=== PATIENT | male | born 1965 | race Caucasian/White ===

== ENCOUNTER 2020-05-07 20:37 | Inpatient (IN) | payer BC, OTHER ==
[2020-05-07] MEDS: NORMAL SALINE 1000 ML 1,000 ML IV PRN ×2 (20:45→22:00)
[2020-05-07] MEDS ORDERED: CALCIUM GLUCONATE 1000 MG/10 ML INJ IV ONE ×4 (20:56→22:00)
[2020-05-07] MEDS ORDERED: NALOXONE HCL INJ 2 MG/2 ML DISP.SYRIN ONE (20:56)
[2020-05-07] MEDS ORDERED: NALOXONE HCL INJ/PF 0.4 MG/1 ML SDV IV ONE (20:58)
[2020-05-07] MEDS ORDERED: LORAZEPAM INJ 2 MG/1 ML VIAL IV ONE (20:58)
[2020-05-07] MEDS ORDERED: ALBUTEROL SULFATE 0.083% NEB 2.5 MG/3 ML AMPUL NEB ONE ×3 (21:40→22:42)
[2020-05-07] MEDS ORDERED: CALCIUM CHLORIDE 10% PF/INJ 1000 MG/10 ML SDV IV ONE (21:40)
[2020-05-07] MEDS ORDERED: DEXTROSE 50%-WATER 25 GM/50 ML DISP.SYRIN IV ONE ×2 (21:42→22:45)
[2020-05-07] MEDS ORDERED: INSULIN REG, HUMAN 100 UNIT/ML 3 ML VIAL (PYX) IV ONE ×2 (21:42→22:42)
--- NOTE | 2020-05-07 21:45 | RADIOLOGY REPORT (SQ) ---
EXAM DESCRIPTION: CT HEAD WITHOUT IV CONTRAST COMPLETED DATE/TME: 05/07/2020 21:15 CLINICAL HISTORY: 54 years, Male, trauma sZ COMPARISON: None. TECHNIQUE: Axial images without IV contrast. Sagittal coronal reconstruction. Images stored on PACS. All CT scanners at this facility use dose modulation, iterative reconstruction, and/or weight based dosing when appropriate to reduce radiation dose to as low as reasonably achievable (ALARA). FINDINGS: Normal size ventricles. No evidence for cortical atrophy. Tiny cavum septa pellucida normal midline variant. Subtle small symmetrical low densities in the internal capsule bilaterally. No acute intra-axial or extra-axial abnormality. Paranasal sinuses, mastoid air cells and bony calvarium are unremarkable. IMPRESSION: 1. Nonspecific subtle low densities in the internal capsule bilaterally. 2. No acute findings. TECHNICAL DOCUMENTATION: Quality ID # 436: Final reports with documentation of one or more dose reduction techniques (e.g., Automated exposure control, adjustment of the mA and/or kV according to patient size, use of iterative reconstruction technique) copyright 2011 [employer]- All Rights Reserved
[2020-05-07] MEDS ORDERED: SODIUM BICARBONATE 8.4% INJ 50 MEQ/50 ML DISP.SYRIN ONE ×2 (21:46→22:47)
[2020-05-07 21:47] LABS: HEMATOCRIT 45.6 % (37.9-51.0); HEMOGLOBIN 14.6 g/dL (13.5-17.0); INTERNATIONAL RATION (INR) 0.95; MEAN CORPUSCULAR HGB CONC 32.1 g/dL (32.0-36.0); MEAN CORPUSCULAR VOLUME 94 fl (80-97); PROTHROMBIN TIME 12.9 SEC (11.4-15.4); RED BLOOD COUNT 4.87 10^6/uL (4.35-5.55); RED CELL DISTRIBUTION WIDTH 16.3 % (11.5-14.0); WHITE BLOOD COUNT 9.4 10^3/uL (4.0-10.5)
[2020-05-07 21:48] LABS: PARTIAL THROMBOPLASTIN TIME 31.5 SEC (23.5-35.8)
[2020-05-07 21:48] LABS: APPEARANCE,URINE SLIGHTLY-CLOUDY; BILIRUBIN,URINE NEGATIVE (NEGATIVE); COLOR,URINE YELLOW; GLUCOSE, URINE 50 mg/dL (NEGATIVE); KETONES,URINE NEGATIVE (NEGATIVE); PROTEIN,URINE 30 mg/dL (NEGATIVE); UROBILINOGEN,URINE NEGATIVE mg/dL (<2.0)
--- NOTE | 2020-05-07 21:48 | RADIOLOGY REPORT (SQ) ---
EXAM DESCRIPTION: CT CERVICAL SPINE WITHOUT IV CONTRAST COMPLETED DATE/TME: 05/07/2020 21:15 CLINICAL HISTORY: 54 years, Male, trauma sZ COMPARISON: None. TECHNIQUE: Axial images without IV contrast. Sagittal coronal reconstruction. Images stored on PACS. All CT scanners at this facility use dose modulation, iterative reconstruction, and/or weight based dosing when appropriate to reduce radiation dose to as low as reasonably achievable (ALARA). FINDINGS: No evidence for fracture dislocation. No suspicious prevertebral soft tissue swelling. Degenerative changes without significant central stenosis. Mild foraminal stenosis at C6 on the left. Anterior osteophytes. IMPRESSION: No acute findings in the cervical spine. TECHNICAL DOCUMENTATION: Quality ID # [id number]: Final reports with documentation of one or more dose reduction techniques (e.g., Automated exposure control, adjustment of the mA and/or kV according to patient size, use of iterative reconstruction technique) copyright 2010 [employer]- All Rights Reserved
--- NOTE | 2020-05-07 21:48 | RADIOLOGY REPORT (SQ) ---
EXAM DESCRIPTION: Site: CHEST SINGLE VIEW RP: XR CHEST 1 VIEW CLINICAL HISTORY: 54 years Male; unresponsive ; COMPARISON: None. FINDINGS: Lungs: Lungs are clear, with no focal infiltrate, pneumothorax, or pleural effusion. Mediastinum: Mediastinum is within normal limits for this positioning. Bones: Bony structures are unremarkable. IMPRESSION: 1. No acute pulmonary findings.
[2020-05-07] MEDS ORDERED: FENTANYL CITRATE INJ/PF 100 MCG/2 ML AMPUL ONE (21:52)
[2020-05-07 21:54] LABS: VENOUS BLOOD BASE EXCESS -10.4 mmol/L; VENOUS BLOOD HCO3 20.7 mmol/L (20-32)
[2020-05-07 21:58] LABS: VENOUS BLOOD PCO2 70.9 mmHg (35-63); VENOUS BLOOD PH 7.08 (7.30-7.42)
[2020-05-07 22:04] LABS: ABSOLUTE LYMPHOCYTES# (MANUAL) 0.2 10^3/uL (0.5-4.7); ABSOLUTE MONOCYTES # (MANUAL) 2.2 10^3/uL (0.1-1.4); BAND NEUTROPHILS % (MANUAL) 5 % (3-5); BASOPHILS % (MANUAL) 0 % (0-2); EOSINOPHILS % (MANUAL) 0 % (0-6); LYMPHOCYTES % (MANUAL) 2 % (13-45); MONOCYTES % (MANUAL) 23 % (3-13); SEGMENTED NEUTROPHILS % (MAN) 70 % (42-78); TOTAL CELLS COUNTED 100
[2020-05-07] MEDS ORDERED: MIDAZOLAM HCL 50 MG/100 ML RTUINJ IV PRN (22:05)
[2020-05-07 22:06] LABS: ANISOCYTOSIS SLIGHT; PLATELET CLUMPS PRESENT; PLATELET COMMENT ADEQUATE; TOXIC GRANULATION SLIGHT; TOXIC VACUOLATION PRESENT
[2020-05-07] MEDS ORDERED: FENTANYL CITRATE INJ/PF 100 MCG/2 ML AMPUL IV ONE (22:06)
[2020-05-07] MEDS ORDERED: VECURONIUM BROMIDE INJ 10 MG VIAL IV ONE (22:06)
[2020-05-07 22:07] LABS: PLATELET COUNT 184 10^3/uL (150-450)
[2020-05-07] MEDS ORDERED: MIDAZOLAM 2 MG/2 ML INJ IV ONE (22:07)
[2020-05-07] MEDS ORDERED: MAGNESIUM SULFATE/D5W 1 GM/100 ML RTUPB IV ONE (22:08)
[2020-05-07 22:11] LABS: URINE AMPHETAMINES SCREEN NEGATIVE; URINE BARBITURATES SCREEN NEGATIVE; URINE BENZODIAZEPINES SCREEN NEGATIVE; URINE COCAINE SCREEN NEGATIVE; URINE MARIJUANA (THC) SCREEN NEGATIVE; URINE METHADONE SCREEN NEGATIVE; URINE PHENCYCLIDINE SCREEN NEGATIVE
[2020-05-07 22:14] LABS: ALBUMIN 4.6 g/dL (3.5-5.0); ALKALINE PHOSPHATASE 136 U/L (38-126); ANION GAP 19 (5-19); BILIRUBIN,DIRECT 0.5 mg/dL (0.0-0.4); BILIRUBIN,TOTAL 0.8 mg/dL (0.2-1.3); BLOOD UREA NITROGEN 37 mg/dL (7-20); CALCIUM 7.8 mg/dL (8.4-10.2); CARBON DIOXIDE 16 mmol/L (22-30); CHLORIDE 94 mmol/L (98-107); GLUCOSE 194 mg/dL (75-110); PHOSPHORUS 11.9 mg/dL (2.5-4.5)
--- NOTE | 2020-05-07 22:21 | EKG REPORT ---
SEVERITY:- ABNORMAL ECG - SINUS RHYTHM FIRST DEGREE AV BLOCK RBBB AND LPFB PROBABLE INFERIOR INFARCT, AGE INDETERMINATE ? 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
--- NOTE | 2020-05-07 22:21 | EKG REPORT ---
SEVERITY:- ABNORMAL ECG - ATRIAL FIBRILLATION VENTRICULAR PREMATURE COMPLEX NONSPECIFIC INTRAVENTRICULAR CONDUCTION DELAY EXTENSIVE ANTERIOR INFARCT, POSSIBLY ACUTE : Confirmed by: Doreen Ward MD 07-May-2020 22:20:58
--- NOTE | 2020-05-07 22:23 | EKG REPORT ---
SEVERITY:- ABNORMAL ECG - SINUS RHYTHM NONSPECIFIC INTRAVENTRICULAR CONDUCTION DELAY ? BRUGADA SYNDROME : Confirmed by: Doreen Ward MD 07-May-2020 22:21:35
[2020-05-07 22:32] LABS: ASPARTATE AMINO TRANSFERASE 1461 U/L (17-59)
[2020-05-07 22:35] LABS: ACETAMINOPHEN < 10 ug/mL (10-30); ALCOHOL < 10 mg/dL (NONE DETECTED); SALICYLATE < 1.0 mg/dL (2.0-20.0)
[2020-05-07 22:36] LABS: POTASSIUM 9.4 mmol/L (3.6-5.0)
[2020-05-07] MEDS ORDERED: DEXTROSE 5%-WATER 1000 ML 1,000 ML with SODIUM BICARBONATE 100 MEQ IV PRN ×2 (22:38)
[2020-05-07] MEDS ORDERED: FUROSEMIDE INJ/PF 100 MG/10 ML SDV IV ONE (22:50)
[2020-05-07] MEDS ORDERED: RINGERS SOLUTION,LACTATED 1,000 ML IV PRN ×2 (22:50→23:20)
--- NOTE | 2020-05-07 22:50 | ER Document Report ---
ED General - General Chief Complaint: Unresponsive Stated Complaint: POSSIBLE OVERDOSE Notes: 54-year-old male history of hypertension, gout, chronic opioid use for ankle pain, heavy daily alcohol use presents with altered mental status x1 day. 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 Patient's says that she went back to check on him shortly before activating EMS and he was still sitting up but completely unresponsive to her, she says t hat his pupils were constricted, and she called EMS. EMS says that patient was obtunded, was given Narcan in the field which he initially seemed to have response to but then became obtunded again and had some seizure-like movements in route. Patient was ventilated with BVM but never had a loss of pulses. Was hyperglycemic in the field. Patient's denies patient having any recent illness, complaining of any chest pain, headache, neck pain, fever, diarrhea or vomiting, renal history (says that he has had multiple episodes of kidney stones in the past but no recent issues and no renal insufficiency history). Patient's said patient just refilled his hydrocodone and that when she looked at his pills they were 1 or 2 days fewer pills than she should have still had. Has had a history of overuse of prescribed opioids. History limited by patient's altered mental status. - Related Data Allergies/Adverse Reactions: No Known Allergies Allergy (Unverified 05/07/20 21:20) Past Medical History - Social History Smoking Status: Unknown if Ever Smoked Frequency of alcohol use: Heavy Drug Abuse: Prescription drugs Family History: Other - Unable Review of Systems - Review of Systems -: Yes ROS unobtainable due to patient's medical condition Physical Exam - Vital signs Vitals: Resp Pulse Ox 14 79 L 05/07/20 20:40 05/07/20 20:40 - Notes Notes: PHYSICAL EXAMINATION: GENERAL: Awake responsive obtunded middle-aged man HEAD: Atraumatic, normocephalic. EYES: Pupils equal round, constricted, sclera anicteric, conjunctiva are normal. ENT: nares patent, moist mucous membranes. NECK: Normal range of motion, supple without lymphadenopathy LUNGS: Breath sounds clear to auscultation bilaterally and equal. No wheezes rales or rhonchi. Protecting airway, normal respiratory excursion and rate, nor mal respiratory effort HEART: Regular rate and rhythm without murmurs ABDOMEN: Soft, nontender, no guarding, no masses, no CVAT EXTREMITIES: Normal range of motion, no pitting or edema. No cyanosis. NEUROLOGICAL: Obtunded, but easily rousable, moaning to pain SKIN: Warm, Dry, normal turgor, no rashes or lesions noted. Course - Re-evaluation Re-evalutation: 05/07/20 23:36 patient had rhythm change on monitor shortly after initial EKG was taken and second EKG was obtained which showed wide-complex concerning for possible hyperkalemia so calcium gluconate 3 g was given and EKG was repeated which showed narrowing of complex and concerning ST changes in V1 through V4 without any reciprocal abnormalities. I spoke to Dr. Ahn regarding this and he evaluated EKGs and we were in agreement that findings were more likely secondary to metabolic/electrolyte abnormalities and not primary cardiac ischemia. Dr. Ward called later after looking at EKGs also and thought that the third EKG possibly showed signs of Brugada, however given patient presentation and significant concerns for other metabolic factors affecting cardiac electrolyte channels agreed that these abnormalities should be corrected before patient needs to have evaluation by EP. I discussed Dr. Nuñez's concern for Brugada with Marissa Ly who will follow this up. Also informed Marissa Ly of patient's potassium of 9.4. Patient accepted to ICU. I have redosed calcium gluconate and patient is being prepared for transfer at this time. Unclear what the etiology is at this time, patient with prior history of kidney stones but no symptoms during the current presentation. Patient intubated without complication on first pass with confirmation by bilateral lung sounds, color change capnography, and patient had no significant desaturations during intubation. - Vital Signs Vital signs: Temp Pulse Resp BP Pulse Ox 101.7 F H 93 7 L 116/84 100 05/09/20 01:48 05/08/20 22:00 05/08/20 20:30 05/08/20 22:01 05/08/20 19:56 - Laboratory Results Result Diagrams: 05/08/20 04:00 05/08/20 22:49 Laboratory Results Interpreted: 05/07/20 05/07/20 05/07/20 20:41 20:42 20:42 RDW 16.3 H Lymphocytes % (Manual) 2 L Monocytes % (Manual) 23 H Abs Lymphs (Manual) 0.2 L Abs Monocytes (Manual) 2.2 H ABG pH ABG pO2 ABG HCO3 ABG Total CO2 ABG O2 Saturation VBG pH VBG pCO2 Sodium 129.2 L Potassium 9.4 H* Chloride 94 L Carbon Dioxide 16 L BUN 37 H Creatinine 4.03 H Est GFR ( Amer) 19 L Est GFR (MDRD) Non-Af 16 L Glucose 194 H POC Glucose 201 H Lactic Acid Calcium 7.8 L Phosphorus 11.9 H Magnesium 2.8 H Direct Bilirubin 0.5 H AST 1461 H ALT 209 H Alkaline Phosphatase 136 H Creatine Kinase 23966 H Urine Protein Urine Glucose (UA) Salicylates < 1.0 L Acetaminophen < 10 L 05/07/20 05/07/20 05/07/20 21:30 21:40 21:40 RDW Lymphocytes % (Manual) Monocytes % (Manual) Abs Lymphs (Manual) Abs Monocytes (Manual) ABG pH ABG pO2 ABG HCO3 ABG Total CO2 ABG O2 Saturation VBG pH 7.08 L* VBG pCO2 70.9 H* Sodium Potassium Chloride Carbon Dioxide BUN Creatinine Est GFR ( Amer) Est GFR (MDRD) Non-Af Glucose POC Glucose Lactic Acid 4.5 H Calcium Phosphorus Magnesium Direct Bilirubin AST ALT Alkaline Phosphatase Creatine Kinase Urine Protein 30 H Urine Glucose (UA) 50 H Salicylates Acetaminophen 05/07/20 23:03 RDW Lymphocytes % (Manual) Monocytes % (Manual) Abs Lymphs (Manual) Abs Monocytes (Manual) ABG pH 7.21 L ABG pO2 250.5 H ABG HCO3 16.2 L ABG Total CO2 17.5 L ABG O2 Saturation 99.4 H VBG pH VBG pCO2 Sodium Potassium Chloride Carbon Dioxide BUN Creatinine Est GFR ( Amer) Est GFR (MDRD) Non-Af Glucose POC Glucose Lactic Acid Calcium Phosphorus Magnesium Direct Bilirubin AST ALT Alkaline Phosphatase Creatine Kinase Urine Protein Urine Glucose (UA) Salicylates Acetaminophen Critical Laboratory Results Reviewed: Yes Attending or Supervising Physician who Reviewed Labs: KIRAN JAEGER - Radiology Results Critical Radiology Results Reviewed: No Critical Results - EKG Interpretation by Me Additional EKG results interpreted by me: 05/09/20 02:12 Initial EKG: Not crossed over to [employer], sinus versus junctional rhythm, no significant ST elevations or depressions, narrow complex, normal intervals Second EKG: Wide-complex rhythm, normal rate, fusion of QRSand T waves, prolonged QTC Third EKG: Complex narrowing, equivocal ST abnormalities in precordial leads possible Brugada, QTC 505 Procedures - Intubation Orotracheal Time of Intubation: 23:30 - 05/07/20 Airway evaluation: Normal anatomy Medications: Etomidate, Fentanyl, Vecuronium Intubation method: Orotracheal Blade type: Ana Blade size: 4 Equipment used: Glidescope ETT size: 8.0 ETT secured at: Lips ETT secured at (cm): 26 Breath Sounds after Intubation: Equal End tidal CO2 confirmed: Yes Ventilator settings: SIMV Post Intubation Xray: Yes Intubation Complications: No complications Critical Care Note - Critical Care Note Total time excluding time spent on procedures (mins): 75 - Spent time repeatedly reassessing and stabilizing critical patient with a severe hyperkalemia Discharge - Discharge Clinical Impression: Hyperkalemia Altered mental status Qualifiers: Altered mental status type: unspecified Qualified Code(s): R41.82 - Altered mental status, unspecified Condition: Critical Disposition: ADMITTED INPATIENT Admitting Provider: Vielka [facility] Admitted: ICU
--- NOTE | 2020-05-07 23:05 | RADIOLOGY REPORT (SQ) ---
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 Comparison: Chest radiograph performed 05/07/2020. Findings: The cardiomediastinal silhouette is enlarged. No pneumothorax is seen. There are bibasilar airspace opacities present. There is blunting of both costophrenic angles, suggestive of trace effusions. An endotracheal tube tip projects approximately 3.0 cm above the emma. The nasogastric tube traverses below the left hemidiaphragm. The side port projects at the stomach. The tip is not seen. Impression: There are bibasilar airspace opacities with trace effusions. These may reflect atelectasis or infection.
[2020-05-07 23:12] LABS: CREATINE KINASE 91787 U/L (55-170)
[2020-05-07] MEDS ORDERED: NORMAL SALINE 1000 ML 1,000 ML IV PRN (23:17)
[2020-05-07] MEDS ORDERED: IPRATROPIUM/ALBUTEROL 0.5-2.5 MG/3 ML AMPUL NEB PRN (23:20)
[2020-05-07] MEDS ORDERED: PROPOFOL 1,000 MG/100 ML INFUS..BTL IV PRN (23:20)
[2020-05-07] MEDS ORDERED: ACETAMINOPHEN 650 MG SUPP.RECT PR PRN (23:20)
[2020-05-07 23:25] LABS: ARTERIAL BLOOD FIO2 100%; ARTERIAL BLOOD H2CO3 1.24 mmol/L (1.05-1.35); ARTERIAL BLOOD HCO3 16.2 mmol/L (20-24); ARTERIAL BLOOD O2 SATURATION 99.4 % (94-98); ARTERIAL BLOOD PCO2 41.2 mmHg (35-45); ARTERIAL BLOOD PH 7.21 (7.35-7.45); ARTERIAL BLOOD PO2 250.5 mmHg (80-100); ARTERIAL BLOOD TOTAL CO2 17.5 mmol/L (23-27)
[2020-05-08 00:07] LABS: ARTERIAL BLOOD BASE EXCESS -12.3 mmol/L; ARTERIAL BLOOD H2CO3 1.48 mmol/L (1.05-1.35); ARTERIAL BLOOD HCO3 16.6 mmol/L (20-24); ARTERIAL BLOOD O2 SATURATION 98.7 % (94-98); ARTERIAL BLOOD PCO2 49.2 mmHg (35-45); ARTERIAL BLOOD PO2 169.3 mmHg (80-100); ARTERIAL BLOOD TOTAL CO2 18.1 mmol/L (23-27)
[2020-05-08 00:08] LABS: ARTERIAL BLOOD FIO2 100%; ARTERIAL BLOOD PH 7.15 (7.35-7.45)
[2020-05-08] MEDS ORDERED: SODIUM BICARBONATE 8.4% INJ 50 MEQ/50 ML DISP.SYRIN ONE ×3 (00:12→03:43)
[2020-05-08] MEDS ORDERED: SODIUM BICARBONATE 8.4% INJ 50 MEQ/50 ML DISP.SYRIN IV ONE ×5 (00:15→03:45)
[2020-05-08] MEDS ORDERED: LORAZEPAM INJ 2 MG/1 ML VIAL IV ONE ×2 (00:23→00:40)
[2020-05-08] MEDS: LORAZEPAM INJ 2 MG/1 ML VIAL IV ONE ×2 (00:23→06:00)
[2020-05-08] MEDS ORDERED: LORAZEPAM INJ 2 MG/1 ML VIAL ONE ×2 (00:23→00:38)
[2020-05-08] MEDS ORDERED: PROPOFOL 1,000 MG/100 ML INFUS..BTL IV ONE (00:49)
[2020-05-08] MEDS ORDERED: NORMAL SALINE 1000 ML 1,000 ML IV ONE ×2 (00:50→02:00)
[2020-05-08] MEDS: PROPOFOL 1,000 MG/100 ML INFUS..BTL IV PRN ×3 (00:55→22:00)
[2020-05-08] MEDS ORDERED: NOREPINEPHRINE BITARTRATE INJ/PF 4 MG/4 ML SDV IV ONE (01:13)
[2020-05-08] MEDS ORDERED: VECURONIUM BROMIDE INJ 10 MG VIAL IV ONE (01:24)
[2020-05-08] MEDS ORDERED: ETOMIDATE INJ/PF 20 MG/10 ML SDV IV ONE (01:24)
[2020-05-08] MEDS: DEXTROSE 5%-WATER 250 ML with NOREPINEPHRINE BITARTRATE 4 MG IV PRN ×6 (02:30→19:15)
[2020-05-08] MEDS ORDERED: CALCIUM CHLORIDE 10% PF/INJ 1000 MG/10 ML SDV IV ONE (03:00)
[2020-05-08] MEDS ORDERED: DEXTROSE 50%-WATER 25 GM/50 ML DISP.SYRIN IV ONE ×2 (03:00→03:13)
[2020-05-08] MEDS ORDERED: INSULIN REG, HUMAN 100 UNIT/ML 3 ML VIAL (PYX) SUBCUT ONE (03:00)
[2020-05-08] MEDS ORDERED: INSULIN REG, HUMAN 100 UNIT/ML 3 ML VIAL (PYX) ONE (03:11)
[2020-05-08] MEDS ORDERED: CALCIUM GLUCONATE 1000 MG/10 ML INJ IV ONE (03:14)
[2020-05-08 04:56] LABS: HEMOGLOBIN 13.8 g/dL (13.5-17.0); MEAN CORPUSCULAR HEMOGLOBIN 29.1 pg (27.0-33.4); MEAN CORPUSCULAR HGB CONC 31.4 g/dL (32.0-36.0); MEAN CORPUSCULAR VOLUME 93 fl (80-97); PLATELET COUNT 134 10^3/uL (150-450); RED BLOOD COUNT 4.75 10^6/uL (4.35-5.55); RED CELL DISTRIBUTION WIDTH 16.3 % (11.5-14.0); WHITE BLOOD COUNT 9.5 10^3/uL (4.0-10.5)
--- NOTE | 2020-05-08 05:17 | RADIOLOGY REPORT (SQ) ---
CHEST X-RAY 1 VIEW on 05/08/2020 at 1:33 AM CLINICAL INDICATION: Respiratory failure, intubated, line placement COMPARISON: 05/07/2020 FINDINGS: ET tube tip is in the mid thoracic trachea. NG tube extends below the diaphragm and below the level of this film. A few wires are noted projecting over the chest. New right IJ central venous catheter tip is in the right atrium. There is mild elevation of the right hemidiaphragm. There are continued bilateral lower lung opacities consistent with atelectasis and/or pneumonia. Heart is within normal limits for size. There is no pneumothorax. IMPRESSION: New right IJ catheter tip in the right atrium with no pneumothorax and otherwise no significant change.
[2020-05-08 05:19] LABS: ABSOLUTE LYMPHOCYTES# (MANUAL) 0.5 10^3/uL (0.5-4.7); ABSOLUTE MONOCYTES # (MANUAL) 0.6 10^3/uL (0.1-1.4); BAND NEUTROPHILS % (MANUAL) 9 % (3-5); BASOPHILS % (MANUAL) 0 % (0-2); EOSINOPHILS % (MANUAL) 0 % (0-6); LYMPHOCYTES % (MANUAL) 5 % (13-45); MONOCYTES % (MANUAL) 6 % (3-13); SEGMENTED NEUTROPHILS % (MAN) 80 % (42-78); TOTAL CELLS COUNTED 100
[2020-05-08 05:20] LABS: ALBUMIN 2.5 g/dL (3.5-5.0); ALKALINE PHOSPHATASE 97 U/L (38-126); AMYLASE 156 U/L (30-110); ANION GAP 16 (5-19); ANISOCYTOSIS 1+; BILIRUBIN,DIRECT 0.3 mg/dL (0.0-0.4); BILIRUBIN,TOTAL 0.7 mg/dL (0.2-1.3); BLOOD UREA NITROGEN 40 mg/dL (7-20); BURR CELLS SLIGHT; CALCIUM 7.2 mg/dL (8.4-10.2); CARBON DIOXIDE 16 mmol/L (22-30); CHLORIDE 103 mmol/L (98-107); CHOLESTEROL 81.39 mg/dL (0-200); GLUCOSE 250 mg/dL (75-110); OVALOCYTES SLIGHT; POIKILOCYTOSIS SLIGHT; POLYCHROMASIA SLIGHT; SCHISTOCYTES SLIGHT; TOTAL PROTEIN 4.9 g/dL (6.3-8.2); TOXIC GRANULATION SLIGHT; TRIGLYCERIDES 209 mg/dL (<150)
--- NOTE | 2020-05-08 05:20 | CRITICAL CARE ADMISSION REPORT ---
HPI Date:: 05/07/20 Time:: 23:00 Reason for ICU Reason:: Altered MS, Acute Resp. Failure, Opiod OD, Abnormal EKG ( wide complex ) Admission Date/Time & PCP: Admission Date/Time: 05/07/20 23:08 Primary Care Provider: ANTONIO MAJOR MD HPI: 54-year-old male history of hypertension, gout, chronic opioid use for ankle pain, heavy daily alcohol use presents with altered mental status x1 day. 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 Patient's says that she went back to check on him shortly before activating EMS and he was still sitting up but completely unresponsive to her, she says that his pupils were constricted, and she called EMS. EMS says that patient was obtunded, was given Narcan in the field which he initially seemed to have response to but then became obtunded again and had some seizure-like movements in route. Patient was ventilated with BVM but never had a loss of pulses. Was hyperglycemic in the field. Patient's denies patient having any recent illness, complaining of any chest pain, headache, neck pain, fever, diarrhea or vomiting, renal history (says that he has had multiple episodes of kidney stones in the past but no recent issues and no renal insufficiency history). Patient's said patient just refilled his hydrocodone and that when she looked at his pills they were 1 or 2 days fewer pills than she should have still had. Has had a history of overuse of prescribed opioids. History limited by patient's altered mental status. He received another dose of narcan which did not helped, he remains obtunded then required to be intubated to protect his airways. His EKG noted a widening rhtymn which dissipated after a dose of calcium IV, mostly @ V1 - V3. History obtained from:: - Diagnosis/Plan (1) Overdose Qualifiers: Encounter type: subsequent encounter Injury intent: accidental or unintentional Qualified Code(s): T50.901D - Poisoning by unspecified drugs, medicaments and biological substances, accidental (unintentional), subsequent encounter Is this a current diagnosis for this admission?: Yes Plan: Patient arrived altered mental state. Intubated for airway protection. ABG to correct and monitor acidosis. (2) Respiratory failure with hypoxia and hypercapnia Qualifiers: Chronicity: acute Qualified Code(s): J96.01 - Acute respiratory failure with hypoxia; J96.02 - Acute respiratory failure with hypercapnia Is this a current diagnosis for this admission?: Yes Plan: Intubated due to altered MS and obtunded. ABG - adjust MV settings (3) EtOH dependence Qualifiers: Substance use status: unspecified alcohol-induced disorder Qualified Code(s): F10.29 - Alcohol dependence with unspecified alcohol-induced disorder Is this a current diagnosis for this admission?: Yes Plan: Per he consumes 1/2 gallon of crown whiskey every other day. (4) EKG, abnormal Is this a current diagnosis for this admission?: Yes Plan: Abnormal EKG upon arrival in the ED with elevated ST @ V1- V3. Resolved after c a+ and Nahco3 IV given (5) Altered mental status Qualifiers: Altered mental status type: unspecified Qualified Code(s): R41.82 - Altered mental status, unspecified Is this a current diagnosis for this admission?: Yes Plan: Arrived in ED with AMS. Intubated. CT head negative (6) Hyperkalemia Is this a current diagnosis for this admission?: Yes Plan: Initial K+ 9.2; Calcium IV , Nahco3 IV given. Humulin R nad D50 given BMP every 4 hours. Monitor EKG for any abnormality (7) Rhabdomyolysis Qualifiers: Rhabdomyolysis type: traumatic Encounter type: initial encounter Qualified Code(s): T79.6XXA - Traumatic ischemia of muscle, initial encounter Is this a current diagnosis for this admission?: Yes Plan: IV fluid boluses Monitor BUN/Creatine Monitor CK level Past Medical History Cardiac Medical History: Reports: Hypertension Pulmonary Medical History: Reports: Chronic Obstructive Pulmonary Disease (COPD) EENT Medical History: Reports: None Neurological Medical History: Reports: None Renal/ Medical History: Reports: None GI Medical History: Reports: None Psychiatric Medical History: Reports: Alcohol Dependency, Depression Traumatic Medical History: Reports: None Hematology: Reports: None Infectious Medical History: Reports: None Past Surgical History Past Surgical History: Reports: Orthopedic Surgery Social/Family History - Social History Lives with: Family, Spouse/Significant other Smoking Status: Unknown if Ever Smoked Frequency of Alcohol Use: Heavy - per 1/2 gallon of crown whiskey every other day Hx Prescription Drug Abuse: Yes - Medication/Allergies Allergies/Adverse Reactions: No Known Allergies Allergy (Unverified 05/07/20 21:20) Review of Systems ROS unobtainable: Due to endotracheal tube Physical Exam Vital Signs: Temp Pulse Resp BP Pulse Ox 97.9 F 109 H 16 111/98 H 100 05/07/20 20:50 05/07/20 20:50 05/07/20 23:15 05/07/20 23:15 05/07/20 22:15 Intake & Output 05/06/20 05/07/20 05/08/20 06:59 06:59 06:59 Intake Total 1999 Balance 1999 Weight 121.3 kg Weight/Height Weight 121.3 kg Height 6 ft Head exam: PRESENT: atraumatic, normocephalic Eye exam: PRESENT: conjunctival injection, PERRLA Ear exam: PRESENT: normal external ear exam Mouth exam: PRESENT: laceration, neck supple, tongue midline Respiratory exam: PRESENT: clear to auscultation bernard, decreased breath sounds, rales Cardiovascular exam: PRESENT: RRR, +S1, +S2 Pulses: PRESENT: normal carotid pulses Vascular exam: PRESENT: normal capillary refill GI/Abdominal exam: PRESENT: hypoactive bowel sounds, soft Rectal exam: PRESENT: deferred Gentrourinary exam: PRESENT: indwelling catheter Extremities exam: PRESENT: pedal edema, +1 edema Laboratory/Radiographs Laboratory Results: 05/07/20 20:42 05/07/20 20:42 05/07/20 05/07/20 05/07/20 20:42 20:42 20:42 WBC 9.4 RBC 4.87 Hgb 14.6 Hct 45.6 MCV 94 MCH 30.0 MCHC 32.1 RDW 16.3 H Plt Count 184 Seg Neutrophils % Not Reportable Carbonic Acid HCO3/H2CO3 Ratio ABG pH ABG pCO2 ABG pO2 ABG HCO3 ABG O2 Saturation ABG Base Excess VBG pH VBG pCO2 VBG HCO3 VBG Base Excess FiO2 Sodium 129.2 L Potassium 9.4 H* Chloride 94 L Carbon Dioxide 16 L Anion Gap 19 BUN 37 H Creatinine 4.03 H Est GFR ( Amer) 19 L Glucose 194 H Lactic Acid Calcium 7.8 L Phosphorus 11.9 H Magnesium 2.8 H Total Bilirubin 0.8 AST 1461 H Alkaline Phosphatase 136 H Total Protein 8.0 Albumin 4.6 TSH 4.44 Urine Color Urine Appearance Urine pH Ur Specific [place] Urine Protein Urine Glucose (UA) Urine Ketones Urine Blood Urine RBC (Auto) 05/07/20 05/07/20 05/07/20 21:30 21:40 21:40 WBC RBC Hgb Hct MCV MCH MCHC RDW Plt Count Seg Neutrophils % Carbonic Acid HCO3/H2CO3 Ratio ABG pH ABG pCO2 ABG pO2 ABG HCO3 ABG O2 Saturation ABG Base Excess VBG pH 7.08 L* VBG pCO2 70.9 H* VBG HCO3 20.7 VBG Base Excess -10.4 FiO2 Sodium Potassium Chloride Carbon Dioxide Anion Gap BUN Creatinine Est GFR ( Amer) Glucose Lactic Acid 4.5 H Calcium Phosphorus Magnesium Total Bilirubin AST Alkaline Phosphatase Total Protein Albumin TSH Urine Color YELLOW Urine Appearance SLIGHTLY-CLOUDY Urine pH 5.0 Ur Specific [place] 1.020 Urine Protein 30 H Urine Glucose (UA) 50 H Urine Ketones NEGATIVE Urine Blood NEGATIVE Urine RBC (Auto) 4 05/07/20 23:03 WBC RBC Hgb Hct MCV MCH MCHC RDW Plt Count Seg Neutrophils % Carbonic Acid 1.24 HCO3/H2CO3 Ratio 13:1 ABG pH 7.21 L ABG pCO2 41.2 ABG pO2 250.5 H ABG HCO3 16.2 L ABG O2 Saturation 99.4 H ABG Base Excess -11.0 VBG pH VBG pCO2 VBG HCO3 VBG Base Excess FiO2 100% Sodium Potassium Chloride Carbon Dioxide Anion Gap BUN Creatinine Est GFR ( Amer) Glucose Lactic Acid Calcium Phosphorus Magnesium Total Bilirubin AST Alkaline Phosphatase Total Protein Albumin TSH Urine Color Urine Appearance Urine pH Ur Specific [place] Urine Protein Urine Glucose (UA) Urine Ketones Urine Blood Urine RBC (Auto) 05/07/20 05/07/20 20:42 20:42 Creatine Kinase 80332 H Troponin I < 0.012 Impressions: Cervical Spine CT 05/07/20 20:51 IMPRESSION: No acute findings in the cervical spine. TECHNICAL DOCUMENTATION: Quality ID # 436: Final reports with documentation of one or more dose reduction techniques (e.g., Automated exposure control, adjustment of the mA and/or kV according to patient size, use of iterative reconstruction technique) copyright 2011 [employer]- All Rights Reserved Head CT 12/14/20 20:51 IMPRESSION: 1. Nonspecific subtle low densities in the internal capsule bilaterally. 2. No acute findings. TECHNICAL DOCUMENTATION: Quality ID # 436: Final reports with documentation of one or more dose reduction techniques (e.g., Automated exposure control, adjustment of the mA and/or kV according to patient size, use of iterative reconstruction technique) copyright 2011 [employer]- All Rights Reserved All labs, radiographs, diagnostic studies and EKGs were personally reviewed: Yes In addition, reports of radiographic and diagnostic studies were read: Yes Critical Time Critical Time (minutes): 60 -: The care of a critically ill patient is dynamic. This note represents a static moment in the admission process. Orders and treatments may be given simultaneously and urgently, and time is not personal service representative of the treatment process. This patient requires Critical Care secondary to life threatening organ or limb dysfunction. Without Critical Care services, the patient is at risk for increased mortality and morbidity.
[2020-05-08 05:21] LABS: PLATELET COMMENT ADEQUATE
--- NOTE | 2020-05-08 05:23 | Operative Report ---
Bedside Procedure - History of Present Illness Indication for Procedure: frequent Blood draw, vasopressore and fluid res usciation Provider: CASS EATON - Central Line Right Internal jugular Time completed: 01:30 Consent obtained: Yes Central line pre-insertion: Sterile PPE donned, Chloraprep applied, Sterile drapes applied Central line size (Fr.): 7 Central line lumen type: Triple Anesthetic type: 1% Lidocaine mL's of anesthesia: 7 Ultrasound guided: Yes Line secured with sutures: Yes Central line post-insertion: Blood return from lumens, Biopatch applied, Sutured, Sterile dressing applied, Position confirmed w/ CXR Number of attempts: 1 Complications: No
[2020-05-08 05:31] LABS: NT PRO BNP 282 pg/mL (<125)
[2020-05-08 05:32] LABS: ARTERIAL BLOOD BASE EXCESS -14.9 mmol/L; ARTERIAL BLOOD H2CO3 1.04 mmol/L (1.05-1.35); ARTERIAL BLOOD HCO3 12.5 mmol/L (20-24); ARTERIAL BLOOD O2 SATURATION 96.2 % (94-98); ARTERIAL BLOOD PCO2 34.7 mmHg (35-45); ARTERIAL BLOOD PO2 102.2 mmHg (80-100); ARTERIAL BLOOD TOTAL CO2 13.6 mmol/L (23-27)
[2020-05-08 05:52] LABS: ARTERIAL BLOOD FIO2 60%; ARTERIAL BLOOD PH 7.18 (7.35-7.45)
[2020-05-08 06:14] LABS: DIRECT LDL < 30 mg/dL (<100); VLDL CHOLESTEROL 41.8 mg/dL (10-31)
[2020-05-08 06:15] LABS: POTASSIUM 6.4 mmol/L (3.6-5.0)
[2020-05-08 06:16] LABS: TROPONIN I < 0.012 ng/mL
[2020-05-08] MEDS: HEPARIN SOD (PORCINE) 5,000 UNIT/ML 1 ML VIAL SUBCUT SCH ×3 (06:21→21:29)
[2020-05-08 06:41] LABS: INTERNATIONAL RATION (INR) 1.05; PROTHROMBIN TIME 13.9 SEC (11.4-15.4)
[2020-05-08] MEDS: PANTOPRAZOLE SODIUM 40 MG VIAL IV SCH ×3 (06:45→21:29)
[2020-05-08] MEDS: DEXTROSE 5%-WATER 1000 ML 1,000 ML with SODIUM BICARBONATE 150 MEQ IV PRN ×6 (06:48→18:06)
[2020-05-08 06:52] LABS: ASPARTATE AMINO TRANSFERASE 2260 U/L (17-59)
[2020-05-08 07:19] LABS: ARTERIAL BLOOD BASE EXCESS -8.1 mmol/L; ARTERIAL BLOOD H2CO3 1.28 mmol/L (1.05-1.35); ARTERIAL BLOOD HCO3 18.6 mmol/L (20-24); ARTERIAL BLOOD O2 SATURATION 99.3 % (94-98); ARTERIAL BLOOD PCO2 42.5 mmHg (35-45); ARTERIAL BLOOD PH 7.26 (7.35-7.45); ARTERIAL BLOOD PO2 222.2 mmHg (80-100); ARTERIAL BLOOD TOTAL CO2 19.9 mmol/L (23-27)
[2020-05-08 07:21] LABS: ARTERIAL BLOOD FIO2 60%
[2020-05-08] MEDS: DOCUSATE SODIUM 100 MG CAPSULE PO SCH ×2 (09:22→17:31)
[2020-05-08] MEDS: RINGERS SOLUTION,LACTATED 1,000 ML IV PRN ×3 (12:30→20:19)
[2020-05-08 12:51] LABS: ANION GAP 9 (5-19); BLOOD UREA NITROGEN 47 mg/dL (7-20); CARBON DIOXIDE 24 mmol/L (22-30); CHLORIDE 96 mmol/L (98-107); GLUCOSE 265 mg/dL (75-110)
[2020-05-08 13:04] LABS: TROPONIN I < 0.012 ng/mL
[2020-05-08 13:05] LABS: CALCIUM 6.3 mg/dL (8.4-10.2); POTASSIUM 6.1 mmol/L (3.6-5.0)
[2020-05-08] MEDS ORDERED: CALCIUM GLUC IN NACL, ISO-OSM 1 GM/50 ML RTUPB IV ONE (13:30)
--- NOTE | 2020-05-08 14:19 | EKG REPORT ---
SEVERITY:- BORDERLINE ECG - SINUS TACHYCARDIA PROBABLE LEFT ATRIAL ABNORMALITY : Confirmed by: Doreen Ward MD 08-May-2020 14:18:04
--- NOTE | 2020-05-08 14:19 | EKG REPORT ---
SEVERITY:- BORDERLINE ECG - SINUS RHYTHM BORDERLINE R WAVE PROGRESSION, ANTERIOR LEADS : Confirmed by: Doreen Ward MD 08-May-2020 14:18:00
[2020-05-08 15:41] LABS: AMORPHOUS SEDIMENT,URINE TRACE /HPF; APPEARANCE,URINE CLOUDY; BILIRUBIN,URINE NEGATIVE (NEGATIVE); COLOR,URINE AMBER; GLUCOSE, URINE 50 mg/dL (NEGATIVE); KETONES,URINE NEGATIVE (NEGATIVE); PROTEIN,URINE 100 mg/dL (NEGATIVE); URINE SPECIFIC GRAVITY 1.026; UROBILINOGEN,URINE NEGATIVE mg/dL (<2.0)
--- NOTE | 2020-05-08 16:11 | RADIOLOGY REPORT (SQ) ---
EXAM DESCRIPTION: ARTERIAL LOWER EXTREM BILAT IMAGES COMPLETED DATE/TIME: 05/08/2020 4:02 pm REASON FOR STUDY: limb ischemia COMPARISON: None. TECHNIQUE: Dynamic and static page scale and color images acquired of the lower extremity arteries. Additional selected spectral images recorded. LIMITATIONS: None. FINDINGS: RIGHT LEG: INFLOW ARTERIES: Not imaged. FEMORAL ARTERIES:Multiphasic waveforms. Normal, no velocity elevation to suggest focal stenosis. Norm al color Doppler evaluation. No aneurysm. POPLITEAL ARTERY:Multiphasic waveforms. Normal, no velocity elevation to suggest focal stenosis. Norm al color Doppler evaluation. No aneurysm. PATENT TIBIOPERONEAL TRUNK AND 3 VESSEL RUNOFF: Two-vessel runoff. Peroneal artery not visualized. OTHER: No other significant finding. LEFT LEG: INFLOW ARTERIES: Not imaged. FEMORAL ARTERIES:Multiphasic waveforms. Normal, no velocity elevation to suggest focal stenosis. Norm al color Doppler evaluation. No aneurysm. POPLITEAL ARTERY:Multiphasic waveforms. Normal, no velocity elevation to suggest focal stenosis. Norm al color Doppler evaluation. No aneurysm. PATENT TIBIOPERONEAL TRUNK AND 3 VESSEL RUNOFF: Two-vessel runoff. Peroneal artery not visualized. OTHER: No other significant finding. IMPRESSION: Bilateral small vessel disease. No significant stenosis above the knee. TECHNICAL DOCUMENTATION: JOB ID: [id number] 2010 [employer]- All Rights Reserved Reading location - IP/workstation name: [email or web address]
[2020-05-08 18:49] LABS: ANION GAP 12 (5-19); BLOOD UREA NITROGEN 49 mg/dL (7-20); CARBON DIOXIDE 23 mmol/L (22-30); CHLORIDE 93 mmol/L (98-107); GLUCOSE 268 mg/dL (75-110)
[2020-05-08 19:00] LABS: POTASSIUM 6.1 mmol/L (3.6-5.0)
[2020-05-08] MEDS ORDERED: VANCOMYCIN HCL 0 MG in DEXTROSE 5%-WATER 250 ML IV NR (19:00)
[2020-05-08 19:08] LABS: ARTERIAL BLOOD BASE EXCESS 0.7 mmol/L; ARTERIAL BLOOD H2CO3 1.36 mmol/L (1.05-1.35); ARTERIAL BLOOD HCO3 26.2 mmol/L (20-24); ARTERIAL BLOOD O2 SATURATION 75.2 % (94-98); ARTERIAL BLOOD PCO2 45.1 mmHg (35-45); ARTERIAL BLOOD PH 7.38 (7.35-7.45); ARTERIAL BLOOD TOTAL CO2 27.6 mmol/L (23-27)
[2020-05-08 19:09] LABS: ARTERIAL BLOOD FIO2 60%
[2020-05-08] MEDS ORDERED: FUROSEMIDE INJ/PF 40 MG/4 ML SDV IV ONE (19:15)
[2020-05-08] MEDS: ALBUTEROL SULFATE 0.083% NEB 2.5 MG/3 ML AMPUL NEB SCH (19:56)
[2020-05-08] MEDS ORDERED: GLUCAGON,HUMAN RECOMB 1 MG INJ IM PRN (20:15)
[2020-05-08] MEDS ORDERED: DEXTROSE 50%-WATER 25 GM/50 ML DISP.SYRIN IV PRN ×2 (20:15)
[2020-05-08] MEDS ORDERED: DEXTROSE 40% GEL 15 GM TUBE PO PRN ×2 (20:15)
[2020-05-08] MEDS: PIPERACILLIN SODIUM/TAZOBACTAM 2.25 GM in NORMAL SALINE 50 ML IV SCH (21:25)
[2020-05-08] MEDS: NORMAL SALINE 100 ML with INSULIN REGULAR, HUMAN 100 UNIT IV PRN ×2 (21:47)
[2020-05-08] MEDS: VANCOMYCIN HCL 750 MG in DEXTROSE 5%-WATER 250 ML IV SCH (22:04)
[2020-05-08 23:23] LABS: ANION GAP 5 (5-19); BLOOD UREA NITROGEN 52 mg/dL (7-20); CARBON DIOXIDE 29 mmol/L (22-30); CHLORIDE 91 mmol/L (98-107); GLUCOSE 271 mg/dL (75-110); POTASSIUM 5.9 mmol/L (3.6-5.0)
[2020-05-09 00:19] LABS: ARTERIAL BLOOD BASE EXCESS -1.1 mmol/L; ARTERIAL BLOOD FIO2 60%; ARTERIAL BLOOD H2CO3 1.11 mmol/L (1.05-1.35); ARTERIAL BLOOD O2 SATURATION 99.1 % (94-98); ARTERIAL BLOOD PCO2 36.9 mmHg (35-45); ARTERIAL BLOOD PH 7.41 (7.35-7.45); ARTERIAL BLOOD PO2 163.2 mmHg (80-100); ARTERIAL BLOOD TOTAL CO2 24.2 mmol/L (23-27)
[2020-05-09] MEDS: NORMAL SALINE 1000 ML 1,000 ML IV PRN ×11 (00:20→22:03)
[2020-05-09] MEDS: DEXTROSE 5%-WATER 1000 ML 1,000 ML with SODIUM BICARBONATE 150 MEQ IV PRN ×4 (02:18→19:30)
[2020-05-09] MEDS: DEXTROSE 5%-WATER 250 ML with NOREPINEPHRINE BITARTRATE 4 MG IV PRN ×4 (02:26→12:41)
[2020-05-09] MEDS: PIPERACILLIN SODIUM/TAZOBACTAM 2.25 GM in NORMAL SALINE 50 ML IV SCH ×4 (02:28→20:43)
[2020-05-09] MEDS: ALBUTEROL SULFATE 0.083% NEB 2.5 MG/3 ML AMPUL NEB SCH ×4 (02:34→20:15)
[2020-05-09 04:12] LABS: ABSOLUTE LYMPHOCYTES (AUTO) 0.5 10^3/uL (0.5-4.7); ABSOLUTE MONOCYTES (AUTO) 0.7 10^3/uL (0.1-1.4); BASOPHILS % (AUTO) 0.1 % (0-2); HEMATOCRIT 40.8 % (37.9-51.0); HEMOGLOBIN 13.3 g/dL (13.5-17.0); LYMPHOCYTES % (AUTO) 5.3 % (13-45); MEAN CORPUSCULAR HEMOGLOBIN 29.3 pg (27.0-33.4); MEAN CORPUSCULAR HGB CONC 32.6 g/dL (32.0-36.0); MEAN CORPUSCULAR VOLUME 90 fl (80-97); MONOCYTES % (AUTO) 6.4 % (3-13); PLATELET COUNT 125 10^3/uL (150-450); RED BLOOD COUNT 4.53 10^6/uL (4.35-5.55); RED CELL DISTRIBUTION WIDTH 16.4 % (11.5-14.0); SEGMENTED NEUTROPHILS % (AUTO) 88.2 % (42-78); TOTAL CELLS COUNTED % (AUTO) 100 %; WHITE BLOOD COUNT 10.3 10^3/uL (4.0-10.5)
[2020-05-09 04:19] LABS: ALBUMIN 1.9 g/dL (3.5-5.0); ALKALINE PHOSPHATASE 97 U/L (38-126); ANION GAP 9 (5-19); BILIRUBIN,DIRECT 0.2 mg/dL (0.0-0.4); BILIRUBIN,TOTAL 0.5 mg/dL (0.2-1.3); BLOOD UREA NITROGEN 54 mg/dL (7-20); CARBON DIOXIDE 27 mmol/L (22-30); CHLORIDE 91 mmol/L (98-107); GLUCOSE 201 mg/dL (75-110); POTASSIUM 5.4 mmol/L (3.6-5.0); TOTAL PROTEIN 3.9 g/dL (6.3-8.2)
[2020-05-09 05:24] LABS: ARTERIAL BLOOD BASE EXCESS 0.3 mmol/L; ARTERIAL BLOOD FIO2 50%; ARTERIAL BLOOD H2CO3 1.21 mmol/L (1.05-1.35); ARTERIAL BLOOD HCO3 24.9 mmol/L (20-24); ARTERIAL BLOOD O2 SATURATION 95.8 % (94-98); ARTERIAL BLOOD PCO2 40.3 mmHg (35-45); ARTERIAL BLOOD PH 7.41 (7.35-7.45); ARTERIAL BLOOD PO2 79.3 mmHg (80-100); ARTERIAL BLOOD TOTAL CO2 26.2 mmol/L (23-27)
[2020-05-09] MEDS: CALCIUM GLUC IN NACL, ISO-OSM 1 GM/50 ML RTUPB IV SCH ×4 (05:36→15:34)
[2020-05-09 05:51] LABS: ASPARTATE AMINO TRANSFERASE 1877 U/L (17-59)
[2020-05-09 05:52] LABS: CALCIUM 5.9 mg/dL (8.4-10.2)
[2020-05-09] MEDS: HEPARIN SOD (PORCINE) 5,000 UNIT/ML 1 ML VIAL SUBCUT SCH ×3 (05:57→22:16)
[2020-05-09] MEDS: PROPOFOL 1,000 MG/100 ML INFUS..BTL IV PRN ×2 (06:01→19:43)
[2020-05-09 06:17] LABS: CREATINE KINASE 128134 U/L (55-170)
--- NOTE | 2020-05-09 08:31 | RADIOLOGY REPORT (SQ) ---
EXAM DESCRIPTION: CHEST SINGLE VIEW IMAGES COMPLETED DATE/TIME: 05/09/2020 6:14 am REASON FOR STUDY: Respiratory Failure COMPARISON: None. EXAM PARAMETERS: NUMBER OF VIEWS: One view. TECHNIQUE: An AP view of the chest was obtained. RADIATION DOSE: NA LIMITATIONS: None. FINDINGS: LUNGS AND PLEURA: Bilateral basilar pleural and parenchymal opacities that are associated with blunting of the costophrenic sulci. There is no pneumothorax. MEDIASTINUM AND HILAR STRUCTURES: No mediastinal or hilar contour abnormality. HEART AND VASCULAR STRUCTURES: The cardiac silhouette is within normal limits given the low inspirato ry lung volumes. BONES: No acute findings. HARDWARE: The tip of the endotracheal tube projects 3.9 cm above the emma. The tip of the right IJ central venous catheter projects at the level of the cavoatrial junction. The tip of the enteric tu be projects past the gastroesophageal junction and outside the field of view of the radiograph. OTHER: No other finding. IMPRESSION: 1. Tubes and lines as above. 2. Bilateral basilar pleural and parenchymal opacities that could represent a combination of pleural fluid and atelectasis. Clinical correlation to exclude a superimposed pneumonia is recommended. TECHNICAL DOCUMENTATION: JOB ID: [id number] 2010 [employer]- All Rights Reserved Reading location - IP/workstation name: [email or web address]
--- NOTE | 2020-05-09 08:45 | PDOC CRITICAL CARE PROG REPORT ---
General Date:: 05/08/20 ICU Day:: 2 Ventilator Day:: 2 Hospital Day:: 2 Resuscitation Status: Full Code Events in the past 12 to 24 Hours:: This 54-year-old male presented to [facility] emergency department via EMS on 05/07/2020 with altered mental status. Basically, the patient has an unknown. Of unresponsiveness, as he was initially believed to be sleeping but raised concern to his when he was found to still be in the same position over 12 hours later. The reports that the his pupils were constricted at the time she called EMS. EMS arrived and found the patient to be obtunded. Narcan was given in the field. Although he was assessed to have a favorable response to Narcan initially, he subsequently demonstrated seizure- like movements on route. He was provided bag mask ventilatory support. No loss of pulse or pressure. However, in the emergency department he again demonstrated obtunded/altered mental status. He was given another dose of Narcan, which was not convincingly helpful. He was intubated in the emergency department. He was started on norepinephrine infusion for blood pressure support. Initial laboratory evaluation was compatible with acute kidney injury and rhabdomyolysis with CK total peaking at 152,203. He also had a severe metabolic acidosis with an elevated anion gap. Lactate level was elevated. Urine drug screen was positive for opiates. Alcohol level was undetectable ( reports he admits to consistent alcohol consumption for analgesic effect, although she believes his last drink was almost 7 days ago). 05/08: Remains intubated. On Levophed. Review of systems relevant to events:: Neurologic: Altered mental status Respiratory: Endotracheally intubated Musculoskeletal: Rhabdomyolysis Neuropsychiatric: Possible drug overdose Reason for ICU Addmission:: Altered MS, Acute Resp. Failure, Opiod OD, Abnormal EKG ( wide complex ) - Medications: Medications reviewed and adjusted accordingly: Yes Vasopressors:: Norepinephrine Physical Exam Vital Signs: Temp Pulse Resp BP Pulse Ox 101.1 F H 104 H 20 108/75 96 05/09/20 05:21 05/09/20 02:35 05/09/20 02:35 05/09/20 06:02 05/09/20 04:05 Intake & Output 05/08/20 05/09/20 05/10/20 06:59 06:59 06:59 Intake Total 9722 6958 Output Total 345 180 Balance 1737 6778 Weight 118.2 kg 123.2 kg Weight/Height Weight 123.2 kg Height 1.83 m General appearance: PRESENT: no acute distress, well-developed, well-nourished Head exam: PRESENT: atraumatic, normocephalic Neck exam: ABSENT: carotid bruit, JVD, lymphadenopathy, thyromegaly Respiratory exam: PRESENT: clear to auscultation bernard. ABSENT: rales, rhonchi, wheezes Cardiovascular exam: PRESENT: RRR. ABSENT: diastolic murmur, rubs, systolic murmur Pulses: PRESENT: normal dorsalis pedis pul GI/Abdominal exam: PRESENT: normal bowel sounds, soft. ABSENT: distended, guarding, mass, organolmegaly, rebound, tenderness Gentrourinary exam: PRESENT: indwelling catheter Extremities exam: PRESENT: full ROM. ABSENT: calf tenderness, clubbing, pedal edema Neurological exam: PRESENT: altered. ABSENT: reflexes normal, CN II-XII grossly intact Psychiatric exam: ABSENT: agitated, anxious Skin exam: PRESENT: dry, intact, warm. ABSENT: cyanosis, rash Tubes/Lines: PRESENT: Endotracheal Tube, Central Line, Other - orogastric Laboratory/Radiographs Laboratory Results: Impressions: Cervical Spine CT 05/07/20 20:51 IMPRESSION: No acute findings in the cervical spine. TECHNICAL DOCUMENTATION: Quality ID # 436: Final reports with documentation of one or more dose reduction techniques (e.g., Automated exposure control, adjustment of the mA and/or kV according to patient size, use of iterative reconstruction technique) copyright 2010 [employer]- All Rights Reserved Head CT 05/07/20 20:51 IMPRESSION: 1. Nonspecific subtle low densities in the internal capsule bilaterally. 2. No acute findings. TECHNICAL DOCUMENTATION: Quality ID # 436: Final reports with documentation of one or more dose reduction techniques (e.g., Automated exposure control, adjustment of the mA and/or kV according to patient size, use of iterative reconstruction technique) copyright 2010 [employer]- All Rights Reserved Lower Extremity Ultrasound 05/08/20 00:00 IMPRESSION: Bilateral small vessel disease. No significant stenosis above the knee. All labs, radiographs, diagnostic studies and EKGs were personally reviewed: Yes In addition, reports of radiographic and diagnostic studies were read: Yes Assessment and Plan - Diagnosis (1) Rhabdomyolysis Qualifiers: Rhabdomyolysis type: traumatic Encounter type: subsequent encounter Qualified Code(s): T79.6XXD - Traumatic ischemia of muscle, subsequent encounter Is this a current diagnosis for this admission?: Yes Plan: * Aggressive IV fluid hydration. * Bicarbonate infusion. (2) Acute kidney injury Is this a current diagnosis for this admission?: Yes Plan: * Oliguric. Appears to be becoming anuric. * Continue IV fluids. Continue bicarbonate infusion. * Will likely need nephrology consult. (3) Hyperkalemia Is this a current diagnosis for this admission?: Yes Plan: * Calcium gluconate. * In light of hyperglycemia, will start insulin infusion. This should also help management of hyperkalemia. * Albuterol scheduled while intubated. (4) Altered mental status Qualifiers: Altered mental status type: unspecified Qualified Code(s): R41.82 - Altered mental status, unspecified Is this a current diagnosis for this admission?: Yes Plan: * Endotracheally intubated for airway protection. * Awaiting clearance of opiates. * Avoid unnecessary sedative/hypnotic medications. * In light of recent seizure activity, may be postictal. (5) Overdose Qualifiers: Encounter type: subsequent encounter Injury intent: accidental or unintentional Qualified Code(s): T50.901D - Poisoning by unspecified drugs, medicaments and biological substances, accidental (unintentional), subsequent encounter Is this a current diagnosis for this admission?: Yes (6) Lactic acidosis Is this a current diagnosis for this admission?: Yes (7) Hyperglycemia Is this a current diagnosis for this admission?: Yes Plan: * Insulin infusion. * Accu-Cheks every 1 hour. Critical Time Critical Time (minutes): 45 Level of Care: ICU -: 1. The care of a critical patient is a dynamic process. This note is a major account representative synopsis but static in nature. The timeframe for treatments given in order is not necessarily the actual time these treatments may have been done. 2. This patient requires critical care secondary to ongoing requirements for therapy not offered or safe outside the critical care environment. Transfer to a lower level of care will result in altered life or limb morbidity and mortality. 3. Multidisciplinary rounds completed. 4. ABCDE bundle addressed.
[2020-05-09] MEDS: PANTOPRAZOLE SODIUM 40 MG VIAL IV SCH ×2 (09:32→22:16)
[2020-05-09] MEDS: DOCUSATE SODIUM 100 MG CAPSULE PO SCH (09:32)
--- NOTE | 2020-05-09 10:45 | EKG REPORT ---
SEVERITY:- ABNORMAL ECG - SINUS TACHYCARDIA MULTIPLE ATRIAL PREMATURE COMPLEXES : Confirmed by: Doreen Ward MD 09-May-2020 10:44:15
[2020-05-09 11:58] LABS: ANION GAP 6 (5-19); BLOOD UREA NITROGEN 54 mg/dL (7-20); CARBON DIOXIDE 26 mmol/L (22-30); CHLORIDE 95 mmol/L (98-107); GLUCOSE 119 mg/dL (75-110); POTASSIUM 5.1 mmol/L (3.6-5.0)
[2020-05-09 12:07] LABS: CALCIUM 5.8 mg/dL (8.4-10.2)
[2020-05-09] MEDS: NORMAL SALINE 100 ML with INSULIN REGULAR, HUMAN 100 UNIT IV PRN ×2 (13:33)
[2020-05-09] MEDS: MAGNESIUM SULFATE/D5W 1 GM/100 ML RTUPB IV SCH ×3 (15:02→16:41)
[2020-05-09] MEDS: DOCUSATE SODIUM 100 MG/10 ML UDC PO SCH (17:36)
--- NOTE | 2020-05-09 17:46 | PDOC CRITICAL CARE PROG REPORT ---
General Date:: 05/09/20 ICU Day:: 3 Ventilator Day:: 3 Hospital Day:: 3 Resuscitation Status: Full Code Events in the past 12 to 24 Hours:: This 54-year-old male presented to [facility] emergency department via EMS on 05/07/2020 with altered mental status. Basically, the patient has an unknown. Of unresponsiveness, as he was initially believed to be sleeping but raised concern to his when he was found to still be in the same position over 12 hours later. The reports that the his pupils were constricted at the time she called EMS. EMS arrived and found the patient to be obtunded. Narcan was given in the field. Although he was assessed to have a favorable response to Narcan initially, he subsequently demonstrated seizure- like movements on route. He was provided bag mask ventilatory support. No loss of pulse or pressure. However, in the emergency department he again d emonstrated obtunded/altered mental status. He was given another dose of Narcan, which was not convincingly helpful. He was intubated in the emergency department. He was started on norepinephrine infusion for blood pressure support. Initial laboratory evaluation was compatible with acute kidney injury and rhabdomyolysis with CK total peaking at 152,203. He also had a severe metabolic acidosis with an elevated anion gap. Lactate level was elevated. Urine drug screen was positive for opiates. Alcohol level was undetectable ( reports he admits to consistent alcohol consumption for analgesic effect, although she believes his last drink was almost 7 days ago). 05/08: Remains intubated. On Levophed. 05/09: Remains intubated. ABG this a.m.: 7.41/40/79. Still on Levophed, decreasing. CK total peaked at 152,203, now 128,134. Albumin 1.9. Anuric. Creatinine 4.7. K5.4. Lactate 3.3. Review of systems relevant to events:: Neurologic: Altered mental status Respiratory: Endotracheally intubated Musculoskeletal: Rhabdomyolysis Neuropsychiatric: Possible drug overdose Reason for ICU Addmission:: Altered MS, Acute Resp. Failure, Opiod OD, Abnormal EKG ( wide complex ) - Medications: Medications reviewed and adjusted accordingly: Yes Vasopressors:: Norepinephrine Physical Exam Vital Signs: Temp Pulse Resp BP Pulse Ox 101.1 F H 107 H 20 110/75 98 05/09/20 05:21 05/09/20 08:37 05/09/20 08:37 05/09/20 08:02 05/09/20 08:37 Intake & Output 05/08/20 05/09/20 05/10/20 06:59 06:59 06:59 Intake Total 2082 6958 1011 Output Total 345 180 20 Balance 1737 6778 991 Weight 118.2 kg 123.2 kg Weight/Height Weight 123.2 kg Height 1.83 m General appearance: PRESENT: no acute distress, well-developed, well-nourished Head exam: PRESENT: atraumatic, normocephalic Eye exam: PRESENT: conjunctiva pink, EOMI, PERRLA. ABSENT: scleral icterus Mouth exam: PRESENT: moist, tongue midline Neck exam: ABSENT: carotid bruit, JVD, lymphadenopathy, thyromegaly Respiratory exam: PRESENT: clear to auscultation bernard, symmetrical. ABSENT: rales, rhonchi, wheezes Cardiovascular exam: PRESENT: RRR. ABSENT: diastolic murmur, rubs, systolic murmur Pulses: PRESENT: normal radial pulses, normal dorsalis pedis pul. ABSENT: +1 pedal pulses bilateral GI/Abdominal exam: PRESENT: normal bowel sounds, soft. ABSENT: distended, guarding, mass, organolmegaly, rebound, tenderness Gentrourinary exam: PRESENT: indwelling catheter Extremities exam: PRESENT: full ROM. ABSENT: calf tenderness, clubbing, pedal edema Musculoskeletal exam: PRESENT: normal inspection. ABSENT: deformity Neurological exam: PRESENT: altered, CN II-XII grossly intact. ABSENT: reflexes normal Psychiatric exam: ABSENT: agitated, anxious Skin exam: PRESENT: skin tears - Left posterior knee, other - Scattered ulcerative lesions (excoriations?) On both feet Tubes/Lines: PRESENT: Endotracheal Tube, Central Line Laboratory/Radiographs Laboratory Results: 05/09/20 03:38 05/09/20 03:38 05/08/20 05/08/20 05/08/20 12:15 12:15 15:00 WBC RBC Hgb Hct MCV MCH MCHC RDW Plt Count Seg Neutrophils % Carbonic Acid HCO3/H2CO3 Ratio ABG pH ABG pCO2 ABG pO2 ABG HCO3 ABG O2 Saturation ABG Base Excess FiO2 Sodium 129.4 L Potassium 6.1 H* Chloride 96 L Carbon Dioxide 24 Anion Gap 9 BUN 47 H Creatinine 3.97 H Est GFR ( Amer) 19 L Glucose 265 H Lactic Acid 3.2 H Calcium 6.3 L* Ionized Calcium Charles Magnesium Total Bilirubin AST Alkaline Phosphatase Ammonia Total Protein Albumin Urine Color EFRAIN Urine Appearance CLOUDY Urine pH 5.0 Ur Specific [place] 1.026 Urine Protein 100 H Urine Glucose (UA) 50 H Urine Ketones NEGATIVE Urine Blood LARGE H Urine RBC (Auto) 17 05/08/20 05/08/20 05/08/20 18:00 18:30 22:49 WBC RBC Hgb Hct MCV MCH MCHC RDW Plt Count Seg Neutrophils % Carbonic Acid 1.36 H HCO3/H2CO3 Ratio 19:1 ABG pH 7.38 ABG pCO2 45.1 H ABG pO2 41.0 L ABG HCO3 26.2 H ABG O2 Saturation 75.2 L ABG Base Excess 0.7 FiO2 60% Sodium 128.3 L 124.9 L Potassium 6.1 H* 5.9 H Chloride 93 L 91 L Carbon Dioxide 23 29 Anion Gap 12 5 BUN 49 H 52 H Creatinine 4.37 H 4.48 H Est GFR ( Amer) 17 L 17 L Glucose 268 H 271 H Lactic Acid Calcium 6.0 L* 6.0 L* Ionized Calcium Charles Magnesium Total Bilirubin AST Alkaline Phosphatase Ammonia Total Protein Albumin Urine Color Urine Appearance Urine pH Ur Specific [place] Urine Protein Urine Glucose (UA) Urine Ketones Urine Blood Urine RBC (Auto) 05/08/20 05/09/20 05/09/20 22:49 03:38 03:38 WBC RBC Hgb Hct MCV MCH MCHC RDW Plt Count Seg Neutrophils % Carbonic Acid 1.11 HCO3/H2CO3 Ratio 20:1 ABG pH 7.41 ABG pCO2 36.9 ABG pO2 163.2 H ABG HCO3 23.0 ABG O2 Saturation 99.1 H ABG Base Excess -1.1 FiO2 60% Sodium 127.1 L Potassium 5.4 H Chloride 91 L Carbon Dioxide 27 Anion Gap 9 BUN 54 H Creatinine 4.70 H Est GFR ( Amer) 16 L Glucose 201 H Lactic Acid Calcium 5.9 L* Ionized Calcium Charles 0.84 L Magnesium 1.8 Total Bilirubin 0.5 AST 1877 H Alkaline Phosphatase 97 Ammonia Total Protein 3.9 L Albumin 1.9 L Urine Color Urine Appearance Urine pH Ur Specific [place] Urine Protein Urine Glucose (UA) Urine Ketones Urine Blood Urine RBC (Auto) 05/09/20 05/09/20 05/09/20 03:38 03:38 03:38 WBC 10.3 RBC 4.53 Hgb 13.3 L Hct 40.8 MCV 90 MCH 29.3 MCHC 32.6 RDW 16.4 H Plt Count 125 L Seg Neutrophils % 88.2 H Carbonic Acid HCO3/H2CO3 Ratio ABG pH ABG pCO2 ABG pO2 ABG HCO3 ABG O2 Saturation ABG Base Excess FiO2 Sodium Potassium Chloride Carbon Dioxide Anion Gap BUN Creatinine Est GFR ( Amer) Glucose Lactic Acid 3.3 H Calcium Ionized Calcium Charles Magnesium Total Bilirubin AST Alkaline Phosphatase Ammonia < 8.7 L Total Protein Albumin Urine Color Urine Appearance Urine pH Ur Specific [place] Urine Protein Urine Glucose (UA) Urine Ketones Urine Blood Urine RBC (Auto) 05/09/20 04:26 WBC RBC Hgb Hct MCV MCH MCHC RDW Plt Count Seg Neutrophils % Carbonic Acid 1.21 HCO3/H2CO3 Ratio 20:1 ABG pH 7.41 ABG pCO2 40.3 ABG pO2 79.3 L ABG HCO3 24.9 H ABG O2 Saturation 95.8 ABG Base Excess 0.3 FiO2 50% Sodium Potassium Chloride Carbon Dioxide Anion Gap BUN Creatinine Est GFR ( Amer) Glucose Lactic Acid Calcium Ionized Calcium Charles Magnesium Total Bilirubin AST Alkaline Phosphatase Ammonia Total Protein Albumin Urine Color Urine Appearance Urine pH Ur Specific [place] Urine Protein Urine Glucose (UA) Urine Ketones Urine Blood Urine RBC (Auto) 05/07/20 22:21 Blood Blood Culture (PCR) - Final Staphylococcus Species 05/07/20 05/07/20 05/08/20 20:42 20:42 04:20 Creatine Kinase 34423 H CK-MB (CK-2) 367.00 H Troponin I < 0.012 < 0.012 NT-Pro-B Natriuret Pep 282 H 05/08/20 05/08/20 05/09/20 04:20 12:15 03:38 Creatine Kinase 037114 H 836696 H CK-MB (CK-2) 323.00 H Troponin I < 0.012 NT-Pro-B Natriuret Pep Impressions: Cervical Spine CT 05/07/20 20:51 IMPRESSION: No acute findings in the cervical spine. TECHNICAL DOCUMENTATION: Quality ID # 436: Final reports with documentation of one or more dose reduction techniques (e.g., Automated exposure control, adjustment of the mA and/or kV according to patient size, use of iterative reconstruction technique) copyright 2010 [employer]- All Rights Reserved Head CT 05/07/20 20:51 IMPRESSION: 1. Nonspecific subtle low densities in the internal capsule bilaterally. 2. No acute findings. TECHNICAL DOCUMENTATION: Quality ID # 436: Final reports with documentation of one or more dose reduction techniques (e.g., Automated exposure control, adjustment of the mA and/or kV according to patient size, use of iterative reconstruction technique) copyright 2010 [employer]- All Rights Reserved Lower Extremity Ultrasound 05/08/20 00:00 IMPRESSION: Bilateral small vessel disease. No significant stenosis above the knee. Chest X-Ray 05/09/20 04:00 IMPRESSION: 1. Tubes and lines as above. 2. Bilateral basilar pleural and parenchymal opacities that could represent a combination of pleural fluid and atelectasis. Clinical correlation to exclude a superimposed pneumonia is recommended. All labs, radiographs, diagnostic studies and EKGs were personally reviewed: Yes In addition, reports of radiographic and diagnostic studies were read: Yes Assessment and Plan - Diagnosis (1) Rhabdomyolysis Qualifiers: Rhabdomyolysis type: traumatic Encounter type: subsequent encounter Qualified Code(s): T79.6XXD - Traumatic ischemia of muscle, subsequent encounter Is this a current diagnosis for this admission?: Yes Plan: * Aggressive IV fluid hydration: Normal saline 1 L/h. * Bicarbonate infusion. (2) Acute kidney injury Is this a current diagnosis for this admission?: Yes Plan: * Monitor urine output. * Continue IV fluids. Continue bicarbonate infusion. * Nephrology consult. (3) Hyperkalemia Is this a current diagnosis for this admission?: Yes Plan: * Calcium gluconate. * In light of hyperglycemia, will start insulin infusion. This should also help management of hyperkalemia. * Continue bicarbonate infusion. * Albuterol scheduled while intubated. (4) Altered mental status Qualifiers: Altered mental status type: unspecified Qualified Code(s): R41.82 - Altered mental status, unspecified Is this a current diagnosis for this admission?: Yes (5) Overdose Qualifiers: Encounter type: subsequent encounter Injury intent: accidental or unintentional Qualified Code(s): T50.901D - Poisoning by unspecified drugs, medicaments and biological substances, accidental (unintentional), subsequent encounter Is this a current diagnosis for this admission?: Yes (6) Lactic acidosis Is this a current diagnosis for this admission?: Yes (7) Hyperglycemia Is this a current diagnosis for this admission?: Yes Plan: * Insulin infusion. * Accu-Cheks every 1 hour. Critical Time Critical Time (minutes): 60 Level of Care: ICU -: 1. The care of a critical patient is a dynamic process. This note is a registration representative synopsis but static in nature. The timeframe for treatments given in order is not necessarily the actual time these treatments may have been done. 2. This patient requires critical care secondary to ongoing requirements for therapy not offered or safe outside the critical care environment. Transfer to a lower level of care will result in altered life or limb morbidity and mortality. 3. Multidisciplinary rounds completed. 4. ABCDE bundle addressed.
[2020-05-09 18:06] LABS: ANION GAP 9 (5-19); BLOOD UREA NITROGEN 52 mg/dL (7-20); CARBON DIOXIDE 22 mmol/L (22-30); CHLORIDE 98 mmol/L (98-107); GLUCOSE 111 mg/dL (75-110); POTASSIUM 5.2 mmol/L (3.6-5.0)
[2020-05-09] MEDS: ALBUMIN HUMAN 12.5 GM/50 ML RTUINJ IV SCH (18:15)
[2020-05-09 18:27] LABS: CALCIUM 5.8 mg/dL (8.4-10.2)
--- NOTE | 2020-05-09 18:57 | RADIOLOGY REPORT (SQ) ---
EXAM DESCRIPTION: U/S RETROPERITON (RENAL/AORTA) IMAGES COMPLETED DATE/TIME: 05/09/2020 5:49 pm REASON FOR STUDY: GRETCHEN COMPARISON: None. TECHNIQUE: Dynamic and static grayscale images acquired of the kidneys and bladder and recorded on P ACS. Additional selected color Doppler and spectral images recorded. LIMITATIONS: None. FINDINGS: RIGHT KIDNEY: 12 cm it has cyst. No hydronephrosis. Possible 1.5 cm nonobstructiv e calculus. LEFT KIDNEY: 12 cm is No solid or suspicious masses. No hydronephrosis. No calcifications. BLADDER: No masses. OTHER: No other significant finding. IMPRESSION: Chronic medical renal disease without hydronephrosis. Possible nonobstructive calculus right kidney. TECHNICAL DOCUMENTATION: JOB ID: [id number] 2010 [employer]- All Rights Reserved Reading location - IP/workstation name: [email or web address]
[2020-05-09] MEDS ORDERED: FUROSEMIDE INJ/PF 40 MG/4 ML SDV IV ONE (19:15)
[2020-05-09 21:05] LABS: ALBUMIN 1.5 g/dL (3.5-5.0); ALKALINE PHOSPHATASE 76 U/L (38-126); ANION GAP 7 (5-19); BILIRUBIN,DIRECT 0.2 mg/dL (0.0-0.4); BILIRUBIN,TOTAL 0.5 mg/dL (0.2-1.3); BLOOD UREA NITROGEN 55 mg/dL (7-20); CARBON DIOXIDE 23 mmol/L (22-30); CHLORIDE 97 mmol/L (98-107); GLUCOSE 167 mg/dL (75-110); POTASSIUM 5.4 mmol/L (3.6-5.0); TOTAL PROTEIN 3.1 g/dL (6.3-8.2)
[2020-05-09 21:31] LABS: ASPARTATE AMINO TRANSFERASE 1649 U/L (17-59); CALCIUM 5.8 mg/dL (8.4-10.2)
[2020-05-09] MEDS: DEXTROSE 5%-NORMAL SALINE 1,000 ML IV PRN (22:03)
[2020-05-09] MEDS: VANCOMYCIN HCL 750 MG in DEXTROSE 5%-WATER 250 ML IV SCH (22:15)
[2020-05-10] MEDS: PROPOFOL 1,000 MG/100 ML INFUS..BTL IV PRN ×4 (01:41→21:00)
[2020-05-10] MEDS: ALBUMIN HUMAN 12.5 GM/50 ML RTUINJ IV SCH ×3 (01:41→18:40)
[2020-05-10] MEDS: ALBUTEROL SULFATE 0.083% NEB 2.5 MG/3 ML AMPUL NEB SCH ×4 (02:00→20:45)
[2020-05-10 05:05] LABS: HEMATOCRIT 27.9 % (37.9-51.0); MEAN CORPUSCULAR HEMOGLOBIN 29.4 pg (27.0-33.4); MEAN CORPUSCULAR HGB CONC 32.8 g/dL (32.0-36.0); MEAN CORPUSCULAR VOLUME 90 fl (80-97); RED BLOOD COUNT 3.12 10^6/uL (4.35-5.55); RED CELL DISTRIBUTION WIDTH 16.1 % (11.5-14.0); WHITE BLOOD COUNT 9.1 10^3/uL (4.0-10.5)
[2020-05-10 05:16] LABS: ALBUMIN 1.5 g/dL (3.5-5.0); ALKALINE PHOSPHATASE 80 U/L (38-126); ANION GAP 8 (5-19); BILIRUBIN,DIRECT 0.2 mg/dL (0.0-0.4); BILIRUBIN,TOTAL 0.5 mg/dL (0.2-1.3); BLOOD UREA NITROGEN 57 mg/dL (7-20); CARBON DIOXIDE 22 mmol/L (22-30); CHLORIDE 98 mmol/L (98-107); GLUCOSE 158 mg/dL (75-110); PHOSPHORUS 6.4 mg/dL (2.5-4.5); POTASSIUM 4.8 mmol/L (3.6-5.0); TOTAL PROTEIN 3.2 g/dL (6.3-8.2)
[2020-05-10 05:25] LABS: ASPARTATE AMINO TRANSFERASE 1438 U/L (17-59)
[2020-05-10 05:33] LABS: CALCIUM 5.7 mg/dL (8.4-10.2)
[2020-05-10] MEDS: PIPERACILLIN SODIUM/TAZOBACTAM 2.25 GM in NORMAL SALINE 50 ML IV SCH ×3 (05:34→22:55)
[2020-05-10] MEDS: DEXTROSE 5%-NORMAL SALINE 1,000 ML IV PRN ×2 (05:36→17:21)
[2020-05-10] MEDS: HEPARIN SOD (PORCINE) 5,000 UNIT/ML 1 ML VIAL SUBCUT SCH ×3 (05:36→22:54)
[2020-05-10] MEDS: NORMAL SALINE 1000 ML 1,000 ML IV PRN ×2 (05:37→18:41)
[2020-05-10 05:43] LABS: CREATINE KINASE 76434 U/L (55-170)
[2020-05-10 05:49] LABS: HEMOGLOBIN 9.2 g/dL (13.5-17.0)
[2020-05-10 05:50] LABS: PLATELET COUNT 91 10^3/uL (150-450)
[2020-05-10 05:52] LABS: ABSOLUTE LYMPHOCYTES# (MANUAL) 0.2 10^3/uL (0.5-4.7); ABSOLUTE MONOCYTES # (MANUAL) 0.9 10^3/uL (0.1-1.4); BASOPHILS % (MANUAL) 0 % (0-2); EOSINOPHILS % (MANUAL) 0 % (0-6); LYMPHOCYTES % (MANUAL) 2 % (13-45); MONOCYTES % (MANUAL) 10 % (3-13); SEGMENTED NEUTROPHILS % (MAN) 88 % (42-78); TOTAL CELLS COUNTED 100
[2020-05-10 05:57] LABS: ANISOCYTOSIS 1+; BURR CELLS 1+; PLATELET COMMENT DECREASED
--- NOTE | 2020-05-10 09:31 | RADIOLOGY REPORT (SQ) ---
EXAM DESCRIPTION: CHEST SINGLE VIEW IMAGES COMPLETED DATE/TIME: 05/10/2020 6:28 am REASON FOR STUDY: Respiratory Failure COMPARISON: Previous day NUMBER OF VIEWS: One view. TECHNIQUE: Single frontal radiographic image of the chest acquired. LIMITATIONS: None. FINDINGS: LUNGS AND PLEURA: Increasing bilateral airspace opacities. Stable small pleural effusions . No pneumothorax. MEDIASTINUM AND HEART: Stable heart size and mediastinal structures. SUPPORT DEVICES: Appropriate location without change. BONY STRUCTURES: No acute findings. HARDWARE: None. OTHER: No other significant finding. IMPRESSION: Rehydration versus progressing edema or sepsis. No pneumothorax. Reading location - IP/workstation name: [email or web address]
[2020-05-10] MEDS: DOCUSATE SODIUM 100 MG/10 ML UDC PO SCH ×2 (10:54→18:53)
[2020-05-10] MEDS: PANTOPRAZOLE SODIUM 40 MG VIAL IV SCH ×2 (10:54→22:54)
[2020-05-10] MEDS ORDERED: FUROSEMIDE INJ/PF 100 MG/10 ML SDV IV ONE (11:34)
--- NOTE | 2020-05-10 12:53 | PDOC CONSULTATION ---
Consultation Consult Date: 05/09/20 Provider Consulted: Rad VILLASENOR Consult reason:: GRETCHEN History of Present Illness Admission Date/PCP: 05/07/20 23:08 ANTONIO MAJOR MD History of Present Illness: JOSELITO WEINER JR is a 54 year old male is being seen in the ICU. He is currently intubated and sedated and unable to contribute. His is by the bedside who was able to contribute. Chart review was done and discussions were done with chainstitch elastic attacher and nurse as well. This patient has got a background history of hypertension and gout and apparently also an alcoholic who drinks close to a gallon of hard liquor on a daily basis was found unresponsive by the bedside by his . He was apparently in a squatting position by the bedside and it had been at least 12 hours and more before the had seen him last. She then called 911 who found him to be in respiratory failure and hypotensive. Patient was given Narcan which did not make much of a difference. On transfer to the ER he was found to be in respiratory failure and hypotensive. He was intubated and started on pressors and and admitted to the ICU. Further lab evaluations revealed that he was in GRETCHEN with CK that peaked around 150,000. Other relevant labs showed he had metabolic acidosis, high lactic acid, severe potassium of around 9 with a high phosphorus and low calcium, abnormal LFT and urine drug screen positive for opiates. Alcohol level however was undetectable. Patient has been begun on IV fluid resuscitation along with bicarb replacements but unfortunately his renal numbers are getting worse and his urine output is dropping. Past Medical History Cardiac Medical History: Reports: Hypertension-primary Pulmonary Medical History: Reports: Chronic Obstructive Pulmonary Disease (COPD) EENT Medical History: Reports: None Neurological Medical History: Reports: None Complications of Diabetes: Reports: None Renal/ Medical History: Reports: None GI Medical History: Reports: None Psychiatric Medical History: Reports: Alcohol Dependency, Depression Traumatic Medical History: Reports: None Infectious Medical History: Reports: None Past Surgical History Past Surgical History: Reports: Orthopedic Surgery Social History Lives with: Family, Spouse/Significant other Smoking Status: Unknown if Ever Smoked Frequency of Alcohol Use: Heavy - per 1/2 gallon of crown whiskey every other day Hx Prescription Drug Abuse: Yes - Advance Directive Resuscitation Status: Full Code Family History Parental Family History Reviewed: No - As per there is no history of CKD Children Family History Reviewed: No Sibling(s) Family History Reviewed.: No Medication/Allergy Home Medications: Allopurinol [Zyloprim 300 mg Tablet] 300 mg PO DAILY 05/08/20 Amlodipine Besylate [Norvasc 5 mg Tablet] 5 mg PO DAILY 05/08/20 Colchicine [Colcrys 0.6 mg Tablet] 0.6 mg PO BID 05/08/20 Diclofenac Sodium 100 gm TP QIDP PRN 05/08/20 Gabapentin [Neurontin 300 mg Capsule] 300 mg PO Q8 05/08/20 Hydrocodone/Acetaminophen [Mcgrath 5-325 mg Tablet] 1 tab PO TIDP PRN 05/08/20 Losartan Potassium 100 mg PO DAILY 05/08/20 Mirtazapine [Remeron] 15 mg PO QHS 05/08/20 Potassium Citrate [Potassium Citrate ER] 10 meq PO DAILY 05/08/20 Tizanidine HCl [Zanaflex] 4 mg PO Q8HP PRN 05/08/20 Venlafaxine HCl [Effexor Xr] 150 mg PO Q12 05/08/20 Allergies/Adverse Reactions: No Known Allergies Allergy (Unverified 05/07/20 21:20) Review of Systems ROS unobtainable: Due to mental status Physical Exam Vital Signs: Temp Pulse Resp BP Pulse Ox 101.1 F H 105 H 16 128/65 H 98 05/09/20 10:00 05/09/20 14:25 05/09/20 16:32 05/09/20 16:32 05/09/20 16:32 Intake & Output 05/08/20 05/09/20 05/10/20 06:59 06:59 06:59 Intake Total 2082 7008 8004 Output Total 345 180 65 Balance 1732 8567 6037 Weight 118.2 kg 123.2 kg 123.2 kg General appearance: PRESENT: disheveled Exam: Intubated and sedated. Eye exam: PRESENT: EOMI, PERRLA - Pupils are constricted bilaterally. ABSENT: periorbital swelling Ear exam: PRESENT: normal external ear exam Neck exam: ABSENT: lymphadenopathy, meningismus, tenderness, thyromegaly, tracheal deviation Respiratory exam: PRESENT: decreased breath sounds. ABSENT: crackles Cardiovascular exam: PRESENT: +S1, +S2 GI/Abdominal exam: PRESENT: normal bowel sounds, soft. ABSENT: organomegaly, tenderness Extremities exam: PRESENT: +1 edema Neurological exam: PRESENT: altered Skin exam: ABSENT: cyanosis, erythema, mottled, rash Results Laboratory Results: 05/09/20 03:38 05/09/20 11:25 05/08/20 05/08/20 05/08/20 18:00 18:30 22:49 WBC RBC Hgb Hct MCV MCH MCHC RDW Plt Count Seg Neutrophils % Carbonic Acid 1.36 H HCO3/H2CO3 Ratio 19:1 ABG pH 7.38 ABG pCO2 45.1 H ABG pO2 41.0 L ABG HCO3 26.2 H ABG O2 Saturation 75.2 L ABG Base Excess 0.7 FiO2 60% Sodium 128.3 L 124.9 L Potassium 6.1 H* 5.9 H Chloride 93 L 91 L Carbon Dioxide 23 29 Anion Gap 12 5 BUN 49 H 52 H Creatinine 4.37 H 4.48 H Est GFR ( Amer) 17 L 17 L Glucose 268 H 271 H Lactic Acid Calcium 6.0 L* 6.0 L* Ionized Calcium Charles Magnesium Total Bilirubin AST Alkaline Phosphatase Ammonia Total Protein Albumin 05/08/20 05/09/20 05/09/20 22:49 03:38 03:38 WBC RBC Hgb Hct MCV MCH MCHC RDW Plt Count Seg Neutrophils % Carbonic Acid 1.11 HCO3/H2CO3 Ratio 20:1 ABG pH 7.41 ABG pCO2 36.9 ABG pO2 163.2 H ABG HCO3 23.0 ABG O2 Saturation 99.1 H ABG Base Excess -1.1 FiO2 60% Sodium 127.1 L Potassium 5.4 H Chloride 91 L Carbon Dioxide 27 Anion Gap 9 BUN 54 H Creatinine 4.70 H Est GFR ( Amer) 16 L Glucose 201 H Lactic Acid Calcium 5.9 L* Ionized Calcium Charles 0.84 L Magnesium 1.8 Total Bilirubin 0.5 AST 1877 H Alkaline Phosphatase 97 Ammonia Total Protein 3.9 L Albumin 1.9 L 05/09/20 05/09/20 05/09/20 03:38 03:38 03:38 WBC 10.3 RBC 4.53 Hgb 13.3 L Hct 40.8 MCV 90 MCH 29.3 MCHC 32.6 RDW 16.4 H Plt Count 125 L Seg Neutrophils % 88.2 H Carbonic Acid HCO3/H2CO3 Ratio ABG pH ABG pCO2 ABG pO2 ABG HCO3 ABG O2 Saturation ABG Base Excess FiO2 Sodium Potassium Chloride Carbon Dioxide Anion Gap BUN Creatinine Est GFR ( Amer) Glucose Lactic Acid 3.3 H Calcium Ionized Calcium Charles Magnesium Total Bilirubin AST Alkaline Phosphatase Ammonia < 8.7 L Total Protein Albumin 05/09/20 05/09/20 05/09/20 04:26 11:25 11:25 WBC RBC Hgb Hct MCV MCH MCHC RDW Plt Count Seg Neutrophils % Carbonic Acid 1.21 HCO3/H2CO3 Ratio 20:1 ABG pH 7.41 ABG pCO2 40.3 ABG pO2 79.3 L ABG HCO3 24.9 H ABG O2 Saturation 95.8 ABG Base Excess 0.3 FiO2 50% Sodium 127.3 L Potassium 5.1 H Chloride 95 L Carbon Dioxide 26 Anion Gap 6 BUN 54 H Creatinine 4.75 H Est GFR ( Amer) 16 L Glucose 119 H Lactic Acid Calcium 5.8 L* Ionized Calcium Charles 0.83 L Magnesium 1.6 Total Bilirubin AST Alkaline Phosphatase Ammonia Total Protein Albumin 05/07/20 22:21 Blood Blood Culture (PCR) - Final Staphylococcus Species 05/07/20 05/07/20 05/08/20 20:42 20:42 04:20 Creatine Kinase 74607 H CK-MB (CK-2) 367.00 H Troponin I < 0.012 < 0.012 NT-Pro-B Natriuret Pep 282 H 05/08/20 05/08/20 05/09/20 04:20 12:15 03:38 Creatine Kinase 822437 H 921997 H CK-MB (CK-2) 323.00 H Troponin I < 0.012 NT-Pro-B Natriuret Pep Impressions: Cervical Spine CT 05/07/20 20:51 IMPRESSION: No acute findings in the cervical spine. TECHNICAL DOCUMENTATION: Quality ID # 436: Final reports with documentation of one or more dose reduction techniques (e.g., Automated exposure control, adjustment of the mA and/or kV according to patient size, use of iterative reconstruction technique) copyright 2011 [employer]- All Rights Reserved Head CT 05/07/20 20:51 IMPRESSION: 1. Nonspecific subtle low densities in the internal capsule bilaterally. 2. No acute findings. TECHNICAL DOCUMENTATION: Quality ID # 436: Final reports with documentation of one or more dose reduction techniques (e.g., Automated exposure control, adjustment of the mA and/or kV according to patient size, use of iterative reconstruction technique) copyright 2011 [employer]- All Rights Reserved Lower Extremity Ultrasound 05/08/20 00:00 IMPRESSION: Bilateral small vessel disease. No significant stenosis above the knee. Chest X-Ray 05/09/20 04:00 IMPRESSION: 1. Tubes and lines as above. 2. Bilateral basilar pleural and parenchymal opacities that could represent a combination of pleural fluid and atelectasis. Clinical correlation to exclude a superimposed pneumonia is recommended. Assessment & Plan - Diagnosis (1) Acute kidney injury Is this a current diagnosis for this admission?: Yes Plan: Oliguric. GRETCHEN suspect secondary to acute severe rhabdomyolysis. Renal ultrasound negative for obstruction. Continue IV fluids and start diuretics. See the response and if none he eventually will need to be started on dialysis. Please dose medications to a GFR of less than 20 cc/min. Adjustments done with his to PIP -tazo dosing. Discussed with Alining Inspector. (2) Altered mental status Qualifiers: Altered mental status type: unspecified Qualified Code(s): R41.82 - Altered mental status, unspecified Is this a current diagnosis for this admission?: Yes Plan: Secondary to likely opiate overdosing. Management as per chainstitch elastic attacher. (3) EtOH dependence Qualifiers: Substance use status: unspecified alcohol-induced disorder Qualified Code(s): F10.29 - Alcohol dependence with unspecified alcohol-induced disorder Is this a current diagnosis for this admission?: Yes Plan: However his alcohol levels were undetectable. Monitor for withdrawal. (4) Hyperkalemia Is this a current diagnosis for this admission?: Yes Plan: Initially potassium was 9 in the face of GRETCHEN and acute rhabdo. Currently is now 6 with conservative measures. Monitor. (5) Lactic acidosis Is this a current diagnosis for this admission?: Yes Plan: Possibly multifactorial. Monitor for possible infection and sepsis. (6) Overdose Qualifiers: Encounter type: subsequent encounter Injury intent: accidental or unintentional Qualified Code(s): T50.901D - Poisoning by unspecified drugs, medicaments and biological substances, accidental (unintentional), subsequent encounter Is this a current diagnosis for this admission?: Yes (7) Respiratory failure with hypoxia and hypercapnia Qualifiers: Chronicity: acute Qualified Code(s): J96.01 - Acute respiratory failure wit h hypoxia; J96.02 - Acute respiratory failure with hypercapnia Is this a current diagnosis for this admission?: Yes Plan: Currently intubated and sedated. Management by chainstitch elastic attacher. (8) Rhabdomyolysis Qualifiers: Rhabdomyolysis type: traumatic Encounter type: subsequent encounter Qualified Code(s): T79.6XXD - Traumatic ischemia of muscle, subsequent encounter Is this a current diagnosis for this admission?: Yes Plan: Severe rhabdo. Would recommend some IV calcium even though does need to be careful and judiciously given given his high phosphorus. Monitor for signs of tetany. - Time Critical Time spent with patient: Greater than 35 minutes Medications reviewed and adjusted accordingly: Yes
[2020-05-10] MEDS: NORMAL SALINE 250 ML with FUROSEMIDE 250 MG IV PRN ×2 (13:36)
[2020-05-10 13:57] LABS: ANION GAP 9 (5-19); BLOOD UREA NITROGEN 60 mg/dL (7-20); CARBON DIOXIDE 23 mmol/L (22-30); CHLORIDE 97 mmol/L (98-107); GLUCOSE 143 mg/dL (75-110)
[2020-05-10 14:11] LABS: CALCIUM 5.8 mg/dL (8.4-10.2)
[2020-05-10] MEDS: CALCIUM GLUC IN NACL, ISO-OSM 1 GM/50 ML RTUPB IV SCH ×2 (16:53→18:41)
--- NOTE | 2020-05-10 17:31 | PDOC PROGRESS REPORT ---
Subjective Date:: 05/10/20 Reason For Visit: Patient seen today. Remains intubated and sedated on pressors. He has had 13 L infused overnight and has only made about 125 cc in the last 24 hours. Renal numbers are progressively getting worse. So far he has gained about 20 kg in weight since admission. Case was discussed with nurse as well as with blender operator. Physical Exam Vital Signs: Temp Pulse Resp BP Pulse Ox 96.8 F L 97 20 118/56 L 98 05/10/20 10:00 05/10/20 14:33 05/10/20 14:33 05/10/20 14:19 05/10/20 16:12 Intake & Output 05/09/20 05/10/20 05/11/20 06:59 06:59 06:59 Intake Total 7258 46684 1839 Output Total 180 135 25 Balance 7078 73184 1814 Weight 123.2 kg 141.3 kg General appearance: PRESENT: disheveled Exam: Remains intubated and sedated. Respiratory exam: PRESENT: clear to auscultation bernard, decreased breath sounds. ABSENT: crackles Cardiovascular exam: PRESENT: +S1, +S2 GI/Abdominal exam: PRESENT: normal bowel sounds, soft. ABSENT: organomegaly, tenderness Extremities exam: PRESENT: +1 edema Neurological exam: PRESENT: altered Skin exam: ABSENT: cyanosis, erythema, mottled, rash Results Laboratory Results: 05/10/20 04:28 05/10/20 12:28 05/09/20 05/09/20 05/10/20 17:30 20:40 04:28 WBC 9.1 RBC 3.12 L Hgb 9.2 L D Hct 27.9 L MCV 90 MCH 29.4 MCHC 32.8 RDW 16.1 H Plt Count 91 L Seg Neutrophils % Not Reportable Sodium 129.3 L 126.7 L Potassium 5.2 H 5.4 H Chloride 98 97 L Carbon Dioxide 22 23 Anion Gap 9 7 BUN 52 H 55 H Creatinine 4.78 H 4.82 H Est GFR ( Amer) 15 L 15 L Glucose 111 H 167 H Calcium 5.8 L* 5.8 L* Phosphorus Magnesium Total Bilirubin 0.5 AST 1649 H Alkaline Phosphatase 76 Total Protein 3.1 L Albumin 1.5 L 12/17/20 12/17/20 12/17/20 04:28 12:28 12:28 WBC RBC Hgb Hct MCV MCH MCHC RDW Plt Count Seg Neutrophils % Sodium 127.7 L 128.5 L Potassium 4.8 5.0 Chloride 98 97 L Carbon Dioxide 22 23 Anion Gap 8 9 BUN 57 H 60 H Creatinine 5.56 H 5.23 H Est GFR ( Amer) 13 L 14 L Glucose 158 H 143 H Calcium 5.7 L* 5.8 L* Phosphorus 6.4 H Magnesium 1.8 Total Bilirubin 0.5 AST 1438 H Alkaline Phosphatase 80 Total Protein 3.2 L Albumin 1.5 L 1.5 L 05/07/20 22:21 Blood Blood Culture (PCR) - Final Staphylococcus Species 05/07/20 22:21 Blood Blood Culture - Final Staphylococcus Warneri 05/08/20 15:00 Cam Catheter Urine Culture - Final Enterococcus Faecalis(Group D) 05/07/20 05/07/20 05/08/20 20:42 20:42 04:20 Creatine Kinase 50991 H CK-MB (CK-2) 367.00 H Troponin I < 0.012 < 0.012 NT-Pro-B Natriuret Pep 282 H 05/08/20 05/08/20 05/09/20 04:20 12:15 03:38 Creatine Kinase 701527 H 666839 H CK-MB (CK-2) 323.00 H Troponin I < 0.012 NT-Pro-B Natriuret Pep 05/10/20 04:28 Creatine Kinase 65515 H CK-MB (CK-2) Troponin I NT-Pro-B Natriuret Pep Impressions: Cervical Spine CT 05/07/20 20:51 IMPRESSION: No acute findings in the cervical spine. TECHNICAL DOCUMENTATION: Quality ID # 436: Final reports with documentation of one or more dose reduction techniques (e.g., Automated exposure control, adjustment of the mA and/or kV according to patient size, use of iterative reconstruction technique) copyright 2010 [employer]- All Rights Reserved Head CT 05/07/20 20:51 IMPRESSION: 1. Nonspecific subtle low densities in the internal capsule bilaterally. 2. No acute findings. TECHNICAL DOCUMENTATION: Quality ID # 436: Final reports with documentation of one or more dose reduction techniques (e.g., Automated exposure control, adjustment of the mA and/or kV according to patient size, use of iterative reconstruction technique) copyright 2010 [employer]- All Rights Reserved Lower Extremity Ultrasound 05/08/20 00:00 IMPRESSION: Bilateral small vessel disease. No significant stenosis above the knee. Renal Ultrasound 05/09/20 00:00 IMPRESSION: Chronic medical renal disease without hydronephrosis. Possible nonobstructive calculus right kidney. Chest X-Ray 05/10/20 04:00 IMPRESSION: Rehydration versus progressing edema or sepsis. No pneumothorax. Assessment & Plan - Diagnosis (1) Acute kidney injury Is this a current diagnosis for this admission?: Yes Plan: Oliguric. GRETCHEN suspect secondary to acute severe rhabdomyolysis. Renal ultrasound negative for obstruction. Very give him a bolus of Lasix and start him on an infusion at 10 brice milligrams per hour. If he does not show any substantial response to this will need to initiate hemodialysis in the morning through a femoral catheter. Discussed with blender operator. Please dose medications to a GFR of less than 20 cc/min. (2) Altered mental status Qualifiers: Altered mental status type: unspecified Qualified Code(s): R41.82 - Altered mental status, unspecified Is this a current diagnosis for this admission?: Yes Plan: Secondary to likely opiate overdosing. Management as per blender operator. (3) EtOH dependence Qualifiers: Substance use status: unspecified alcohol-induced disorder Qualified Code(s): F10.29 - Alcohol dependence with unspecified alcohol-induced disorder Is this a current diagnosis for this admission?: Yes Plan: However his alcohol levels were undetectable. Monitor for withdrawal. (4) Hyperkalemia Is this a current diagnosis for this admission?: Yes Plan: Initially potassium was 9 in the face of GRETCHEN and acute rhabdo. Currently is now 5 with conservative measures. Monitor. (5) Lactic acidosis Is this a current diagnosis for this admission?: Yes Plan: Possibly multifactorial. Monitor for possible infection and sepsis. (6) Overdose Qualifiers: Encounter type: subsequent encounter Injury intent: accidental or unintentional Qualified Code(s): T50.901D - Poisoning by unspecified drugs, medicaments and biological substances, accidental (unintentional), subsequent encounter Is this a current diagnosis for this admission?: Yes Plan: From opiates. Management as per hospitalist. (7) Respiratory failure with hypoxia and hypercapnia Qualifiers: Chronicity: acute Qualified Code(s): J96.01 - Acute respiratory failure with hypoxia; J96.02 - Acute respiratory failure with hypercapnia Is this a current diagnosis for this admission?: Yes Plan: Currently intubated and sedated. Management by blender operator. (8) Rhabdomyolysis Qualifiers: Rhabdomyolysis type: traumatic Encounter type: subsequent encounter Qualified Code(s): T79.6XXD - Traumatic ischemia of muscle, subsequent encounter Is this a current diagnosis for this admission?: Yes Plan: Severe rhabdo. Would recommend some IV calcium even though does need to be careful and judiciously given given his high phosphorus. Monitor for signs of tetany.
[2020-05-10] MEDS: DEXTROSE 5%-WATER 1000 ML 1,000 ML with SODIUM BICARBONATE 150 MEQ IV PRN ×2 (19:00)
--- NOTE | 2020-05-10 19:31 | PDOC CRITICAL CARE PROG REPORT ---
General Date:: 05/10/20 ICU Day:: 4 Ventilator Day:: 4 Hospital Day:: 4 Resuscitation Status: Full Code Events in the past 12 to 24 Hours:: This 54-year-old male presented to [facility] emergency department via EMS on 05/07/2020 with altered mental status. Basically, the patient has an unknown. Of unresponsiveness, as he was initially believed to be sleeping but raised concern to his when he was found to still be in the same position over 12 hours later. The reports that the his pupils were constricted at the time she called EMS. EMS arrived and found the patient to be obtunded. Narcan was given in the field. Although he was assessed to have a favorable response to Narcan initially, he subsequently demonstrated seizure- like movements on route. He was provided bag mask ventilatory support. No loss of pulse or pressure. However, in the emergency department he again d emonstrated obtunded/altered mental status. He was given another dose of Narcan, which was not convincingly helpful. He was intubated in the emergency department. He was started on norepinephrine infusion for blood pressure support. Initial laboratory evaluation was compatible with acute kidney injury and rhabdomyolysis with CK total peaking at 152,203. He also had a severe metabolic acidosis with an elevated anion gap. Lactate level was elevated. Urine drug screen was positive for opiates. Alcohol level was undetectable ( reports he admits to consistent alcohol consumption for analgesic effect, although she believes his last drink was almost 7 days ago). 05/08: Remains intubated. On Levophed. 05/09: Remains intubated. ABG this a.m.: 7.41/40/79. Still on Levophed, decreasing. CK total peaked at 152,203, now 128,134. Albumin 1.9. Anuric. Creatinine 4.7. K5.4. Lactate 3.3. 05/10: Remains intubated. On propofol for sedation. Normal saline at 1 L/h all day yesterday. Still anuric. Discussed with Dr. Brown this morning. Attempting to stimulate diuresis with Lasix 100 mg IV push followed by infusion at 10 mg/h. CK total 76,434. Potassium 5.0. Creatinine 5.23. Calcium 5.8. Albumin 1.5. Chest x-ray demonstrates a widened mediastinum, more prominent tod ay than on previous. Patient's is at the bedside and reports that this has previously been identified, reported to her, and "thoroughly worked up for a possible aneurysmal thing". She states that the entire diagnostic evaluation was unrevealing. Review of systems relevant to events:: Neurologic: Altered mental status Respiratory: Endotracheally intubated Musculoskeletal: Rhabdomyolysis Neuropsychiatric: Possible drug overdose Reason for ICU Addmission:: Altered MS, Acute Resp. Failure, Opiod OD, Abnormal EKG ( wide complex ) - Medications: Medications reviewed and adjusted accordingly: Yes Vasopressors:: Norepinephrine Physical Exam Vital Signs: Temp Pulse Resp BP Pulse Ox 96.8 F L 97 20 118/56 L 100 05/10/20 10:00 05/10/20 14:33 05/10/20 14:33 05/10/20 14:19 05/10/20 14:19 Intake & Output 05/09/20 05/10/20 05/11/20 06:59 06:59 06:59 Intake Total 7258 93026 689 Output Total 180 135 25 Balance 7078 56053 664 Weight 123.2 kg 141.3 kg Weight/Height Weight 141.3 kg Height 1.83 m General appearance: PRESENT: no acute distress, well-developed, well-nourished Head exam: PRESENT: atraumatic, normocephalic Eye exam: PRESENT: conjunctiva pink, EOMI, PERRLA. ABSENT: scleral icterus Mouth exam: PRESENT: moist, tongue midline Neck exam: ABSENT: carotid bruit, JVD, lymphadenopathy, thyromegaly Respiratory exam: PRESENT: clear to auscultation bernard. ABSENT: rales, rhonchi, wheezes Cardiovascular exam: PRESENT: RRR. ABSENT: diastolic murmur, rubs, systolic murmur Pulses: PRESENT: normal dorsalis pedis pul GI/Abdominal exam: PRESENT: normal bowel sounds, soft. ABSENT: distended, guarding, mass, organolmegaly, rebound, tenderness Gentrourinary exam: PRESENT: indwelling catheter Extremities exam: PRESENT: full ROM, pedal edema, +2 edema. ABSENT: calf tenderness, clubbing Musculoskeletal exam: PRESENT: normal inspection. ABSENT: deformity Neurological exam: PRESENT: altered Psychiatric exam: ABSENT: agitated, anxious Skin exam: PRESENT: dry, intact, warm. ABSENT: cyanosis, rash Tubes/Lines: PRESENT: Endotracheal Tube, Central Line, Other - Orogastric Laboratory/Radiographs Laboratory Results: 05/10/20 04:28 05/10/20 12:28 05/09/20 05/09/20 05/10/20 17:30 20:40 04:28 WBC 9.1 RBC 3.12 L Hgb 9.2 L D Hct 27.9 L MCV 90 MCH 29.4 MCHC 32.8 RDW 16.1 H Plt Count 91 L Seg Neutrophils % Not Reportable Sodium 129.3 L 126.7 L Potassium 5.2 H 5.4 H Chloride 98 97 L Carbon Dioxide 22 23 Anion Gap 9 7 BUN 52 H 55 H Creatinine 4.78 H 4.82 H Est GFR ( Amer) 15 L 15 L Glucose 111 H 167 H Calcium 5.8 L* 5.8 L* Phosphorus Magnesium Total Bilirubin 0.5 AST 1649 H Alkaline Phosphatase 76 Total Protein 3.1 L Albumin 1.5 L 05/10/20 05/10/20 04:28 12:28 WBC RBC Hgb Hct MCV MCH MCHC RDW Plt Count Seg Neutrophils % Sodium 127.7 L 128.5 L Potassium 4.8 5.0 Chloride 98 97 L Carbon Dioxide 22 23 Anion Gap 8 9 BUN 57 H 60 H Creatinine 5.56 H 5.23 H Est GFR ( Amer) 13 L 14 L Glucose 158 H 143 H Calcium 5.7 L* 5.8 L* Phosphorus 6.4 H Magnesium 1.8 Total Bilirubin 0.5 AST 1438 H Alkaline Phosphatase 80 Total Protein 3.2 L Albumin 1.5 L 05/07/20 22:21 Blood Blood Culture (PCR) - Final Staphylococcus Species 05/07/20 22:21 Blood Blood Culture - Final Staphylococcus Warneri 05/08/20 15:00 Cam Catheter Urine Culture - Final Enterococcus Faecalis(Group D) 05/07/20 05/07/20 05/08/20 20:42 20:42 04:20 Creatine Kinase 80249 H CK-MB (CK-2) 367.00 H Troponin I < 0.012 < 0.012 NT-Pro-B Natriuret Pep 282 H 05/08/20 05/08/20 05/09/20 04:20 12:15 03:38 Creatine Kinase 562212 H 878244 H CK-MB (CK-2) 323.00 H Troponin I < 0.012 NT-Pro-B Natriuret Pep 05/10/20 04:28 Creatine Kinase 84324 H CK-MB (CK-2) Troponin I NT-Pro-B Natriuret Pep Impressions: Cervical Spine CT 05/07/20 20:51 IMPRESSION: No acute findings in the cervical spine. TECHNICAL DOCUMENTATION: Quality ID # 436: Final reports with documentation of one or more dose reduction techniques (e.g., Automated exposure control, adjustment of the mA and/or kV according to patient size, use of iterative reconstruction technique) copyright 2010 [employer]- All Rights Reserved Head CT 05/07/20 20:51 IMPRESSION: 1. Nonspecific subtle low densities in the internal capsule bilaterally. 2. No acute findings. TECHNICAL DOCUMENTATION: Quality ID # 436: Final reports with documentation of one or more dose reduction techniques (e.g., Automated exposure control, adjustment of the mA and/or kV according to patient size, use of iterative reconstruction technique) copyright 2010 [employer]- All Rights Reserved Lower Extremity Ultrasound 05/08/20 00:00 IMPRESSION: Bilateral small vessel disease. No significant stenosis above the knee. Renal Ultrasound 05/09/20 00:00 IMPRESSION: Chronic medical renal disease without hydronephrosis. Possible nonobstructive calculus right kidney. Chest X-Ray 05/10/20 04:00 IMPRESSION: Rehydration versus progressing edema or sepsis. No pneumothorax. All labs, radiographs, diagnostic studies and EKGs were personally reviewed: Yes In addition, reports of radiographic and diagnostic studies were read: Yes Assessment and Plan - Diagnosis (1) Rhabdomyolysis Qualifiers: Rhabdomyolysis type: traumatic Encounter type: subsequent encounter Qualified Code(s): T79.6XXD - Traumatic ischemia of muscle, subsequent encounter Is this a current diagnosis for this admission?: Yes Plan: * Monitor urine output on furosemide infusion. * May need hemodialysis tomorrow. (2) Acute kidney injury Is this a current diagnosis for this admission?: Yes Plan: * Monitor urine output. * Continue IV fluids. Continue bicarbonate infusion. * If the patient fails to demonstrate diuretic response on furosemide infusion, will anticipate hemodialysis tomorrow. (3) Hypocalcemia Is this a current diagnosis for this admission?: Yes Plan: * Calcium gluconate supplementation. (4) Hyperkalemia Is this a current diagnosis for this admission?: Yes (5) Altered mental status Qualifiers: Altered mental status type: unspecified Qualified Code(s): R41.82 - Altered mental status, unspecified Is this a current diagnosis for this admission?: Yes (6) Overdose Qualifiers: Encounter type: subsequent encounter Injury intent: accidental or unintentional Qualified Code(s): T50.901D - Poisoning by unspecified drugs, medicaments and biological substances, accidental (unintentional), subsequent encounter Is this a current diagnosis for this admission?: Yes (7) Lactic acidosis Is this a current diagnosis for this admission?: Yes (8) Hyperglycemia Is this a current diagnosis for this admission?: Yes Plan: * Insulin infusion. * Accu-Cheks every 1 hour. (9) Endotracheally intubated Is this a current diagnosis for this admission?: Yes Plan: * For airway protection related to suspected drug overdose and possible postictal state. (10) Hypoalbuminemia Is this a current diagnosis for this admission?: Yes Critical Time Critical Time (minutes): 60 Level of Care: ICU -: 1. The care of a critical patient is a dynamic process. This note is a independent sales representative synopsis but static in nature. The timeframe for treatments given in order is not necessarily the actual time these treatments may have been done. 2. This patient requires critical care secondary to ongoing requirements for therapy not offered or safe outside the critical care environment. Transfer to a lower level of care will result in altered life or limb morbidity and mortality. 3. Multidisciplinary rounds completed. 4. ABCDE bundle addressed.
[2020-05-10 19:34] LABS: INTERNATIONAL RATION (INR) 1.12; PROTHROMBIN TIME 14.6 SEC (11.4-15.4)
[2020-05-10 19:35] LABS: FIBRINOGEN 480 mg/dL (209-497); PARTIAL THROMBOPLASTIN TIME 38.4 SEC (23.5-35.8)
[2020-05-10 19:46] LABS: ALBUMIN 1.7 g/dL (3.5-5.0); ALKALINE PHOSPHATASE 87 U/L (38-126); ANION GAP 8 (5-19); BILIRUBIN,DIRECT 0.3 mg/dL (0.0-0.4); BILIRUBIN,TOTAL 0.7 mg/dL (0.2-1.3); BLOOD UREA NITROGEN 62 mg/dL (7-20); CARBON DIOXIDE 23 mmol/L (22-30); CHLORIDE 96 mmol/L (98-107); GLUCOSE 105 mg/dL (75-110); POTASSIUM 5.4 mmol/L (3.6-5.0); TOTAL PROTEIN 3.5 g/dL (6.3-8.2)
[2020-05-10 19:53] LABS: ASPARTATE AMINO TRANSFERASE 1445 U/L (17-59)
[2020-05-10 19:55] LABS: D-DIMER 13.39 ug/mL (0.00-0.50)
--- NOTE | 2020-05-10 20:56 | Operative Report ---
Bedside Procedure - History of Present Illness History of Present Illness: Procedure: Hemodialysis triAlysis catheter placement Indication: Dialysis Procedure barn operator: PRISCILA Schroeder Attending physician: Dr. Toney Consent: [Consent was obtained from patient's prior to the procedure. Indications, risks, and benefits were explained and all questions were addressed.] Procedure summary: The [facility] central line insertion practice form was completed by RN. A timeout was performed. My hands were washed immediately prior to the procedure. I wore surgical cap, mask with protective eyewear, full gown and sterile gloves throughout the procedure. The patient was placed in Trendelenburg position. Left chest region was prepped using chlorhexidine scrub and draped in sterile fashion using a full drape. Sterile probe cover was placed on ultrasound probe. The medial and lateral heads of the sternocleidomastoid muscle were identified as was the carotid pulse. The internal jugular vein was identified using ultrasound. Anesthesia was achieved over the vein using 4 cc of 1% lidocaine. Using real-time out of plane guidance, the introducer needle was inserted into the internal jugular vein under direct ultrasound visualization. Venous blood was withdrawn. The syringe was removed and a guidewire was advanced into the introducer needle. The guidewire was visualized in the internal jugular vein by ultrasound. A small incision was made at the skin surface with a scalpel and the introducer needle was exchanged for a dilator over the guidewire. After appropriate dilation was obtained, the dilator was exchanged over a wire for a 7 Macedonian, 20 cm central venous catheter. The wire was removed and the catheter was sutured in place at 15 cm. A IO patch was placed and a sterile Sorbaview shield was placed over the catheter at the insertion site. The patient tolerated the procedure well without any hemodynamic compromise. At time of procedure completion, all ports aspirated and flushed properly. Postprocedure x-ray shows central line in proper place. Estimated blood loss is approximately 10 cc. Indication for Procedure: Hemodialysis Date: 05/10/20 Provider: ASHELY GALO - Central Line Left Internal jugular Time completed: 20:40 Consent obtained: Yes Central line pre-insertion: Sterile PPE donned, Chloraprep applied, Sterile drapes applied Central line lumen type: Triple Anesthetic type: 1% Lidocaine mL's of anesthesia: 4 Ultrasound guided: Yes CM at insertion site: 20 Line secured with sutures: Yes Central line post-insertion: Blood return from lumens, Biopatch applied, Sutured, Sterile dressing applied, Position confirmed w/ CXR Number of attempts: 1 Complications: No
--- NOTE | 2020-05-10 21:26 | EKG REPORT ---
SEVERITY:- ABNORMAL ECG - SINUS TACHYCARDIA SUPRAVENTRICULAR BIGEMINY BORDERLINE T ABNORMALITIES, INFERIOR LEADS : Confirmed by: Doreen Ward MD 10-May-2020 21:25:53
--- NOTE | 2020-05-10 21:49 | RADIOLOGY REPORT (SQ) ---
EXAM DESCRIPTION: XR CHEST 1 VIEW 9:00 PM COMPLETED DATE/TME: 05/10/2020 21:14 CLINICAL HISTORY: 54 years, Male, Central Line Placement COMPARISON: Film today at 6:00 AM. TECHNIQUE: Semiupright portable chest x-ray FINDINGS: Unchanged mild cardiomegaly stone enlargement. Bilateral pleural effusions and lower lobe[are minimally increased since earlier today could represent CHF. Enteric tube in the abdomen. Endotracheal tube above the emma. Previously visualized right central line with the tip in the right atrium. New left internal jugular dialysis catheter with the tip in the proximal superior vena cava. No pneumothorax. IMPRESSION: 1. Cardiomegaly effusions and infiltrates suspicious for CHF. Question minimally increased Cannot exclude inflammatory process. 2. New dialysis catheter in good position.
[2020-05-10 22:04] LABS: ANION GAP 5 (5-19); BLOOD UREA NITROGEN 62 mg/dL (7-20); CARBON DIOXIDE 25 mmol/L (22-30); CHLORIDE 97 mmol/L (98-107); GLUCOSE 108 mg/dL (75-110); POTASSIUM 5.3 mmol/L (3.6-5.0)
[2020-05-10 22:09] LABS: VANCOMYCIN,TROUGH 9.2 ug/mL (5.0-20.0)
[2020-05-10] MEDS ORDERED: TUBERCULIN,PURIF.PROT.DERIV. 5 TU/0.1 ML TEST 1 ML VIAL ID ONE (22:44)
[2020-05-10] MEDS ORDERED: EPOETIN ALFA-EPBX 20,000 UNIT in SYRINGE, DISPOSABLE, 1 EACH IV PRN (22:44)
[2020-05-10] MEDS: NORMAL SALINE 100 ML with INSULIN REGULAR, HUMAN 100 UNIT IV PRN ×2 (22:50)
[2020-05-10] MEDS: VANCOMYCIN HCL 750 MG in DEXTROSE 5%-WATER 250 ML IV SCH (23:05)
[2020-05-11] MEDS: ALBUMIN HUMAN 12.5 GM/50 ML RTUINJ IV SCH ×4 (01:40→20:40)
[2020-05-11] MEDS: ALBUTEROL SULFATE 0.083% NEB 2.5 MG/3 ML AMPUL NEB SCH ×4 (02:07→20:46)
[2020-05-11] MEDS: PROPOFOL 1,000 MG/100 ML INFUS..BTL IV PRN ×3 (03:05→14:00)
[2020-05-11 04:56] LABS: ANION GAP 8 (5-19); BLOOD UREA NITROGEN 64 mg/dL (7-20); CARBON DIOXIDE 24 mmol/L (22-30); CHLORIDE 97 mmol/L (98-107); GLUCOSE 104 mg/dL (75-110); POTASSIUM 5.4 mmol/L (3.6-5.0); TRIGLYCERIDES 82 mg/dL (<150)
[2020-05-11] MEDS ORDERED: HEPARIN SOD (PORCINE) 1,000 UNIT/ML 10 ML VIAL IV PRN (05:00)
[2020-05-11 05:07] LABS: CALCIUM 5.9 mg/dL (8.4-10.2)
[2020-05-11 05:08] LABS: MEAN CORPUSCULAR HEMOGLOBIN 29.6 pg (27.0-33.4); MEAN CORPUSCULAR HGB CONC 33.3 g/dL (32.0-36.0); MEAN CORPUSCULAR VOLUME 89 fl (80-97); WHITE BLOOD COUNT 8.7 10^3/uL (4.0-10.5)
[2020-05-11 05:29] LABS: ABSOLUTE LYMPHOCYTES# (MANUAL) 0.5 10^3/uL (0.5-4.7); ABSOLUTE MONOCYTES # (MANUAL) 0.3 10^3/uL (0.1-1.4); BAND NEUTROPHILS % (MANUAL) 1 % (3-5); BASOPHILS % (MANUAL) 0 % (0-2); EOSINOPHILS % (MANUAL) 0 % (0-6); LYMPHOCYTES % (MANUAL) 6 % (13-45); MONOCYTES % (MANUAL) 3 % (3-13); SEGMENTED NEUTROPHILS % (MAN) 90 % (42-78); TOTAL CELLS COUNTED 100
[2020-05-11 05:31] LABS: TOXIC GRANULATION SLIGHT
[2020-05-11 05:32] LABS: ANISOCYTOSIS 1+; BURR CELLS 1+; OVALOCYTES SLIGHT; PLATELET COMMENT DECREASED; POIKILOCYTOSIS SLIGHT; SCHISTOCYTES SLIGHT
[2020-05-11 05:33] LABS: PLATELET COUNT 62 10^3/uL (150-450)
[2020-05-11] MEDS: HEPARIN SOD (PORCINE) 5,000 UNIT/ML 1 ML VIAL SUBCUT SCH ×3 (06:07→22:16)
[2020-05-11] MEDS: PIPERACILLIN SODIUM/TAZOBACTAM 2.25 GM in NORMAL SALINE 50 ML IV SCH ×3 (06:07→22:16)
[2020-05-11] MEDS: PANTOPRAZOLE SODIUM 40 MG VIAL IV SCH ×2 (09:33→22:16)
[2020-05-11] MEDS: DOCUSATE SODIUM 100 MG/10 ML UDC PO SCH ×2 (09:33→19:13)
[2020-05-11] MEDS ORDERED: TUBERCULIN,PURIF.PROT.DERIV. 5 TU/0.1 ML TEST 1 ML VIAL ID ONE (10:00)
--- NOTE | 2020-05-11 10:50 | PDOC PROGRESS REPORT ---
Subjective Date:: 05/11/20 Reason For Visit: Patient seen in the ICU today on dialysis. I had to start him on renal repl acements given his anuric status and rising renal numbers along with potassium. Patient has unfortunately had a very poor response to high doses/infusion of Lasix. He remains intubated and sedated. Labs and medications were reviewed. Dialysis orders were reviewed with the treating dialysis nurse. Note dropping hemoglobin along with platelet count. Physical Exam Vital Signs: Temp Pulse Resp BP Pulse Ox 99.0 F 91 20 113/57 L 100 05/11/20 09:57 05/11/20 08:00 05/11/20 08:00 05/11/20 08:00 05/11/20 08:00 Intake & Output 05/10/20 05/11/20 05/12/20 06:59 06:59 06:59 Intake Total 44329 4024 1300 Output Total 135 85 0 Balance 22261 3939 1300 Weight 141.3 kg 145.9 kg General appearance: PRESENT: no acute distress Exam: Patient remains intubated and sedated. Respiratory exam: PRESENT: clear to auscultation bernard, crackles. ABSENT: decreased breath sounds Cardiovascular exam: PRESENT: +S1, +S2 GI/Abdominal exam: PRESENT: normal bowel sounds, soft. ABSENT: organomegaly, tenderness Extremities exam: PRESENT: +2 edema Neurological exam: PRESENT: altered Skin exam: ABSENT: erythema, mottled, petechiae Results Laboratory Results: 05/11/20 04:05 05/11/20 04:05 05/10/20 05/10/20 05/10/20 12:28 12:28 19:07 WBC RBC Hgb Hct MCV MCH MCHC RDW Plt Count Seg Neutrophils % Sodium 128.5 L 126.8 L Potassium 5.0 5.4 H Chloride 97 L 96 L Carbon Dioxide 23 23 Anion Gap 9 8 BUN 60 H 62 H Creatinine 5.23 H 5.51 H Est GFR ( Amer) 14 L 13 L Glucose 143 H 105 Calcium 5.8 L* 6.0 L* Total Bilirubin 0.7 AST 1445 H Alkaline Phosphatase 87 Total Protein 3.5 L Albumin 1.5 L 1.7 L Triglycerides 05/10/20 05/11/20 05/11/20 21:25 04:05 04:05 WBC 8.7 RBC 2.70 L Hgb 8.0 L Hct 24.0 L MCV 89 MCH 29.6 MCHC 33.3 RDW 17.0 H Plt Count 62 L Seg Neutrophils % Not Reportable Sodium 127.0 L 129.1 L Potassium 5.3 H 5.4 H Chloride 97 L 97 L Carbon Dioxide 25 24 Anion Gap 5 8 BUN 62 H 64 H Creatinine 5.68 H 5.82 H Est GFR ( Amer) 13 L 12 L Glucose 108 104 Calcium 6.0 L* 5.9 L* Total Bilirubin AST Alkaline Phosphatase Total Protein Albumin Triglycerides 82 05/07/20 22:21 Blood Blood Culture (PCR) - Final Staphylococcus Species 05/07/20 22:21 Blood Blood Culture - Final Staphylococcus Warneri 05/08/20 15:00 Cam Catheter Urine Culture - Final Enterococcus Faecalis(Group D) 05/07/20 05/07/20 05/08/20 20:42 20:42 04:20 Creatine Kinase 14042 H CK-MB (CK-2) 367.00 H Troponin I < 0.012 < 0.012 NT-Pro-B Natriuret Pep 282 H 05/08/20 05/08/20 05/09/20 04:20 12:15 03:38 Creatine Kinase 961634 H 634726 H CK-MB (CK-2) 323.00 H Troponin I < 0.012 NT-Pro-B Natriuret Pep 05/10/20 04:28 Creatine Kinase 53917 H CK-MB (CK-2) Troponin I NT-Pro-B Natriuret Pep Impressions: Cervical Spine CT 05/07/20 20:51 IMPRESSION: No acute findings in the cervical spine. TECHNICAL DOCUMENTATION: Quality ID # 436: Final reports with documentation of one or more dose reduction techniques (e.g., Automated exposure control, adjustment of the mA and/or kV according to patient size, use of iterative reconstruction technique) copyright 2010 [employer]- All Rights Reserved Head CT 05/07/20 20:51 IMPRESSION: 1. Nonspecific subtle low densities in the internal capsule bilaterally. 2. No acute findings. TECHNICAL DOCUMENTATION: Quality ID # 436: Final reports with documentation of one or more dose reduction techniques (e.g., Automated exposure control, adjustment of the mA and/or kV according to patient size, use of iterative reconstruction technique) copyright 2010 [employer]- All Rights Reserved Lower Extremity Ultrasound 05/08/20 00:00 IMPRESSION: Bilateral small vessel disease. No significant stenosis above the knee. Renal Ultrasound 05/09/20 00:00 IMPRESSION: Chronic medical renal disease without hydronephrosis. Possible nonobstructive calculus right kidney. Chest X-Ray 05/10/20 04:00 IMPRESSION: Rehydration versus progressing edema or sepsis. No pneumothorax. Assessment & Plan - Diagnosis (1) Acute kidney injury Is this a current diagnosis for this admission?: Yes Plan: Patient has become anuric in the setting of GRETCHEN secondary to severe rhabdomyolysis. Patient is obviously fluid overloaded as well along with abnormal electrolytes. Therefore initiated on renal replacements which he is undergoing and being supervised. Has had a temporary dialysis catheter placed in the groin last night which is being used for access. Plan to remove approximately 5-6 L of fluid as tolerated. Vital signs/hemodynamically stable. Dialysis orders were reviewed and discussed with the treating dialysis nurse. Further discussions were done with float remover as well. (2) Altered mental status Qualifiers: Altered mental status type: unspecified Qualified Code(s): R41.82 - Altered mental status, unspecified Is this a current diagnosis for this admission?: Yes Plan: Secondary to likely opiate overdosing. Management as per float remover. (3) EtOH dependence Qualifiers: Substance use status: unspecified alcohol-induced disorder Qualified Code(s): F10.29 - Alcohol dependence with unspecified alcohol-induced disorder Is this a current diagnosis for this admission?: Yes Plan: However his alcohol levels were undetectable. Monitor for withdrawal.Abnormal LFTs. Would recommend imaging study to delineate other potential problems. Hepatitis serology pending at the moment. (4) Hyperkalemia Is this a current diagnosis for this admission?: Yes Plan: Should respond to hemodialysis. Monitor. (5) Lactic acidosis Is this a current diagnosis for this admission?: Yes Plan: Possibly multifactorial. Monitor for possible infection and sepsis.Patient growing staph warneri in the blood sensitive to vancomycin and Enterococcus faecalis in the urine which is obviously also sensitive to vancomycin. However concerning is his dropping platelets and hemoglobin even though white count seems to be stable. Work-up for DIC potential TTS. (6) Respiratory failure with hypoxia and hypercapnia Qualifiers: Chronicity: acute Qualified Code(s): J96.01 - Acute respiratory failure with hypoxia; J96.02 - Acute respiratory failure with hypercapnia Is this a current diagnosis for this admission?: Yes Plan: Currently intubated and sedated. Management by float remover. (7) Rhabdomyolysis Qualifiers: Rhabdomyolysis type: traumatic Encounter type: subsequent encounter Qualified Code(s): T79.6XXD - Traumatic ischemia of muscle, subsequent encounter Is this a current diagnosis for this admission?: Yes Plan: Severe rhabdo. Would recommend some IV calcium even though does need to be careful and judiciously given given his high phosphorus. Monitor for signs of tetany. (8) Thrombocytopenia Plan: Differential diagnosis includes DIC/TTS/proton pump inhibitor induced thrombocytopenia. Even though his white count is remaining within normal limits patient still has got a left shift and lymphocytopenia indicating most likely of progressive sepsis. Would recommend working him up for DIC and sending serology for ADAMTS 13. Would also recommend stopping the PPI and conversion a PPI to intravenous H2 blockers. (9) Abnormal LFTs Plan: ? Alcohol induced. Other differentials to be considered includes DIC/drug-in duced. Monitor carefully. Would recommend imaging studies to rule out other potential issues.
[2020-05-11] MEDS: NORMAL SALINE 250 ML with FUROSEMIDE 250 MG IV PRN ×2 (15:33)
[2020-05-11 15:49] LABS: HEMATOCRIT 24.7 % (37.9-51.0); HEMOGLOBIN 8.3 g/dL (13.5-17.0); MEAN CORPUSCULAR HEMOGLOBIN 29.8 pg (27.0-33.4); MEAN CORPUSCULAR HGB CONC 33.6 g/dL (32.0-36.0); MEAN CORPUSCULAR VOLUME 89 fl (80-97); RED BLOOD COUNT 2.78 10^6/uL (4.35-5.55); RED CELL DISTRIBUTION WIDTH 16.5 % (11.5-14.0); WHITE BLOOD COUNT 8.1 10^3/uL (4.0-10.5)
[2020-05-11 16:11] LABS: ANION GAP 8 (5-19); BLOOD UREA NITROGEN 51 mg/dL (7-20); CARBON DIOXIDE 26 mmol/L (22-30); CHLORIDE 96 mmol/L (98-107); GLUCOSE 103 mg/dL (75-110); POTASSIUM 4.9 mmol/L (3.6-5.0)
[2020-05-11 16:18] LABS: CALCIUM 6.6 mg/dL (8.4-10.2)
[2020-05-11 16:22] LABS: PLATELET COUNT 60 10^3/uL (150-450)
[2020-05-11] MEDS ORDERED: DEXMEDETOMIDINE IN 0.9 % NACL 400 MCG/100 ML RTUPB IV ONE (16:27)
[2020-05-11] MEDS: DEXMEDETOMIDINE IN NS 400 MCG/100 ML RTUPB IV PRN (16:30)
--- NOTE | 2020-05-11 18:13 | PDOC CRITICAL CARE PROG REPORT ---
General Date:: 05/11/20 ICU Day:: 5 Ventilator Day:: 5 Hospital Day:: 5 Resuscitation Status: Full Code Events in the past 12 to 24 Hours:: This 54-year-old male presented to [facility] emergency department via EMS on 05/07/2020 with altered mental status. Basically, the patient has an unknown. Of unresponsiveness, as he was initially believed to be sleeping but raised concern to his when he was found to still be in the same position over 12 hours later. The reports that the his pupils were constricted at the time she called EMS. EMS arrived and found the patient to be obtunded. Narcan was given in the field. Although he was assessed to have a favorable response to Narcan initially, he subsequently demonstrated seizure- like movements on route. He was provided bag mask ventilatory support. No loss of pulse or pressure. However, in the emergency department he again d emonstrated obtunded/altered mental status. He was given another dose of Narcan, which was not convincingly helpful. He was intubated in the emergency department. He was started on norepinephrine infusion for blood pressure support. Initial laboratory evaluation was compatible with acute kidney injury and rhabdomyolysis with CK total peaking at 152,203. He also had a severe metabolic acidosis with an elevated anion gap. Lactate level was elevated. Urine drug screen was positive for opiates. Alcohol level was undetectable ( reports he admits to consistent alcohol consumption for analgesic effect, although she believes his last drink was almost 7 days ago). 05/08: Remains intubated. On Levophed. 05/09: Remains intubated. ABG this a.m.: 7.41/40/79. Still on Levophed, decreasing. CK total peaked at 152,203, now 128,134. Albumin 1.9. Anuric. Creatinine 4.7. K5.4. Lactate 3.3. 05/10: Remains intubated. On propofol for sedation. Normal saline at 1 L/h all day yesterday. Still anuric. Discussed with Dr. Brown this morning. Attempting to stimulate diuresis with Lasix 100 mg IV push followed by infusion at 10 mg/h. CK total 76,434. Potassium 5.0. Creatinine 5.23. Calcium 5.8. Albumin 1.5. Chest x-ray demonstrates a widened mediastinum, more prominent tod ay than on previous. Patient's is at the bedside and reports that this has previously been identified, reported to her, and "thoroughly worked up for a possible aneurysmal thing". She states that the entire diagnostic evaluation was unrevealing. 05/11: Remains intubated. On propofol for sedation. Got hemodialysis today. - 5 L. Still an uric despite furosemide infusion. Case discussed with Dr. Brown this morning. Platelets 62 this morning. Off insulin infusion. Off D5. Potassium 5.4 this morning. Review of systems relevant to events:: Neurologic: Altered mental status Respiratory: Endotracheally intubated Musculoskeletal: Rhabdomyolysis Neuropsychiatric: Possible drug overdose Reason for ICU Addmission:: Altered MS, Acute Resp. Failure, Opiod OD, Abnormal EKG ( wide complex ) - Medications: Medications reviewed and adjusted accordingly: Yes Vasopressors:: Norepinephrine Sedation:: Propofol Physical Exam Vital Signs: Temp Pulse Resp BP Pulse Ox 97.7 F 92 20 131/66 H 99 05/11/20 12:00 05/11/20 14:00 05/11/20 17:35 05/11/20 17:35 05/11/20 17:35 Intake & Output 05/10/20 05/11/20 05/12/20 06:59 06:59 06:59 Intake Total 06473 4024 2861 Output Total 489 83 3331 Balance 27477 3939 -3404 Weight 141.3 kg 145.9 kg Weight/Height Weight 145.9 kg Height 1.83 m General appearance: PRESENT: no acute distress, well-developed, well-nourished Head exam: PRESENT: atraumatic, normocephalic Eye exam: PRESENT: conjunctiva pink, EOMI, PERRLA. ABSENT: scleral icterus Mouth exam: PRESENT: moist, tongue midline Neck exam: ABSENT: carotid bruit, JVD, lymphadenopathy, thyromegaly Respiratory exam: PRESENT: clear to auscultation bernard. ABSENT: rales, rhonchi, wheezes Cardiovascular exam: PRESENT: RRR. ABSENT: diastolic murmur, rubs, systolic murmur GI/Abdominal exam: PRESENT: normal bowel sounds, soft. ABSENT: distended, guarding, mass, organolmegaly, rebound, tenderness Gentrourinary exam: PRESENT: indwelling catheter Extremities exam: PRESENT: full ROM, pedal edema. ABSENT: calf tenderness, clubbing Musculoskeletal exam: PRESENT: normal inspection. ABSENT: deformity Neurological exam: PRESENT: altered Psychiatric exam: ABSENT: agitated, anxious Skin exam: PRESENT: dry, intact, warm. ABSENT: cyanosis, rash Tubes/Lines: PRESENT: Endotracheal Tube, Central Line, Dialysis catheter Laboratory/Radiographs Laboratory Results: 05/11/20 15:06 05/11/20 15:06 05/10/20 05/10/20 05/11/20 19:07 21:25 04:05 WBC 8.7 RBC 2.70 L Hgb 8.0 L Hct 24.0 L MCV 89 MCH 29.6 MCHC 33.3 RDW 17.0 H Plt Count 62 L Seg Neutrophils % Not Reportable Sodium 126.8 L 127.0 L Potassium 5.4 H 5.3 H Chloride 96 L 97 L Carbon Dioxide 23 25 Anion Gap 8 5 BUN 62 H 62 H Creatinine 5.51 H 5.68 H Est GFR ( Amer) 13 L 13 L Glucose 105 108 Calcium 6.0 L* 6.0 L* Ionized Calcium Charles Total Bilirubin 0.7 AST 1445 H Alkaline Phosphatase 87 Total Protein 3.5 L Albumin 1.7 L Triglycerides 05/11/20 05/11/20 05/11/20 04:05 15:06 15:06 WBC 8.1 RBC 2.78 L Hgb 8.3 L Hct 24.7 L MCV 89 MCH 29.8 MCHC 33.6 RDW 16.5 H Plt Count 60 L Seg Neutrophils % Sodium 129.1 L 130.1 L Potassium 5.4 H 4.9 Chloride 97 L 96 L Carbon Dioxide 24 26 Anion Gap 8 8 BUN 64 H 51 H Creatinine 5.82 H 4.81 H Est GFR ( Amer) 12 L 15 L Glucose 104 103 Calcium 5.9 L* 6.6 L* Ionized Calcium Charles Total Bilirubin AST Alkaline Phosphatase Total Protein Albumin Triglycerides 82 05/11/20 16:51 WBC RBC Hgb Hct MCV MCH MCHC RDW Plt Count Seg Neutrophils % Sodium Potassium Chloride Carbon Dioxide Anion Gap BUN Creatinine Est GFR ( Amer) Glucose Calcium Ionized Calcium Charles 0.91 L Total Bilirubin AST Alkaline Phosphatase Total Protein Albumin Triglycerides 05/07/20 05/07/20 05/08/20 20:42 20:42 04:20 Creatine Kinase 68926 H CK-MB (CK-2) 367.00 H Troponin I < 0.012 < 0.012 NT-Pro-B Natriuret Pep 282 H 05/08/20 05/08/20 05/09/20 04:20 12:15 03:38 Creatine Kinase 500866 H 071149 H CK-MB (CK-2) 323.00 H Troponin I < 0.012 NT-Pro-B Natriuret Pep 05/10/20 04:28 Creatine Kinase 16206 H CK-MB (CK-2) Troponin I NT-Pro-B Natriuret Pep Impressions: Cervical Spine CT 05/07/20 20:51 IMPRESSION: No acute findings in the cervical spine. TECHNICAL DOCUMENTATION: Quality ID # 436: Final reports with documentation of one or more dose reduction techniques (e.g., Automated exposure control, adjustment of the mA and/or kV according to patient size, use of iterative reconstruction technique) copyright 2010 [employer]- All Rights Reserved Head CT 05/07/20 20:51 IMPRESSION: 1. Nonspecific subtle low densities in the internal capsule bilaterally. 2. No acute findings. TECHNICAL DOCUMENTATION: Quality ID # 436: Final reports with documentation of one or more dose reduction techniques (e.g., Automated exposure control, adjustment of the mA and/or kV according to patient size, use of iterative reconstruction technique) copyright 2010 [employer]- All Rights Reserved Lower Extremity Ultrasound 05/08/20 00:00 IMPRESSION: Bilateral small vessel disease. No significant stenosis above the knee. Renal Ultrasound 05/09/20 00:00 IMPRESSION: Chronic medical renal disease without hydronephrosis. Possible nonobstructive calculus right kidney. Chest X-Ray 05/10/20 04:00 IMPRESSION: Rehydration versus progressing edema or sepsis. No pneumothorax. All labs, radiographs, diagnostic studies and EKGs were personally reviewed: Yes In addition, reports of radiographic and diagnostic studies were read: Yes Assessment and Plan - Diagnosis (1) Endotracheally intubated Is this a current diagnosis for this admission?: Yes Plan: * For airway protection related to suspected drug overdose and possible postictal state. * Wean to extubate. (2) Rhabdomyolysis Qualifiers: Rhabdomyolysis type: traumatic Encounter type: subsequent encounter Qualified Code(s): T79.6XXD - Traumatic ischemia of muscle, subsequent encounter Is this a current diagnosis for this admission?: Yes Plan: * Monitor urine output on furosemide infusion. * Nephrology help appreciated. * Repeat CK total in a.m. (3) Thrombocytopenia Is this a current diagnosis for this admission?: Yes Plan: * Check haptoglobin. * Check LDH. * Repeat DIC panel. (4) Enterococcus UTI Is this a current diagnosis for this admission?: Yes (5) Acute kidney injury Is this a current diagnosis for this admission?: Yes Plan: * Monitor urine output. * Continue IV fluids. Continue bicarbonate infusion. * Hemodialysis per nephrology. (6) Hypocalcemia Is this a current diagnosis for this admission?: Yes Plan: * Check ionized calcium. * Calcium gluconate supplementation as needed. (7) Hyperkalemia Is this a current diagnosis for this admission?: Yes (8) Altered mental status Qualifiers: Altered mental status type: unspecified Qualified Code(s): R41.82 - Altered mental status, unspecified Is this a current diagnosis for this admission?: Yes Plan: * Endotracheally intubated for airway protection. * Awaiting clearance of opiates. * Wean propofol as tolerated. * At this point, it is unclear whether patient had recent seizure activity or was having alcohol withdrawal tremors. We will start Precedex, in hopes of discontinuing propofol. (9) Overdose Qualifiers: Encounter type: subsequent encounter Injury intent: accidental or unintentional Qualified Code(s): T50.901D - Poisoning by unspecified drugs, medicaments and biological substances, accidental (unintentional), subsequent encounter Is this a current diagnosis for this admission?: Yes (10) Lactic acidosis Is this a current diagnosis for this admission?: Yes (11) Hyperglycemia Is this a current diagnosis for this admission?: Yes (12) Hypoalbuminemia Is this a current diagnosis for this admission?: Yes Critical Time Critical Time (minutes): 60 Level of Care: ICU -: 1. The care of a critical patient is a dynamic process. This note is a dental detail representative synopsis but static in nature. The timeframe for treatments given in order is not necessarily the actual time these treatments may have been done. 2. This patient requires critical care secondary to ongoing requirements for therapy not offered or safe outside the critical care environment. Transfer to a lower level of care will result in altered life or limb morbidity and mortality. 3. Multidisciplinary rounds completed. 4. ABCDE bundle addressed.
[2020-05-11 18:17] LABS: HEMATOCRIT 23.6 % (37.9-51.0); MEAN CORPUSCULAR HEMOGLOBIN 29.8 pg (27.0-33.4); MEAN CORPUSCULAR HGB CONC 33.4 g/dL (32.0-36.0); MEAN CORPUSCULAR VOLUME 89 fl (80-97); RED BLOOD COUNT 2.66 10^6/uL (4.35-5.55); RED CELL DISTRIBUTION WIDTH 16.7 % (11.5-14.0)
[2020-05-11 18:34] LABS: INTERNATIONAL RATION (INR) 1.01; PROTHROMBIN TIME 13.5 SEC (11.4-15.4)
[2020-05-11 18:35] LABS: FIBRINOGEN 601 mg/dL (209-497)
[2020-05-11 18:37] LABS: ALBUMIN 1.7 g/dL (3.5-5.0); ALKALINE PHOSPHATASE 108 U/L (38-126); ANION GAP 8 (5-19); BILIRUBIN,DIRECT 0.4 mg/dL (0.0-0.4); BILIRUBIN,TOTAL 0.7 mg/dL (0.2-1.3); BLOOD UREA NITROGEN 54 mg/dL (7-20); CARBON DIOXIDE 26 mmol/L (22-30); CHLORIDE 96 mmol/L (98-107); GLUCOSE 97 mg/dL (75-110); TOTAL PROTEIN 3.5 g/dL (6.3-8.2)
[2020-05-11 18:38] LABS: HEMOGLOBIN 7.9 g/dL (13.5-17.0); PLATELET COUNT 58 10^3/uL (150-450)
[2020-05-11 19:11] LABS: ASPARTATE AMINO TRANSFERASE 1346 U/L (17-59)
[2020-05-11 19:13] LABS: CALCIUM 6.5 mg/dL (8.4-10.2)
[2020-05-11 19:24] LABS: CREATINE KINASE 43765 U/L (55-170)
[2020-05-11] MEDS: DEXTROSE 5%-WATER 1000 ML 1,000 ML with SODIUM BICARBONATE 150 MEQ IV PRN ×2 (20:07)
[2020-05-11 20:13] LABS: D-DIMER > 20.00 ug/mL (0.00-0.50)
[2020-05-11] MEDS: VANCOMYCIN HCL 750 MG in DEXTROSE 5%-WATER 250 ML IV SCH (21:08)
[2020-05-11] MEDS ORDERED: ALBUMIN HUMAN 12.5 GM/50 ML RTUINJ IV ONE (21:25)
[2020-05-12 00:20] LABS: ANION GAP 6 (5-19); BLOOD UREA NITROGEN 55 mg/dL (7-20); CARBON DIOXIDE 28 mmol/L (22-30); CHLORIDE 95 mmol/L (98-107); GLUCOSE 103 mg/dL (75-110)
[2020-05-12 00:27] LABS: CALCIUM 6.6 mg/dL (8.4-10.2)
[2020-05-12] MEDS: PROPOFOL 1,000 MG/100 ML INFUS..BTL IV PRN ×3 (01:34→12:21)
[2020-05-12] MEDS: ALBUTEROL SULFATE 0.083% NEB 2.5 MG/3 ML AMPUL NEB SCH ×4 (02:48→21:07)
[2020-05-12 04:44] LABS: HEMATOCRIT 21.6 % (37.9-51.0); MEAN CORPUSCULAR HEMOGLOBIN 29.2 pg (27.0-33.4); MEAN CORPUSCULAR VOLUME 89 fl (80-97); RED BLOOD COUNT 2.44 10^6/uL (4.35-5.55); RED CELL DISTRIBUTION WIDTH 16.5 % (11.5-14.0); WHITE BLOOD COUNT 6.2 10^3/uL (4.0-10.5)
[2020-05-12 04:58] LABS: HEMOGLOBIN 7.1 g/dL (13.5-17.0)
[2020-05-12 04:59] LABS: PLATELET COUNT 49 10^3/uL (150-450)
[2020-05-12 05:00] LABS: ANION GAP 8 (5-19); BLOOD UREA NITROGEN 57 mg/dL (7-20); CARBON DIOXIDE 28 mmol/L (22-30); CHLORIDE 95 mmol/L (98-107); GLUCOSE 100 mg/dL (75-110); POTASSIUM 4.6 mmol/L (3.6-5.0)
[2020-05-12 05:13] LABS: CALCIUM 6.7 mg/dL (8.4-10.2)
[2020-05-12] MEDS: HEPARIN SOD (PORCINE) 5,000 UNIT/ML 1 ML VIAL SUBCUT SCH ×2 (05:43→14:10)
[2020-05-12] MEDS: PIPERACILLIN SODIUM/TAZOBACTAM 2.25 GM in NORMAL SALINE 50 ML IV SCH ×3 (05:43→21:40)
[2020-05-12 07:38] LABS: HEPATITS B SURFACE ANTIGEN Negative (Negative)
[2020-05-12] MEDS: DOCUSATE SODIUM 100 MG/10 ML UDC PO SCH ×2 (09:45→17:04)
[2020-05-12] MEDS: PANTOPRAZOLE SODIUM 40 MG VIAL IV SCH (09:51)
[2020-05-12 11:48] LABS: ANION GAP 8 (5-19); BLOOD UREA NITROGEN 60 mg/dL (7-20); CARBON DIOXIDE 28 mmol/L (22-30); CHLORIDE 94 mmol/L (98-107); GLUCOSE 89 mg/dL (75-110); POTASSIUM 4.5 mmol/L (3.6-5.0)
[2020-05-12 12:02] LABS: CALCIUM 6.6 mg/dL (8.4-10.2)
[2020-05-12] MEDS: DEXMEDETOMIDINE IN NS 400 MCG/100 ML RTUPB IV PRN ×3 (12:22→23:44)
[2020-05-12] MEDS: NORMAL SALINE 1000 ML 1,000 ML IV PRN ×2 (13:29→21:00)
--- NOTE | 2020-05-12 16:03 | PDOC CRITICAL CARE PROG REPORT ---
General Date:: 05/12/20 ICU Day:: 6 Ventilator Day:: 6 Hospital Day:: 6 Resuscitation Status: Full Code Events in the past 12 to 24 Hours:: This 54-year-old male presented to [facility] emergency department via EMS on 05/07/2020 with altered mental status. Basically, the patient has an unknown. Of unresponsiveness, as he was initially believed to be sleeping but raised concern to his when he was found to still be in the same position over 12 hours later. The reports that the his pupils were constricted at the time she called EMS. EMS arrived and found the patient to be obtunded. Narcan was given in the field. Although he was assessed to have a favorable response to Narcan initially, he subsequently demonstrated seizure- like movements on route. He was provided bag mask ventilatory support. No loss of pulse or pressure. However, in the emergency department he again d emonstrated obtunded/altered mental status. He was given another dose of Narcan, which was not convincingly helpful. He was intubated in the emergency department. He was started on norepinephrine infusion for blood pressure support. Initial laboratory evaluation was compatible with acute kidney injury and rhabdomyolysis with CK total peaking at 152,203. He also had a severe metabolic acidosis with an elevated anion gap. Lactate level was elevated. Urine drug screen was positive for opiates. Alcohol level was undetectable ( reports he admits to consistent alcohol consumption for analgesic effect, although she believes his last drink was almost 7 days ago). 05/08: Remains intubated. On Levophed. 05/09: Remains intubated. ABG this a.m.: 7.41/40/79. Still on Levophed, decreasing. CK total peaked at 152,203, now 128,134. Albumin 1.9. Anuric. Creatinine 4.7. K5.4. Lactate 3.3. 05/10: Remains intubated. On propofol for sedation. Normal saline at 1 L/h all day yesterday. Still anuric. Discussed with Dr. Brown this morning. Attempting to stimulate diuresis with Lasix 100 mg IV push followed by infusion at 10 mg/h. CK total 76,434. Potassium 5.0. Creatinine 5.23. Calcium 5.8. Albumin 1.5. Chest x-ray demonstrates a widened mediastinum, more prominent tod ay than on previous. Patient's is at the bedside and reports that this has previously been identified, reported to her, and "thoroughly worked up for a possible aneurysmal thing". She states that the entire diagnostic evaluation was unrevealing. 05/11: Remains intubated. On propofol for sedation. Got hemodialysis today. - 5 L. Still an uric despite furosemide infusion. Case discussed with Dr. Brown this morning. Platelets 62 this morning. Off insulin infusion. Off D5. Potassium 5.4 this morning. 05/12: Remains intubated. On propofol/Precedex for sedation. CK total 43,765. Had transient hypotension yesterday. No significant improvement after albumin infusion. However, nicker reports that the patient had dramatic improvement after a large BM. Afebrile. WBC 6.2. Platelets 49. Cam isolated Enterococcus. On Zosyn/vancomycin. Review of systems relevant to events:: Neurologic: Altered mental status Respiratory: Endotracheally intubated Musculoskeletal: Rhabdomyolysis Neuropsychiatric: Possible drug overdose Reason for ICU Addmission:: Altered MS, Acute Resp. Failure, Opiod OD, Abnormal EKG ( wide complex ) - Medications: Medications reviewed and adjusted accordingly: Yes Vasopressors:: Norepinephrine Sedation:: Propofol Physical Exam Vital Signs: Temp Pulse Resp BP Pulse Ox 98.6 F 94 21 H 124/73 95 05/11/20 22:00 05/12/20 08:26 05/12/20 08:26 05/12/20 05:50 05/12/20 08:26 Intake & Output 05/11/20 05/12/20 05/13/20 06:59 06:59 06:59 Intake Total 4024 4756 Output Total 85 6310 Balance 3939 -1554 Weight 145.9 kg 141.1 kg Weight/Height Weight 141.1 kg Height 1.83 m Laboratory/Radiographs Laboratory Results: 05/12/20 04:20 05/12/20 04:20 05/11/20 05/11/20 05/11/20 15:06 15:06 16:51 WBC 8.1 RBC 2.78 L Hgb 8.3 L Hct 24.7 L MCV 89 MCH 29.8 MCHC 33.6 RDW 16.5 H Plt Count 60 L Sodium 130.1 L Potassium 4.9 Chloride 96 L Carbon Dioxide 26 Anion Gap 8 BUN 51 H Creatinine 4.81 H Est GFR ( Amer) 15 L Glucose 103 Calcium 6.6 L* Ionized Calcium Charles 0.91 L Total Bilirubin AST Alkaline Phosphatase Total Protein Albumin 05/11/20 05/11/20 05/11/20 17:58 17:58 23:40 WBC 7.0 RBC 2.66 L Hgb 7.9 L Hct 23.6 L MCV 89 MCH 29.8 MCHC 33.4 RDW 16.7 H Plt Count 58 L Sodium 130.4 L 129.1 L Potassium 5.0 5.0 Chloride 96 L 95 L Carbon Dioxide 26 28 Anion Gap 8 6 BUN 54 H 55 H Creatinine 4.88 H 4.96 H Est GFR ( Amer) 15 L 15 L Glucose 97 103 Calcium 6.5 L* 6.6 L* Ionized Calcium Charles Total Bilirubin 0.7 AST 1346 H Alkaline Phosphatase 108 Total Protein 3.5 L Albumin 1.7 L 05/12/20 05/12/20 04:20 04:20 WBC 6.2 RBC 2.44 L Hgb 7.1 L Hct 21.6 L MCV 89 MCH 29.2 MCHC 33.0 RDW 16.5 H Plt Count 49 L Sodium 130.8 L Potassium 4.6 Chloride 95 L Carbon Dioxide 28 Anion Gap 8 BUN 57 H Creatinine 5.44 H Est GFR ( Amer) 13 L Glucose 100 Calcium 6.7 L* Ionized Calcium Charles Total Bilirubin AST Alkaline Phosphatase Total Protein Albumin 05/07/20 05/07/20 05/08/20 20:42 20:42 04:20 Creatine Kinase 92339 H CK-MB (CK-2) 367.00 H Troponin I < 0.012 < 0.012 NT-Pro-B Natriuret Pep 282 H 05/08/20 05/08/20 05/09/20 04:20 12:15 03:38 Creatine Kinase 828615 H 326400 H CK-MB (CK-2) 323.00 H Troponin I < 0.012 NT-Pro-B Natriuret Pep 05/10/20 05/11/20 04:28 17:58 Creatine Kinase 62183 H 16945 H CK-MB (CK-2) Troponin I NT-Pro-B Natriuret Pep Impressions: Cervical Spine CT 05/07/20 20:51 IMPRESSION: No acute findings in the cervical spine. TECHNICAL DOCUMENTATION: Quality ID # 436: Final reports with documentation of one or more dose reduction techniques (e.g., Automated exposure control, adjustment of the mA and/or kV according to patient size, use of iterative reconstruction technique) copyright 2010 [employer]- All Rights Reserved Head CT 05/07/20 20:51 IMPRESSION: 1. Nonspecific subtle low densities in the internal capsule bilaterally. 2. No acute findings. TECHNICAL DOCUMENTATION: Quality ID # 436: Final reports with documentation of one or more dose reduction techniques (e.g., Automated exposure control, adjustment of the mA and/or kV according to patient size, use of iterative reconstruction technique) copyright 2010 [employer]- All Rights Reserved Lower Extremity Ultrasound 05/08/20 00:00 IMPRESSION: Bilateral small vessel disease. No significant stenosis above the knee. Renal Ultrasound 05/09/20 00:00 IMPRESSION: Chronic medical renal disease without hydronephrosis. Possible nonobstructive calculus right kidney. Chest X-Ray 05/10/20 04:00 IMPRESSION: Rehydration versus progressing edema or sepsis. No pneumothorax. Assessment and Plan - Diagnosis (1) Pneumonia due to COVID-19 virus Is this a current diagnosis for this admission?: Yes Plan: * Start Decadron 6 mg IV q 12 hr. * Start remdesivir. (2) Endotracheally intubated Is this a current diagnosis for this admission?: Yes Plan: * For airway protection related to suspected drug overdose and possible postictal state. * Wean to extubate. (3) Rhabdomyolysis Qualifiers: Rhabdomyolysis type: traumatic Encounter type: subsequent encounter Qualified Code(s): T79.6XXD - Traumatic ischemia of muscle, subsequent encounter Is this a current diagnosis for this admission?: Yes Plan: * Monitor urine output on furosemide infusion. * Nephrology help appreciated. * Repeat CK total in a.m. (4) Thrombocytopenia Is this a current diagnosis for this admission?: Yes Plan: * Stop heparin. The patient is continued get heparin for DVT prophylaxis. * Check heparin-induced platelet antibodies 24 hours after last heparin exposure. (5) Enterococcus UTI Is this a current diagnosis for this admission?: Yes (6) Acute kidney injury Is this a current diagnosis for this admission?: Yes Plan: * Monitor urine output. * Nephrology recommendations appreciated: Will continue IV fluids. Stop bicarbonate infusion. * Hemodialysis per nephrology. (7) Hypocalcemia Is this a current diagnosis for this admission?: Yes (8) Hyperkalemia Is this a current diagnosis for this admission?: Yes (9) Altered mental status Qualifiers: Altered mental status type: unspecified Qualified Code(s): R41.82 - Altered mental status, unspecified Is this a current diagnosis for this admission?: Yes (10) Overdose Qualifiers: Encounter type: subsequent encounter Injury intent: accidental or unintentional Qualified Code(s): T50.901D - Poisoning by unspecified drugs, medicaments and biological substances, accidental (unintentional), subsequent encounter Is this a current diagnosis for this admission?: Yes (11) Lactic acidosis Is this a current diagnosis for this admission?: Yes (12) Hyperglycemia Is this a current diagnosis for this admission?: Yes (13) Hypoalbuminemia Is this a current diagnosis for this admission?: Yes Critical Time Critical Time (minutes): 60 Level of Care: ICU -: 1. The care of a critical patient is a dynamic process. This note is a product sales representative synopsis but static in nature. The timeframe for treatments given in order is not necessarily the actual time these treatments may have been done. 2. This patient requires critical care secondary to ongoing requirements for therapy not offered or safe outside the critical care environment. Transfer to a lower level of care will result in altered life or limb morbidity and mortality. 3. Multidisciplinary rounds completed. 4. ABCDE bundle addressed.
[2020-05-12 16:07] LABS: HEPATITIS B CORE AB TOT Negative (Negative)
[2020-05-12] MEDS: DEXAMETHASONE SOD PHOS INJ 10 MG/1 ML VIAL IV SCH ×2 (16:08→21:40)
[2020-05-12] MEDS ORDERED: REMDESIVIR 200 MG in NORMAL SALINE 250 ML IV ONE (16:30)
[2020-05-12 18:05] LABS: ANION GAP 8 (5-19); BLOOD UREA NITROGEN 61 mg/dL (7-20); CARBON DIOXIDE 27 mmol/L (22-30); CHLORIDE 95 mmol/L (98-107); GLUCOSE 97 mg/dL (75-110); POTASSIUM 4.9 mmol/L (3.6-5.0)
[2020-05-12] MEDS ORDERED: ZINC SULFATE 220 MG CAPSULE NG ONE (18:45)
[2020-05-12 18:51] LABS: C-REACTIVE PROTEIN 377.5 mg/L (<10.0); CREATINE KINASE 27357 U/L (55-170)
[2020-05-12 18:52] LABS: CALCIUM 6.6 mg/dL (8.4-10.2)
[2020-05-12] MEDS: NORMAL SALINE 250 ML with FUROSEMIDE 250 MG IV PRN ×2 (19:30)
[2020-05-12] MEDS: VANCOMYCIN HCL 750 MG in DEXTROSE 5%-WATER 250 ML IV SCH (23:15)
[2020-05-12 23:37] LABS: HEMATOCRIT 22.7 % (37.9-51.0); MEAN CORPUSCULAR HEMOGLOBIN 29.5 pg (27.0-33.4); MEAN CORPUSCULAR HGB CONC 33.3 g/dL (32.0-36.0); MEAN CORPUSCULAR VOLUME 89 fl (80-97); RED BLOOD COUNT 2.57 10^6/uL (4.35-5.55); RED CELL DISTRIBUTION WIDTH 16.7 % (11.5-14.0)
[2020-05-12 23:56] LABS: ANION GAP 7 (5-19); BLOOD UREA NITROGEN 67 mg/dL (7-20); CARBON DIOXIDE 26 mmol/L (22-30); CHLORIDE 95 mmol/L (98-107); GLUCOSE 144 mg/dL (75-110); POTASSIUM 5.7 mmol/L (3.6-5.0)
[2020-05-13 00:11] LABS: CALCIUM 6.8 mg/dL (8.4-10.2)
[2020-05-13 00:28] LABS: ABSOLUTE LYMPHOCYTES# (MANUAL) 0.1 10^3/uL (0.5-4.7); ABSOLUTE MONOCYTES # (MANUAL) 0.4 10^3/uL (0.1-1.4); BASOPHILS % (MANUAL) 0 % (0-2); EOSINOPHILS % (MANUAL) 0 % (0-6); LYMPHOCYTES % (MANUAL) 2 % (13-45); MONOCYTES % (MANUAL) 7 % (3-13); SEGMENTED NEUTROPHILS % (MAN) 91 % (42-78); TOTAL CELLS COUNTED 100
[2020-05-13 00:29] LABS: ANISOCYTOSIS 1+; BURR CELLS SLIGHT; PLATELET COMMENT DECREASED; SCHISTOCYTES SLIGHT
[2020-05-13 00:35] LABS: HEMOGLOBIN 7.6 g/dL (13.5-17.0)
[2020-05-13 00:38] LABS: PLATELET COUNT 47 10^3/uL (150-450)
[2020-05-13] MEDS: ALBUTEROL SULFATE 0.083% NEB 2.5 MG/3 ML AMPUL NEB SCH ×4 (03:05→22:02)
[2020-05-13] MEDS: PIPERACILLIN SODIUM/TAZOBACTAM 2.25 GM in NORMAL SALINE 50 ML IV SCH ×3 (05:09→23:02)
[2020-05-13] MEDS: NORMAL SALINE 1000 ML 1,000 ML IV PRN ×3 (05:09→21:25)
[2020-05-13] MEDS ORDERED: POTASSI CL 20 MEQ/50 ML RIDER 20 MEQ/50 ML RTUPB IV SCH (05:30)
[2020-05-13 05:51] LABS: MEAN CORPUSCULAR HGB CONC 32.8 g/dL (32.0-36.0); MEAN CORPUSCULAR VOLUME 88 fl (80-97); RED CELL DISTRIBUTION WIDTH 16.7 % (11.5-14.0); WHITE BLOOD COUNT 5.3 10^3/uL (4.0-10.5)
[2020-05-13 06:10] LABS: ANION GAP 7 (5-19); BLOOD UREA NITROGEN 71 mg/dL (7-20); CARBON DIOXIDE 27 mmol/L (22-30); CHLORIDE 95 mmol/L (98-107); GLUCOSE 152 mg/dL (75-110); POTASSIUM 5.5 mmol/L (3.6-5.0)
[2020-05-13 06:25] LABS: CALCIUM 6.8 mg/dL (8.4-10.2)
[2020-05-13 06:32] LABS: PLATELET COUNT 57 10^3/uL (150-450)
[2020-05-13 06:33] LABS: HEMOGLOBIN 7.5 g/dL (13.5-17.0)
[2020-05-13] MEDS: DEXMEDETOMIDINE IN NS 400 MCG/100 ML RTUPB IV PRN ×2 (06:36→13:04)
[2020-05-13] MEDS ORDERED: NORMAL SALINE 250 ML with ARGATROBAN 250 MG IV PRN ×2 (10:41)
[2020-05-13] MEDS: DEXAMETHASONE SOD PHOS INJ 10 MG/1 ML VIAL IV SCH ×2 (11:27→23:03)
[2020-05-13] MEDS: ASCORBIC ACID 500 MG TABLET NG SCH ×2 (11:27→19:18)
[2020-05-13] MEDS: REMDESIVIR 100 MG in NORMAL SALINE 250 ML IV SCH (11:27)
[2020-05-13] MEDS: ZINC SULFATE 220 MG CAPSULE NG SCH (11:27)
[2020-05-13] MEDS: DOCUSATE SODIUM 100 MG/10 ML UDC PO SCH ×2 (11:28→19:18)
[2020-05-13] MEDS: PANTOPRAZOLE SODIUM 40 MG VIAL IV SCH (11:28)
[2020-05-13 12:08] LABS: ARTERIAL BLOOD BASE EXCESS -2.6 mmol/L; ARTERIAL BLOOD FIO2 40%; ARTERIAL BLOOD H2CO3 0.99 mmol/L (1.05-1.35); ARTERIAL BLOOD HCO3 21.2 mmol/L (20-24); ARTERIAL BLOOD O2 SATURATION 96.9 % (94-98); ARTERIAL BLOOD PCO2 32.9 mmHg (35-45); ARTERIAL BLOOD PH 7.43 (7.35-7.45); ARTERIAL BLOOD PO2 86.3 mmHg (80-100); ARTERIAL BLOOD TOTAL CO2 22.3 mmol/L (23-27)
[2020-05-13 13:02] LABS: ANION GAP 9 (5-19); BLOOD UREA NITROGEN 78 mg/dL (7-20); CARBON DIOXIDE 24 mmol/L (22-30); CHLORIDE 96 mmol/L (98-107); GLUCOSE 141 mg/dL (75-110); POTASSIUM 5.5 mmol/L (3.6-5.0)
[2020-05-13 13:10] LABS: CALCIUM 6.8 mg/dL (8.4-10.2)
--- NOTE | 2020-05-13 14:19 | RADIOLOGY REPORT (SQ) ---
EXAM DESCRIPTION: KUB/ABDOMEN (SINGLE VIEW) IMAGES COMPLETED DATE/TIME: 05/13/2020 9:47 am REASON FOR STUDY: OG tube insertion COMPARISON: None. NUMBER OF VIEWS: One view. TECHNIQUE: Supine view of the left upper abdomen was obtained to assess OG tube placement. The late ral right abdomen and lower abdomen/pelvis are not fully included. LIMITATIONS: As above. FINDINGS: Esophagogastric tube tip and side port projects over the stomach. There are some partiall y visualized mildly dilated gas-filled small bowel loops. IMPRESSION: Esophagogastric tube tip and side port projects over the stomach. TECHNICAL DOCUMENTATION: JOB ID: [id number] 2010 [employer]- All Rights Reserved Reading location - IP/workstation name: [email or web address]
[2020-05-13 14:36] LABS: HEPATITIS C QUANTITATION HCV Not Detected IU/mL (.)
[2020-05-13 19:16] LABS: ARTERIAL BLOOD BASE EXCESS -3.5 mmol/L; ARTERIAL BLOOD H2CO3 1.05 mmol/L (1.05-1.35); ARTERIAL BLOOD HCO3 20.9 mmol/L (20-24); ARTERIAL BLOOD PCO2 34.8 mmHg (35-45); ARTERIAL BLOOD PO2 65.2 mmHg (80-100)
[2020-05-13 19:18] LABS: ARTERIAL BLOOD FIO2 40%
[2020-05-13 19:31] LABS: ANION GAP 12 (5-19); BLOOD UREA NITROGEN 83 mg/dL (7-20); CARBON DIOXIDE 23 mmol/L (22-30); CHLORIDE 95 mmol/L (98-107); GLUCOSE 122 mg/dL (75-110); POTASSIUM 5.3 mmol/L (3.6-5.0)
[2020-05-13 20:16] LABS: CREATINE KINASE 15274 U/L (55-170)
[2020-05-13 20:24] LABS: CALCIUM 6.8 mg/dL (8.4-10.2)
[2020-05-13] MEDS: NORMAL SALINE 250 ML with FUROSEMIDE 250 MG IV PRN ×2 (22:51)
[2020-05-13 23:49] LABS: VANCOMYCIN,TROUGH 16.8 ug/mL (5.0-20.0)
[2020-05-14] MEDS: VANCOMYCIN HCL 750 MG in DEXTROSE 5%-WATER 250 ML IV SCH (00:11)
[2020-05-14] MEDS: DEXMEDETOMIDINE IN NS 400 MCG/100 ML RTUPB IV PRN ×2 (00:15→15:57)
[2020-05-14] MEDS: ALBUTEROL SULFATE 0.083% NEB 2.5 MG/3 ML AMPUL NEB SCH ×4 (02:17→20:37)
[2020-05-14 05:23] LABS: HEMATOCRIT 22.9 % (37.9-51.0); MEAN CORPUSCULAR HEMOGLOBIN 29.5 pg (27.0-33.4); MEAN CORPUSCULAR HGB CONC 33.3 g/dL (32.0-36.0); MEAN CORPUSCULAR VOLUME 89 fl (80-97); RED BLOOD COUNT 2.58 10^6/uL (4.35-5.55); RED CELL DISTRIBUTION WIDTH 16.4 % (11.5-14.0); WHITE BLOOD COUNT 9.1 10^3/uL (4.0-10.5)
[2020-05-14 05:47] LABS: ANION GAP 11 (5-19); BLOOD UREA NITROGEN 95 mg/dL (7-20); CARBON DIOXIDE 22 mmol/L (22-30); CHLORIDE 97 mmol/L (98-107); GLUCOSE 153 mg/dL (75-110); PHOSPHORUS 9.3 mg/dL (2.5-4.5); POTASSIUM 5.2 mmol/L (3.6-5.0); TRIGLYCERIDES 194 mg/dL (<150)
[2020-05-14 06:10] LABS: CALCIUM 6.6 mg/dL (8.4-10.2)
[2020-05-14 06:24] LABS: PLATELET COUNT 92 10^3/uL (150-450)
[2020-05-14 06:27] LABS: ABSOLUTE LYMPHOCYTES# (MANUAL) 0.3 10^3/uL (0.5-4.7); ABSOLUTE MONOCYTES # (MANUAL) 0.9 10^3/uL (0.1-1.4); ANISOCYTOSIS 1+; BASOPHILS % (MANUAL) 0 % (0-2); EOSINOPHILS % (MANUAL) 0 % (0-6); HYPERSEGMENTED NEUTROPHILS PRESENT; LYMPHOCYTES % (MANUAL) 3 % (13-45); MONOCYTES % (MANUAL) 10 % (3-13); PLATELET COMMENT DECREASED; SEGMENTED NEUTROPHILS % (MAN) 87 % (42-78); TOTAL CELLS COUNTED 100
[2020-05-14 06:32] LABS: POLYCHROMASIA SLIGHT
[2020-05-14 06:33] LABS: BURR CELLS SLIGHT
[2020-05-14 06:34] LABS: POIKILOCYTOSIS SLIGHT; SCHISTOCYTES SLIGHT
[2020-05-14 06:36] LABS: HEMOGLOBIN 7.6 g/dL (13.5-17.0)
[2020-05-14 06:41] LABS: ARTERIAL BLOOD BASE EXCESS -4.4 mmol/L; ARTERIAL BLOOD H2CO3 1.04 mmol/L (1.05-1.35); ARTERIAL BLOOD HCO3 20.2 mmol/L (20-24); ARTERIAL BLOOD O2 SATURATION 96.7 % (94-98); ARTERIAL BLOOD PCO2 34.5 mmHg (35-45); ARTERIAL BLOOD PH 7.39 (7.35-7.45); ARTERIAL BLOOD PO2 88.5 mmHg (80-100); ARTERIAL BLOOD TOTAL CO2 21.2 mmol/L (23-27)
[2020-05-14 06:44] LABS: ARTERIAL BLOOD FIO2 40%
[2020-05-14] MEDS: DOCUSATE SODIUM 100 MG/10 ML UDC PO SCH ×2 (09:25→18:16)
[2020-05-14] MEDS: ZINC SULFATE 220 MG CAPSULE NG SCH (09:26)
[2020-05-14] MEDS: ASCORBIC ACID 500 MG TABLET NG SCH ×2 (09:27→18:16)
[2020-05-14] MEDS ORDERED: NORMAL SALINE 1000 ML 1,000 ML IV PRN (10:02)
[2020-05-14] MEDS ORDERED: HEPARIN SOD (PORCINE) 1,000 UNIT/ML 10 ML VIAL IV PRN ×2 (10:02→18:00)
[2020-05-14] MEDS: PANTOPRAZOLE SODIUM 40 MG VIAL IV SCH (10:57)
[2020-05-14] MEDS: DEXAMETHASONE SOD PHOS INJ 10 MG/1 ML VIAL IV SCH ×2 (10:57→21:40)
[2020-05-14] MEDS: PIPERACILLIN SODIUM/TAZOBACTAM 2.25 GM in NORMAL SALINE 50 ML IV SCH ×3 (10:58→21:40)
[2020-05-14] MEDS: REMDESIVIR 100 MG in NORMAL SALINE 250 ML IV SCH (10:59)
--- NOTE | 2020-05-14 11:26 | PDOC PROGRESS REPORT ---
Subjective Date:: 05/14/20 Subjective:: Chart reviewed. Patient has acute respiratory failure and currently intubated, has GRETCHEN with rhabdomyolysis, multiple electrolyte abnormalities, lactic acidosis with UTI and staph bacteremia, and most recently tested positive for Covid 19 on 05/12/2020. I am seeing the patient during dialysis this morning. He remains to be intubated and is currently unresponsive even without sedation. He continues to be anuric with urine output only between 55-90 for the last few days. He is a still clinically fluid overloaded. He is currently tolerating dialysis. We are trying to get this much ultrafiltration as he can tolerate. Reason For Visit: HYPERKALEMIA ALTERED MENTAL STATUS Physical Exam Vital Signs: Temp Pulse Resp BP Pulse Ox 99.0 F 61 21 H 159/85 H 95 05/13/20 22:00 05/14/20 09:20 05/14/20 09:20 05/14/20 08:15 05/14/20 09:20 Intake & Output 05/13/20 05/14/20 05/15/20 06:59 06:59 06:59 Intake Total 3604 3020 Output Total 1155 90 50 Balance 2449 2930 -50 Weight 145.7 kg 151.6 kg Vitals during dialysis: Blood pressure 176/91, heart rate of 63, respiration of 23, oxygen saturation 95% with FiO2 of 40% on mechanical ventilation, blood flow rate of 300 mL/min and dialysate flow rate of 600 mL/min. Exam: General appearance: PRESENT: Intubated and unresponsive, occasional eye opening noted Head exam: PRESENT: atraumatic, normocephalic; positive facial edema Eye exam: PRESENT: Eyes closed Neck exam: ABSENT: JVD Respiratory exam: PRESENT: Coarse and diminished breath sounds. ABSENT: crackles, rales, rhonchi, unlabored, wheezes Cardiovascular exam: PRESENT: Regular rate rhythm -+S1, +S2. ABSENT: diastolic murmur, systolic murmur GI/Abdominal exam: PRESENT: normal bowel sounds, soft. ABSENT: guarding, mass, tenderness Extremities exam: Positive anasarca both upper and lower extremity significant grade 2 edema Neurological exam: PRESENT: Unresponsive, off sedation. Skin exam: PRESENT: dry, warm, slight pallor Cardiovascular exam: PRESENT: +S1, +S2 GI/Abdominal exam: PRESENT: normal bowel sounds, soft. ABSENT: organomegaly, tenderness Results Laboratory Results: 05/14/20 04:50 05/14/20 04:50 05/13/20 05/13/20 05/13/20 11:45 11:45 18:53 WBC RBC Hgb Hct MCV MCH MCHC RDW Plt Count Seg Neutrophils % Carbonic Acid 0.99 L HCO3/H2CO3 Ratio 21:1 ABG pH 7.43 ABG pCO2 32.9 L ABG pO2 86.3 ABG HCO3 21.2 ABG O2 Saturation 96.9 ABG Base Excess -2.6 FiO2 40% Sodium 129.3 L Potassium 5.5 H Chloride 96 L Carbon Dioxide 24 Anion Gap 9 BUN 78 H Creatinine 6.44 H Est GFR ( Amer) 11 L Glucose 141 H Calcium 6.8 L* Ionized Calcium Charles Phosphorus Magnesium Ammonia < 8.7 L Triglycerides 05/13/20 05/13/20 05/14/20 18:53 18:53 04:50 WBC RBC Hgb Hct MCV MCH MCHC RDW Plt Count Seg Neutrophils % Carbonic Acid 1.05 HCO3/H2CO3 Ratio 19:1 ABG pH 7.40 ABG pCO2 34.8 L ABG pO2 65.2 L ABG HCO3 20.9 ABG O2 Saturation 93.0 L ABG Base Excess -3.5 FiO2 40% Sodium 129.8 L 130.3 L Potassium 5.3 H 5.2 H Chloride 95 L 97 L Carbon Dioxide 23 22 Anion Gap 12 11 BUN 83 H 95 H Creatinine 6.44 H 6.91 H Est GFR ( Amer) 11 L 10 L Glucose 122 H 153 H Calcium 6.8 L* 6.6 L* Ionized Calcium Charles Phosphorus 9.3 H Magnesium 2.2 Ammonia Triglycerides 194 H 05/14/20 05/14/20 05/14/20 04:50 04:50 05:45 WBC 9.1 RBC 2.58 L Hgb 7.6 L Hct 22.9 L MCV 89 MCH 29.5 MCHC 33.3 RDW 16.4 H Plt Count 92 L Seg Neutrophils % Not Reportable Carbonic Acid 1.04 L HCO3/H2CO3 Ratio 19:1 ABG pH 7.39 ABG pCO2 34.5 L ABG pO2 88.5 ABG HCO3 20.2 ABG O2 Saturation 96.7 ABG Base Excess -4.4 FiO2 40% Sodium Potassium Chloride Carbon Dioxide Anion Gap BUN Creatinine Est GFR ( Amer) Glucose Calcium Ionized Calcium Charles 0.93 L Phosphorus Magnesium Ammonia Triglycerides 05/12/20 11:09 Tracheal Aspirate Gram Stain - Final 05/12/20 11:09 Tracheal Aspirate Sputum Culture - Final Enterobacter Cloacae Stenotrophomonas Maltophilia Normal Cierra Absent 05/07/20 05/07/20 05/08/20 20:42 20:42 04:20 Creatine Kinase 66096 H CK-MB (CK-2) 367.00 H Troponin I < 0.012 < 0.012 NT-Pro-B Natriuret Pep 282 H 05/08/20 05/08/20 05/09/20 04:20 12:15 03:38 Creatine Kinase 013140 H 937650 H CK-MB (CK-2) 323.00 H Troponin I < 0.012 NT-Pro-B Natriuret Pep 05/10/20 05/11/20 05/12/20 04:28 17:58 17:10 Creatine Kinase 03162 H 56754 H 31251 H CK-MB (CK-2) Troponin I NT-Pro-B Natriuret Pep 05/13/20 18:53 Creatine Kinase 31102 H CK-MB (CK-2) Troponin I NT-Pro-B Natriuret Pep Impressions: Cervical Spine CT 05/07/20 20:51 IMPRESSION: No acute findings in the cervical spine. TECHNICAL DOCUMENTATION: Quality ID # 436: Final reports with documentation of one or more dose reduction techniques (e.g., Automated exposure control, adjustment of the mA and/or kV according to patient size, use of iterative reconstruction technique) copyright 2010 [employer]- All Rights Reserved Head CT 05/07/20 20:51 IMPRESSION: 1. Nonspecific subtle low densities in the internal capsule bilaterally. 2. No acute findings. TECHNICAL DOCUMENTATION: Quality ID # 436: Final reports with documentation of one or more dose reduction techniques (e.g., Automated exposure control, adjustment of the mA and/or kV according to patient size, use of iterative reconstruction technique) copyright 2011 [employer]- All Rights Reserved Lower Extremity Ultrasound 05/08/20 00:00 IMPRESSION: Bilateral small vessel disease. No significant stenosis above the knee. Renal Ultrasound 05/09/20 00:00 IMPRESSION: Chronic medical renal disease without hydronephrosis. Possible nonobstructive calculus right kidney. Chest X-Ray 05/10/20 04:00 IMPRESSION: Rehydration versus progressing edema or sepsis. No pneumothorax. KUB X-Ray 05/13/20 00:00 IMPRESSION: Esophagogastric tube tip and side port projects over the stomach. Assessment & Plan - Diagnosis (1) Acute kidney injury Is this a current diagnosis for this admission?: Yes Plan: Secondary to initial severe rhabdomyolysis but could also be multifactorial another the patient is found to be Covid positive. Continues to be anuric and fluid overloaded. Now requiring renal replacement therapy. We will do dialysis today for 3 hours, using the patient's dialysis catheter, with 3 calcium with 2 potassium bath, blood flow rate of 300 mL per minute, dialysate flow rate of 600 mL per minute, ultrafiltration 4-5 L as tolerated, no heparin and no Retacrit during dialysis. Patient is being monitored throughout dialysis treatment very cautiously with adjustments to be done as necessary. About 20 minutes before her treatment gets completed, her system clotted, about 4.1 on liters ultrafiltration was already obtained so we stopped the treatment at that point. We will continue to reevaluate and support with renal replacement therapy as necessary. (2) Pneumonia due to COVID-19 virus Is this a current diagnosis for this admission?: Yes Plan: Patient currently being treated with IV remdesivir, IV Decadron, vitamin C, and zinc. Management per railroad passenger agent. (3) Respiratory failure with hypoxia and hypercapnia Qualifiers: Chronicity: acute Qualified Code(s): J96.01 - Acute respiratory failure with hypoxia; J96.02 - Acute respiratory failure with hypercapnia Is this a current diagnosis for this admission?: Yes Plan: On mechanical ventilation. Per railroad passenger agent. (4) Rhabdomyolysis Qualifiers: Rhabdomyolysis type: traumatic Encounter type: subsequent encounter Qualified Code(s): T79.6XXD - Traumatic ischemia of muscle, subsequent encounter Is this a current diagnosis for this admission?: Yes Plan: His current CK was 15,274 which is improving. Patient is currently fluid overloaded after IV fluid hydration with concomitant anuria with GRETCHEN. (5) Hyperkalemia Is this a current diagnosis for this admission?: Yes Plan: On dialysis. (6) Altered mental status Qualifiers: Altered mental status type: unspecified Qualified Code(s): R41.82 - Altered mental status, unspecified Is this a current diagnosis for this admission?: Yes Plan: Off sedation but still not much response. (7) Hypoalbuminemia Is this a current diagnosis for this admission?: Yes Plan: Consider albumin infusion to mobilize fluids. (8) Hypocalcemia Is this a current diagnosis for this admission?: Yes Plan: Corrected calcium is actually 8.4 with hypoalbuminemia. Currently being dialyzed with high calcium bath but needs to continue to monitor and adjust accordingly. (9) Lactic acidosis Is this a current diagnosis for this admission?: Yes Plan: Patient has had UTI secondary to Enterococcus faecalis on 05/08 and on 1213 she has positive blood culture with Staphylococcus Warnei. On 1218 sputum culture was positive for Enterobacter cloacae and Stenotrophomonas maltophilia. Still consider sepsis with multiple comorbidities. On IV Zosyn and vancomycin. (10) Thrombocytopenia Is this a current diagnosis for this admission?: Yes Plan: Consider multifactorial causes including possibility of DIC with questionable sepsis, medication induced, and Covid infection. Platelets currently improving. (11) Hyponatremia Is this a current diagnosis for this admission?: Yes Plan: Most likely secondary to hypervolemic state. (12) Anemia Is this a current diagnosis for this admission?: Yes Plan: Could be partly due to hemodilution due to hypervolemia. Other considerations include DIC and anemia due to current acute illness. (13) Abnormal LFTs Is this a current diagnosis for this admission?: Yes Plan: Could be secondary to history of alcohol dependence and underlying liver disease with other differentials including DIC. Needs to be reevaluated. (14) Enterococcus UTI Is this a current diagnosis for this admission?: Yes Plan: On vancomycin. (15) EtOH dependence Qualifiers: Substance use status: unspecified alcohol-induced disorder Qualified Code(s): F10.29 - Alcohol dependence with unspecified alcohol-induced disorder Is this a current diagnosis for this admission?: Yes - Time Time with patient: 15-25 minutes
[2020-05-14 11:55] LABS: INTERNATIONAL RATION (INR) 0.94; PROTHROMBIN TIME 12.8 SEC (11.4-15.4)
[2020-05-14 11:56] LABS: FIBRINOGEN 617 mg/dL (209-497); PARTIAL THROMBOPLASTIN TIME 29.7 SEC (23.5-35.8)
[2020-05-14 12:56] LABS: D-DIMER > 20.00 ug/mL (0.00-0.50)
--- NOTE | 2020-05-14 13:24 | PDOC CRITICAL CARE PROG REPORT ---
General Date:: 05/14/20 ICU Day:: 7 Ventilator Day:: 7 Hospital Day:: 7 Resuscitation Status: Full Code Events in the past 12 to 24 Hours:: This 54-year-old male presented to [facility] emergency department via EMS on 05/07/2020 with altered mental status. Basically, the patient has an unknown. Of unresponsiveness, as he was initially believed to be sleeping but raised concern to his when he was found to still be in the same position over 12 hours later. The reports that the his pupils were constricted at the time she called EMS. EMS arrived and found the patient to be obtunded. Narcan was given in the field. Although he was assessed to have a favorable response to Narcan initially, he subsequently demonstrated seizure- like movements on route. He was provided bag mask ventilatory support. No loss of pulse or pressure. However, in the emergency department he again d emonstrated obtunded/altered mental status. He was given another dose of Narcan, which was not convincingly helpful. He was intubated in the emergency department. He was started on norepinephrine infusion for blood pressure support. Initial laboratory evaluation was compatible with acute kidney injury and rhabdomyolysis with CK total peaking at 152,203. He also had a severe metabolic acidosis with an elevated anion gap. Lactate level was elevated. Urine drug screen was positive for opiates. Alcohol level was undetectable ( reports he admits to consistent alcohol consumption for analgesic effect, although she believes his last drink was almost 7 days ago). 05/08: Remains intubated. On Levophed. 05/09: Remains intubated. ABG this a.m.: 7.41/40/79. Still on Levophed, decreasing. CK total peaked at 152,203, now 128,134. Albumin 1.9. Anuric. Creatinine 4.7. K5.4. Lactate 3.3. 05/10: Remains intubated. On propofol for sedation. Normal saline at 1 L/h all day yesterday. Still anuric. Discussed with Dr. Brown this morning. Attempting to stimulate diuresis with Lasix 100 mg IV push followed by infusion at 10 mg/h. CK total 76,434. Potassium 5.0. Creatinine 5.23. Calcium 5.8. Albumin 1.5. Chest x-ray demonstrates a widened mediastinum, more prominent tod ay than on previous. Patient's is at the bedside and reports that this has previously been identified, reported to her, and "thoroughly worked up for a possible aneurysmal thing". She states that the entire diagnostic evaluation was unrevealing. 05/11: Remains intubated. On propofol for sedation. Got hemodialysis today. - 5 L. Still an uric despite furosemide infusion. Case discussed with Dr. Brown this morning. Platelets 62 this morning. Off insulin infusion. Off D5. Potassium 5.4 this morning. 05/12: Remains intubated. On propofol/Precedex for sedation. CK total 43,765. Had transient hypotension yesterday. No significant improvement after albumin infusion. However, slot shift supervisor reports that the patient had dramatic improvement after a large BM. Afebrile. WBC 6.2. Platelets 49. Cam isolated Enterococcus. On Zosyn/vancomycin. 05/13: Remains intubated. Off propofol. On Precedex for sedation. Respiratory viral panel revealed the patient is positive for COVID-19. Added on Decadron and remdesivir yesterday. On zinc. CK total 27,357. Afebrile. Hemoglobin 7.5. WBC 5.3. Platelets 57, slightly increased after discontinuing heparin. Heparin induced platelet antibody pending. D-dimer > 20. CRP 378. 05/14: Seen on dialysis. Stable but not responding. Lasix drip stopped-anuric. Review of systems relevant to events:: Renal, neurological, pulmonary. Reason for ICU Addmission:: Altered MS, Acute Resp. Failure, Opiod OD, Abnormal EKG ( wide complex ), intubated. - Medications: Medications reviewed and adjusted accordingly: Yes Vasopressors:: None Sedation:: Precedex Physical Exam Vital Signs: Temp Pulse Resp BP Pulse Ox 99.0 F 61 15 163/89 H 96 05/13/20 22:00 05/14/20 09:20 05/14/20 12:00 05/14/20 11:34 05/14/20 12:57 Intake & Output 05/13/20 05/14/20 05/15/20 06:59 06:59 06:59 Intake Total 3604 3320 2160 Output Total 1155 90 5175 Balance 2449 3230 -3015 Weight 145.7 kg 151.6 kg Weight/Height Weight 151.6 kg Height 6 ft 6 in General appearance: PRESENT: no acute distress, obese Head exam: PRESENT: atraumatic, normocephalic Eye exam: PRESENT: conjunctiva pink, EOMI, PERRLA. ABSENT: scleral icterus Ear exam: PRESENT: normal external ear exam Mouth exam: PRESENT: moist, tongue midline Respiratory exam: PRESENT: clear to auscultation bernard, rhonchi - Mild. ABSENT: rales, wheezes Cardiovascular exam: PRESENT: RRR. ABSENT: diastolic murmur, rubs, systolic murmur GI/Abdominal exam: PRESENT: normal bowel sounds, soft. ABSENT: distended, guarding, mass, organolmegaly, rebound, tenderness Rectal exam: PRESENT: deferred Gentrourinary exam: PRESENT: indwelling catheter Extremities exam: PRESENT: full ROM, +1 edema. ABSENT: calf tenderness, clubbing, pedal edema Musculoskeletal exam: PRESENT: normal inspection Neurological exam: PRESENT: altered, other - Does not respond Skin exam: PRESENT: dry, intact, warm. ABSENT: cyanosis, rash Tubes/Lines: PRESENT: Endotracheal Tube, Nasogastic Tube Laboratory/Radiographs Laboratory Results: 05/14/20 04:50 05/14/20 04:50 05/13/20 05/13/20 05/13/20 11:45 18:53 18:53 WBC RBC Hgb Hct MCV MCH MCHC RDW Plt Count Seg Neutrophils % Carbonic Acid HCO3/H2CO3 Ratio ABG pH ABG pCO2 ABG pO2 ABG HCO3 ABG O2 Saturation ABG Base Excess FiO2 Sodium 129.3 L 129.8 L Potassium 5.5 H 5.3 H Chloride 96 L 95 L Carbon Dioxide 24 23 Anion Gap 9 12 BUN 78 H 83 H Creatinine 6.44 H 6.44 H Est GFR ( Amer) 11 L 11 L Glucose 141 H 122 H Calcium 6.8 L* 6.8 L* Ionized Calcium Charles Phosphorus Magnesium Ammonia < 8.7 L Triglycerides 05/13/20 05/14/20 05/14/20 18:53 04:50 04:50 WBC 9.1 RBC 2.58 L Hgb 7.6 L Hct 22.9 L MCV 89 MCH 29.5 MCHC 33.3 RDW 16.4 H Plt Count 92 L Seg Neutrophils % Not Reportable Carbonic Acid 1.05 HCO3/H2CO3 Ratio 19:1 ABG pH 7.40 ABG pCO2 34.8 L ABG pO2 65.2 L ABG HCO3 20.9 ABG O2 Saturation 93.0 L ABG Base Excess -3.5 FiO2 40% Sodium 130.3 L Potassium 5.2 H Chloride 97 L Carbon Dioxide 22 Anion Gap 11 BUN 95 H Creatinine 6.91 H Est GFR ( Amer) 10 L Glucose 153 H Calcium 6.6 L* Ionized Calcium Charles Phosphorus 9.3 H Magnesium 2.2 Ammonia Triglycerides 194 H 05/14/20 05/14/20 04:50 05:45 WBC RBC Hgb Hct MCV MCH MCHC RDW Plt Count Seg Neutrophils % Carbonic Acid 1.04 L HCO3/H2CO3 Ratio 19:1 ABG pH 7.39 ABG pCO2 34.5 L ABG pO2 88.5 ABG HCO3 20.2 ABG O2 Saturation 96.7 ABG Base Excess -4.4 FiO2 40% Sodium Potassium Chloride Carbon Dioxide Anion Gap BUN Creatinine Est GFR ( Amer) Glucose Calcium Ionized Calcium Charles 0.93 L Phosphorus Magnesium Ammonia Triglycerides 05/12/20 11:09 Tracheal Aspirate Gram Stain - Final 05/12/20 11:09 Tracheal Aspirate Sputum Culture - Final Enterobacter Cloacae Stenotrophomonas Maltophilia Normal Cierra Absent 05/07/20 05/07/20 05/08/20 20:42 20:42 04:20 Creatine Kinase 44828 H CK-MB (CK-2) 367.00 H Troponin I < 0.012 < 0.012 NT-Pro-B Natriuret Pep 282 H 05/08/20 05/08/20 05/09/20 04:20 12:15 03:38 Creatine Kinase 385885 H 378352 H CK-MB (CK-2) 323.00 H Troponin I < 0.012 NT-Pro-B Natriuret Pep 05/10/20 05/11/20 05/12/20 04:28 17:58 17:10 Creatine Kinase 21969 H 76535 H 37889 H CK-MB (CK-2) Troponin I NT-Pro-B Natriuret Pep 05/13/20 18:53 Creatine Kinase 78641 H CK-MB (CK-2) Troponin I NT-Pro-B Natriuret Pep Impressions: Cervical Spine CT 05/07/20 20:51 IMPRESSION: No acute findings in the cervical spine. TECHNICAL DOCUMENTATION: Quality ID # 436: Final reports with documentation of one or more dose reduction techniques (e.g., Automated exposure control, adjustment of the mA and/or kV according to patient size, use of iterative reconstruction technique) copyright 2010 [employer]- All Rights Reserved Head CT 05/07/20 20:51 IMPRESSION: 1. Nonspecific subtle low densities in the internal capsule bilaterally. 2. No acute findings. TECHNICAL DOCUMENTATION: Quality ID # 436: Final reports with documentation of one or more dose reduction techniques (e.g., Automated exposure control, adjustment of the mA and/or kV according to patient size, use of iterative reconstruction technique) copyright 2010 [employer]- All Rights Reserved Lower Extremity Ultrasound 05/08/20 00:00 IMPRESSION: Bilateral small vessel disease. No significant stenosis above the knee. Renal Ultrasound 05/09/20 00:00 IMPRESSION: Chronic medical renal disease without hydronephrosis. Possible nonobstructive calculus right kidney. Chest X-Ray 05/10/20 04:00 IMPRESSION: Rehydration versus progressing edema or sepsis. No pneumothorax. KUB X-Ray 05/13/20 00:00 IMPRESSION: Esophagogastric tube tip and side port projects over the stomach. All labs, radiographs, diagnostic studies and EKGs were personally reviewed: Yes In addition, reports of radiographic and diagnostic studies were read: Yes Assessment and Plan - Diagnosis (1) Rhabdomyolysis Qualifiers: Rhabdomyolysis type: traumatic Encounter type: subsequent encounter Qualified Code(s): T79.6XXD - Traumatic ischemia of muscle, subsequent encounter Is this a current diagnosis for this admission?: Yes Plan: Presumably from lying in one place for a period of time. Peak level 152,000 certainly explains his need for dialysis. (2) Acute kidney failure Qualifiers: Acute renal failure type: with acute tubular necrosis Qualified Code(s): N17.0 - Acute kidney failure with tubular necrosis Is this a current diagnosis for this admission?: Yes Plan: Whether his kidneys will rebound is not known at this time. Anuric. Lasix dripped stopped (3) Pneumonia due to COVID-19 virus Is this a current diagnosis for this admission?: Yes Plan: This is likely exacerbating his issues and may be the reason for his obtundation at home. Possibly not an opiate OD. Plan Summary: If he does not respond with a lower BUN/Cr he may need a second head CT. MRI not possible on vent. Critical Time Critical Time (minutes): 35 Level of Care: ICU Anticipated discharge: Other Anticipated DC Timeframe: Other -: 1. The care of a critical patient is a dynamic process. This note is a union contract representative synopsis but static in nature. The timeframe for treatments given in order is not necessarily the actual time these treatments may have been done. 2. This patient requires critical care secondary to ongoing requirements for therapy not offered or safe outside the critical care environment. Transfer to a lower level of care will result in altered life or limb morbidity and mortality. 3. Multidisciplinary rounds completed. 4. ABCDE bundle addressed.
[2020-05-14] MEDS ORDERED: CALCIUM GLUCONATE 1000 MG/10 ML INJ IV ONE (13:25)
[2020-05-14] MEDS: CALCIUM GLUCONATE 1 GM/NS 50 ML RTU IV SCH ×2 (14:14→15:57)
[2020-05-14] MEDS: HEPARIN SODIUM,PORCINE/D5W 25,000 UNIT/250 ML RTUINJ IV PRN (18:22)
[2020-05-14] MEDS: HEPARIN SOD (PORCINE) 1,000 UNIT/ML 10 ML VIAL IV PRN (18:24)
[2020-05-14 19:11] LABS: APPEARANCE,URINE SLIGHTLY-CLOUDY; BILIRUBIN,URINE NEGATIVE (NEGATIVE); COLOR,URINE YELLOW; GLUCOSE, URINE 50 mg/dL (NEGATIVE); KETONES,URINE NEGATIVE (NEGATIVE); LEUKOCYTE ESTERASE,URINE TRACE (NEGATIVE); NITRITE,URINE NEGATIVE (NEGATIVE); PROTEIN,URINE 100 mg/dL (NEGATIVE); URINE SPECIFIC GRAVITY 1.012; UROBILINOGEN,URINE NEGATIVE mg/dL (<2.0)
[2020-05-14 19:26] LABS: ANION GAP 10 (5-19); BLOOD UREA NITROGEN 91 mg/dL (7-20); CARBON DIOXIDE 24 mmol/L (22-30); CHLORIDE 97 mmol/L (98-107); POTASSIUM 5.1 mmol/L (3.6-5.0)
[2020-05-14 19:49] LABS: CALCIUM 6.9 mg/dL (8.4-10.2)
[2020-05-14 19:51] LABS: GLUCOSE 121 mg/dL (75-110)
[2020-05-14 21:15] LABS: HEMATOCRIT 23.5 % (37.9-51.0); MEAN CORPUSCULAR HEMOGLOBIN 28.6 pg (27.0-33.4); MEAN CORPUSCULAR HGB CONC 32.7 g/dL (32.0-36.0); MEAN CORPUSCULAR VOLUME 88 fl (80-97); PLATELET COUNT 120 10^3/uL (150-450); RED BLOOD COUNT 2.68 10^6/uL (4.35-5.55); RED CELL DISTRIBUTION WIDTH 16.6 % (11.5-14.0); WHITE BLOOD COUNT 12.1 10^3/uL (4.0-10.5)
[2020-05-14 21:21] LABS: HEMOGLOBIN 7.7 g/dL (13.5-17.0)
[2020-05-14 21:24] LABS: INTERNATIONAL RATION (INR) 1.01; PROTHROMBIN TIME 13.5 SEC (11.4-15.4)
[2020-05-14 21:25] LABS: PARTIAL THROMBOPLASTIN TIME 41.5 SEC (23.5-35.8)
[2020-05-14 21:48] LABS: ABSOLUTE LYMPHOCYTES# (MANUAL) 0.5 10^3/uL (0.5-4.7); ABSOLUTE MONOCYTES # (MANUAL) 0.4 10^3/uL (0.1-1.4); BASOPHILS % (MANUAL) 0 % (0-2); EOSINOPHILS % (MANUAL) 0 % (0-6); LYMPHOCYTES % (MANUAL) 3 % (13-45); MONOCYTES % (MANUAL) 3 % (3-13); SEGMENTED NEUTROPHILS % (MAN) 93 % (42-78); TOTAL CELLS COUNTED 100
[2020-05-14 21:49] LABS: ANISOCYTOSIS 1+; PLATELET COMMENT ADEQUATE; PLATELET LARGE PRESENT
[2020-05-15] MEDS: ALBUTEROL SULFATE 0.083% NEB 2.5 MG/3 ML AMPUL NEB SCH ×4 (02:13→19:37)
[2020-05-15] MEDS: HEPARIN SOD (PORCINE) 1,000 UNIT/ML 10 ML VIAL IV PRN (02:33)
[2020-05-15] MEDS: PIPERACILLIN SODIUM/TAZOBACTAM 2.25 GM in NORMAL SALINE 50 ML IV SCH ×3 (06:01→21:54)
[2020-05-15 07:20] LABS: ANION GAP 14 (5-19); BLOOD UREA NITROGEN 104 mg/dL (7-20); CARBON DIOXIDE 21 mmol/L (22-30); CHLORIDE 98 mmol/L (98-107); GLUCOSE 112 mg/dL (75-110)
--- NOTE | 2020-05-15 07:40 | Progress Note ---
Provider Note Provider Note: [facility] ID Telephone Advice Consultation Zeinab reviewed, patient not seen. Patient is a 54-year-old man with alcohol abuse, hypertension, gout, chronic opioid use, nephrolithiasis who was admitted on 05/07 due to altered mental status and unresponsiveness. Per notes, patient starting acting different before admission and same day he was found obtunded, he also had seizure-like movements. EMS took him to the ED. He was intubated for airway protection. Patient was found with acute renal failure and rhabdomyolysis with potassium of 9, creatinine 4, ALT 1,461 and CK 152,203. He was started on IVF. He spiked a fever next day and was found COVID positive.Head CT was negative for acute process. C spine CT negative for fracture as well. CXR findings suggestive of CHF. Renal US consistent with medical renal disease, no hydronephrosis. Patient was started on a lasix drip. Nephrology was consulted and as patient continued anuric, he was started on HD on 05/11. A tracheal aspirate on 05/12 was positive for Enterobacter cloacae and Stenotrophomonas. He was started on vancomycin and zosyn, currently zosyn alone. Patient's oxygen requirements have been slowly decreasing. He has been on Remdesivir and Decadron for COVID pneumonia. He has been afebrile since 05/10 and he is not on pressors. ID consulted for recommendation. Allergies: No Known Allergies Allergy (Unverified 05/07/20 21:20) Medications: Allopurinol [Zyloprim 300 mg Tablet] 300 mg PO DAILY 05/08/20 Amlodipine Besylate [Norvasc 5 mg Tablet] 5 mg PO DAILY 05/08/20 Colchicine [Colcrys 0.6 mg Tablet] 0.6 mg PO BID 05/08/20 Diclofenac Sodium 100 gm TP QIDP PRN 05/08/20 Gabapentin [Neurontin 300 mg Capsule] 300 mg PO Q8 05/08/20 Hydrocodone/Acetaminophen [[place] 5-325 mg Tablet] 1 tab PO TIDP PRN 05/08/20 Losartan Potassium 100 mg PO DAILY 05/08/20 Mirtazapine [Remeron] 15 mg PO QHS 05/08/20 Potassium Citrate [Potassium Citrate ER] 10 meq PO DAILY 05/08/20 Tizanidine HCl [Zanaflex] 4 mg PO Q8HP PRN 05/08/20 Venlafaxine HCl [Effexor Xr] 150 mg PO Q12 05/08/20 Vital Signs: Temp Pulse Resp BP Pulse Ox 99.5 F 80 20 175/88 H 98 05/14/20 23:26 05/15/20 02:13 05/15/20 06:08 05/15/20 06:13 05/15/20 06:13 Intake & Output 05/14/20 05/15/20 05/16/20 06:59 06:59 06:59 Intake Total 3320 3286 Output Total 90 7343 Balance 3230 -1428 Weight 151.6 kg 146.8 kg Weight/Height Weight 146.8 kg Height 6 ft 6 in Laboratories: 05/14/20 20:52 MCV 88 fl (80-97) 05/14/20 20:52 MCH 28.6 pg (27.0-33.4) 05/14/20 20:52 MCHC 32.7 g/dL (32.0-36.0) 05/14/20 20:52 RDW 16.6 % (11.5-14.0) H 05/14/20 20:52 Seg Neutrophils % Not Reportable 05/14/20 20:52 Carbonic Acid 1.04 mmol/L (1.05-1.35) L 05/14/20 05:45 HCO3/H2CO3 Ratio 19:1 05/14/20 05:45 ABG pH 7.39 (7.35-7.45) 05/14/20 05:45 ABG pCO2 34.5 mmHg (35-45) L 05/14/20 05:45 ABG pO2 88.5 mmHg (80-100) 05/14/20 05:45 ABG HCO3 20.2 mmol/L (20-24) 05/14/20 05:45 ABG O2 Saturation 96.7 % (94-98) 05/14/20 05:45 ABG Base Excess -4.4 mmol/L 05/14/20 05:45 VBG pH 7.08 (7.30-7.42) L* 05/07/20 21:40 VBG pCO2 70.9 mmHg (35-63) H* 05/07/20 21:40 VBG HCO3 20.7 mmol/L (20-32) 05/07/20 21:40 VBG Base Excess -10.4 mmol/L 05/07/20 21:40 FiO2 40% 05/14/20 05:45 Chloride 97 mmol/L (98-107) L 05/14/20 18:30 Carbon Dioxide 24 mmol/L (22-30) 05/14/20 18:30 Anion Gap 10 (5-19) 05/14/20 18:30 Est GFR ( Amer) 12 (>60) L 05/14/20 18:30 Est GFR (Non-Af Amer) Cancelled 05/08/20 01:55 Glucose 121 mg/dL (75-110) H 05/14/20 18:30 Lactic Acid 3.3 mmol/L (0.7-2.1) H 05/09/20 03:38 Calcium 6.9 mg/dL (8.4-10.2) L* 05/14/20 18:30 Ionized Calcium Charles 0.96 mmol/L (1.14-1.30) L 05/14/20 18:30 Phosphorus 9.3 mg/dL (2.5-4.5) H 05/14/20 04:50 Magnesium 2.2 mg/dL (1.6-2.3) 05/14/20 04:50 Ferritin 115.00 ng/mL (17.9-464.0) 05/12/20 17:10 Total Bilirubin 0.7 mg/dL (0.2-1.3) 05/11/20 17:58 AST 1346 U/L (17-59) H 05/11/20 17:58 Alkaline Phosphatase 108 U/L (38-126) 05/11/20 17:58 Ammonia < 8.7 umol/L (9-33) L 05/13/20 18:53 C-Reactive Protein 151.1 mg/L (<10.0) H 05/14/20 18:30 Total Protein 3.5 g/dL (6.3-8.2) L 05/11/20 17:58 Albumin 1.7 g/dL (3.5-5.0) L 05/11/20 17:58 Triglycerides 194 mg/dL (<150) H 05/14/20 04:50 Cholesterol 81.39 mg/dL (0-200) 05/08/20 04:00 LDL Cholesterol Direct < 30 mg/dL (<100) 05/08/20 04:00 VLDL Cholesterol 41.8 mg/dL (10-31) H 05/08/20 04:00 HDL Cholesterol 35 mg/dL (>40) L 05/08/20 04:00 Amylase 156 U/L (30-110) H 05/08/20 04:00 Lipase 140.9 U/L (23-300) 05/08/20 04:00 TSH 4.44 uIU/mL (0.47-4.68) 05/07/20 20:42 Urine Color YELLOW 05/14/20 18:30 Urine Appearance SLIGHTLY-CLOUDY 05/14/20 18:30 Urine pH 6.0 (5.0-9.0) 05/14/20 18:30 Ur Specific [place] 1.012 05/14/20 18:30 Urine Protein 100 mg/dL (NEGATIVE) H 05/14/20 18:30 Urine Glucose (UA) 50 mg/dL (NEGATIVE) H 05/14/20 18:30 Urine Ketones NEGATIVE mg/dL (NEGATIVE) 05/14/20 18:30 Urine Blood LARGE (NEGATIVE) H 05/14/20 18:30 Urine Nitrite NEGATIVE (NEGATIVE) 05/14/20 18:30 Ur Leukocyte Esterase TRACE (NEGATIVE) H 05/14/20 18:30 Urine WBC (Auto) 13 /HPF 05/14/20 18:30 Urine RBC (Auto) 40 /HPF 05/14/20 18:30 Stool for White Cells NO WBCs SEEN 05/14/20 18:30 05/12/20 11:09 Tracheal Aspirate Gram Stain - Final 05/12/20 11:09 Tracheal Aspirate Sputum Culture - Final Enterobacter Cloacae Stenotrophomonas Maltophilia Normal [place] Absent 05/07/20 05/07/20 05/08/20 20:42 20:42 04:20 Creatine Kinase 89204 H CK-MB (CK-2) 367.00 H Troponin I < 0.012 < 0.012 NT-Pro-B Natriuret Pep 282 H 05/08/20 05/08/20 05/09/20 04:20 12:15 03:38 Creatine Kinase 223775 H 856218 H CK-MB (CK-2) 323.00 H Troponin I < 0.012 NT-Pro-B Natriuret Pep 12/17/20 12/18/20 12/19/20 04:28 17:58 17:10 Creatine Kinase 12736 H 93399 H 86719 H CK-MB (CK-2) Troponin I NT-Pro-B Natriuret Pep 05/13/20 18:53 Creatine Kinase 48439 H CK-MB (CK-2) Troponin I NT-Pro-B Natriuret Pep Radiology: Cervical Spine CT 05/07/20 20:51 IMPRESSION: No acute findings in the cervical spine. Head CT 05/07/20 20:51 IMPRESSION: 1. Nonspecific subtle low densities in the internal capsule bilaterally. 2. No acute findings. Lower Extremity Ultrasound 05/08/20 00:00 IMPRESSION: Bilateral small vessel disease. No significant stenosis above the knee. Renal Ultrasound 05/09/20 00:00 IMPRESSION: Chronic medical renal disease without hydronephrosis. Possible nonobstructive calculus right kidney. Chest X-Ray 05/10/20 04:00 IMPRESSION: Rehydration versus progressing edema or sepsis. No pneumothorax. KUB X-Ray 05/13/20 00:00 IMPRESSION: Esophagogastric tube tip and side port projects over the stomach. Assessment and Recommendations: Patient evaluated for possible superimposed bacterial pneumonia/VAP in the setting of COVID pneumonia. Patient with rhabdomyolysis, acute renal and liver injury currently on HD due to anuria. He was diagnosed with COVID, now requiring mechanical ventilation. Tracheal aspirate cultures positive for Enterobacter and Stenotrophomonas. These organisms are nosocomial and often considered colonizers. It is not clear which role are they playing here. If there were worsening respiratory secretions, worsening radiographic findings and oxygen requirement, then treatment with levofloxacin is warranted. Can give 750 x 1 then 500 every 48 hr. A total of 5 days recommended with EOT 05/19/20 (he would require only 3 doses). Can discontinue other antibiotics. Please call back if questions. Gissell Parra MD U ID [phone]
[2020-05-15 07:41] LABS: CALCIUM 6.4 mg/dL (8.4-10.2)
[2020-05-15] MEDS: REMDESIVIR 100 MG in NORMAL SALINE 250 ML IV SCH (10:44)
[2020-05-15] MEDS: DOCUSATE SODIUM 100 MG/10 ML UDC PO SCH ×2 (10:44→17:56)
[2020-05-15] MEDS: ASCORBIC ACID 500 MG TABLET NG SCH ×2 (10:45→17:56)
[2020-05-15] MEDS: DEXAMETHASONE SOD PHOS INJ 10 MG/1 ML VIAL IV SCH ×2 (10:45→21:50)
[2020-05-15] MEDS: ZINC SULFATE 220 MG CAPSULE NG SCH (10:45)
[2020-05-15] MEDS: HEPARIN SODIUM,PORCINE/D5W 25,000 UNIT/250 ML RTUINJ IV PRN ×2 (11:02→21:55)
--- NOTE | 2020-05-15 14:13 | RADIOLOGY REPORT (SQ) ---
EXAM DESCRIPTION: CT HEAD WITHOUT IMAGES COMPLETED DATE/TIME: 05/15/2020 2:00 pm REASON FOR STUDY: Unresponsive, ? hypoxic damage. COVID + COMPARISON: 05/07/2020. TECHNIQUE: Axial images acquired through the brain without intravenous contrast. Images reviewed wi th bone, brain and subdural windows. Additional sagittal and coronal reconstructions were generated. Images stored on PACS. All CT scanners at this facility use dose modulation, iterative reconstruction, and/or weight based d osing when appropriate to reduce radiation dose to as low as reasonably achievable (ALARA). [facility]: Dose Right [facility]: CareDose [facility]: Dose Right [facility]: Teradose 4D [facility]: [employer] RADIATION DOSE: CT Rad equipment meets quality standard of care and radiation dose reduction techniq ues were employed. CTDIvol: 49.0 mGy. DLP: 985 mGy-cm. mGy. LIMITATIONS: None. FINDINGS: VENTRICLES: Normal size and contour. CEREBRUM: No masses. No hemorrhage. No midline shift. No evidence for acute infarction. Normal gra y/white matter differentiation. Again seen is faint decreased attenuation in the right and left inte rnal capsule. Otherwise no areas of low density in the white matter. CEREBELLUM: No masses. No hemorrhage. No alteration of density. No evidence for acute infarction. EXTRAAXIAL SPACES: No fluid collections. No masses. ORBITS AND GLOBE: No intra- or extraconal masses. Normal contour of globe without masses. CALVARIUM: No fracture. PARANASAL SINUSES: No fluid or mucosal thickening. SOFT TISSUES: No mass or hematoma. OTHER: No other significant finding. IMPRESSION: STABLE MILD CHRONIC CHANGES. NO ACUTE FINDINGS. EVIDENCE OF ACUTE STROKE: NO. COMMENT: Quality ID # 436: Final reports with documentation of one or more dose reduction techniques (e.g., Automated exposure control, adjustment of the mA and/or kV according to patient size, use of iterative reconstruction technique) TECHNICAL DOCUMENTATION: JOB ID: [id number] 2010 [employer]- All Rights Reserved Reading location - IP/workstation name: [email or web address]
--- NOTE | 2020-05-15 15:57 | PDOC CRITICAL CARE PROG REPORT ---
General Date:: 05/15/20 ICU Day:: 8 Ventilator Day:: 8 Hospital Day:: 8 Resuscitation Status: Full Code Events in the past 12 to 24 Hours:: This 54-year-old male presented to [facility] emergency department via EMS on 05/07/2020 with altered mental status. Basically, the patient has an unknown. Of unresponsiveness, as he was initially believed to be sleeping but raised concern to his when he was found to still be in the same position over 12 hours later. The reports that the his pupils were constricted at the time she called EMS. EMS arrived and found the patient to be obtunded. Narcan was given in the field. Although he was assessed to have a favorable response to Narcan initially, he subsequently demonstrated seizure- like movements on route. He was provided bag mask ventilatory support. No loss of pulse or pressure. However, in the emergency department he again d emonstrated obtunded/altered mental status. He was given another dose of Narcan, which was not convincingly helpful. He was intubated in the emergency department. He was started on norepinephrine infusion for blood pressure support. Initial laboratory evaluation was compatible with acute kidney injury and rhabdomyolysis with CK total peaking at 152,203. He also had a severe metabolic acidosis with an elevated anion gap. Lactate level was elevated. Urine drug screen was positive for opiates. Alcohol level was undetectable ( reports he admits to consistent alcohol consumption for analgesic effect, although she believes his last drink was almost 7 days ago). 05/08: Remains intubated. On Levophed. 05/09: Remains intubated. ABG this a.m.: 7.41/40/79. Still on Levophed, decreasing. CK total peaked at 152,203, now 128,134. Albumin 1.9. Anuric. Creatinine 4.7. K5.4. Lactate 3.3. 05/10: Remains intubated. On propofol for sedation. Normal saline at 1 L/h all day yesterday. Still anuric. Discussed with Dr. Brown this morning. Attempting to stimulate diuresis with Lasix 100 mg IV push followed by infusion at 10 mg/h. CK total 76,434. Potassium 5.0. Creatinine 5.23. Calcium 5.8. Albumin 1.5. Chest x-ray demonstrates a widened mediastinum, more prominent tod ay than on previous. Patient's is at the bedside and reports that this has previously been identified, reported to her, and "thoroughly worked up for a possible aneurysmal thing". She states that the entire diagnostic evaluation was unrevealing. 05/11: Remains intubated. On propofol for sedation. Got hemodialysis today. - 5 L. Still an uric despite furosemide infusion. Case discussed with Dr. Brown this morning. Platelets 62 this morning. Off insulin infusion. Off D5. Potassium 5.4 this morning. 05/12: Remains intubated. On propofol/Precedex for sedation. CK total 43,765. Had transient hypotension yesterday. No significant improvement after albumin infusion. However, temporary administrative assistant reports that the patient had dramatic improvement after a large BM. Afebrile. WBC 6.2. Platelets 49. Cam isolated Enterococcus. On Zosyn/vancomycin. 05/13: Remains intubated. Off propofol. On Precedex for sedation. Respiratory viral panel revealed the patient is positive for COVID-19. Added on Decadron and remdesivir yesterday. On zinc. CK total 27,357. Afebrile. Hemoglobin 7.5. WBC 5.3. Platelets 57, slightly increased after discontinuing heparin. Heparin induced platelet antibody pending. D-dimer > 20. CRP 378. 05/14: Seen on dialysis. Stable but not responding. Lasix drip stopped-anuric. 05/15: Patient had essentially unremarkable CT of head. Review of systems relevant to events:: Renal, CV, neurological. Reason for ICU Addmission:: Altered MS, Acute Resp. Failure, Opiod OD, Abnormal EKG ( wide complex ), intubated. - Medications: Medications reviewed and adjusted accordingly: Yes Vasopressors:: None Sedation:: None Physical Exam Vital Signs: Temp Pulse Resp BP Pulse Ox 99.3 F 83 23 H 169/88 H 96 05/15/20 12:00 05/15/20 14:15 05/15/20 14:42 05/15/20 14:42 05/15/20 14:15 Intake & Output 05/14/20 05/15/20 05/16/20 06:59 06:59 06:59 Intake Total 7919 0539 0796 Output Total 90 4077 65 Balance 6650 -9181 1993 Weight 151.6 kg 146.8 kg Weight/Height Weight 146.8 kg Height 6 ft 6 in General appearance: PRESENT: no acute distress Head exam: PRESENT: other - Small bruise on back of head area Eye exam: PRESENT: conjunctiva pink, PERRLA Ear exam: PRESENT: normal external ear exam Mouth exam: PRESENT: moist, tongue midline Respiratory exam: PRESENT: clear to auscultation bernard. ABSENT: rales, rhonchi, wheezes Cardiovascular exam: PRESENT: RRR. ABSENT: diastolic murmur, rubs, systolic murmur GI/Abdominal exam: PRESENT: normal bowel sounds, soft. ABSENT: distended, guarding, mass, organolmegaly, rebound, tenderness Rectal exam: PRESENT: deferred Gentrourinary exam: PRESENT: indwelling catheter Extremities exam: PRESENT: full ROM, +2 edema. ABSENT: calf tenderness, clubbi ng, pedal edema Musculoskeletal exam: PRESENT: normal inspection Neurological exam: PRESENT: other - Still minimally responsive. Skin exam: PRESENT: dry, intact, warm. ABSENT: cyanosis, rash Tubes/Lines: PRESENT: Endotracheal Tube, Central Line, Dialysis catheter, Nasogastic Tube Laboratory/Radiographs Laboratory Results: 05/14/20 20:52 05/15/20 06:37 05/14/20 05/14/20 05/14/20 18:30 18:30 18:30 WBC RBC Hgb Hct MCV MCH MCHC RDW Plt Count Seg Neutrophils % Sodium 131.0 L Potassium 5.1 H Chloride 97 L Carbon Dioxide 24 Anion Gap 10 BUN 91 H Creatinine 6.11 H Est GFR ( Amer) 12 L Glucose 121 H Calcium 6.9 L* Ionized Calcium Charles 0.96 L C-Reactive Protein Urine Color YELLOW Urine Appearance SLIGHTLY-CLOUDY Urine pH 6.0 Ur Specific [place] 1.012 Urine Protein 100 H Urine Glucose (UA) 50 H Urine Ketones NEGATIVE Urine Blood LARGE H Urine Nitrite NEGATIVE Ur Leukocyte Esterase TRACE H Urine WBC (Auto) 13 Urine RBC (Auto) 40 Stool for White Cells 05/14/20 05/14/20 05/14/20 18:30 18:30 20:52 WBC 12.1 H RBC 2.68 L Hgb 7.7 L Hct 23.5 L MCV 88 MCH 28.6 MCHC 32.7 RDW 16.6 H Plt Count 120 L Seg Neutrophils % Not Reportable Sodium Potassium Chloride Carbon Dioxide Anion Gap BUN Creatinine Est GFR ( Amer) Glucose Calcium Ionized Calcium Charles C-Reactive Protein 151.1 H Urine Color Urine Appearance Urine pH Ur Specific [place] Urine Protein Urine Glucose (UA) Urine Ketones Urine Blood Urine Nitrite Ur Leukocyte Esterase Urine WBC (Auto) Urine RBC (Auto) Stool for White Cells NO WBCs SEEN 05/15/20 06:37 WBC RBC Hgb Hct MCV MCH MCHC RDW Plt Count Seg Neutrophils % Sodium 132.7 L Potassium 5.0 Chloride 98 Carbon Dioxide 21 L Anion Gap 14 BUN 104 H Creatinine 6.54 H Est GFR ( Amer) 11 L Glucose 112 H Calcium 6.4 L* Ionized Calcium Charles C-Reactive Protein Urine Color Urine Appearance Urine pH Ur Specific [place] Urine Protein Urine Glucose (UA) Urine Ketones Urine Blood Urine Nitrite Ur Leukocyte Esterase Urine WBC (Auto) Urine RBC (Auto) Stool for White Cells 05/07/20 05/07/20 05/08/20 20:42 20:42 04:20 Creatine Kinase 21585 H CK-MB (CK-2) 367.00 H Troponin I < 0.012 < 0.012 NT-Pro-B Natriuret Pep 282 H 05/08/20 05/08/20 05/09/20 04:20 12:15 03:38 Creatine Kinase 060024 H 539164 H CK-MB (CK-2) 323.00 H Troponin I < 0.012 NT-Pro-B Natriuret Pep 05/10/20 05/11/20 05/12/20 04:28 17:58 17:10 Creatine Kinase 05515 H 60336 H 89812 H CK-MB (CK-2) Troponin I NT-Pro-B Natriuret Pep 05/13/20 18:53 Creatine Kinase 35168 H CK-MB (CK-2) Troponin I NT-Pro-B Natriuret Pep Impressions: Cervical Spine CT 05/07/20 20:51 IMPRESSION: No acute findings in the cervical spine. TECHNICAL DOCUMENTATION: Quality ID # 436: Final reports with documentation of one or more dose reduction techniques (e.g., Automated exposure control, adjustment of the mA and/or kV according to patient size, use of iterative reconstruction technique) copyright 2011 [employer]- All Rights Reserved Lower Extremity Ultrasound 05/08/20 00:00 IMPRESSION: Bilateral small vessel disease. No significant stenosis above the knee. Renal Ultrasound 05/09/20 00:00 IMPRESSION: Chronic medical renal disease without hydronephrosis. Possible nonobstructive calculus right kidney. Chest X-Ray 05/10/20 04:00 IMPRESSION: Rehydration versus progressing edema or sepsis. No pneumothorax. KUB X-Ray 05/13/20 00:00 IMPRESSION: Esophagogastric tube tip and side port projects over the stomach. Head CT 05/15/20 00:00 IMPRESSION: STABLE MILD CHRONIC CHANGES. NO ACUTE FINDINGS. EVIDENCE OF ACUTE STROKE: NO. All labs, radiographs, diagnostic studies and EKGs were personally reviewed: Yes In addition, reports of radiographic and diagnostic studies were read: Yes Assessment and Plan - Diagnosis (1) Rhabdomyolysis Qualifiers: Rhabdomyolysis type: traumatic Encounter type: subsequent encounter Qualified Code(s): T79.6XXD - Traumatic ischemia of muscle, subsequent encounter Is this a current diagnosis for this admission?: Yes Plan: Very high CK level causing ARF. Being dialysed out. (2) Acute kidney failure Qualifiers: Acute renal failure type: with acute tubular necrosis Qualified Code(s): N17.0 - Acute kidney failure with tubular necrosis Is this a current diagnosis for this admission?: Yes Plan: Continue HD. GFR 9 and Cr still 6.5. BUN 104. (3) Pneumonia due to COVID-19 virus Is this a current diagnosis for this admission?: Yes Plan: This may be the inciting event in addition to opiate abuse but tox screen negative indicating some time elapsed. Plan Summary: CT of head unremarkable. Uremia with a BUN of 104 is perhaps the neurological culprit. Will not make any other prognostications until this is down. Critical Time Critical Time (minutes): 35 Level of Care: ICU Anticipated discharge: SNF Anticipated DC Timeframe: Other -: 1. The care of a critical patient is a dynamic process. This note is a sales utility representative synopsis but static in nature. The timeframe for treatments given in order is not necessarily the actual time these treatments may have been done. 2. This patient requires critical care secondary to ongoing requirements for therapy not offered or safe outside the critical care environment. Transfer to a lower level of care will result in altered life or limb morbidity and mortality. 3. Multidisciplinary rounds completed. 4. ABCDE bundle addressed.
[2020-05-15 18:54] LABS: ANION GAP 11 (5-19); BLOOD UREA NITROGEN 117 mg/dL (7-20); CARBON DIOXIDE 21 mmol/L (22-30); CHLORIDE 97 mmol/L (98-107); GLUCOSE 113 mg/dL (75-110); POTASSIUM 4.7 mmol/L (3.6-5.0)
[2020-05-15] MEDS ORDERED: CALCIUM GLUC IN NACL, ISO-OSM 1 GM/50 ML RTUPB IV ONE (19:27)
--- NOTE | 2020-05-15 22:39 | PDOC PROGRESS REPORT ---
Subjective Date:: 05/15/20 Subjective:: Patient remains to be intubated and unresponsive off sedation. He had a ultrafi ltration of 4.1 L through dialysis yesterday. His urine output was only 202 mL for the past 24 hours. There is no significant changes in patient's clinical condition. Reason For Visit: HYPERKALEMIA ALTERED MENTAL STATUS Physical Exam Vital Signs: Temp Pulse Resp BP Pulse Ox 99.1 F 77 24 H 160/85 H 93 05/15/20 08:00 05/15/20 08:00 05/15/20 08:00 05/15/20 08:00 05/15/20 08:00 Intake & Output 05/14/20 05/15/20 05/16/20 06:59 06:59 06:59 Intake Total 3320 3288 Output Total 90 7477 0 Balance 3230 -4189 0 Weight 151.6 kg 146.8 kg Exam: General appearance: PRESENT: Intubated and unresponsive Head exam: PRESENT: atraumatic, normocephalic Eye exam: PRESENT: Eyes closed Neck exam: ABSENT: JVD Respiratory exam: PRESENT: Coarse breath sounds. ABSENT: crackles, rales, rhonchi, unlabored, wheezes Cardiovascular exam: PRESENT: Regular rate rhythm -+S1, +S2. ABSENT: diastolic murmur, systolic murmur GI/Abdominal exam: PRESENT: normal bowel sounds, soft. ABSENT: guarding, mass, tenderness Extremities exam: Positive significant upper extremity and grade 2 bilateral lower extremity pitting edema Neurological exam: PRESENT: Unresponsive. Skin exam: PRESENT: dry, warm, Cardiovascular exam: PRESENT: +S1, +S2 GI/Abdominal exam: PRESENT: normal bowel sounds, soft. ABSENT: organomegaly, tenderness Results Laboratory Results: 05/14/20 20:52 05/15/20 06:37 05/14/20 05/14/20 05/14/20 18:30 18:30 18:30 WBC RBC Hgb Hct MCV MCH MCHC RDW Plt Count Seg Neutrophils % Sodium 131.0 L Potassium 5.1 H Chloride 97 L Carbon Dioxide 24 Anion Gap 10 BUN 91 H Creatinine 6.11 H Est GFR ( Amer) 12 L Glucose 121 H Calcium 6.9 L* Ionized Calcium Charles 0.96 L C-Reactive Protein Urine Color YELLOW Urine Appearance SLIGHTLY-CLOUDY Urine pH 6.0 Ur Specific Odd 1.012 Urine Protein 100 H Urine Glucose (UA) 50 H Urine Ketones NEGATIVE Urine Blood LARGE H Urine Nitrite NEGATIVE Ur Leukocyte Esterase TRACE H Urine WBC (Auto) 13 Urine RBC (Auto) 40 Stool for White Cells 05/14/20 05/14/20 05/14/20 18:30 18:30 20:52 WBC 12.1 H RBC 2.68 L Hgb 7.7 L Hct 23.5 L MCV 88 MCH 28.6 MCHC 32.7 RDW 16.6 H Plt Count 120 L Seg Neutrophils % Not Reportable Sodium Potassium Chloride Carbon Dioxide Anion Gap BUN Creatinine Est GFR ( Amer) Glucose Calcium Ionized Calcium Charles C-Reactive Protein 151.1 H Urine Color Urine Appearance Urine pH Ur Specific Odd Urine Protein Urine Glucose (UA) Urine Ketones Urine Blood Urine Nitrite Ur Leukocyte Esterase Urine WBC (Auto) Urine RBC (Auto) Stool for White Cells NO WBCs SEEN 05/15/20 06:37 WBC RBC Hgb Hct MCV MCH MCHC RDW Plt Count Seg Neutrophils % Sodium 132.7 L Potassium 5.0 Chloride 98 Carbon Dioxide 21 L Anion Gap 14 BUN 104 H Creatinine 6.54 H Est GFR ( Amer) 11 L Glucose 112 H Calcium 6.4 L* Ionized Calcium Charles C-Reactive Protein Urine Color Urine Appearance Urine pH Ur Specific Odd Urine Protein Urine Glucose (UA) Urine Ketones Urine Blood Urine Nitrite Ur Leukocyte Esterase Urine WBC (Auto) Urine RBC (Auto) Stool for White Cells 05/12/20 11:09 Tracheal Aspirate Gram Stain - Final 05/12/20 11:09 Tracheal Aspirate Sputum Culture - Final Enterobacter Cloacae Stenotrophomonas Maltophilia Normal Cierra Absent 05/07/20 05/07/20 05/08/20 20:42 20:42 04:20 Creatine Kinase 21591 H CK-MB (CK-2) 367.00 H Troponin I < 0.012 < 0.012 NT-Pro-B Natriuret Pep 282 H 05/08/20 05/08/20 05/09/20 04:20 12:15 03:38 Creatine Kinase 380577 H 044453 H CK-MB (CK-2) 323.00 H Troponin I < 0.012 NT-Pro-B Natriuret Pep 05/10/20 05/11/20 05/12/20 04:28 17:58 17:10 Creatine Kinase 68463 H 45965 H 22035 H CK-MB (CK-2) Troponin I NT-Pro-B Natriuret Pep 05/13/20 18:53 Creatine Kinase 31431 H CK-MB (CK-2) Troponin I NT-Pro-B Natriuret Pep Impressions: Cervical Spine CT 05/07/20 20:51 IMPRESSION: No acute findings in the cervical spine. TECHNICAL DOCUMENTATION: Quality ID # 436: Final reports with documentation of one or more dose reduction techniques (e.g., Automated exposure control, adjustment of the mA and/or kV according to patient size, use of iterative reconstruction technique) copyright 2010 [employer]- All Rights Reserved Head CT 05/07/20 20:51 IMPRESSION: 1. Nonspecific subtle low densities in the internal capsule bilaterally. 2. No acute findings. TECHNICAL DOCUMENTATION: Quality ID # 436: Final reports with documentation of one or more dose reduction techniques (e.g., Automated exposure control, adjustment of the mA and/or kV according to patient size, use of iterative reconstruction technique) copyright 2010 [employer]- All Rights Reserved Lower Extremity Ultrasound 05/08/20 00:00 IMPRESSION: Bilateral small vessel disease. No significant stenosis above the knee. Renal Ultrasound 05/09/20 00:00 IMPRESSION: Chronic medical renal disease without hydronephrosis. Possible nonobstructive calculus right kidney. Chest X-Ray 05/10/20 04:00 IMPRESSION: Rehydration versus progressing edema or sepsis. No pneumothorax. KUB X-Ray 05/13/20 00:00 IMPRESSION: Esophagogastric tube tip and side port projects over the stomach. Assessment & Plan - Diagnosis (1) Acute kidney injury Is this a current diagnosis for this admission?: Yes Plan: Secondary to initial severe rhabdomyolysis but could also be multifactorial. Patient is found to be Covid positive on 05/12/2020. Continues to be a oligo- anuric and fluid overloaded. Now requiring renal replacement therapy. BUN and creatinine continues to be elevated despite dialysis yesterday. We will plan for another dialysis treatment with ultrafiltration tomorrow. (2) Pneumonia due to COVID-19 virus Is this a current diagnosis for this admission?: Yes Plan: Patient currently being treated with IV remdesivir, IV Decadron, vitamin C, and zinc. Management per retoucher photoeng[employer]ving. (3) Respiratory failure with hypoxia and hypercapnia Qualifiers: Chronicity: acute Qualified Code(s): J96.01 - Acute respiratory failure with hypoxia; J96.02 - Acute respiratory failure with hypercapnia Is this a current diagnosis for this admission?: Yes Plan: On mechanical ventilation. Per retoucher [employer]eng[employer]ving. (4) Rhabdomyolysis Qualifiers: Rhabdomyolysis type: traumatic Encounter type: subsequent encounter Qualified Code(s): T79.6XXD - Traumatic ischemia of muscle, subsequent encounter Is this a current diagnosis for this admission?: Yes Plan: Patient is currently fluid overloaded after IV fluid hydration with concomitant anuria with GRETCHEN. (5) Hyperkalemia Is this a current diagnosis for this admission?: Yes Plan: On dialysis. (6) Altered mental status Qualifiers: Altered mental status type: unspecified Qualified Code(s): R41.82 - Altered mental status, unspecified Is this a current diagnosis for this admission?: Yes Plan: Off sedation but still not much response. (7) Hypoalbuminemia Is this a current diagnosis for this admission?: Yes Plan: Consider albumin infusion to mobilize fluids. (8) Hypocalcemia Is this a current diagnosis for this admission?: Yes Plan: Ionized calcium is low at 0.96. (9) Lactic acidosis Is this a current diagnosis for this admission?: Yes Plan: Patient has had UTI secondary to Enterococcus faecalis on 05/08 and on 05/07 she has positive blood culture with Staphylococcus Warnei. On 05/12 sputum culture was positive for Enterobacter cloacae and Stenotrophomonas maltophilia. Infectious disease consulted. On IV Zosyn. (10) Thrombocytopenia Is this a current diagnosis for this admission?: Yes Plan: Platelets currently improving. Possibly drug-induced. (11) Hyponatremia Is this a current diagnosis for this admission?: Yes Plan: Most likely secondary to hypervolemic state. (12) Anemia Is this a current diagnosis for this admission?: Yes Plan: Could be partly due to hemodilution due to hypervolemia. (13) Abnormal LFTs Is this a current diagnosis for this admission?: Yes Plan: Could be secondary to history of alcohol dependence and underlying liver disease with other differentials including DIC. Needs to be reevaluated. (14) Enterococcus UTI Is this a current diagnosis for this admission?: Yes Plan: Treated with vancomycin. (15) EtOH dependence Qualifiers: Substance use status: unspecified alcohol-induced disorder Qualified Code(s): F10.29 - Alcohol dependence with unspecified alcohol-induced disorder Is this a current diagnosis for this admission?: Yes - Time Time with patient: 15-25 minutes
[2020-05-16] MEDS: ALBUTEROL SULFATE 0.083% NEB 2.5 MG/3 ML AMPUL NEB SCH ×4 (02:45→20:28)
[2020-05-16] MEDS ORDERED: NORMAL SALINE 1000 ML 1,000 ML IV PRN (05:00)
[2020-05-16] MEDS ORDERED: ALBUMIN HUMAN 12.5 GM/50 ML RTUINJ IV SCH (05:00)
[2020-05-16] MEDS ORDERED: HEPARIN SOD (PORCINE) 1,000 UNIT/ML 10 ML VIAL IV PRN (05:00)
[2020-05-16] MEDS: PIPERACILLIN SODIUM/TAZOBACTAM 2.25 GM in NORMAL SALINE 50 ML IV SCH ×3 (05:43→21:16)
[2020-05-16 06:48] LABS: APPEARANCE,URINE SLIGHTLY-CLOUDY; BILIRUBIN,URINE NEGATIVE (NEGATIVE); COLOR,URINE YELLOW; GLUCOSE, URINE 50 mg/dL (NEGATIVE); KETONES,URINE NEGATIVE (NEGATIVE); LEUKOCYTE ESTERASE,URINE NEGATIVE (NEGATIVE); NITRITE,URINE NEGATIVE (NEGATIVE); PROTEIN,URINE 100 mg/dL (NEGATIVE); URINE SPECIFIC GRAVITY 1.013; UROBILINOGEN,URINE NEGATIVE mg/dL (<2.0)
[2020-05-16 06:54] LABS: HEMATOCRIT 22.3 % (37.9-51.0); MEAN CORPUSCULAR HEMOGLOBIN 28.4 pg (27.0-33.4); MEAN CORPUSCULAR HGB CONC 32.6 g/dL (32.0-36.0); MEAN CORPUSCULAR VOLUME 87 fl (80-97); PLATELET COUNT 172 10^3/uL (150-450); RED BLOOD COUNT 2.56 10^6/uL (4.35-5.55); RED CELL DISTRIBUTION WIDTH 16.7 % (11.5-14.0); WHITE BLOOD COUNT 18.6 10^3/uL (4.0-10.5)
[2020-05-16 07:03] LABS: ALBUMIN 2.3 g/dL (3.5-5.0); ANION GAP 13 (5-19); CARBON DIOXIDE 21 mmol/L (22-30); CHLORIDE 96 mmol/L (98-107); GLUCOSE 114 mg/dL (75-110); PHOSPHORUS 9.1 mg/dL (2.5-4.5); POTASSIUM 4.9 mmol/L (3.6-5.0)
[2020-05-16 07:13] LABS: BLOOD UREA NITROGEN 127 mg/dL (7-20)
[2020-05-16 07:15] LABS: CALCIUM 6.3 mg/dL (8.4-10.2)
[2020-05-16 08:06] LABS: HEMOGLOBIN 7.3 g/dL (13.5-17.0)
[2020-05-16 08:09] LABS: ABSOLUTE LYMPHOCYTES# (MANUAL) 0.2 10^3/uL (0.5-4.7); ABSOLUTE MONOCYTES # (MANUAL) 0.4 10^3/uL (0.1-1.4); BASOPHILS % (MANUAL) 0 % (0-2); EOSINOPHILS % (MANUAL) 0 % (0-6); LYMPHOCYTES % (MANUAL) 0 % (13-45); MONOCYTES % (MANUAL) 2 % (3-13); SEGMENTED NEUTROPHILS % (MAN) 97 % (42-78); TOTAL CELLS COUNTED 100
[2020-05-16 08:18] LABS: ANISOCYTOSIS 1+; OVALOCYTES SLIGHT; PLATELET COMMENT ADEQUATE; POLYCHROMASIA SLIGHT; TOXIC GRANULATION SLIGHT
[2020-05-16] MEDS ORDERED: ALBUMIN HUMAN 25 GM/100 ML RTUINJ IV PRN (08:59)
[2020-05-16] MEDS: HEPARIN SODIUM,PORCINE/D5W 25,000 UNIT/250 ML RTUINJ IV PRN ×2 (09:05→20:25)
[2020-05-16] MEDS: DOCUSATE SODIUM 100 MG/10 ML UDC PO SCH ×2 (09:14→17:21)
[2020-05-16] MEDS: ZINC SULFATE 220 MG CAPSULE NG SCH (09:14)
[2020-05-16] MEDS: DEXAMETHASONE SOD PHOS INJ 10 MG/1 ML VIAL IV SCH ×2 (09:15→21:16)
[2020-05-16] MEDS: ASCORBIC ACID 500 MG TABLET NG SCH ×2 (09:15→17:21)
[2020-05-16] MEDS: REMDESIVIR 100 MG in NORMAL SALINE 250 ML IV SCH (11:23)
[2020-05-16] MEDS: PANTOPRAZOLE SODIUM 40 MG VIAL IV SCH (14:26)
[2020-05-16 18:04] LABS: ANION GAP 11 (5-19); CARBON DIOXIDE 24 mmol/L (22-30); CHLORIDE 98 mmol/L (98-107); GLUCOSE 121 mg/dL (75-110); POTASSIUM 4.2 mmol/L (3.6-5.0)
[2020-05-16 18:48] LABS: C-REACTIVE PROTEIN 158.4 mg/L (<10.0); CALCIUM 6.9 mg/dL (8.4-10.2)
[2020-05-16 18:49] LABS: BLOOD UREA NITROGEN 90 mg/dL (7-20)
--- NOTE | 2020-05-16 20:44 | PDOC CRITICAL CARE PROG REPORT ---
General Date:: 05/16/20 ICU Day:: 9 Ventilator Day:: 9 Hospital Day:: 9 Resuscitation Status: Full Code Events in the past 12 to 24 Hours:: This 54-year-old male presented to [facility] emergency department via EMS on 05/07/2020 with altered mental status. Basically, the patient has an unknown. Of unresponsiveness, as he was initially believed to be sleeping but raised concern to his when he was found to still be in the same position over 12 hours later. The reports that the his pupils were constricted at the time she called EMS. EMS arrived and found the patient to be obtunded. Narcan was given in the field. Although he was assessed to have a favorable response to Narcan initially, he subsequently demonstrated seizure- like movements on route. He was provided bag mask ventilatory support. No loss of pulse or pressure. However, in the emergency department he again d emonstrated obtunded/altered mental status. He was given another dose of Narcan, which was not convincingly helpful. He was intubated in the emergency department. He was started on norepinephrine infusion for blood pressure support. Initial laboratory evaluation was compatible with acute kidney injury and rhabdomyolysis with CK total peaking at 152,203. He also had a severe metabolic acidosis with an elevated anion gap. Lactate level was elevated. Urine drug screen was positive for opiates. Alcohol level was undetectable ( reports he admits to consistent alcohol consumption for analgesic effect, although she believes his last drink was almost 7 days ago). 05/08: Remains intubated. On Levophed. 05/09: Remains intubated. ABG this a.m.: 7.41/40/79. Still on Levophed, decreasing. CK total peaked at 152,203, now 128,134. Albumin 1.9. Anuric. Creatinine 4.7. K5.4. Lactate 3.3. 05/10: Remains intubated. On propofol for sedation. Normal saline at 1 L/h all day yesterday. Still anuric. Discussed with Dr. Brown this morning. Attempting to stimulate diuresis with Lasix 100 mg IV push followed by infusion at 10 mg/h. CK total 76,434. Potassium 5.0. Creatinine 5.23. Calcium 5.8. Albumin 1.5. Chest x-ray demonstrates a widened mediastinum, more prominent tod ay than on previous. Patient's is at the bedside and reports that this has previously been identified, reported to her, and "thoroughly worked up for a possible aneurysmal thing". She states that the entire diagnostic evaluation was unrevealing. 05/11: Remains intubated. On propofol for sedation. Got hemodialysis today. - 5 L. Still an uric despite furosemide infusion. Case discussed with Dr. Brown this morning. Platelets 62 this morning. Off insulin infusion. Off D5. Potassium 5.4 this morning. 05/12: Remains intubated. On propofol/Precedex for sedation. CK total 43,765. Had transient hypotension yesterday. No significant improvement after albumin infusion. However, night shift manager reports that the patient had dramatic improvement after a large BM. Afebrile. WBC 6.2. Platelets 49. Cam isolated Enterococcus. On Zosyn/vancomycin. 05/13: Remains intubated. Off propofol. On Precedex for sedation. Respiratory viral panel revealed the patient is positive for COVID-19. Added on Decadron and remdesivir yesterday. On zinc. CK total 27,357. Afebrile. Hemoglobin 7.5. WBC 5.3. Platelets 57, slightly increased after discontinuing heparin. Heparin induced platelet antibody pending. D-dimer > 20. CRP 378. 05/14: Seen on dialysis. Stable but not responding. Lasix drip stopped-anuric. 05/15: Patient had essentially unremarkable CT of head. 05/16/2020: No significant changes in the past 24 hours. Sedation has been weaned off. Review of systems relevant to events:: Neuro: She has been on no sedation over the past 24 to 48 hours. He remains unresponsive. Plan: Continue off of sedation. Given his renal insufficiency he may require several days without any sedative medications. Pulmonary: Patient with multiple reasons for respiratory failure including COVID-19 infection, renal failure. Plan: Continue current vent settings. Wean FiO2 to maintain SPO2 of 88 to 95%. Continue dexamethasone. Heme: H/H 7.3/22.3. We will consider transfusion if hemoglobin drops below 7. Renal: Continue hemodialysis Thursday. ID: COVID-19 positive on 05/12/2020. Continue to follow CRP and D-dimers. Continue remdesivir. Continue dexamethasone. Zosyn and vancomycin have been started for positive blood culture and sputum culture as well as positive urine culture. Now on day 7 of antibiotics. Will consider discontinuing if afebrile tomorrow. Barriers to discharge from ICU: Patient still with multiple system organ failure including acute renal failure and respiratory failure. At this point, his neurologic status precludes him from being safely extubated. Reason for ICU Addmission:: Altered MS, Acute Resp. Failure, Opiod OD, Abnormal EKG ( wide complex ), intubated. - Medications: Medications reviewed and adjusted accordingly: Yes Physical Exam Vital Signs: Temp Pulse Resp BP Pulse Ox 99.7 F 88 21 H 155/79 H 99 05/15/20 20:00 05/16/20 19:43 05/16/20 19:00 05/16/20 18:53 05/16/20 19:00 Intake & Output 05/15/20 05/16/20 05/17/20 06:59 06:59 06:59 Intake Total 3288 2390 1506 Output Total 7429 500 7026 Balance -4189 1890 -5520 Weight 146.8 kg 145 kg 145 kg Weight/Height Weight 145 kg Height 6 ft General appearance: PRESENT: no acute distress, morbidly obese Head exam: PRESENT: atraumatic, normocephalic Eye exam: PRESENT: EOMI, PERRLA Ear exam: PRESENT: normal external ear exam Mouth exam: PRESENT: neck supple Neck exam: PRESENT: full ROM. ABSENT: lymphadenopathy, tracheal deviation Respiratory exam: PRESENT: decreased breath sounds, unlabored. ABSENT: accessory muscle use, wheezes Cardiovascular exam: PRESENT: RRR, +S1, +S2 Pulses: PRESENT: normal carotid pulses, normal radial pulses Vascular exam: PRESENT: normal capillary refill GI/Abdominal exam: PRESENT: diminished bowel sounds, soft Extremities exam: PRESENT: pedal edema, +2 edema Musculoskeletal exam: PRESENT: full ROM, normal inspection Neurological exam: PRESENT: altered Skin exam: PRESENT: pallor Tubes/Lines: PRESENT: Endotracheal Tube, Central Line Laboratory/Radiographs Laboratory Results: 05/16/20 06:16 05/16/20 17:17 05/16/20 05/16/20 05/16/20 06:16 06:16 06:16 WBC 18.6 H RBC 2.56 L Hgb 7.3 L Hct 22.3 L MCV 87 MCH 28.4 MCHC 32.6 RDW 16.7 H Plt Count 172 Seg Neutrophils % Not Reportable Sodium 129.9 L Potassium 4.9 Chloride 96 L Carbon Dioxide 21 L Anion Gap 13 BUN 127 H Creatinine 7.17 H Est GFR ( Amer) 10 L Est GFR (Non-Af Amer) Glucose 114 H Calcium 6.3 L* Phosphorus 9.1 H Magnesium 2.5 H Ferritin C-Reactive Protein Albumin 2.3 L Urine Color YELLOW Urine Appearance SLIGHTLY-CLOUDY Urine pH 6.0 Ur Specific [place] 1.013 Urine Protein 100 H Urine Glucose (UA) 50 H Urine Ketones NEGATIVE Urine Blood LARGE H Urine Nitrite NEGATIVE Ur Leukocyte Esterase NEGATIVE Urine WBC (Auto) 11 Urine RBC (Auto) >182 05/16/20 05/16/20 06:16 17:17 WBC RBC Hgb Hct MCV MCH MCHC RDW Plt Count Seg Neutrophils % Sodium Cancelled 132.6 L Potassium Cancelled 4.2 Chloride Cancelled 98 Carbon Dioxide Cancelled 24 Anion Gap Cancelled 11 BUN Cancelled 90 H D Creatinine Cancelled 5.49 H Est GFR ( Amer) Cancelled 13 L Est GFR (Non-Af Amer) Cancelled Glucose Cancelled 121 H Calcium Cancelled 6.9 L* Phosphorus Magnesium Ferritin 106.00 C-Reactive Protein 158.4 H Albumin Cancelled Urine Color Urine Appearance Urine pH Ur Specific [place] Urine Protein Urine Glucose (UA) Urine Ketones Urine Blood Urine Nitrite Ur Leukocyte Esterase Urine WBC (Auto) Urine RBC (Auto) 05/07/20 05/07/20 05/08/20 20:42 20:42 04:20 Creatine Kinase 86994 H CK-MB (CK-2) 367.00 H Troponin I < 0.012 < 0.012 NT-Pro-B Natriuret Pep 282 H 05/08/20 05/08/20 05/09/20 04:20 12:15 03:38 Creatine Kinase 580592 H 089390 H CK-MB (CK-2) 323.00 H Troponin I < 0.012 NT-Pro-B Natriuret Pep 05/10/20 05/11/20 05/12/20 04:28 17:58 17:10 Creatine Kinase 03452 H 35582 H 65736 H CK-MB (CK-2) Troponin I NT-Pro-B Natriuret Pep 05/13/20 18:53 Creatine Kinase 52997 H CK-MB (CK-2) Troponin I NT-Pro-B Natriuret Pep Impressions: Cervical Spine CT 05/07/20 20:51 IMPRESSION: No acute findings in the cervical spine. TECHNICAL DOCUMENTATION: Quality ID # 436: Final reports with documentation of one or more dose reduction techniques (e.g., Automated exposure control, adjustment of the mA and/or kV according to patient size, use of iterative reconstruction technique) copyright 2011 [employer]- All Rights Reserved Lower Extremity Ultrasound 05/08/20 00:00 IMPRESSION: Bilateral small vessel disease. No significant stenosis above the knee. Renal Ultrasound 05/09/20 00:00 IMPRESSION: Chronic medical renal disease without hydronephrosis. Possible nonobstructive calculus right kidney. Chest X-Ray 05/10/20 04:00 IMPRESSION: Rehydration versus progressing edema or sepsis. No pneumothorax. KUB X-Ray 05/13/20 00:00 IMPRESSION: Esophagogastric tube tip and side port projects over the stomach. Head CT 05/15/20 00:00 IMPRESSION: STABLE MILD CHRONIC CHANGES. NO ACUTE FINDINGS. EVIDENCE OF ACUTE STROKE: NO. All labs, radiographs, diagnostic studies and EKGs were personally reviewed: Yes In addition, reports of radiographic and diagnostic studies were read: Yes Assessment and Plan - Diagnosis (1) Acute kidney failure Qualifiers: Acute renal failure type: with acute tubular necrosis Qualified Code(s): N17.0 - Acute kidney failure with tubular necrosis Is this a current diagnosis for this admission?: Yes Plan: Continue hemodialysis Thursday. (2) Pneumonia due to COVID-19 virus Is this a current diagnosis for this admission?: Yes Plan: Continue remdesivir, dexamethasone, zinc and vitamin C. Follow-up chest x-ray in a.m. (3) Respiratory failure with hypoxia and hypercapnia Qualifiers: Chronicity: acute Qualified Code(s): J96.01 - Acute respiratory failure with hypoxia; J96.02 - Acute respiratory failure with hypercapnia Is this a current diagnosis for this admission?: Yes Plan: Continue current vent settings. Wean FiO2 as tolerated. Consult surgery for possible tracheostomy placement. Critical Time Critical Time (minutes): 65 Level of Care: ICU Anticipated discharge: Acute Rehab Anticipated DC Timeframe: within 72 hours -: 1. The care of a critical patient is a dynamic process. This note is a repre sentative synopsis but static in nature. The timeframe for treatments given in order is not necessarily the actual time these treatments may have been done. 2. This patient requires critical care secondary to ongoing requirements for therapy not offered or safe outside the critical care environment. Transfer to a lower level of care will result in altered life or limb morbidity and mortality. 3. Multidisciplinary rounds completed. 4. ABCDE bundle addressed.
--- NOTE | 2020-05-17 01:25 | PDOC PROGRESS REPORT ---
Subjective Date:: 05/16/20 Subjective:: I am seeing the patient during dialysis this morning. He remains to be intubate d unresponsive without any sedation. His blood pressure is somewhat elevated. He only produced about 180 mL of urine output for the past 24 hours. He still has clinical fluid overload. Reason For Visit: HYPERKALEMIA ALTERED MENTAL STATUS Physical Exam Vital Signs: Temp Pulse Resp BP Pulse Ox 99.7 F 92 23 H 172/82 H 99 05/15/20 20:00 05/16/20 08:45 05/16/20 08:45 05/16/20 06:08 05/16/20 08:45 Intake & Output 05/15/20 05/16/20 05/17/20 06:59 06:59 06:59 Intake Total 3288 2390 50 Output Total 7477 500 29 Balance -4189 1890 21 Weight 146.8 kg 145 kg Vitals during dialysis: Blood pressure 182/95, heart rate of 91, oxygen saturation 98% with FiO2 of 40%, blood flow rate of 300 mL/min and dialysate flow rate of 600 mL/min. Exam: General appearance: PRESENT: Intubated and unresponsive Head exam: PRESENT: atraumatic, normocephalic Eye exam: PRESENT: Eyes closed Neck exam: ABSENT: JVD Respiratory exam: PRESENT: Diminished breath sounds. ABSENT: crackles, rales, rhonchi, unlabored, wheezes Cardiovascular exam: PRESENT: Regular rate rhythm -+S1, +S2. ABSENT: diastolic murmur, systolic murmur GI/Abdominal exam: PRESENT: normal bowel sounds, soft. ABSENT: guarding, mass, tenderness Extremities exam: Bilateral upper extremity edema and grade 2 bilateral lower extremity pitting edema Neurological exam: PRESENT: Unresponsive. Skin exam: PRESENT: dry, warm, Cardiovascular exam: PRESENT: +S1, +S2 GI/Abdominal exam: PRESENT: normal bowel sounds, soft. ABSENT: organomegaly, tenderness Results Laboratory Results: 05/16/20 06:16 05/16/20 06:16 05/15/20 05/16/20 05/16/20 18:09 06:16 06:16 WBC RBC Hgb Hct MCV MCH MCHC RDW Plt Count Seg Neutrophils % Sodium 129.3 L 129.9 L Potassium 4.7 4.9 Chloride 97 L 96 L Carbon Dioxide 21 L 21 L Anion Gap 11 13 BUN 117 H 127 H Creatinine 6.69 H 7.17 H Est GFR ( Amer) 10 L 10 L Est GFR (Non-Af Amer) Glucose 113 H 114 H Calcium 6.0 L* 6.3 L* Phosphorus 9.1 H Magnesium 2.5 H Albumin 2.3 L Urine Color YELLOW Urine Appearance SLIGHTLY-CLOUDY Urine pH 6.0 Ur Specific [place] 1.013 Urine Protein 100 H Urine Glucose (UA) 50 H Urine Ketones NEGATIVE Urine Blood LARGE H Urine Nitrite NEGATIVE Ur Leukocyte Esterase NEGATIVE Urine WBC (Auto) 11 Urine RBC (Auto) >182 05/16/20 05/16/20 06:16 06:16 WBC 18.6 H RBC 2.56 L Hgb 7.3 L Hct 22.3 L MCV 87 MCH 28.4 MCHC 32.6 RDW 16.7 H Plt Count 172 Seg Neutrophils % Not Reportable Sodium Cancelled Potassium Cancelled Chloride Cancelled Carbon Dioxide Cancelled Anion Gap Cancelled BUN Cancelled Creatinine Cancelled Est GFR ( Amer) Cancelled Est GFR (Non-Af Amer) Cancelled Glucose Cancelled Calcium Cancelled Phosphorus Magnesium Albumin Cancelled Urine Color Urine Appearance Urine pH Ur Specific [place] Urine Protein Urine Glucose (UA) Urine Ketones Urine Blood Urine Nitrite Ur Leukocyte Esterase Urine WBC (Auto) Urine RBC (Auto) 05/07/20 05/07/20 05/08/20 20:42 20:42 04:20 Creatine Kinase 11639 H CK-MB (CK-2) 367.00 H Troponin I < 0.012 < 0.012 NT-Pro-B Natriuret Pep 282 H 05/08/20 05/08/20 05/09/20 04:20 12:15 03:38 Creatine Kinase 860165 H 515824 H CK-MB (CK-2) 323.00 H Troponin I < 0.012 NT-Pro-B Natriuret Pep 05/10/20 05/11/20 05/12/20 04:28 17:58 17:10 Creatine Kinase 31873 H 04149 H 14124 H CK-MB (CK-2) Troponin I NT-Pro-B Natriuret Pep 05/13/20 18:53 Creatine Kinase 02681 H CK-MB (CK-2) Troponin I NT-Pro-B Natriuret Pep Impressions: Cervical Spine CT 05/07/20 20:51 IMPRESSION: No acute findings in the cervical spine. TECHNICAL DOCUMENTATION: Quality ID # 436: Final reports with documentation of one or more dose reduction techniques (e.g., Automated exposure control, adjustment of the mA and/or kV according to patient size, use of iterative reconstruction technique) copyright 2011 [employer]- All Rights Reserved Lower Extremity Ultrasound 05/08/20 00:00 IMPRESSION: Bilateral small vessel disease. No significant stenosis above the knee. Renal Ultrasound 05/09/20 00:00 IMPRESSION: Chronic medical renal disease without hydronephrosis. Possible nonobstructive calculus right kidney. Chest X-Ray 05/10/20 04:00 IMPRESSION: Rehydration versus progressing edema or sepsis. No pneumothorax. KUB X-Ray 05/13/20 00:00 IMPRESSION: Esophagogastric tube tip and side port projects over the stomach. Head CT 05/15/20 00:00 IMPRESSION: STABLE MILD CHRONIC CHANGES. NO ACUTE FINDINGS. EVIDENCE OF ACUTE STROKE: NO. Assessment & Plan - Diagnosis (1) Acute kidney injury Is this a current diagnosis for this admission?: Yes Plan: Secondary to initial severe rhabdomyolysis but could also be multifactorial. Patient is found to be Covid positive on 05/12/2020. Continues to be a oligo- anuric and fluid overloaded. Now requiring renal replacement therapy. We will do dialysis today for 4 hours, using the patient's dialysis catheter, with 3 calcium/2 potassium bath, blood flow rate of 300 mL per minute, dialysate flow rate of 600 mL per minute, ultrafiltration 5 to 6 L as tolerated, no heparin and no Procrit. Patient is currently being monitored with ultrafiltration to be adjusted depending on patient's hemodynamic response. I am also giving the patient 25 g of IV albumin during dialysis. (2) Pneumonia due to COVID-19 virus Is this a current diagnosis for this admission?: Yes Plan: Patient currently being treated with IV Decadron, vitamin C, and zinc. Completed IV remdesivir. Management per composition molder. (3) Respiratory failure with hypoxia and hypercapnia Qualifiers: Chronicity: acute Qualified Code(s): J96.01 - Acute respiratory failure with hypoxia; J96.02 - Acute respiratory failure with hypercapnia Is this a current diagnosis for this admission?: Yes Plan: On mechanical ventilation. Per composition molder. (4) Rhabdomyolysis Qualifiers: Rhabdomyolysis type: traumatic Encounter type: subsequent encounter Qualified Code(s): T79.6XXD - Traumatic ischemia of muscle, subsequent encounter Is this a current diagnosis for this admission?: Yes Plan: Patient is currently fluid overloaded after IV fluid hydration with concomitant anuria with GRETCHEN. (5) Hyperkalemia Is this a current diagnosis for this admission?: Yes Plan: Improved on dialysis. (6) Altered mental status Qualifiers: Altered mental status type: unspecified Qualified Code(s): R41.82 - Altered mental status, unspecified Is this a current diagnosis for this admission?: Yes Plan: Off sedation but still not much response. (7) Hypoalbuminemia Is this a current diagnosis for this admission?: Yes Plan: Albumin given today during dialysis. (8) Hypocalcemia Is this a current diagnosis for this admission?: Yes Plan: Ionized calcium is low at 0.96. (9) Lactic acidosis Is this a current diagnosis for this admission?: Yes Plan: Patient has had UTI secondary to Enterococcus faecalis on 05/08 and on 05/07 she has positive blood culture with Staphylococcus Warnei. On 05/12 sputum culture was positive for Enterobacter cloacae and Stenotrophomonas maltophilia. Infectious disease consulted. On IV Zosyn. (10) Thrombocytopenia Is this a current diagnosis for this admission?: Yes Plan: Platelets currently improving. Possibly drug-induced. (11) Hyponatremia Is this a current diagnosis for this admission?: Yes Plan: Most likely secondary to hypervolemic state. (12) Anemia Is this a current diagnosis for this admission?: Yes Plan: Could be partly due to hemodilution due to hypervolemia. (13) Abnormal LFTs Is this a current diagnosis for this admission?: Yes Plan: Could be secondary to history of alcohol dependence and underlying liver disease . (14) Enterococcus UTI Is this a current diagnosis for this admission?: Yes Plan: Treated with vancomycin. (15) EtOH dependence Qualifiers: Substance use status: unspecified alcohol-induced disorder Qualified Code(s): F10.29 - Alcohol dependence with unspecified alcohol-induced disorder Is this a current diagnosis for this admission?: Yes - Time Time with patient: 15-25 minutes
[2020-05-17] MEDS: ALBUTEROL SULFATE 0.083% NEB 2.5 MG/3 ML AMPUL NEB SCH ×4 (02:50→21:56)
[2020-05-17 06:53] LABS: HEMATOCRIT 19.9 % (37.9-51.0); MEAN CORPUSCULAR HEMOGLOBIN 28.3 pg (27.0-33.4); MEAN CORPUSCULAR HGB CONC 33.2 g/dL (32.0-36.0); MEAN CORPUSCULAR VOLUME 85 fl (80-97); RED BLOOD COUNT 2.34 10^6/uL (4.35-5.55); RED CELL DISTRIBUTION WIDTH 16.4 % (11.5-14.0); WHITE BLOOD COUNT 19.9 10^3/uL (4.0-10.5)
[2020-05-17 07:10] LABS: ANION GAP 14 (5-19); BLOOD UREA NITROGEN 106 mg/dL (7-20); CARBON DIOXIDE 22 mmol/L (22-30); CHLORIDE 98 mmol/L (98-107); GLUCOSE 135 mg/dL (75-110); POTASSIUM 4.4 mmol/L (3.6-5.0); TRIGLYCERIDES 105 mg/dL (<150)
[2020-05-17 07:27] LABS: CALCIUM 6.9 mg/dL (8.4-10.2)
[2020-05-17] MEDS: HEPARIN SODIUM,PORCINE/D5W 25,000 UNIT/250 ML RTUINJ IV PRN ×2 (08:21→19:09)
[2020-05-17 08:27] LABS: ABSOLUTE LYMPHOCYTES# (MANUAL) 0.8 10^3/uL (0.5-4.7); ABSOLUTE MONOCYTES # (MANUAL) 0.6 10^3/uL (0.1-1.4); BASOPHILS % (MANUAL) 0 % (0-2); EOSINOPHILS % (MANUAL) 0 % (0-6); LYMPHOCYTES % (MANUAL) 4 % (13-45); MONOCYTES % (MANUAL) 3 % (3-13); SEGMENTED NEUTROPHILS % (MAN) 93 % (42-78); TOTAL CELLS COUNTED 100
[2020-05-17 08:28] LABS: ANISOCYTOSIS 1+; OVALOCYTES 1+; PLATELET CLUMPS PRESENT; PLATELET COMMENT ADEQUATE; POIKILOCYTOSIS 1+; POLYCHROMASIA 1+
[2020-05-17 08:30] LABS: PLATELET COUNT 211 10^3/uL (150-450)
[2020-05-17 08:31] LABS: HEMOGLOBIN 6.6 g/dL (13.5-17.0)
[2020-05-17] MEDS ORDERED: NORMAL SALINE 250 ML IV PRN ×2 (08:34)
[2020-05-17] MEDS: ASCORBIC ACID 500 MG TABLET NG SCH ×2 (09:03→17:29)
[2020-05-17] MEDS: DEXAMETHASONE SOD PHOS INJ 10 MG/1 ML VIAL IV SCH ×2 (09:03→21:00)
[2020-05-17] MEDS: PANTOPRAZOLE SODIUM 40 MG VIAL IV SCH (09:03)
[2020-05-17] MEDS: DOCUSATE SODIUM 100 MG/10 ML UDC PO SCH ×2 (09:03→17:29)
[2020-05-17] MEDS: ZINC SULFATE 220 MG CAPSULE NG SCH (09:03)
--- NOTE | 2020-05-17 15:45 | PDOC CRITICAL CARE PROG REPORT ---
General Date:: 05/17/20 ICU Day:: 10 Ventilator Day:: 10 Hospital Day:: 10 Resuscitation Status: Full Code Events in the past 12 to 24 Hours:: This 54-year-old male presented to [facility] emergency department via EMS on 05/07/2020 with altered mental status. Basically, the patient has an unknown. Of unresponsiveness, as he was initially believed to be sleeping but raised concern to his when he was found to still be in the same position over 12 hours later. The reports that the his pupils were constricted at the time she called EMS. EMS arrived and found the patient to be obtunded. Narcan was given in the field. Although he was assessed to have a favorable response to Narcan initially, he subsequently demonstrated seizure- like movements on route. He was provided bag mask ventilatory support. No loss of pulse or pressure. However, in the emergency department he again demonstrated obtunded/altered mental status. He was given another dose of Narcan, which was not convincingly helpful. He was intubated in the emergency department. He was started on norepinephrine infusion for blood pressure support. Initial laboratory evaluation was compatible with acute kidney injury and rhabdomyolysis with CK total peaking at 152,203. He also had a severe metabolic acidosis with an elevated anion gap. Lactate level was elevated. Urine drug screen was positive for opiates. Alcohol level was undetectable ( reports he admits to consistent alcohol consumption for analgesic effect, although she believes his last drink was almost 7 days ago). 05/08: Remains intubated. On Levophed. 05/09: Remains intubated. ABG this a.m.: 7.41/40/79. Still on Levophed, decre asing. CK total peaked at 152,203, now 128,134. Albumin 1.9. Anuric. Creatinine 4.7. K5.4. Lactate 3.3. 05/10: Remains intubated. On propofol for sedation. Normal saline at 1 L/h all day yesterday. Still anuric. Discussed with Dr. Brown this morning. Attempting to stimulate diuresis with Lasix 100 mg IV push followed by infusion at 10 mg/h. CK total 76,434. Potassium 5.0. Creatinine 5.23. Calcium 5.8. Albumin 1.5. Chest x-ray demonstrates a widened mediastinum, more prominent today than on previous. Patient's is at the bedside and reports that this has previously been identified, reported to her, and "thoroughly worked up for a possible aneurysmal thing". She states that the entire diagnostic evaluation was unrevealing. 05/11: Remains intubated. On propofol for sedation. Got hemodialysis today. - 5 L. Still an uric despite furosemide infusion. Case discussed with Dr. Brown this morning. Platelets 62 this morning. Off insulin infusion. Off D5. Potassium 5.4 this morning. 05/12: Remains intubated. On propofol/Precedex for sedation. CK total 43,765. Had transient hypotension yesterday. No significant improvement after albumin infusion. However, retail shift leader reports that the patient had dramatic improvement after a large BM. Afebrile. WBC 6.2. Platelets 49. Cam isolated Enterococcus. On Zosyn/vancomycin. 05/13: Remains intubated. Off propofol. On Precedex for sedation. Respiratory viral panel revealed the patient is positive for COVID-19. Added on Decadron and remdesivir yesterday. On zinc. CK total 27,357. Afebrile. Hemoglobin 7.5. WBC 5.3. Platelets 57, slightly increased after discontinuing heparin. Heparin induced platelet antibody pending. D-dimer > 20. CRP 378. 05/14: Seen on dialysis. Stable but not responding. Lasix drip stopped-anuric. 05/15: Patient had essentially unremarkable CT of head. 05/16/2020: No significant changes in the past 24 hours. Sedation has been weaned off. 05/17/2020: No significant changes over the past 24 hours. IV fluids have been discontinued. Patient remains only minimally responsive. Review of systems relevant to events:: Neuro: He has been on no sedation over the past 48 hours. He remains unresponsive. Plan: Continue off of sedation. Given his renal insufficiency he may require several days without any sedative medications. Pulmonary: Patient with multiple reasons for respiratory failure including COVID-19 infection, renal failure. Plan: Continue current vent settings. Wean FiO2 to maintain SPO2 of 88 to 95%. Continue dexamethasone. Heme: H/H decreased further today. 2 units PRBC ordered. We will follow his CBC post transfusion. If no significant improvement or if H/H decreases in the next 24 hours, we will discontinue his heparin. Renal: Continue hemodialysis Thursday. ID: COVID-19 positive on 05/12/2020. Continue to follow CRP and D-dimers. Patient completed his course of remdesivir. Continue dexamethasone. Zosyn and vancomycin have been started for positive blood culture and sputum culture as well as positive urine culture. Now on day 8 of antibiotics. Will consider discontinuing if afebrile tomorrow. Barriers to discharge from ICU: Patient still with multiple system organ failure including acute renal failure and respiratory failure. At this point, his ne urologic status precludes him from being safely extubated. Reason for ICU Addmission:: Altered MS, Acute Resp. Failure, Opiod OD, Abnormal EKG ( wide complex ), intubated. - Medications: Medications reviewed and adjusted accordingly: Yes Physical Exam Vital Signs: Temp Pulse Resp BP Pulse Ox 99.5 F 83 18 162/81 H 100 05/17/20 15:08 05/17/20 15:08 05/17/20 15:08 05/17/20 15:08 05/17/20 15:08 Intake & Output 05/16/20 05/17/20 05/18/20 06:59 06:59 06:59 Intake Total 2390 1806 550 Output Total 500 7571 775 Balance 6360 -5765 -225 Weight 145 kg 141.4 kg Weight/Height Weight 141.4 kg Height 6 ft General appearance: PRESENT: no acute distress, morbidly obese Head exam: PRESENT: atraumatic, normocephalic Eye exam: PRESENT: EOMI, PERRLA Ear exam: PRESENT: normal external ear exam. ABSENT: bleeding, drainage Mouth exam: PRESENT: dry mucosa, neck supple Neck exam: PRESENT: full ROM. ABSENT: carotid bruit, JVD, lymphadenopathy Respiratory exam: PRESENT: clear to auscultation bernard Cardiovascular exam: PRESENT: RRR Pulses: PRESENT: normal radial pulses Vascular exam: PRESENT: normal capillary refill GI/Abdominal exam: PRESENT: diminished bowel sounds, soft Rectal exam: PRESENT: black stool Extremities exam: PRESENT: pedal edema, +2 edema Musculoskeletal exam: PRESENT: normal inspection Neurological exam: PRESENT: altered, CN II-XII grossly intact Tubes/Lines: PRESENT: Endotracheal Tube, Central Line, Dialysis catheter Laboratory/Radiographs Laboratory Results: 05/17/20 06:40 05/17/20 06:40 05/16/20 05/17/20 05/17/20 17:17 06:40 06:40 WBC 19.9 H RBC 2.34 L Hgb 6.6 L Hct 19.9 L MCV 85 MCH 28.3 MCHC 33.2 RDW 16.4 H Plt Count 211 Seg Neutrophils % Not Reportable Sodium 132.6 L 134.2 L Potassium 4.2 4.4 Chloride 98 98 Carbon Dioxide 24 22 Anion Gap 11 14 BUN 90 H D 106 H Creatinine 5.49 H 5.81 H Est GFR ( Amer) 13 L 12 L Glucose 121 H 135 H Calcium 6.9 L* 6.9 L* Ferritin 106.00 C-Reactive Protein 158.4 H Triglycerides 105 Blood Type Antibody Screen 05/17/20 08:56 WBC RBC Hgb Hct MCV MCH MCHC RDW Plt Count Seg Neutrophils % Sodium Potassium Chloride Carbon Dioxide Anion Gap BUN Creatinine Est GFR ( Amer) Glucose Calcium Ferritin C-Reactive Protein Triglycerides Blood Type A NEGATIVE Antibody Screen NEGATIVE 05/07/20 05/07/20 05/08/20 20:42 20:42 04:20 Creatine Kinase 98894 H CK-MB (CK-2) 367.00 H Troponin I < 0.012 < 0.012 NT-Pro-B Natriuret Pep 282 H 05/08/20 05/08/20 05/09/20 04:20 12:15 03:38 Creatine Kinase 776604 H 636029 H CK-MB (CK-2) 323.00 H Troponin I < 0.012 NT-Pro-B Natriuret Pep 05/10/20 05/11/20 05/12/20 04:28 17:58 17:10 Creatine Kinase 34174 H 66501 H 55831 H CK-MB (CK-2) Troponin I NT-Pro-B Natriuret Pep 05/13/20 18:53 Creatine Kinase 79899 H CK-MB (CK-2) Troponin I NT-Pro-B Natriuret Pep Impressions: Cervical Spine CT 05/07/20 20:51 IMPRESSION: No acute findings in the cervical spine. TECHNICAL DOCUMENTATION: Quality ID # 436: Final reports with documentation of one or more dose reduction techniques (e.g., Automated exposure control, adjustment of the mA and/or kV according to patient size, use of iterative reconstruction technique) copyright 2011 [employer]- All Rights Reserved Lower Extremity Ultrasound 05/08/20 00:00 IMPRESSION: Bilateral small vessel disease. No significant stenosis above the knee. Renal Ultrasound 05/09/20 00:00 IMPRESSION: Chronic medical renal disease without hydronephrosis. Possible nonobstructive calculus right kidney. Chest X-Ray 05/10/20 04:00 IMPRESSION: Rehydration versus progressing edema or sepsis. No pneumothorax. KUB X-Ray 05/13/20 00:00 IMPRESSION: Esophagogastric tube tip and side port projects over the stomach. Head CT 05/15/20 00:00 IMPRESSION: STABLE MILD CHRONIC CHANGES. NO ACUTE FINDINGS. EVIDENCE OF ACUTE STROKE: NO. All labs, radiographs, diagnostic studies and EKGs were personally reviewed: Yes In addition, reports of radiographic and diagnostic studies were read: Yes Assessment and Plan - Diagnosis (1) Acute kidney failure Qualifiers: Acute renal failure type: with acute tubular necrosis Qualified Code(s): N1 7.0 - Acute kidney failure with tubular necrosis Is this a current diagnosis for this admission?: Yes Plan: Continue hemodialysis Thursday. Patient has had multiple sessions of large volume fluid removal. (2) Pneumonia due to COVID-19 virus Is this a current diagnosis for this admission?: Yes Plan: Continue remdesivir, dexamethasone, zinc and vitamin C. Follow-up chest x-ray in a.m. No significant changes at this time. Continue to wean vent as tolerated. (3) Respiratory failure with hypoxia and hypercapnia Qualifiers: Chronicity: acute Qualified Code(s): J96.01 - Acute respiratory failure with hypoxia; J96.02 - Acute respiratory failure with hypercapnia Is this a current diagnosis for this admission?: Yes Plan: Continue current vent settings. Wean FiO2 as tolerated. Consult surgery for possible tracheostomy placement. Critical Time Critical Time (minutes): 65 Level of Care: ICU Anticipated discharge: Acute Rehab Anticipated DC Timeframe: within 72 hours -: 1. The care of a critical patient is a dynamic process. This note is a residential sales representative synopsis but static in nature. The timeframe for treatments given in order is not necessarily the actual time these treatments may have been done. 2. This patient requires critical care secondary to ongoing requirements for therapy not offered or safe outside the critical care environment. Transfer to a lower level of care will result in altered life or limb morbidity and mortality. 3. Multidisciplinary rounds completed. 4. ABCDE bundle addressed.
[2020-05-17 19:51] LABS: HEMATOCRIT 23.8 % (37.9-51.0); MEAN CORPUSCULAR HGB CONC 33.5 g/dL (32.0-36.0); MEAN CORPUSCULAR VOLUME 87 fl (80-97); PLATELET COUNT 226 10^3/uL (150-450); RED BLOOD COUNT 2.76 10^6/uL (4.35-5.55); RED CELL DISTRIBUTION WIDTH 15.8 % (11.5-14.0); WHITE BLOOD COUNT 20.2 10^3/uL (4.0-10.5)
[2020-05-18] MEDS: ALBUTEROL SULFATE 0.083% NEB 2.5 MG/3 ML AMPUL NEB SCH ×4 (02:33→20:59)
[2020-05-18] MEDS ORDERED: HEPARIN SODIUM,PORCINE/D5W 25,000 UNIT/250 ML RTUINJ IV ONE (03:00)
[2020-05-18] MEDS: HEPARIN SODIUM,PORCINE/D5W 25,000 UNIT/250 ML RTUINJ IV PRN ×3 (03:11→23:25)
[2020-05-18 04:30] LABS: HEMATOCRIT 24.5 % (37.9-51.0); HEMOGLOBIN 8.2 g/dL (13.5-17.0); MEAN CORPUSCULAR HEMOGLOBIN 29.3 pg (27.0-33.4); MEAN CORPUSCULAR HGB CONC 33.4 g/dL (32.0-36.0); MEAN CORPUSCULAR VOLUME 88 fl (80-97); PLATELET COUNT 281 10^3/uL (150-450); RED BLOOD COUNT 2.79 10^6/uL (4.35-5.55); RED CELL DISTRIBUTION WIDTH 16.2 % (11.5-14.0); WHITE BLOOD COUNT 23.3 10^3/uL (4.0-10.5)
[2020-05-18 04:38] LABS: APPEARANCE,URINE SLIGHTLY-CLOUDY; BILIRUBIN,URINE NEGATIVE (NEGATIVE); COLOR,URINE YELLOW; GLUCOSE, URINE 50 mg/dL (NEGATIVE); KETONES,URINE NEGATIVE (NEGATIVE); LEUKOCYTE ESTERASE,URINE TRACE (NEGATIVE); NITRITE,URINE NEGATIVE (NEGATIVE); PROTEIN,URINE 100 mg/dL (NEGATIVE); URINE SPECIFIC GRAVITY 1.012; UROBILINOGEN,URINE NEGATIVE mg/dL (<2.0)
[2020-05-18] MEDS: HEPARIN SOD (PORCINE) 1,000 UNIT/ML 10 ML VIAL IV PRN (04:53)
[2020-05-18 04:55] LABS: ALBUMIN 2.1 g/dL (3.5-5.0); ANION GAP 16 (5-19); CARBON DIOXIDE 20 mmol/L (22-30); CHLORIDE 97 mmol/L (98-107); GLUCOSE 140 mg/dL (75-110); POTASSIUM 4.5 mmol/L (3.6-5.0)
[2020-05-18] MEDS ORDERED: NORMAL SALINE 1000 ML 1,000 ML IV PRN (05:00)
[2020-05-18] MEDS ORDERED: EPOETIN ALFA-EPBX 2,000 UNIT, EPOETIN ALFA-EPBX 3,000 UNIT, EPOETIN ALFA-EPBX 20,000 UN... IV PRN ×4 (05:00)
[2020-05-18] MEDS ORDERED: ALBUMIN HUMAN 25 GM/100 ML RTUINJ IV PRN (05:00)
[2020-05-18] MEDS ORDERED: HEPARIN SOD (PORCINE) 1,000 UNIT/ML 10 ML VIAL IV PRN (05:00)
[2020-05-18 05:09] LABS: BLOOD UREA NITROGEN 125 mg/dL (7-20)
[2020-05-18 05:27] LABS: ABSOLUTE LYMPHOCYTES# (MANUAL) 0.2 10^3/uL (0.5-4.7); ABSOLUTE MONOCYTES # (MANUAL) 0.9 10^3/uL (0.1-1.4); BASOPHILS % (MANUAL) 0 % (0-2); EOSINOPHILS % (MANUAL) 0 % (0-6); LYMPHOCYTES % (MANUAL) 1 % (13-45); MONOCYTES % (MANUAL) 4 % (3-13); SEGMENTED NEUTROPHILS % (MAN) 95 % (42-78); TOTAL CELLS COUNTED 100
[2020-05-18 05:28] LABS: ANISOCYTOSIS 1+; PLATELET COMMENT ADEQUATE
[2020-05-18 05:30] LABS: OVALOCYTES SLIGHT; POLYCHROMASIA SLIGHT
[2020-05-18 05:31] LABS: SCHISTOCYTES SLIGHT
[2020-05-18] MEDS: DOCUSATE SODIUM 100 MG/10 ML UDC PO SCH ×2 (10:28→17:40)
[2020-05-18] MEDS: ZINC SULFATE 220 MG CAPSULE NG SCH (10:28)
[2020-05-18] MEDS: DEXAMETHASONE SOD PHOS INJ 10 MG/1 ML VIAL IV SCH ×2 (10:28→22:55)
[2020-05-18] MEDS: PANTOPRAZOLE SODIUM 40 MG VIAL IV SCH (10:28)
[2020-05-18] MEDS: ASCORBIC ACID 500 MG TABLET NG SCH ×2 (10:28→17:40)
--- NOTE | 2020-05-18 10:50 | PDOC PROGRESS REPORT ---
Subjective Date:: 05/18/20 Subjective:: I am seeing the patient during dialysis this morning. He remains to be intubated. He grimaces with suctioning or cleaning his mouth but he has no purposeful movements or no other responses. He is tolerating dialysis currently without any problems or issues. He is hemodynamically stable. Urine output for the past 24 hours was only 350 mL. Reason For Visit: HYPERKALEMIA ALTERED MENTAL STATUS Physical Exam Vital Signs: Temp Pulse Resp BP Pulse Ox 99.5 F 83 25 H 183/91 H 100 05/17/20 15:08 05/18/20 08:31 05/18/20 08:31 05/18/20 06:29 05/18/20 08:31 Intake & Output 05/17/20 05/18/20 05/19/20 06:59 06:59 06:59 Intake Total 1806 1325 Output Total 7571 950 Balance -5765 375 Weight 141.4 kg 142.8 kg Vitals during dialysis: Blood pressure 157/87, heart rate of 104, respiration of 19% oxygen saturation 98% with FiO2 of 40% on mechanical ventilation, blood flow rate 350 mL/min and dialysate flow rate of 600 mL/min. Exam: General appearance: PRESENT: Intubated, grimaces Head exam: PRESENT: atraumatic, normocephalic Eye exam: PRESENT: conjunctiva pale, PERRLA. ABSENT: scleral icterus Neck exam: ABSENT: JVD Respiratory exam: PRESENT: Diminished breath sounds. ABSENT: crackles, rales, rhonchi, unlabored, wheezes Cardiovascular exam: PRESENT: Regular rate rhythm -+S1, +S2. ABSENT: diastolic murmur, systolic murmur GI/Abdominal exam: PRESENT: normal bowel sounds, soft. ABSENT: guarding, mass, tenderness Extremities exam: Unchanged bilateral upper extremity and rate to bilateral lower extremity pitting edema Neurological exam: PRESENT: Wakes up and grimaces but does not follow commands and no purposeful movements. Skin exam: PRESENT: dry, warm, Cardiovascular exam: PRESENT: +S1, +S2 GI/Abdominal exam: PRESENT: normal bowel sounds, soft. ABSENT: organomegaly, tenderness Results Laboratory Results: 05/18/20 04:17 05/18/20 04:17 05/17/20 05/17/20 05/18/20 08:56 19:31 04:17 WBC 20.2 H RBC 2.76 L Hgb 8.0 L Hct 23.8 L MCV 87 MCH 29.0 MCHC 33.5 RDW 15.8 H Plt Count 226 Seg Neutrophils % Sodium 133.0 L Potassium 4.5 Chloride 97 L Carbon Dioxide 20 L Anion Gap 16 BUN 125 H Creatinine 6.45 H Est GFR ( Amer) 11 L Glucose 140 H Calcium 7.0 L* Phosphorus 9.0 H Magnesium 2.4 H Albumin 2.1 L Urine Color Urine Appearance Urine pH Ur Specific [place] Urine Protein Urine Glucose (UA) Urine Ketones Urine Blood Urine Nitrite Ur Leukocyte Esterase Urine WBC (Auto) Urine RBC (Auto) Blood Type A NEGATIVE Antibody Screen NEGATIVE 05/18/20 05/18/20 04:17 04:17 WBC 23.3 H RBC 2.79 L Hgb 8.2 L Hct 24.5 L MCV 88 MCH 29.3 MCHC 33.4 RDW 16.2 H Plt Count 281 Seg Neutrophils % Not Reportable Sodium Potassium Chloride Carbon Dioxide Anion Gap BUN Creatinine Est GFR ( Amer) Glucose Calcium Phosphorus Magnesium Albumin Urine Color YELLOW Urine Appearance SLIGHTLY-CLOUDY Urine pH 6.0 Ur Specific [place] 1.012 Urine Protein 100 H Urine Glucose (UA) 50 H Urine Ketones NEGATIVE Urine Blood LARGE H Urine Nitrite NEGATIVE Ur Leukocyte Esterase TRACE H Urine WBC (Auto) 7 Urine RBC (Auto) 13 Blood Type Antibody Screen 05/07/20 05/07/20 05/08/20 20:42 20:42 04:20 Creatine Kinase 11272 H CK-MB (CK-2) 367.00 H Troponin I < 0.012 < 0.012 NT-Pro-B Natriuret Pep 282 H 05/08/20 05/08/20 05/09/20 04:20 12:15 03:38 Creatine Kinase 030204 H 271879 H CK-MB (CK-2) 323.00 H Troponin I < 0.012 NT-Pro-B Natriuret Pep 05/10/20 05/11/20 05/12/20 04:28 17:58 17:10 Creatine Kinase 46686 H 84271 H 17379 H CK-MB (CK-2) Troponin I NT-Pro-B Natriuret Pep 05/13/20 18:53 Creatine Kinase 45047 H CK-MB (CK-2) Troponin I NT-Pro-B Natriuret Pep Impressions: Cervical Spine CT 05/07/20 20:51 IMPRESSION: No acute findings in the cervical spine. TECHNICAL DOCUMENTATION: Quality ID # 436: Final reports with documentation of one or more dose reduction techniques (e.g., Automated exposure control, adjustment of the mA and/or kV according to patient size, use of iterative reconstruction technique) copyright 2010 [employer]- All Rights Reserved Lower Extremity Ultrasound 05/08/20 00:00 IMPRESSION: Bilateral small vessel disease. No significant stenosis above the knee. Renal Ultrasound 05/09/20 00:00 IMPRESSION: Chronic medical renal disease without hydronephrosis. Possible nonobstructive calculus right kidney. Chest X-Ray 05/10/20 04:00 IMPRESSION: Rehydration versus progressing edema or sepsis. No pneumothorax. KUB X-Ray 05/13/20 00:00 IMPRESSION: Esophagogastric tube tip and side port projects over the stomach. Head CT 05/15/20 00:00 IMPRESSION: STABLE MILD CHRONIC CHANGES. NO ACUTE FINDINGS. EVIDENCE OF ACUTE STROKE: NO. Assessment & Plan - Diagnosis (1) Acute kidney injury Is this a current diagnosis for this admission?: Yes Plan: Secondary to initial severe rhabdomyolysis but could also be multifactorial. Patient is found to be Covid positive on 05/12/2020. Continues to be a oligo- anuric and fluid overloaded. Now requiring renal replacement therapy. We will do dialysis today for 4 hours, using the patient's dialysis catheter, with 3 calcium/2 potassium bath, blood flow rate of 350 mL per minute, dialysate flow rate of 600 mL per minute, ultrafiltration 5 to 6 L as tolerated, no heparin and Retacrit of 25,000 intravenously during dialysis. Patient is currently being monitored with ultrafiltration to be adjusted depending on patient's hemodynamic response. I am also giving the patient 25 g of IV albumin during dialysis. I will try to start him on intermittent IV Lasix and see if we can improve his urine output. (2) Pneumonia due to COVID-19 virus Is this a current diagnosis for this admission?: Yes Plan: Patient currently being treated with IV Decadron, vitamin C, and zinc. Completed IV remdesivir. Management per rn behavioral health. (3) Respiratory failure with hypoxia and hypercapnia Qualifiers: Chronicity: acute Qualified Code(s): J96.01 - Acute respiratory failure with hypoxia; J96.02 - Acute respiratory failure with hypercapnia Is this a current diagnosis for this admission?: Yes Plan: On mechanical ventilation. Per rn behavioral health. (4) Rhabdomyolysis Qualifiers: Rhabdomyolysis type: traumatic Encounter type: subsequent encounter Qualified Code(s): T79.6XXD - Traumatic ischemia of muscle, subsequent encounter Is this a current diagnosis for this admission?: Yes Plan: Patient is currently fluid overloaded after IV fluid hydration with concomitant oligo-anuria with GRETCHEN. (5) Hyperkalemia Is this a current diagnosis for this admission?: Yes Plan: Resolved with dialysis. (6) Altered mental status Qualifiers: Altered mental status type: unspecified Qualified Code(s): R41.82 - Altered mental status, unspecified Is this a current diagnosis for this admission?: Yes Plan: Patient is waking up but no response nor purposeful movements. (7) Hypoalbuminemia Is this a current diagnosis for this admission?: Yes Plan: Albumin given today during dialysis. (8) Hypocalcemia Is this a current diagnosis for this admission?: Yes Plan: Ionized calcium is low at 0.96 on 05/14, corrected calcium currently is around 8.56.. (9) Lactic acidosis Is this a current diagnosis for this admission?: Yes Plan: Patient has had UTI secondary to Enterococcus faecalis on 05/08 and on 05/07 she has positive blood culture with Staphylococcus Warnei. On 05/12 sputum culture was positive for Enterobacter cloacae and Stenotrophomonas maltophilia. Infectious disease consulted. Completed IV Zosyn. Currently no antibiotics. (10) Thrombocytopenia Is this a current diagnosis for this admission?: Yes Plan: Resolved. (11) Hyponatremia Is this a current diagnosis for this admission?: Yes Plan: Most likely secondary to hypervolemic state. Improving. (12) Anemia Is this a current diagnosis for this admission?: Yes Plan: Could be partly due to hemodilution due to hypervolemia. Status post blood transfusion. Will give Retacrit on dialysis. (13) Abnormal LFTs Is this a current diagnosis for this admission?: Yes Plan: Could be secondary to history of alcohol dependence and underlying liver disease . (14) Enterococcus UTI Is this a current diagnosis for this admission?: Yes Plan: Treated with vancomycin. (15) EtOH dependence Qualifiers: Substance use status: unspecified alcohol-induced disorder Qualified Code(s): F10.29 - Alcohol dependence with unspecified alcohol-induced disorder Is this a current diagnosis for this admission?: Yes - Time Time with patient: 15-25 minutes
--- NOTE | 2020-05-18 13:46 | PDOC CRITICAL CARE PROG REPORT ---
General Date:: 05/18/20 ICU Day:: 11 Ventilator Day:: 11 Hospital Day:: 11 Resuscitation Status: Full Code Events in the past 12 to 24 Hours:: This 54-year-old male presented to [facility] emergency department via EMS on 05/07/2020 with altered mental status. Basically, the patient has an unknown. Of unresponsiveness, as he was initially believed to be sleeping but raised concern to his when he was found to still be in the same position over 12 hours later. The reports that the his pupils were constricted at the time she called EMS. EMS arrived and found the patient to be obtunded. Narcan was given in the field. Although he was assessed to have a favorable response to Narcan initially, he subsequently demonstrated seizure- like movements on route. He was provided bag mask ventilatory support. No loss of pulse or pressure. However, in the emergency department he again demonstrated obtunded/altered mental status. He was given another dose of Narcan, which was not convincingly helpful. He was intubated in the emergency department. He was started on norepinephrine infusion for blood pressure support. Initial laboratory evaluation was compatible with acute kidney injury and rhabdomyolysis with CK total peaking at 152,203. He also had a severe metabolic acidosis with an elevated anion gap. Lactate level was elevated. Urine drug screen was positive for opiates. Alcohol level was undetectable ( reports he admits to consistent alcohol consumption for analgesic effect, although she believes his last drink was almost 7 days ago). 05/08: Remains intubated. On Levophed. 05/09: Remains intubated. ABG this a.m.: 7.41/40/79. Still on Levophed, decre asing. CK total peaked at 152,203, now 128,134. Albumin 1.9. Anuric. Creatinine 4.7. K5.4. Lactate 3.3. 05/10: Remains intubated. On propofol for sedation. Normal saline at 1 L/h all day yesterday. Still anuric. Discussed with Dr. Brown this morning. Attempting to stimulate diuresis with Lasix 100 mg IV push followed by infusion at 10 mg/h. CK total 76,434. Potassium 5.0. Creatinine 5.23. Calcium 5.8. Albumin 1.5. Chest x-ray demonstrates a widened mediastinum, more prominent today than on previous. Patient's is at the bedside and reports that this has previously been identified, reported to her, and "thoroughly worked up for a possible aneurysmal thing". She states that the entire diagnostic evaluation was unrevealing. 05/11: Remains intubated. On propofol for sedation. Got hemodialysis today. - 5 L. Still an uric despite furosemide infusion. Case discussed with Dr. Brown this morning. Platelets 62 this morning. Off insulin infusion. Off D5. Potassium 5.4 this morning. 05/12: Remains intubated. On propofol/Precedex for sedation. CK total 43,765. Had transient hypotension yesterday. No significant improvement after albumin infusion. 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 Afebrile. WBC 6.2. Platelets 49. Cam isolated Enterococcus. On Zosyn/vancomycin. 05/13: Remains intubated. Off propofol. On Precedex for sedation. Respiratory viral panel revealed the patient is positive for COVID-19. Added on Decadron and remdesivir yesterday. On zinc. CK total 27,357. Afebrile. Hemoglobin 7.5. WBC 5.3. Platelets 57, slightly increased after discontinuing heparin. Heparin induced platelet antibody pending. D-dimer > 20. CRP 378. 05/14: Seen on dialysis. Stable but not responding. Lasix drip stopped-anuric. 05/15: Patient had essentially unremarkable CT of head. 05/16/2020: No significant changes in the past 24 hours. Sedation has been weaned off. 05/17/2020: No significant changes over the past 24 hours. IV fluids have been discontinued. Patient remains only minimally responsive. 05/18/2020: HD yesterday. Patient continues to have spontaneous eye opening but remains unresponsive. Review of systems relevant to events:: Neuro: Day 3 off sedation. He remains unresponsive. Plan: Continue off of sedation. Given his renal insufficiency he may require several days without any sedative medications. Pulmonary: Patient with multiple reasons for respiratory failure including COVID-19 infection, renal failure. Plan: Continue current vent settings. Wean FiO2 to maintain SPO2 of 88 to 95%. Continue dexamethasone. Heme: Patient responded well to blood transfusion yesterday. H/H stable overnight. We will continue heparin drip. Renal: Continue hemodialysis Thursday. ID: COVID-19 positive on 05/12/2020. Continue to follow CRP and D-dimers. Patient completed his course of remdesivir. Continue dexamethasone. Zosyn and vancomycin have been started for positive blood culture and sputum culture as well as positive urine culture. Now on day 8 of antibiotics. Will consider discontinuing if afebrile tomorrow. Barriers to discharge from ICU: Patient still with multiple system organ failure including acute renal failure and respiratory failure. At this point, his neurologic status precludes him from being safely extubated. Reason for ICU Addmission:: Altered MS, Acute Resp. Failure, Opiod OD, Abnormal EKG ( wide complex ), intubated. - Medications: Medications reviewed and adjusted accordingly: Yes Physical Exam Vital Signs: Temp Pulse Resp BP Pulse Ox 99.5 F 103 H 20 165/93 H 98 05/18/20 12:00 05/18/20 12:00 05/18/20 12:00 05/18/20 12:00 05/18/20 12:00 Intake & Output 05/17/20 05/18/20 05/19/20 06:59 06:59 06:59 Intake Total 1806 1325 100 Output Total 7571 950 6000 Balance -5765 375 -5900 Weight 141.4 kg 142.8 kg Weight/Height Weight 142.8 kg Height 6 ft General appearance: PRESENT: no acute distress, morbidly obese Head exam: PRESENT: atraumatic, normocephalic Eye exam: PRESENT: EOMI, PERRLA Ear exam: PRESENT: normal external ear exam Mouth exam: PRESENT: moist, neck supple Neck exam: ABSENT: JVD, lymphadenopathy Respiratory exam: PRESENT: clear to auscultation bernard, decreased breath sounds. ABSENT: wheezes Cardiovascular exam: PRESENT: RRR, +S1, +S2 Pulses: PRESENT: normal carotid pulses, normal radial pulses Vascular exam: PRESENT: normal capillary refill GI/Abdominal exam: PRESENT: normal bowel sounds, soft Musculoskeletal exam: PRESENT: full ROM, normal inspection Neurological exam: PRESENT: altered, CN II-XII grossly intact Skin exam: PRESENT: abrasion Tubes/Lines: PRESENT: Endotracheal Tube, Central Line Laboratory/Radiographs Laboratory Results: 05/18/20 04:17 05/18/20 04:17 05/17/20 05/17/20 05/18/20 08:56 19:31 04:17 WBC 20.2 H RBC 2.76 L Hgb 8.0 L Hct 23.8 L MCV 87 MCH 29.0 MCHC 33.5 RDW 15.8 H Plt Count 226 Seg Neutrophils % Sodium 133.0 L Potassium 4.5 Chloride 97 L Carbon Dioxide 20 L Anion Gap 16 BUN 125 H Creatinine 6.45 H Est GFR ( Amer) 11 L Glucose 140 H Calcium 7.0 L* Phosphorus 9.0 H Magnesium 2.4 H Albumin 2.1 L Urine Color Urine Appearance Urine pH Ur Specific [place] Urine Protein Urine Glucose (UA) Urine Ketones Urine Blood Urine Nitrite Ur Leukocyte Esterase Urine WBC (Auto) Urine RBC (Auto) Blood Type A NEGATIVE Antibody Screen NEGATIVE 05/18/20 05/18/20 04:17 04:17 WBC 23.3 H RBC 2.79 L Hgb 8.2 L Hct 24.5 L MCV 88 MCH 29.3 MCHC 33.4 RDW 16.2 H Plt Count 281 Seg Neutrophils % Not Reportable Sodium Potassium Chloride Carbon Dioxide Anion Gap BUN Creatinine Est GFR ( Amer) Glucose Calcium Phosphorus Magnesium Albumin Urine Color YELLOW Urine Appearance SLIGHTLY-CLOUDY Urine pH 6.0 Ur Specific [place] 1.012 Urine Protein 100 H Urine Glucose (UA) 50 H Urine Ketones NEGATIVE Urine Blood LARGE H Urine Nitrite NEGATIVE Ur Leukocyte Esterase TRACE H Urine WBC (Auto) 7 Urine RBC (Auto) 13 Blood Type Antibody Screen 05/07/20 05/07/20 05/08/20 20:42 20:42 04:20 Creatine Kinase 72832 H CK-MB (CK-2) 367.00 H Troponin I < 0.012 < 0.012 NT-Pro-B Natriuret Pep 282 H 05/08/20 05/08/20 05/09/20 04:20 12:15 03:38 Creatine Kinase 427861 H 929489 H CK-MB (CK-2) 323.00 H Troponin I < 0.012 NT-Pro-B Natriuret Pep 05/10/20 05/11/20 05/12/20 04:28 17:58 17:10 Creatine Kinase 59508 H 98819 H 90998 H CK-MB (CK-2) Troponin I NT-Pro-B Natriuret Pep 05/13/20 18:53 Creatine Kinase 99928 H CK-MB (CK-2) Troponin I NT-Pro-B Natriuret Pep Impressions: Cervical Spine CT 05/07/20 20:51 IMPRESSION: No acute findings in the cervical spine. TECHNICAL DOCUMENTATION: Quality ID # 436: Final reports with documentation of one or more dose reduction techniques (e.g., Automated exposure control, adjustment of the mA and/or kV according to patient size, use of iterative reconstruction technique) copyright 2011 [employer]- All Rights Reserved Lower Extremity Ultrasound 05/08/20 00:00 IMPRESSION: Bilateral small vessel disease. No significant stenosis above the knee. Renal Ultrasound 05/09/20 00:00 IMPRESSION: Chronic medical renal disease without hydronephrosis. Possible nonobstructive calculus right kidney. Chest X-Ray 05/10/20 04:00 IMPRESSION: Rehydration versus progressing edema or sepsis. No pneumothorax. KUB X-Ray 05/13/20 00:00 IMPRESSION: Esophagogastric tube tip and side port projects over the stomach. Head CT 05/15/20 00:00 IMPRESSION: STABLE MILD CHRONIC CHANGES. NO ACUTE FINDINGS. EVIDENCE OF ACUTE STROKE: NO. All labs, radiographs, diagnostic studies and EKGs were personally reviewed: Yes In addition, reports of radiographic and diagnostic studies were read: Yes Assessment and Plan - Diagnosis (1) Acute kidney failure Qualifiers: Acute renal failure type: with acute tubular necrosis Qualified Code(s): N17.0 - Acute kidney failure with tubular necrosis Is this a current diagnosis for this admission?: Yes Plan: Continue hemodialysis Thursday. Patient has had multiple sessions of large volume fluid removal. Continue Lasix. (2) Pneumonia due to COVID-19 virus Is this a current diagnosis for this admission?: Yes Plan: Continue dexamethasone, zinc and vitamin C. Patient has completed his course of remdesivir Follow-up chest x-ray in a.m. No significant changes at this time. Continue to wean vent as tolerated. (3) Respiratory failure with hypoxia and hypercapnia Qualifiers: Chronicity: acute Qualified Code(s): J96.01 - Acute respiratory failure with hypoxia; J96.02 - Acute respiratory failure with hypercapnia Is this a current diagnosis for this admission?: Yes Critical Time Critical Time (minutes): 45 Level of Care: ICU Anticipated discharge: Acute Rehab Anticipated DC Timeframe: within 72 hours -: 1. The care of a critical patient is a dynamic process. This note is a bottling equipment sales representative synopsis but static in nature. The timeframe for treatments given in order is not necessarily the actual time these treatments may have been done. 2. This patient requires critical care secondary to ongoing requirements for therapy not offered or safe outside the critical care environment. Transfer to a lower level of care will result in altered life or limb morbidity and mortality. 3. Multidisciplinary rounds completed. 4. ABCDE bundle addressed.
[2020-05-18] MEDS ORDERED: MEROPENEM 1 GM in NORMAL SALINE 50 ML IV SCH (14:00)
[2020-05-18 15:46] LABS: ANION GAP 10 (5-19); CALCIUM 7.5 mg/dL (8.4-10.2); CARBON DIOXIDE 29 mmol/L (22-30); CHLORIDE 97 mmol/L (98-107); GLUCOSE 118 mg/dL (75-110); POTASSIUM 3.7 mmol/L (3.6-5.0)
[2020-05-18 15:47] LABS: BLOOD UREA NITROGEN 77 mg/dL (7-20)
[2020-05-18 15:54] LABS: HEMATOCRIT 25.2 % (37.9-51.0); HEMOGLOBIN 8.5 g/dL (13.5-17.0); MEAN CORPUSCULAR HEMOGLOBIN 29.3 pg (27.0-33.4); MEAN CORPUSCULAR HGB CONC 33.8 g/dL (32.0-36.0); MEAN CORPUSCULAR VOLUME 87 fl (80-97); PLATELET COUNT 376 10^3/uL (150-450); RED CELL DISTRIBUTION WIDTH 16.2 % (11.5-14.0); WHITE BLOOD COUNT 20.3 10^3/uL (4.0-10.5)
[2020-05-18] MEDS: MEROPENEM 500 MG in NORMAL SALINE 50 ML IV SCH (17:39)
[2020-05-18] MEDS ORDERED: FUROSEMIDE INJ/PF 40 MG/4 ML SDV IV SCH (22:00)
[2020-05-18] MEDS: FUROSEMIDE INJ/PF 100 MG/10 ML SDV IV SCH (22:55)
[2020-05-19] MEDS: ALBUTEROL SULFATE 0.083% NEB 2.5 MG/3 ML AMPUL NEB SCH ×4 (02:20→20:05)
[2020-05-19 06:19] LABS: HEMATOCRIT 22.5 % (37.9-51.0); MEAN CORPUSCULAR HEMOGLOBIN 29.2 pg (27.0-33.4); MEAN CORPUSCULAR HGB CONC 33.3 g/dL (32.0-36.0); MEAN CORPUSCULAR VOLUME 88 fl (80-97); PLATELET COUNT 395 10^3/uL (150-450); RED BLOOD COUNT 2.56 10^6/uL (4.35-5.55); RED CELL DISTRIBUTION WIDTH 16.4 % (11.5-14.0); WHITE BLOOD COUNT 21.5 10^3/uL (4.0-10.5)
[2020-05-19 06:26] LABS: PARTIAL THROMBOPLASTIN TIME 125.3 SEC (23.5-35.8)
[2020-05-19 06:41] LABS: D-DIMER 11.15 ug/mL (0.00-0.50)
[2020-05-19 06:42] LABS: ANION GAP 12 (5-19); BLOOD UREA NITROGEN 93 mg/dL (7-20); CALCIUM 7.4 mg/dL (8.4-10.2); CARBON DIOXIDE 25 mmol/L (22-30); CHLORIDE 97 mmol/L (98-107); CREATINE KINASE 1260 U/L (55-170); GLUCOSE 143 mg/dL (75-110)
[2020-05-19 06:43] LABS: ABSOLUTE LYMPHOCYTES# (MANUAL) 0.6 10^3/uL (0.5-4.7); ABSOLUTE MONOCYTES # (MANUAL) 0.9 10^3/uL (0.1-1.4); ANISOCYTOSIS 1+; BAND NEUTROPHILS % (MANUAL) 6 % (3-5); BASOPHILS % (MANUAL) 0 % (0-2); EOSINOPHILS % (MANUAL) 0 % (0-6); LYMPHOCYTES % (MANUAL) 3 % (13-45); MONOCYTES % (MANUAL) 4 % (3-13); PLATELET COMMENT ADEQUATE; POLYCHROMASIA 1+; SEGMENTED NEUTROPHILS % (MAN) 87 % (42-78); TOTAL CELLS COUNTED 100
[2020-05-19 06:44] LABS: HEMOGLOBIN 7.5 g/dL (13.5-17.0)
[2020-05-19] MEDS: DOCUSATE SODIUM 100 MG/10 ML UDC PO SCH ×2 (09:52→19:05)
[2020-05-19] MEDS: ASCORBIC ACID 500 MG TABLET NG SCH ×2 (09:52→19:05)
[2020-05-19] MEDS: DEXAMETHASONE SOD PHOS INJ 10 MG/1 ML VIAL IV SCH ×2 (09:53→21:42)
[2020-05-19] MEDS: ZINC SULFATE 220 MG CAPSULE NG SCH (09:53)
[2020-05-19] MEDS: PANTOPRAZOLE SODIUM 40 MG VIAL IV SCH (09:53)
[2020-05-19] MEDS: FUROSEMIDE INJ/PF 100 MG/10 ML SDV IV SCH ×2 (09:53→21:42)
[2020-05-19] MEDS: MEROPENEM 500 MG in NORMAL SALINE 50 ML IV SCH (19:05)
--- NOTE | 2020-05-19 19:58 | PDOC CRITICAL CARE PROG REPORT ---
General Date:: 05/19/20 ICU Day:: 12 Ventilator Day:: 12 Hospital Day:: 12 Resuscitation Status: Full Code Events in the past 12 to 24 Hours:: This 54-year-old male presented to [facility] emergency department via EMS on 05/07/2020 with altered mental status. Basically, the patient has an unknown. Of unresponsiveness, as he was initially believed to be sleeping but raised concern to his when he was found to still be in the same position over 12 hours later. The reports that the his pupils were constricted at the time she called EMS. EMS arrived and found the patient to be obtunded. Narcan was given in the field. Although he was assessed to have a favorable response to Narcan initially, he subsequently demonstrated seizure- like movements on route. He was provided bag mask ventilatory support. No loss of pulse or pressure. However, in the emergency department he again demonstrated obtunded/altered mental status. He was given another dose of Narcan, which was not convincingly helpful. He was intubated in the emergency department. He was started on norepinephrine infusion for blood pressure support. Initial laboratory evaluation was compatible with acute kidney injury and rhabdomyolysis with CK total peaking at 152,203. He also had a severe metabolic acidosis with an elevated anion gap. Lactate level was elevated. Urine drug screen was positive for opiates. Alcohol level was undetectable ( reports he admits to consistent alcohol consumption for analgesic effect, although she believes his last drink was almost 7 days ago). 05/08: Remains intubated. On Levophed. 05/09: Remains intubated. ABG this a.m.: 7.41/40/79. Still on Levophed, decre asing. CK total peaked at 152,203, now 128,134. Albumin 1.9. Anuric. Creatinine 4.7. K5.4. Lactate 3.3. 05/10: Remains intubated. On propofol for sedation. Normal saline at 1 L/h all day yesterday. Still anuric. Discussed with Dr. Brown this morning. Attempting to stimulate diuresis with Lasix 100 mg IV push followed by infusion at 10 mg/h. CK total 76,434. Potassium 5.0. Creatinine 5.23. Calcium 5.8. Albumin 1.5. Chest x-ray demonstrates a widened mediastinum, more prominent today than on previous. Patient's is at the bedside and reports that this has previously been identified, reported to her, and "thoroughly worked up for a possible aneurysmal thing". She states that the entire diagnostic evaluation was unrevealing. 05/11: Remains intubated. On propofol for sedation. Got hemodialysis today. - 5 L. Still an uric despite furosemide infusion. Case discussed with Dr. Brown this morning. Platelets 62 this morning. Off insulin infusion. Off D5. Potassium 5.4 this morning. 05/12: Remains intubated. On propofol/Precedex for sedation. CK total 43,765. Had transient hypotension yesterday. No significant improvement after albumin infusion. However, retail shift leader reports that the patient had dramatic improvement after a large BM. Afebrile. WBC 6.2. Platelets 49. Cam isolated Enterococcus. On Zosyn/vancomycin. 05/13: Remains intubated. Off propofol. On Precedex for sedation. Respiratory viral panel revealed the patient is positive for COVID-19. Added on Decadron and remdesivir yesterday. On zinc. CK total 27,357. Afebrile. Hemoglobin 7.5. WBC 5.3. Platelets 57, slightly increased after discontinuing heparin. Heparin induced platelet antibody pending. D-dimer > 20. CRP 378. 05/14: Seen on dialysis. Stable but not responding. Lasix drip stopped-anuric. 05/15: Patient had essentially unremarkable CT of head. 05/16/2020: No significant changes in the past 24 hours. Sedation has been weaned off. 05/17/2020: No significant changes over the past 24 hours. IV fluids have been discontinued. Patient remains only minimally responsive. 05/18/2020: HD yesterday. Patient continues to have spontaneous eye opening but remains unresponsive. 05/19/2020: Patient was more responsive today and was following commands. Review of systems relevant to events:: Neuro: Day 4 off sedation. He was much more responsive today.. Plan: Continue off of sedation. Given his renal insufficiency he may require several days without any sedative medications. Pulmonary: Patient with multiple reasons for respiratory failure including COVID-19 infection, renal failure. Plan: Continue current vent settings. Wean FiO2 to maintain SPO2 of 88 to 95%. Continue dexamethasone. Heme: Hemoglobin level decreased again today. We will repeat his CBC this evening and we may need to discontinue his heparin drip. Renal: Continue hemodialysis Thursday. ID: COVID-19 positive on 05/12/2020. Continue to follow CRP and D-dimers. Patient completed his course of remdesivir. Continue dexamethasone. Zosyn and vancomycin have been started for positive blood culture and sputum culture as well as positive urine culture. Now on day 9 of antibiotics. Will consider discontinuing if afebrile tomorrow. Barriers to discharge from ICU: Patient still with multiple system organ failure including acute renal failure and respiratory failure. At this point, his neurologic status precludes him from being safely extubated. Reason for ICU Addmission:: Altered MS, Acute Resp. Failure, Opiod OD, Abnormal EKG ( wide complex ), intubated. - Medications: Medications reviewed and adjusted accordingly: Yes Physical Exam Vital Signs: Temp Pulse Resp BP Pulse Ox 99.1 F 96 17 149/84 H 96 05/19/20 16:00 05/19/20 18:00 05/19/20 19:25 05/19/20 19:25 05/19/20 19:25 Intake & Output 05/18/20 05/19/20 05/20/20 06:59 06:59 06:59 Intake Total 1325 762 Output Total 1150 7243 280 Balance 175 -6487 -280 Weight 142.8 kg 138.9 kg 138.9 kg Weight/Height Weight 138.9 kg Height 6 ft General appearance: PRESENT: no acute distress, morbidly obese Head exam: PRESENT: atraumatic, normocephalic Eye exam: PRESENT: EOMI, PERRLA Ear exam: PRESENT: normal external ear exam Mouth exam: PRESENT: neck supple Neck exam: PRESENT: full ROM. ABSENT: JVD Respiratory exam: PRESENT: decreased breath sounds, symmetrical. ABSENT: wheezes Cardiovascular exam: PRESENT: RRR Pulses: PRESENT: normal carotid pulses, normal radial pulses Vascular exam: PRESENT: normal capillary refill Extremities exam: PRESENT: full ROM, +2 edema Musculoskeletal exam: PRESENT: full ROM, normal inspection Neurological exam: PRESENT: altered, awake, CN II-XII grossly intact Skin exam: PRESENT: normal color, warm Tubes/Lines: PRESENT: Endotracheal Tube, Central Line Laboratory/Radiographs Laboratory Results: 05/19/20 04:40 05/19/20 04:40 05/19/20 05/19/20 04:40 04:40 WBC 21.5 H RBC 2.56 L Hgb 7.5 L Hct 22.5 L MCV 88 MCH 29.2 MCHC 33.3 RDW 16.4 H Plt Count 395 Seg Neutrophils % Not Reportable Sodium 134.1 L Potassium 4.0 Chloride 97 L Carbon Dioxide 25 Anion Gap 12 BUN 93 H Creatinine 5.28 H Est GFR ( Amer) 14 L Glucose 143 H Calcium 7.4 L Ferritin 111.00 05/07/20 05/07/20 05/08/20 20:42 20:42 04:20 Creatine Kinase 72897 H CK-MB (CK-2) 367.00 H Troponin I < 0.012 < 0.012 NT-Pro-B Natriuret Pep 282 H 05/08/20 05/08/20 05/09/20 04:20 12:15 03:38 Creatine Kinase 398692 H 798051 H CK-MB (CK-2) 323.00 H Troponin I < 0.012 NT-Pro-B Natriuret Pep 05/10/20 05/11/20 05/12/20 04:28 17:58 17:10 Creatine Kinase 72426 H 02417 H 73161 H CK-MB (CK-2) Troponin I NT-Pro-B Natriuret Pep 05/13/20 05/19/20 18:53 04:40 Creatine Kinase 87674 H 1260 H CK-MB (CK-2) Troponin I NT-Pro-B Natriuret Pep Impressions: Cervical Spine CT 05/07/20 20:51 IMPRESSION: No acute findings in the cervical spine. TECHNICAL DOCUMENTATION: Quality ID # 436: Final reports with documentation of one or more dose reduction techniques (e.g., Automated exposure control, adjustment of the mA and/or kV according to patient size, use of iterative reconstruction technique) copyright 2011 [employer]- All Rights Reserved Lower Extremity Ultrasound 05/08/20 00:00 IMPRESSION: Bilateral small vessel disease. No significant stenosis above the knee. Renal Ultrasound 05/09/20 00:00 IMPRESSION: Chronic medical renal disease without hydronephrosis. Possible nonobstructive calculus right kidney. Chest X-Ray 05/10/20 04:00 IMPRESSION: Rehydration versus progressing edema or sepsis. No pneumothorax. KUB X-Ray 05/13/20 00:00 IMPRESSION: Esophagogastric tube tip and side port projects over the stomach. Head CT 05/15/20 00:00 IMPRESSION: STABLE MILD CHRONIC CHANGES. NO ACUTE FINDINGS. EVIDENCE OF ACUTE STROKE: NO. All labs, radiographs, diagnostic studies and EKGs were personally reviewed: Yes In addition, reports of radiographic and diagnostic studies were read: Yes Assessment and Plan - Diagnosis (1) Acute kidney failure Qualifiers: Acute renal failure type: with acute tubular necrosis Qualified Code(s): N17.0 - Acute kidney failure with tubular necrosis Is this a current diagnosis for this admission?: Yes Plan: Continue hemodialysis Thursday. Patient has had multiple sessions of large volume fluid removal. Continue Lasix. (2) Pneumonia due to COVID-19 virus Is this a current diagnosis for this admission?: Yes Plan: Continue dexamethasone, zinc and vitamin C. Patient has completed his course of remdesivir Follow-up chest x-ray in a.m. No significant changes at this time. Continue to wean vent as tolerated. (3) Respiratory failure with hypoxia and hypercapnia Qualifiers: Chronicity: acute Qualified Code(s): J96.01 - Acute respiratory failure with hypoxia; J96.02 - Acute respiratory failure with hypercapnia Is this a current diagnosis for this admission?: Yes Plan: Continue current vent settings. Wean FiO2 as tolerated. Patient may be able to wean more actively as he becomes more neurologically intact. Critical Time Critical Time (minutes): 50 Level of Care: ICU Anticipated discharge: Acute Rehab Anticipated DC Timeframe: within 72 hours -: 1. The care of a critical patient is a dynamic process. This note is a airline security representative synopsis but static in nature. The timeframe for treatments given in order is not necessarily the actual time these treatments may have been done. 2. This patient requires critical care secondary to ongoing requirements for therapy not offered or safe outside the critical care environment. Transfer to a lower level of care will result in altered life or limb morbidity and mortality. 3. Multidisciplinary rounds completed. 4. ABCDE bundle addressed.
[2020-05-19 20:32] LABS: HEMATOCRIT 21.8 % (37.9-51.0); MEAN CORPUSCULAR HEMOGLOBIN 29.1 pg (27.0-33.4); MEAN CORPUSCULAR HGB CONC 33.3 g/dL (32.0-36.0); MEAN CORPUSCULAR VOLUME 87 fl (80-97); PLATELET COUNT 484 10^3/uL (150-450); RED CELL DISTRIBUTION WIDTH 16.9 % (11.5-14.0); WHITE BLOOD COUNT 22.8 10^3/uL (4.0-10.5)
[2020-05-19 20:56] LABS: HEMOGLOBIN 7.3 g/dL (13.5-17.0)
[2020-05-20] MEDS: ALBUTEROL SULFATE 0.083% NEB 2.5 MG/3 ML AMPUL NEB SCH ×4 (02:04→20:31)
[2020-05-20 04:18] LABS: HEMATOCRIT 22.3 % (37.9-51.0); MEAN CORPUSCULAR HEMOGLOBIN 28.7 pg (27.0-33.4); MEAN CORPUSCULAR HGB CONC 32.7 g/dL (32.0-36.0); MEAN CORPUSCULAR VOLUME 88 fl (80-97); PLATELET COUNT 545 10^3/uL (150-450); RED BLOOD COUNT 2.54 10^6/uL (4.35-5.55); RED CELL DISTRIBUTION WIDTH 17.1 % (11.5-14.0); WHITE BLOOD COUNT 23.5 10^3/uL (4.0-10.5)
[2020-05-20 04:27] LABS: CALCIUM 7.6 mg/dL (8.4-10.2); CARBON DIOXIDE 25 mmol/L (22-30); CHLORIDE 98 mmol/L (98-107); GLUCOSE 156 mg/dL (75-110); POTASSIUM 4.5 mmol/L (3.6-5.0); TRIGLYCERIDES 137 mg/dL (<150)
[2020-05-20 04:35] LABS: ANION GAP 11 (5-19)
[2020-05-20 04:42] LABS: BLOOD UREA NITROGEN 116 mg/dL (7-20)
[2020-05-20 05:02] LABS: HEMOGLOBIN 7.3 g/dL (13.5-17.0)
[2020-05-20] MEDS: INSULIN REG, HUMAN 100 UNIT/ML 3 ML VIAL (PYX) SUBCUT SCH ×3 (06:15→18:51)
[2020-05-20] MEDS: DEXAMETHASONE SOD PHOS INJ 10 MG/1 ML VIAL IV SCH ×2 (09:37→21:50)
[2020-05-20] MEDS: FUROSEMIDE INJ/PF 100 MG/10 ML SDV IV SCH ×2 (09:37→21:49)
[2020-05-20] MEDS: DOCUSATE SODIUM 100 MG/10 ML UDC PO SCH ×2 (09:38→17:40)
[2020-05-20] MEDS: ASCORBIC ACID 500 MG TABLET NG SCH ×2 (09:38→17:40)
[2020-05-20] MEDS: ZINC SULFATE 220 MG CAPSULE NG SCH (09:38)
[2020-05-20] MEDS: PANTOPRAZOLE SODIUM 40 MG VIAL IV SCH (09:38)
--- NOTE | 2020-05-20 09:51 | RADIOLOGY REPORT (SQ) ---
EXAM DESCRIPTION: CHEST SINGLE VIEW IMAGES COMPLETED DATE/TIME: 05/20/2020 6:41 am REASON FOR STUDY: continuation of care COMPARISON: 05/10/2020 EXAM PARAMETERS: NUMBER OF VIEWS: One view. TECHNIQUE: Single frontal radiographic view of the chest acquired. RADIATION DOSE: NA LIMITATIONS: None. FINDINGS: LUNGS AND PLEURA: Increasing multifocal airspace opacities, worse on the left. Likely sma ll bilateral pleural effusions. No pneumothorax. MEDIASTINUM AND HILAR STRUCTURES: No masses. Contour normal. HEART AND VASCULAR STRUCTURES: Cardiomegaly without central vascular congestion. BONES: No acute findings. HARDWARE: Endotracheal tube, dual-lumen catheter, and right IJ appear stable in position. Interval r etraction of the endotracheal tube which terminates just distal to the gastroesophageal junction. OTHER: No other significant finding. IMPRESSION: 1. Increasing multifocal airspace opacities. 2. Interval retraction of the enteric tube. Recommend advancing 10 cm. Otherwise stable lines and tubes. TECHNICAL DOCUMENTATION: JOB ID: [id number] 2010 [employer]- All Rights Reserved Reading location - IP/workstation name: [email or web address]
--- NOTE | 2020-05-20 14:40 | PDOC CRITICAL CARE PROG REPORT ---
General Date:: 05/20/20 ICU Day:: 13 Ventilator Day:: 13 Hospital Day:: 13 Resuscitation Status: Full Code Events in the past 12 to 24 Hours:: This 54-year-old male presented to [facility] emergency department via EMS on 05/07/2020 with altered mental status. Basically, the patient has an unknown. Of unresponsiveness, as he was initially believed to be sleeping but raised concern to his when he was found to still be in the same position over 12 hours later. The reports that the his pupils were constricted at the time she called EMS. EMS arrived and found the patient to be obtunded. Narcan was given in the field. Although he was assessed to have a favorable response to Narcan initially, he subsequently demonstrated seizure- like movements on route. He was provided bag mask ventilatory support. No loss of pulse or pressure. However, in the emergency department he again demonstrated obtunded/altered mental status. He was given another dose of Narcan, which was not convincingly helpful. He was intubated in the emergency department. He was started on norepinephrine infusion for blood pressure support. Initial laboratory evaluation was compatible with acute kidney injury and rhabdomyolysis with CK total peaking at 152,203. He also had a severe metabolic acidosis with an elevated anion gap. Lactate level was elevated. Urine drug screen was positive for opiates. Alcohol level was undetectable ( reports he admits to consistent alcohol consumption for analgesic effect, although she believes his last drink was almost 7 days ago). 05/08: Remains intubated. On Levophed. 05/09: Remains intubated. ABG this a.m.: 7.41/40/79. Still on Levophed, decre asing. CK total peaked at 152,203, now 128,134. Albumin 1.9. Anuric. Creatinine 4.7. K5.4. Lactate 3.3. 05/10: Remains intubated. On propofol for sedation. Normal saline at 1 L/h all day yesterday. Still anuric. Discussed with Dr. Brown this morning. Attempting to stimulate diuresis with Lasix 100 mg IV push followed by infusion at 10 mg/h. CK total 76,434. Potassium 5.0. Creatinine 5.23. Calcium 5.8. Albumin 1.5. Chest x-ray demonstrates a widened mediastinum, more prominent today than on previous. Patient's is at the bedside and reports that this has previously been identified, reported to her, and "thoroughly worked up for a possible aneurysmal thing". She states that the entire diagnostic evaluation was unrevealing. 05/11: Remains intubated. On propofol for sedation. Got hemodialysis today. - 5 L. Still an uric despite furosemide infusion. Case discussed with Dr. Brown this morning. Platelets 62 this morning. Off insulin infusion. Off D5. Potassium 5.4 this morning. 05/12: Remains intubated. On propofol/Precedex for sedation. CK total 43,765. Had transient hypotension yesterday. No significant improvement after albumin infusion. However, maintenance mechanic 2nd shift reports that the patient had dramatic improvement after a large BM. Afebrile. WBC 6.2. Platelets 49. Cam isolated Enterococcus. On Zosyn/vancomycin. 05/13: Remains intubated. Off propofol. On Precedex for sedation. Respiratory viral panel revealed the patient is positive for COVID-19. Added on Decadron and remdesivir yesterday. On zinc. CK total 27,357. Afebrile. Hemoglobin 7.5. WBC 5.3. Platelets 57, slightly increased after discontinuing heparin. Heparin induced platelet antibody pending. D-dimer > 20. CRP 378. 05/14: Seen on dialysis. Stable but not responding. Lasix drip stopped-anuric. 05/15: Patient had essentially unremarkable CT of head. 05/16/2020: No significant changes in the past 24 hours. Sedation has been weaned off. 05/17/2020: No significant changes over the past 24 hours. IV fluids have been discontinued. Patient remains only minimally responsive. 05/18/2020: HD yesterday. Patient continues to have spontaneous eye opening but remains unresponsive. 05/19/2020: Patient was more responsive today and was following commands. 05/20: Less responsive today. BUN is higher. Review of systems relevant to events:: Neurological. Renal. Reason for ICU Addmission:: Altered MS, Acute Resp. Failure, Opiod OD, Abnormal EKG ( wide complex ), intubated. - Medications: Medications reviewed and adjusted accordingly: Yes Vasopressors:: None Sedation:: None Physical Exam Vital Signs: Temp Pulse Resp BP Pulse Ox 99.0 F 84 13 155/85 H 98 05/20/20 08:00 05/20/20 10:00 05/20/20 12:26 05/20/20 12:26 05/20/20 12:26 Intake & Output 05/19/20 05/20/20 05/21/20 06:59 06:59 06:59 Intake Total 762 500 Output Total 7243 1570 220 Balance -6481 -1070 -220 Weight 138.9 kg 141.3 kg Weight/Height Weight 141.3 kg Height 6 ft General appearance: PRESENT: no acute distress, obese Head exam: PRESENT: atraumatic, normocephalic Eye exam: PRESENT: conjunctiva pink, EOMI, PERRLA. ABSENT: scleral icterus Ear exam: PRESENT: normal external ear exam Mouth exam: PRESENT: moist, tongue midline Respiratory exam: PRESENT: clear to auscultation bernard. ABSENT: rales, rhonchi, wheezes Cardiovascular exam: PRESENT: RRR. ABSENT: diastolic murmur, rubs, systolic murmur GI/Abdominal exam: PRESENT: normal bowel sounds, soft. ABSENT: distended, guarding, mass, organolmegaly, rebound, tenderness Rectal exam: PRESENT: deferred Gentrourinary exam: PRESENT: indwelling catheter Extremities exam: PRESENT: full ROM, +2 edema. ABSENT: calf tenderness, clubbing, pedal edema Musculoskeletal exam: PRESENT: normal inspection Neurological exam: PRESENT: altered, other - Less responsive today. Does not follow commands. Skin exam: PRESENT: dry, intact, warm. ABSENT: cyanosis, rash Tubes/Lines: PRESENT: Endotracheal Tube, Nasogastic Tube Laboratory/Radiographs Laboratory Results: 05/20/20 04:00 05/20/20 04:00 05/19/20 05/20/20 05/20/20 20:20 04:00 04:00 WBC 22.8 H 23.5 H RBC 2.50 L 2.54 L Hgb 7.3 L 7.3 L Hct 21.8 L 22.3 L MCV 87 88 MCH 29.1 28.7 MCHC 33.3 32.7 RDW 16.9 H 17.1 H Plt Count 484 H 545 H Sodium 133.7 L Potassium 4.5 Chloride 98 Carbon Dioxide 25 Anion Gap 11 BUN 116 H D Creatinine 6.22 H Est GFR ( Amer) 11 L Glucose 156 H Calcium 7.6 L Triglycerides 137 05/07/20 05/07/20 05/08/20 20:42 20:42 04:20 Creatine Kinase 24786 H CK-MB (CK-2) 367.00 H Troponin I < 0.012 < 0.012 NT-Pro-B Natriuret Pep 282 H 05/08/20 05/08/20 05/09/20 04:20 12:15 03:38 Creatine Kinase 175361 H 489960 H CK-MB (CK-2) 323.00 H Troponin I < 0.012 NT-Pro-B Natriuret Pep 05/10/20 05/11/20 05/12/20 04:28 17:58 17:10 Creatine Kinase 43779 H 43474 H 66561 H CK-MB (CK-2) Troponin I NT-Pro-B Natriuret Pep 05/13/20 05/19/20 18:53 04:40 Creatine Kinase 66739 H 1260 H CK-MB (CK-2) Troponin I NT-Pro-B Natriuret Pep Impressions: Cervical Spine CT 05/07/20 20:51 IMPRESSION: No acute findings in the cervical spine. TECHNICAL DOCUMENTATION: Quality ID # 436: Final reports with documentation of one or more dose reduction techniques (e.g., Automated exposure control, adjustment of the mA and/or kV according to patient size, use of iterative reconstruction technique) copyright 2011 [employer]- All Rights Reserved Lower Extremity Ultrasound 05/08/20 00:00 IMPRESSION: Bilateral small vessel disease. No significant stenosis above the knee. Renal Ultrasound 05/09/20 00:00 IMPRESSION: Chronic medical renal disease without hydronephrosis. Possible nonobstructive calculus right kidney. KUB X-Ray 05/13/20 00:00 IMPRESSION: Esophagogastric tube tip and side port projects over the stomach. Head CT 05/15/20 00:00 IMPRESSION: STABLE MILD CHRONIC CHANGES. NO ACUTE FINDINGS. EVIDENCE OF ACUTE STROKE: NO. Chest X-Ray 05/20/20 06:00 IMPRESSION: 1. Increasing multifocal airspace opacities. 2. Interval retraction of the enteric tube. Recommend advancing 10 cm. Otherwise stable lines and tubes. All labs, radiographs, diagnostic studies and EKGs were personally reviewed: Yes In addition, reports of radiographic and diagnostic studies were read: Yes Assessment and Plan - Diagnosis (1) Rhabdomyolysis Qualifiers: Rhabdomyolysis type: traumatic Encounter type: subsequent encounter Qualified Code(s): T79.6XXD - Traumatic ischemia of muscle, subsequent encounter Is this a current diagnosis for this admission?: Yes Plan: Level peaked at [id number]. Enough to cause ARF. BUN still over 100. Needs HD tomorrow. (2) Acute kidney failure Qualifiers: Acute renal failure type: with acute tubular necrosis Qualified Code(s): N17.0 - Acute kidney failure with tubular necrosis Is this a current diagnosis for this admission?: Yes Plan: BUN/Cr level is likely why he has a waxing and waning mental status. When comfortably more awake would like to extubate. (3) Pneumonia due to COVID-19 virus Is this a current diagnosis for this admission?: Yes Plan: This was not his presenting complaint but his Covid PNA is likely driving his rhabdomyolysis and need for intubation. Plan Summary: Need dialysis to drop his BUN. When consistently more awake work to extubate. Critical Time Critical Time (minutes): 35 Level of Care: ICU Anticipated discharge: Home Anticipated DC Timeframe: Other -: 1. The care of a critical patient is a dynamic process. This note is a district sales representative synopsis but static in nature. The timeframe for treatments given in order is not necessarily the actual time these treatments may have been done. 2. This patient requires critical care secondary to ongoing requirements for therapy not offered or safe outside the critical care environment. Transfer to a lower level of care will result in altered life or limb morbidity and mortality. 3. Multidisciplinary rounds completed. 4. ABCDE bundle addressed.
[2020-05-20] MEDS: MEROPENEM 500 MG in NORMAL SALINE 50 ML IV SCH (18:00)
[2020-05-20] MEDS ORDERED: EPOETIN ALFA-EPBX 20,000 UNIT in SYRINGE, DISPOSABLE, 1 EACH IV PRN (18:49)
[2020-05-21] MEDS: INSULIN REG, HUMAN 100 UNIT/ML 3 ML VIAL (PYX) SUBCUT SCH ×4 (00:09→18:25)
[2020-05-21] MEDS: ALBUTEROL SULFATE 0.083% NEB 2.5 MG/3 ML AMPUL NEB SCH ×4 (02:16→20:18)
[2020-05-21 04:16] LABS: ALBUMIN 2.2 g/dL (3.5-5.0); ALKALINE PHOSPHATASE 65 U/L (38-126); ANION GAP 11 (5-19); ASPARTATE AMINO TRANSFERASE 78 U/L (17-59); BILIRUBIN,DIRECT 0.3 mg/dL (0.0-0.4); BILIRUBIN,TOTAL 0.6 mg/dL (0.2-1.3); CALCIUM 7.7 mg/dL (8.4-10.2); CARBON DIOXIDE 25 mmol/L (22-30); CHLORIDE 99 mmol/L (98-107); GLUCOSE 148 mg/dL (75-110); POTASSIUM 4.9 mmol/L (3.6-5.0); TOTAL PROTEIN 4.5 g/dL (6.3-8.2)
[2020-05-21 04:25] LABS: BLOOD UREA NITROGEN 136 mg/dL (7-20)
[2020-05-21 04:27] LABS: HEMATOCRIT 20.9 % (37.9-51.0); MEAN CORPUSCULAR HGB CONC 33.7 g/dL (32.0-36.0); MEAN CORPUSCULAR VOLUME 89 fl (80-97); PLATELET COUNT 692 10^3/uL (150-450); RED BLOOD COUNT 2.35 10^6/uL (4.35-5.55); RED CELL DISTRIBUTION WIDTH 17.1 % (11.5-14.0); WHITE BLOOD COUNT 24.8 10^3/uL (4.0-10.5)
[2020-05-21 04:38] LABS: ABSOLUTE LYMPHOCYTES# (MANUAL) 1.2 10^3/uL (0.5-4.7); ANISOCYTOSIS 2+; BAND NEUTROPHILS % (MANUAL) 2 % (3-5); BASOPHILS % (MANUAL) 0 % (0-2); EOSINOPHILS % (MANUAL) 0 % (0-6); LYMPHOCYTES % (MANUAL) 5 % (13-45); MONOCYTES % (MANUAL) 4 % (3-13); POLYCHROMASIA 1+; SEGMENTED NEUTROPHILS % (MAN) 89 % (42-78); TOTAL CELLS COUNTED 100
[2020-05-21 04:39] LABS: PLATELET COMMENT INCREASED
[2020-05-21] MEDS ORDERED: HEPARIN SOD (PORCINE) 1,000 UNIT/ML 10 ML VIAL IV PRN (05:00)
[2020-05-21] MEDS ORDERED: NORMAL SALINE 1000 ML 1,000 ML IV PRN (05:00)
[2020-05-21] MEDS: PANTOPRAZOLE SODIUM 40 MG VIAL IV SCH (10:06)
[2020-05-21] MEDS: ASCORBIC ACID 500 MG TABLET NG SCH ×2 (10:06→18:25)
[2020-05-21] MEDS: DEXAMETHASONE SOD PHOS INJ 10 MG/1 ML VIAL IV SCH ×2 (10:06→23:08)
[2020-05-21] MEDS: FUROSEMIDE INJ/PF 100 MG/10 ML SDV IV SCH ×2 (10:06→23:08)
[2020-05-21] MEDS: ZINC SULFATE 220 MG CAPSULE NG SCH (10:06)
[2020-05-21] MEDS: DOCUSATE SODIUM 100 MG/10 ML UDC PO SCH ×2 (10:06→18:26)
--- NOTE | 2020-05-21 13:03 | PDOC PROGRESS REPORT ---
Subjective Date:: 05/21/20 Reason For Visit: Patient seen today in the ICU on dialysis. He remains intubated and sedated. Renal functions are stable not improving even though his urine output has improved. Hemodynamically looks more stable. Labs and medications were reviewed. Dialysis orders were reviewed with the treating dialysis nurse. Of concern is his rising white count/with left shift. Physical Exam Vital Signs: Temp Pulse Resp BP Pulse Ox 98.8 F 96 15 128/69 H 98 05/21/20 05:35 05/21/20 08:20 05/21/20 10:27 05/21/20 10:27 05/21/20 12:00 Intake & Output 05/20/20 05/21/20 05/22/20 06:59 06:59 06:59 Intake Total 500 500 Output Total 1570 1840 6070 Balance -1070 -1340 -6070 Weight 141.3 kg 138.8 kg General appearance: PRESENT: disheveled Exam: Remains intubated and sedated. Respiratory exam: PRESENT: clear to auscultation bernard. ABSENT: crackles Cardiovascular exam: PRESENT: +S1, +S2 GI/Abdominal exam: PRESENT: normal bowel sounds, soft. ABSENT: organomegaly, tenderness Extremities exam: PRESENT: pedal edema Results Laboratory Results: 05/21/20 03:45 05/21/20 03:45 05/21/20 05/21/20 05/21/20 03:45 03:45 03:45 WBC 24.8 H RBC 2.35 L Hgb 7.0 L Hct 20.9 L MCV 89 MCH 30.0 MCHC 33.7 RDW 17.1 H Plt Count 692 H Seg Neutrophils % Not Reportable Sodium 135.1 L Cancelled Potassium 4.9 Cancelled Chloride 99 Cancelled Carbon Dioxide 25 Cancelled Anion Gap 11 Cancelled BUN 136 H D Cancelled Creatinine 7.01 H Cancelled Est GFR ( Amer) 10 L Cancelled Est GFR (Non-Af Amer) Cancelled Glucose 148 H Cancelled Calcium 7.7 L Cancelled Phosphorus 9.0 H Magnesium 2.6 H Ferritin 72.80 Total Bilirubin 0.6 AST 78 H Alkaline Phosphatase 65 Total Protein 4.5 L Albumin 2.2 L 05/18/20 05:45 Tracheal Aspirate Gram Stain - Final 05/07/20 05/07/20 05/08/20 20:42 20:42 04:20 Creatine Kinase 45349 H CK-MB (CK-2) 367.00 H Troponin I < 0.012 < 0.012 NT-Pro-B Natriuret Pep 282 H 05/08/20 05/08/20 05/09/20 04:20 12:15 03:38 Creatine Kinase 426672 H 043950 H CK-MB (CK-2) 323.00 H Troponin I < 0.012 NT-Pro-B Natriuret Pep 05/10/20 05/11/20 05/12/20 04:28 17:58 17:10 Creatine Kinase 43118 H 77886 H 84779 H CK-MB (CK-2) Troponin I NT-Pro-B Natriuret Pep 05/13/20 05/19/20 18:53 04:40 Creatine Kinase 82989 H 1260 H CK-MB (CK-2) Troponin I NT-Pro-B Natriuret Pep Impressions: Cervical Spine CT 05/07/20 20:51 IMPRESSION: No acute findings in the cervical spine. TECHNICAL DOCUMENTATION: Quality ID # 436: Final reports with documentation of one or more dose reduction techniques (e.g., Automated exposure control, adjustment of the mA and/or kV according to patient size, use of iterative reconstruction technique) copyright 2011 [employer]- All Rights Reserved Lower Extremity Ultrasound 05/08/20 00:00 IMPRESSION: Bilateral small vessel disease. No significant stenosis above the knee. Renal Ultrasound 05/09/20 00:00 IMPRESSION: Chronic medical renal disease without hydronephrosis. Possible nonobstructive calculus right kidney. KUB X-Ray 05/13/20 00:00 IMPRESSION: Esophagogastric tube tip and side port projects over the stomach. Head CT 05/15/20 00:00 IMPRESSION: STABLE MILD CHRONIC CHANGES. NO ACUTE FINDINGS. EVIDENCE OF ACUTE STROKE: NO. Chest X-Ray 05/20/20 06:00 IMPRESSION: 1. Increasing multifocal airspace opacities. 2. Interval retraction of the enteric tube. Recommend advancing 10 cm. Otherwise stable lines and tubes. Assessment & Plan - Diagnosis (1) Acute kidney injury Is this a current diagnosis for this admission?: Yes Plan: Patient has not become nonoliguric with improving urine output which is encouraging but renal numbers are still not getting any better. Currently therefore undergoing dialysis being supervised. Plan to remove approximately 5-6 L of fluid as tolerated. Vital signs/hemodynamically stable. Dialysis orders were reviewed and discussed with the treating dialysis nurse. (2) Hyperkalemia Is this a current diagnosis for this admission?: Yes Plan: Has responded to hemodialysis. Monitor. (3) Lactic acidosis Is this a current diagnosis for this admission?: Yes Plan: Resolved. (4) Respiratory failure with hypoxia and hypercapnia Qualifiers: Chronicity: acute Qualified Code(s): J96.01 - Acute respiratory failure with hypoxia; J96.02 - Acute respiratory failure with hypercapnia Is this a current diagnosis for this admission?: Yes Plan: Currently intubated and sedated. Background of Covid. Management by manual training teacher. (5) Rhabdomyolysis Qualifiers: Rhabdomyolysis type: traumatic Encounter type: subsequent encounter Qualified Code(s): T79.6XXD - Traumatic ischemia of muscle, subsequent encounter Is this a current diagnosis for this admission?: Yes Plan: Severe rhabdo on presentation.Markedly improved and last CPK was 1260 from couple of days ago. (6) Thrombocytopenia Is this a current diagnosis for this admission?: Yes Plan: Currently resolved. (7) Abnormal LFTs Is this a current diagnosis for this admission?: Yes Plan: ? Alcohol induced. Other differentials to be considered includes DIC/drug- induced. Monitor carefully. Would recommend imaging studies to rule out other potential issues. (8) Anemia Is this a current diagnosis for this admission?: Yes Plan: On Retacrit. However monitor for need for transfusions. Monitor for possible DIC and other similar situations given rising left shift and leukocytosis. (9) Pneumonia due to COVID-19 virus Is this a current diagnosis for this admission?: Yes Plan: As per manual training teacher.
[2020-05-21] MEDS: AMINO AC/PROTEIN HYDR/WHEY PRO 11 GM/45 ML PKT NG SCH ×2 (14:14→18:25)
--- NOTE | 2020-05-21 16:43 | PDOC CRITICAL CARE PROG REPORT ---
General Date:: 05/21/20 ICU Day:: 14 Ventilator Day:: 14 Hospital Day:: 14 Resuscitation Status: Full Code Events in the past 12 to 24 Hours:: This 54-year-old male presented to [facility] emergency department via EMS on 05/07/2020 with altered mental status. Basically, the patient has an unknown. Of unresponsiveness, as he was initially believed to be sleeping but raised concern to his when he was found to still be in the same position over 12 hours later. The reports that the his pupils were constricted at the time she called EMS. EMS arrived and found the patient to be obtunded. Narcan was given in the field. Although he was assessed to have a favorable response to Narcan initially, he subsequently demonstrated seizure- like movements on route. He was provided bag mask ventilatory support. No loss of pulse or pressure. However, in the emergency department he again demonstrated obtunded/altered mental status. He was given another dose of Narcan, which was not convincingly helpful. He was intubated in the emergency department. He was started on norepinephrine infusion for blood pressure support. Initial laboratory evaluation was compatible with acute kidney injury and rhabdomyolysis with CK total peaking at 152,203. He also had a severe metabolic acidosis with an elevated anion gap. Lactate level was elevated. Urine drug screen was positive for opiates. Alcohol level was undetectable ( reports he admits to consistent alcohol consumption for analgesic effect, although she believes his last drink was almost 7 days ago). 05/08: Remains intubated. On Levophed. 05/09: Remains intubated. ABG this a.m.: 7.41/40/79. Still on Levophed, decre asing. CK total peaked at 152,203, now 128,134. Albumin 1.9. Anuric. Creatinine 4.7. K5.4. Lactate 3.3. 05/10: Remains intubated. On propofol for sedation. Normal saline at 1 L/h all day yesterday. Still anuric. Discussed with Dr. Brown this morning. Attempting to stimulate diuresis with Lasix 100 mg IV push followed by infusion at 10 mg/h. CK total 76,434. Potassium 5.0. Creatinine 5.23. Calcium 5.8. Albumin 1.5. Chest x-ray demonstrates a widened mediastinum, more prominent today than on previous. Patient's is at the bedside and reports that this has previously been identified, reported to her, and "thoroughly worked up for a possible aneurysmal thing". She states that the entire diagnostic evaluation was unrevealing. 05/11: Remains intubated. On propofol for sedation. Got hemodialysis today. - 5 L. Still an uric despite furosemide infusion. Case discussed with Dr. Brown this morning. Platelets 62 this morning. Off insulin infusion. Off D5. Potassium 5.4 this morning. 05/12: Remains intubated. On propofol/Precedex for sedation. CK total 43,765. Had transient hypotension yesterday. No significant improvement after albumin infusion. However, manufacturing shift supervisor reports that the patient had dramatic improvement after a large BM. Afebrile. WBC 6.2. Platelets 49. Cam isolated Enterococcus. On Zosyn/vancomycin. 05/13: Remains intubated. Off propofol. On Precedex for sedation. Respiratory viral panel revealed the patient is positive for COVID-19. Added on Decadron and remdesivir yesterday. On zinc. CK total 27,357. Afebrile. Hemoglobin 7.5. WBC 5.3. Platelets 57, slightly increased after discontinuing heparin. Heparin induced platelet antibody pending. D-dimer > 20. CRP 378. 05/14: Seen on dialysis. Stable but not responding. Lasix drip stopped-anuric. 05/15: Patient had essentially unremarkable CT of head. 05/16/2020: No significant changes in the past 24 hours. Sedation has been weaned off. 05/17/2020: No significant changes over the past 24 hours. IV fluids have been discontinued. Patient remains only minimally responsive. 05/18/2020: HD yesterday. Patient continues to have spontaneous eye opening but remains unresponsive. 05/19/2020: Patient was more responsive today and was following commands. 05/20: Less responsive today. BUN is higher. 05/20: Dialyzed again today. Still not awake. Review of systems relevant to events:: Neurologic, renal Reason for ICU Addmission:: Altered MS, Acute Resp. Failure, Opiod OD, Abnormal EKG ( wide complex ), intubated. - Medications: Medications reviewed and adjusted accordingly: Yes Vasopressors:: None Sedation:: None Physical Exam Vital Signs: Temp Pulse Resp BP Pulse Ox 98.8 F 97 19 133/71 H 97 05/21/20 05:35 05/21/20 13:59 05/21/20 15:57 05/21/20 15:57 05/21/20 15:57 Intake & Output 05/20/20 05/21/20 05/22/20 06:59 06:59 06:59 Intake Total 500 500 Output Total 1570 5587 1488 Balance -7616 -5713 -2498 Weight 141.3 kg 138.8 kg Weight/Height Weight 138.8 kg Height 6 ft 6 in General appearance: PRESENT: no acute distress Head exam: PRESENT: atraumatic, normocephalic Eye exam: PRESENT: conjunctiva pink, EOMI, PERRLA. ABSENT: scleral icterus Ear exam: PRESENT: normal external ear exam Mouth exam: PRESENT: moist, tongue midline Neck exam: ABSENT: carotid bruit, JVD, lymphadenopathy, thyromegaly Respiratory exam: PRESENT: clear to auscultation bernard. ABSENT: rales, rhonchi, wheezes Cardiovascular exam: PRESENT: RRR. ABSENT: diastolic murmur, rubs, systolic murmur GI/Abdominal exam: PRESENT: normal bowel sounds, soft. ABSENT: distended, guarding, mass, organolmegaly, rebound, tenderness Rectal exam: PRESENT: deferred Gentrourinary exam: PRESENT: indwelling catheter Extremities exam: PRESENT: full ROM, other - Less swelling. ABSENT: calf t enderness, clubbing, pedal edema Musculoskeletal exam: PRESENT: normal inspection Neurological exam: PRESENT: other - Moves all 4 extremities spontaneously but not purposefully. Skin exam: PRESENT: dry, intact, warm. ABSENT: cyanosis, rash Tubes/Lines: PRESENT: Endotracheal Tube, Central Line, Dialysis catheter, Nasogastic Tube Laboratory/Radiographs Laboratory Results: 05/21/20 03:45 05/21/20 03:45 05/21/20 05/21/20 05/21/20 03:45 03:45 03:45 WBC 24.8 H RBC 2.35 L Hgb 7.0 L Hct 20.9 L MCV 89 MCH 30.0 MCHC 33.7 RDW 17.1 H Plt Count 692 H Seg Neutrophils % Not Reportable Sodium 135.1 L Cancelled Potassium 4.9 Cancelled Chloride 99 Cancelled Carbon Dioxide 25 Cancelled Anion Gap 11 Cancelled BUN 136 H D Cancelled Creatinine 7.01 H Cancelled Est GFR ( Amer) 10 L Cancelled Est GFR (Non-Af Amer) Cancelled Glucose 148 H Cancelled Calcium 7.7 L Cancelled Phosphorus 9.0 H Magnesium 2.6 H Ferritin 72.80 Total Bilirubin 0.6 AST 78 H Alkaline Phosphatase 65 Total Protein 4.5 L Albumin 2.2 L 05/18/20 05:45 Tracheal Aspirate Gram Stain - Final 05/07/20 05/07/20 05/08/20 20:42 20:42 04:20 Creatine Kinase 09988 H CK-MB (CK-2) 367.00 H Troponin I < 0.012 < 0.012 NT-Pro-B Natriuret Pep 282 H 05/08/20 05/08/20 05/09/20 04:20 12:15 03:38 Creatine Kinase 198670 H 338968 H CK-MB (CK-2) 323.00 H Troponin I < 0.012 NT-Pro-B Natriuret Pep 05/10/20 05/11/20 05/12/20 04:28 17:58 17:10 Creatine Kinase 22130 H 49757 H 43037 H CK-MB (CK-2) Troponin I NT-Pro-B Natriuret Pep 05/13/20 05/19/20 18:53 04:40 Creatine Kinase 01219 H 1260 H CK-MB (CK-2) Troponin I NT-Pro-B Natriuret Pep Impressions: Cervical Spine CT 05/07/20 20:51 IMPRESSION: No acute findings in the cervical spine. TECHNICAL DOCUMENTATION: Quality ID # 436: Final reports with documentation of one or more dose reduction techniques (e.g., Automated exposure control, adjustment of the mA and/or kV according to patient size, use of iterative reconstruction technique) copyright 2011 [employer]- All Rights Reserved Lower Extremity Ultrasound 05/08/20 00:00 IMPRESSION: Bilateral small vessel disease. No significant stenosis above the knee. Renal Ultrasound 05/09/20 00:00 IMPRESSION: Chronic medical renal disease without hydronephrosis. Possible nonobstructive calculus right kidney. KUB X-Ray 05/13/20 00:00 IMPRESSION: Esophagogastric tube tip and side port projects over the stomach. Head CT 05/15/20 00:00 IMPRESSION: STABLE MILD CHRONIC CHANGES. NO ACUTE FINDINGS. EVIDENCE OF ACUTE STROKE: NO. Chest X-Ray 05/20/20 06:00 IMPRESSION: 1. Increasing multifocal airspace opacities. 2. Interval retraction of the enteric tube. Recommend advancing 10 cm. Otherwise stable lines and tubes. All labs, radiographs, diagnostic studies and EKGs were personally reviewed: Yes In addition, reports of radiographic and diagnostic studies were read: Yes Assessment and Plan - Diagnosis (1) Rhabdomyolysis Qualifiers: Rhabdomyolysis type: traumatic Encounter type: subsequent encounter Qualified Code(s): T79.6XXD - Traumatic ischemia of muscle, subsequent encounter Is this a current diagnosis for this admission?: Yes Plan: Will recheck CK in AM. Likely the cause of ARF. (2) Acute kidney failure Qualifiers: Acute renal failure type: with acute tubular necrosis Qualified Code(s): N17.0 - Acute kidney failure with tubular necrosis Is this a current diagnosis for this admission?: Yes Plan: His BUN is still over 120. His mental status may or may not be due to high BUN. Would like to see this down. Ideally he needs an MRI which is not possible with his ventilator. (3) Pneumonia due to COVID-19 virus Is this a current diagnosis for this admission?: Yes Plan: His mental status, rhabdo, and ARF is likely related to this and lying in one place for an unknown period of time. Plan Summary: Continue HD to try and get BUN down. Critical Time Critical Time (minutes): 35 Level of Care: ICU Anticipated discharge: SNF Anticipated DC Timeframe: Other -: 1. The care of a critical patient is a dynamic process. This note is a account service representative synopsis but static in nature. The timeframe for treatments given in order is not necessarily the actual time these treatments may have been done. 2. This patient requires critical care secondary to ongoing requirements for therapy not offered or safe outside the critical care environment. Transfer to a lower level of care will result in altered life or limb morbidity and mortality. 3. Multidisciplinary rounds completed. 4. ABCDE bundle addressed.
[2020-05-21] MEDS: MEROPENEM 500 MG in NORMAL SALINE 50 ML IV SCH (18:24)
[2020-05-21 19:02] LABS: HEMATOCRIT 22.3 % (37.9-51.0); MEAN CORPUSCULAR HEMOGLOBIN 29.2 pg (27.0-33.4); MEAN CORPUSCULAR HGB CONC 32.7 g/dL (32.0-36.0); MEAN CORPUSCULAR VOLUME 89 fl (80-97); PLATELET COUNT 727 10^3/uL (150-450); RED CELL DISTRIBUTION WIDTH 17.4 % (11.5-14.0); WHITE BLOOD COUNT 24.6 10^3/uL (4.0-10.5)
[2020-05-21 19:18] LABS: ANION GAP 11 (5-19); CALCIUM 7.8 mg/dL (8.4-10.2); CARBON DIOXIDE 27 mmol/L (22-30); CHLORIDE 97 mmol/L (98-107); GLUCOSE 135 mg/dL (75-110); POTASSIUM 4.6 mmol/L (3.6-5.0)
[2020-05-21 19:29] LABS: HEMOGLOBIN 7.3 g/dL (13.5-17.0)
[2020-05-21 19:36] LABS: BLOOD UREA NITROGEN 108 mg/dL (7-20)
[2020-05-22] MEDS: INSULIN REG, HUMAN 100 UNIT/ML 3 ML VIAL (PYX) SUBCUT SCH ×5 (01:55→23:30)
[2020-05-22] MEDS: ALBUTEROL SULFATE 0.083% NEB 2.5 MG/3 ML AMPUL NEB SCH ×4 (02:04→20:22)
[2020-05-22 06:41] LABS: ANION GAP 12 (5-19); CALCIUM 8.1 mg/dL (8.4-10.2); CARBON DIOXIDE 26 mmol/L (22-30); CHLORIDE 99 mmol/L (98-107); GLUCOSE 149 mg/dL (75-110); POTASSIUM 4.6 mmol/L (3.6-5.0)
[2020-05-22 06:53] LABS: BLOOD UREA NITROGEN 122 mg/dL (7-20)
[2020-05-22] MEDS: PANTOPRAZOLE SODIUM 40 MG VIAL IV SCH (09:31)
[2020-05-22] MEDS: ASCORBIC ACID 500 MG TABLET NG SCH ×2 (09:31→17:28)
[2020-05-22] MEDS: DOCUSATE SODIUM 100 MG/10 ML UDC PO SCH ×2 (09:31→17:28)
[2020-05-22] MEDS: FUROSEMIDE INJ/PF 100 MG/10 ML SDV IV SCH ×2 (09:31→23:30)
[2020-05-22] MEDS: ZINC SULFATE 220 MG CAPSULE NG SCH (09:31)
[2020-05-22] MEDS: AMINO AC/PROTEIN HYDR/WHEY PRO 11 GM/45 ML PKT NG SCH ×3 (09:31→17:28)
[2020-05-22] MEDS: DEXAMETHASONE SOD PHOS INJ 10 MG/1 ML VIAL IV SCH ×2 (09:31→23:30)
[2020-05-22] MEDS: MEROPENEM 500 MG in NORMAL SALINE 50 ML IV SCH (17:28)
--- NOTE | 2020-05-22 18:07 | PDOC CRITICAL CARE PROG REPORT ---
General Date:: 05/22/20 ICU Day:: 15 Ventilator Day:: 15 Hospital Day:: 15 Resuscitation Status: Full Code Events in the past 12 to 24 Hours:: This 54-year-old male presented to [facility] emergency department via EMS on 05/07/2020 with altered mental status. Basically, the patient has an unknown. Of unresponsiveness, as he was initially believed to be sleeping but raised concern to his when he was found to still be in the same position over 12 hours later. The reports that the his pupils were constricted at the time she called EMS. EMS arrived and found the patient to be obtunded. Narcan was given in the field. Although he was assessed to have a favorable response to Narcan initially, he subsequently demonstrated seizure- like movements on route. He was provided bag mask ventilatory support. No loss of pulse or pressure. However, in the emergency department he again demonstrated obtunded/altered mental status. He was given another dose of Narcan, which was not convincingly helpful. He was intubated in the emergency department. He was started on norepinephrine infusion for blood pressure support. Initial laboratory evaluation was compatible with acute kidney injury and rhabdomyolysis with CK total peaking at 152,203. He also had a severe metabolic acidosis with an elevated anion gap. Lactate level was elevated. Urine drug screen was positive for opiates. Alcohol level was undetectable ( reports he admits to consistent alcohol consumption for analgesic effect, although she believes his last drink was almost 7 days ago). 05/08: Remains intubated. On Levophed. 05/09: Remains intubated. ABG this a.m.: 7.41/40/79. Still on Levophed, decre asing. CK total peaked at 152,203, now 128,134. Albumin 1.9. Anuric. Creatinine 4.7. K5.4. Lactate 3.3. 05/10: Remains intubated. On propofol for sedation. Normal saline at 1 L/h all day yesterday. Still anuric. Discussed with Dr. Brown this morning. Attempting to stimulate diuresis with Lasix 100 mg IV push followed by infusion at 10 mg/h. CK total 76,434. Potassium 5.0. Creatinine 5.23. Calcium 5.8. Albumin 1.5. Chest x-ray demonstrates a widened mediastinum, more prominent today than on previous. Patient's is at the bedside and reports that this has previously been identified, reported to her, and "thoroughly worked up for a possible aneurysmal thing". She states that the entire diagnostic evaluation was unrevealing. 05/11: Remains intubated. On propofol for sedation. Got hemodialysis today. - 5 L. Still an uric despite furosemide infusion. Case discussed with Dr. Brown this morning. Platelets 62 this morning. Off insulin infusion. Off D5. Potassium 5.4 this morning. 05/12: Remains intubated. On propofol/Precedex for sedation. CK total 43,765. Had transient hypotension yesterday. No significant improvement after albumin infusion. 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 Afebrile. WBC 6.2. Platelets 49. Cam isolated Enterococcus. On Zosyn/vancomycin. 05/13: Remains intubated. Off propofol. On Precedex for sedation. Respiratory viral panel revealed the patient is positive for COVID-19. Added on Decadron and remdesivir yesterday. On zinc. CK total 27,357. Afebrile. Hemoglobin 7.5. WBC 5.3. Platelets 57, slightly increased after discontinuing heparin. Heparin induced platelet antibody pending. D-dimer > 20. CRP 378. 05/14: Seen on dialysis. Stable but not responding. Lasix drip stopped-anuric. 05/15: Patient had essentially unremarkable CT of head. 05/16/2020: No significant changes in the past 24 hours. Sedation has been weaned off. 05/17/2020: No significant changes over the past 24 hours. IV fluids have been discontinued. Patient remains only minimally responsive. 05/18/2020: HD yesterday. Patient continues to have spontaneous eye opening but remains unresponsive. 05/19/2020: Patient was more responsive today and was following commands. 05/20: Less responsive today. BUN is higher. 05/20: Dialyzed again today. Still not awake. 05/22. Essentially no change Review of systems relevant to events:: Pulmonary, renal, nerologic. Reason for ICU Addmission:: Altered MS, Acute Resp. Failure, Opiod OD, Abnormal EKG ( wide complex ), intubated. - Medications: Medications reviewed and adjusted accordingly: Yes Vasopressors:: None Sedation:: None Physical Exam Vital Signs: Temp Pulse Resp BP Pulse Ox 99.7 F 95 12 146/77 H 99 05/21/20 21:57 05/22/20 14:50 05/22/20 16:42 05/22/20 16:42 05/22/20 16:42 Intake & Output 05/21/20 05/22/20 05/23/20 06:59 06:59 06:59 Intake Total 500 840 50 Output Total 1840 8010 545 Balance -1340 -3280 - Weight 138.8 kg 131.9 kg 131.9 kg Weight/Height Weight 131.9 kg Height 6 ft 6 in General appearance: PRESENT: no acute distress Head exam: PRESENT: atraumatic, normocephalic Eye exam: PRESENT: conjunctiva pink, EOMI, PERRLA. ABSENT: scleral icterus Ear exam: PRESENT: normal external ear exam Mouth exam: PRESENT: moist, tongue midline Respiratory exam: PRESENT: clear to auscultation bernard. ABSENT: rales, rhonchi, wheezes Cardiovascular exam: PRESENT: RRR, tachycardia. ABSENT: diastolic murmur, rubs, systolic murmur GI/Abdominal exam: PRESENT: normal bowel sounds, soft. ABSENT: distended, guarding, mass, organolmegaly, rebound, tenderness Rectal exam: PRESENT: deferred Extremities exam: PRESENT: +1 edema Musculoskeletal exam: PRESENT: normal inspection Neurological exam: PRESENT: other - Opens eyes but does nothing purposeful Skin exam: PRESENT: dry, intact, warm. ABSENT: cyanosis, rash Tubes/Lines: PRESENT: Endotracheal Tube, Central Line, Nasogastic Tube Laboratory/Radiographs Laboratory Results: 05/21/20 18:35 05/22/20 05:05 05/21/20 05/21/20 05/22/20 18:35 18:35 05:05 WBC 24.6 H RBC 2.50 L Hgb 7.3 L Hct 22.3 L MCV 89 MCH 29.2 MCHC 32.7 RDW 17.4 H Plt Count 727 H Sodium 134.6 L 136.8 L Potassium 4.6 4.6 Chloride 97 L 99 Carbon Dioxide 27 26 Anion Gap 11 12 BUN 108 H D 122 H Creatinine 5.86 H 6.01 H Est GFR ( Amer) 12 L 12 L Glucose 135 H 149 H Calcium 7.8 L 8.1 L 12/25/20 05:45 Tracheal Aspirate Gram Stain - Final 05/07/20 05/07/20 05/08/20 20:42 20:42 04:20 Creatine Kinase 25734 H CK-MB (CK-2) 367.00 H Troponin I < 0.012 < 0.012 NT-Pro-B Natriuret Pep 282 H 05/08/20 05/08/20 05/09/20 04:20 12:15 03:38 Creatine Kinase 813157 H 751815 H CK-MB (CK-2) 323.00 H Troponin I < 0.012 NT-Pro-B Natriuret Pep 05/10/20 05/11/20 05/12/20 04:28 17:58 17:10 Creatine Kinase 34999 H 00314 H 47486 H CK-MB (CK-2) Troponin I NT-Pro-B Natriuret Pep 05/13/20 05/19/20 18:53 04:40 Creatine Kinase 30024 H 1260 H CK-MB (CK-2) Troponin I NT-Pro-B Natriuret Pep Impressions: Cervical Spine CT 05/07/20 20:51 IMPRESSION: No acute findings in the cervical spine. TECHNICAL DOCUMENTATION: Quality ID # 436: Final reports with documentation of one or more dose reduction techniques (e.g., Automated exposure control, adjustment of the mA and/or kV according to patient size, use of iterative reconstruction technique) copyright 2011 [facility]- All Rights Reserved Lower Extremity Ultrasound 05/08/20 00:00 IMPRESSION: Bilateral small vessel disease. No significant stenosis above the knee. Renal Ultrasound 05/09/20 00:00 IMPRESSION: Chronic medical renal disease without hydronephrosis. Possible nonobstructive calculus right kidney. KUB X-Ray 05/13/20 00:00 IMPRESSION: Esophagogastric tube tip and side port projects over the stomach. Head CT 05/15/20 00:00 IMPRESSION: STABLE MILD CHRONIC CHANGES. NO ACUTE FINDINGS. EVIDENCE OF ACUTE STROKE: NO. Chest X-Ray 05/20/20 06:00 IMPRESSION: 1. Increasing multifocal airspace opacities. 2. Interval retraction of the enteric tube. Recommend advancing 10 cm. Otherwise stable lines and tubes. All labs, radiographs, diagnostic studies and EKGs were personally reviewed: Yes In addition, reports of radiographic and diagnostic studies were read: Yes Assessment and Plan - Diagnosis (1) Rhabdomyolysis Qualifiers: Rhabdomyolysis type: traumatic Encounter type: subsequent encounter Qualified Code(s): T79.6XXD - Traumatic ischemia of muscle, subsequent encounter Is this a current diagnosis for this admission?: Yes Plan: The cause of his renal failure. (2) Acute kidney failure Qualifiers: Acute renal failure type: with acute tubular necrosis Qualified Code(s): N17.0 - Acute kidney failure with tubular necrosis Is this a current diagnosis for this admission?: Yes Plan: HD likely tomorrow. BUN still 122. (3) Pneumonia due to COVID-19 virus Is this a current diagnosis for this admission?: Yes Plan: Probably the inciting event. Plan Summary: Needs HD to get BUN down to see if he will wake up. Critical Time Critical Time (minutes): 35 Level of Care: ICU Anticipated discharge: SNF Anticipated DC Timeframe: Other -: 1. The care of a critical patient is a dynamic process. This note is a account executive sales representative synopsis but static in nature. The timeframe for treatments given in order is not necessarily the actual time these treatments may have been done. 2. This patient requires critical care secondary to ongoing requirements for therapy not offered or safe outside the critical care environment. Transfer to a lower level of care will result in altered life or limb morbidity and mortality. 3. Multidisciplinary rounds completed. 4. ABCDE bundle addressed.
[2020-05-22] MEDS ORDERED: MIRTAZAPINE 15 MG TABLET PO SCH (22:00)
[2020-05-23] MEDS: ALBUTEROL SULFATE 0.083% NEB 2.5 MG/3 ML AMPUL NEB SCH ×4 (02:06→20:29)
[2020-05-23 04:28] LABS: APPEARANCE,URINE CLEAR; BILIRUBIN,URINE NEGATIVE (NEGATIVE); COLOR,URINE YELLOW; GLUCOSE, URINE NEGATIVE (NEGATIVE); KETONES,URINE NEGATIVE (NEGATIVE); LEUKOCYTE ESTERASE,URINE NEGATIVE (NEGATIVE); NITRITE,URINE NEGATIVE (NEGATIVE); PROTEIN,URINE 30 mg/dL (NEGATIVE); URINE SPECIFIC GRAVITY 1.011; UROBILINOGEN,URINE NEGATIVE mg/dL (<2.0)
[2020-05-23 04:43] LABS: HEMATOCRIT 19.5 % (37.9-51.0); MEAN CORPUSCULAR HEMOGLOBIN 29.8 pg (27.0-33.4); MEAN CORPUSCULAR HGB CONC 32.9 g/dL (32.0-36.0); MEAN CORPUSCULAR VOLUME 91 fl (80-97); PLATELET COUNT 745 10^3/uL (150-450); RED BLOOD COUNT 2.16 10^6/uL (4.35-5.55); RED CELL DISTRIBUTION WIDTH 17.1 % (11.5-14.0); WHITE BLOOD COUNT 24.9 10^3/uL (4.0-10.5)
[2020-05-23 04:44] LABS: ALBUMIN 2.3 g/dL (3.5-5.0); ALKALINE PHOSPHATASE 69 U/L (38-126); ANION GAP 12 (5-19); ASPARTATE AMINO TRANSFERASE 52 U/L (17-59); BILIRUBIN,DIRECT 0.3 mg/dL (0.0-0.4); BILIRUBIN,TOTAL 0.6 mg/dL (0.2-1.3); CARBON DIOXIDE 25 mmol/L (22-30); CHLORIDE 99 mmol/L (98-107); GLUCOSE 174 mg/dL (75-110); POTASSIUM 4.9 mmol/L (3.6-5.0); TOTAL PROTEIN 4.8 g/dL (6.3-8.2)
[2020-05-23] MEDS ORDERED: HEPARIN SOD (PORCINE) 1,000 UNIT/ML 10 ML VIAL IV PRN (05:00)
[2020-05-23 05:05] LABS: ABSOLUTE MONOCYTES # (MANUAL) 1.5 10^3/uL (0.1-1.4); BAND NEUTROPHILS % (MANUAL) 1 % (3-5); BASOPHILS % (MANUAL) 0 % (0-2); EOSINOPHILS % (MANUAL) 0 % (0-6); LYMPHOCYTES % (MANUAL) 4 % (13-45); MONOCYTES % (MANUAL) 6 % (3-13); SEGMENTED NEUTROPHILS % (MAN) 89 % (42-78); TOTAL CELLS COUNTED 100
[2020-05-23 05:06] LABS: ANISOCYTOSIS 2+; PLATELET COMMENT INCREASED; POLYCHROMASIA 1+; TOXIC GRANULATION 1+; TOXIC VACUOLATION PRESENT
[2020-05-23 05:07] LABS: HEMOGLOBIN 6.4 g/dL (13.5-17.0)
[2020-05-23] MEDS ORDERED: NORMAL SALINE 250 ML IV PRN ×2 (05:15)
[2020-05-23 05:27] LABS: BLOOD UREA NITROGEN 148 mg/dL (7-20)
[2020-05-23] MEDS: INSULIN REG, HUMAN 100 UNIT/ML 3 ML VIAL (PYX) SUBCUT SCH ×3 (05:43→19:15)
[2020-05-23] MEDS ORDERED: EPOETIN ALFA-EPBX 2,000 UNIT, EPOETIN ALFA-EPBX 3,000 UNIT, EPOETIN ALFA-EPBX 20,000 UN... IV PRN ×4 (08:00)
[2020-05-23] MEDS: DEXAMETHASONE SOD PHOS INJ 10 MG/1 ML VIAL IV SCH ×2 (09:45→22:20)
[2020-05-23] MEDS: PANTOPRAZOLE SODIUM 40 MG VIAL IV SCH (09:46)
[2020-05-23] MEDS: ASCORBIC ACID 500 MG TABLET NG SCH ×2 (09:46→19:08)
[2020-05-23] MEDS: AMINO AC/PROTEIN HYDR/WHEY PRO 11 GM/45 ML PKT NG SCH ×3 (09:46→19:07)
[2020-05-23] MEDS: ZINC SULFATE 220 MG CAPSULE NG SCH (09:46)
[2020-05-23] MEDS: FUROSEMIDE INJ/PF 100 MG/10 ML SDV IV SCH ×2 (09:46→22:20)
--- NOTE | 2020-05-23 12:55 | PDOC PROGRESS REPORT ---
Subjective Date:: 05/23/20 Reason For Visit: Patient seen today in the ICU on dialysis. Remains intubated and sedated in isolation because of the Covid. Patient remains still critically ill. However encouraging is the fact that his urine output seems to be picking up. Discussions were done with the treating nurse as well as the dialysis nurse. Dialysis orders were reviewed with the treating dialysis nurse. Physical Exam Vital Signs: Temp Pulse Resp BP Pulse Ox 99.0 F 80 14 116/74 100 05/23/20 09:24 05/23/20 09:24 05/23/20 09:24 05/23/20 08:48 05/23/20 09:24 Intake & Output 05/22/20 05/23/20 05/24/20 06:59 06:59 06:59 Intake Total 939 78 7227 Output Total 8010 2270 6000 Balance -5070 -2220 -9670 Weight 131.9 kg 129.6 kg General appearance: PRESENT: disheveled Exam: Remains intubated and sedated. Respiratory exam: PRESENT: clear to auscultation bernard, decreased breath sounds. ABSENT: crackles Cardiovascular exam: PRESENT: +S1, +S2 GI/Abdominal exam: PRESENT: normal bowel sounds, soft. ABSENT: organomegaly, tenderness Extremities exam: PRESENT: +1 edema Neurological exam: PRESENT: altered Results Laboratory Results: 05/23/20 03:45 05/23/20 03:45 05/23/20 05/23/20 05/23/20 03:45 03:45 03:45 WBC 24.9 H RBC 2.16 L Hgb 6.4 L Hct 19.5 L MCV 91 MCH 29.8 MCHC 32.9 RDW 17.1 H Plt Count 745 H Seg Neutrophils % Not Reportable Sodium 135.7 L Potassium 4.9 Chloride 99 Carbon Dioxide 25 Anion Gap 12 BUN 148 H D Creatinine 6.34 H Est GFR ( Amer) 11 L Glucose 174 H Calcium 8.0 L Ferritin 69.00 Total Bilirubin 0.6 AST 52 Alkaline Phosphatase 69 Total Protein 4.8 L Albumin 2.3 L Urine Color YELLOW Urine Appearance CLEAR Urine pH 6.0 Ur Specific [place] 1.011 Urine Protein 30 H Urine Glucose (UA) NEGATIVE Urine Ketones NEGATIVE Urine Blood MODERATE H Urine Nitrite NEGATIVE Ur Leukocyte Esterase NEGATIVE Urine WBC (Auto) 2 Urine RBC (Auto) 1 Blood Type Antibody Screen 05/23/20 05:35 WBC RBC Hgb Hct MCV MCH MCHC RDW Plt Count Seg Neutrophils % Sodium Potassium Chloride Carbon Dioxide Anion Gap BUN Creatinine Est GFR ( Amer) Glucose Calcium Ferritin Total Bilirubin AST Alkaline Phosphatase Total Protein Albumin Urine Color Urine Appearance Urine pH Ur Specific [place] Urine Protein Urine Glucose (UA) Urine Ketones Urine Blood Urine Nitrite Ur Leukocyte Esterase Urine WBC (Auto) Urine RBC (Auto) Blood Type A NEGATIVE Antibody Screen NEGATIVE 05/18/20 05:45 Tracheal Aspirate Gram Stain - Final 05/18/20 06:42 Blood Blood Culture - Final NO GROWTH IN 5 DAYS 05/07/20 05/07/20 05/08/20 20:42 20:42 04:20 Creatine Kinase 84993 H CK-MB (CK-2) 367.00 H Troponin I < 0.012 < 0.012 NT-Pro-B Natriuret Pep 282 H 05/08/20 05/08/20 05/09/20 04:20 12:15 03:38 Creatine Kinase 698374 H 501126 H CK-MB (CK-2) 323.00 H Troponin I < 0.012 NT-Pro-B Natriuret Pep 05/10/20 05/11/20 05/12/20 04:28 17:58 17:10 Creatine Kinase 96800 H 43508 H 62777 H CK-MB (CK-2) Troponin I NT-Pro-B Natriuret Pep 05/13/20 05/19/20 18:53 04:40 Creatine Kinase 74556 H 1260 H CK-MB (CK-2) Troponin I NT-Pro-B Natriuret Pep Impressions: Cervical Spine CT 05/07/20 20:51 IMPRESSION: No acute findings in the cervical spine. TECHNICAL DOCUMENTATION: Quality ID # 436: Final reports with documentation of one or more dose reduction techniques (e.g., Automated exposure control, adjustment of the mA and/or kV according to patient size, use of iterative reconstruction technique) copyright 2011 [employer]- All Rights Reserved Lower Extremity Ultrasound 05/08/20 00:00 IMPRESSION: Bilateral small vessel disease. No significant stenosis above the knee. Renal Ultrasound 05/09/20 00:00 IMPRESSION: Chronic medical renal disease without hydronephrosis. Possible nonobstructive calculus right kidney. KUB X-Ray 05/13/20 00:00 IMPRESSION: Esophagogastric tube tip and side port projects over the stomach. Head CT 05/15/20 00:00 IMPRESSION: STABLE MILD CHRONIC CHANGES. NO ACUTE FINDINGS. EVIDENCE OF ACUTE STROKE: NO. Chest X-Ray 05/20/20 06:00 IMPRESSION: 1. Increasing multifocal airspace opacities. 2. Interval retraction of the enteric tube. Recommend advancing 10 cm. Otherwise stable lines and tubes. Assessment & Plan - Diagnosis (1) Acute kidney injury Is this a current diagnosis for this admission?: Yes Plan: Patient has now become nonoliguric with improving urine output which is encouraging but renal numbers are still not getting any better. Currently therefore undergoing dialysis being supervised. Plan to remove approximately 5-6 L of fluid as tolerated. Vital signs/hemodynamically stable. Dialysis orders were reviewed and discussed with the treating dialysis nurse. (2) Hyperkalemia Is this a current diagnosis for this admission?: Yes Plan: Has responded to hemodialysis. Monitor. (3) Respiratory failure with hypoxia and hypercapnia Qualifiers: Chronicity: acute Qualified Code(s): J96.01 - Acute respiratory failure with hypoxia; J96.02 - Acute respiratory failure with hypercapnia Is this a current diagnosis for this admission?: Yes Plan: Currently intubated and sedated. Background of Covid. Management by belting cutter. (4) Lactic acidosis Is this a current diagnosis for this admission?: Yes Plan: Resolved. (5) Rhabdomyolysis Qualifiers: Rhabdomyolysis type: traumatic Encounter type: subsequent encounter Qualified Code(s): T79.6XXD - Traumatic ischemia of muscle, subsequent encounter Is this a current diagnosis for this admission?: Yes Plan: Severe rhabdo on presentation.Markedly improved and last CPK was 1260 from couple of days ago. (6) Thrombocytopenia Is this a current diagnosis for this admission?: Yes Plan: Currently resolved. (7) Abnormal LFTs Is this a current diagnosis for this admission?: Yes Plan: ? Alcohol induced. Other differentials to be considered includes DIC/drug- induced. Monitor carefully. Would recommend imaging studies to rule out other potential issues. (8) Anemia Is this a current diagnosis for this admission?: Yes Plan: On Retacrit. Currently being transfused. Monitor for possible DIC and other similar situations given rising left shift and leukocytosis. (9) Pneumonia due to COVID-19 virus Is this a current diagnosis for this admission?: Yes Plan: As per belting cutter.
--- NOTE | 2020-05-23 14:52 | PDOC CRITICAL CARE PROG REPORT ---
General Date:: 05/23/20 ICU Day:: 16 Ventilator Day:: 16 Hospital Day:: 16 Resuscitation Status: Full Code Events in the past 12 to 24 Hours:: This 54-year-old male presented to [facility] emergency department via EMS on 05/07/2020 with altered mental status. Basically, the patient has an unknown. Of unresponsiveness, as he was initially believed to be sleeping but raised concern to his when he was found to still be in the same position over 12 hours later. The reports that the his pupils were constricted at the time she called EMS. EMS arrived and found the patient to be obtunded. Narcan was given in the field. Although he was assessed to have a favorable response to Narcan initially, he subsequently demonstrated seizure- like movements on route. He was provided bag mask ventilatory support. No loss of pulse or pressure. However, in the emergency department he again demonstrated obtunded/altered mental status. He was given another dose of Narcan, which was not convincingly helpful. He was intubated in the emergency department. He was started on norepinephrine infusion for blood pressure support. Initial laboratory evaluation was compatible with acute kidney injury and rhabdomyolysis with CK total peaking at 152,203. He also had a severe metabolic acidosis with an elevated anion gap. Lactate level was elevated. Urine drug screen was positive for opiates. Alcohol level was undetectable ( reports he admits to consistent alcohol consumption for analgesic effect, although she believes his last drink was almost 7 days ago). 05/08: Remains intubated. On Levophed. 05/09: Remains intubated. ABG this a.m.: 7.41/40/79. Still on Levophed, decre asing. CK total peaked at 152,203, now 128,134. Albumin 1.9. Anuric. Creatinine 4.7. K5.4. Lactate 3.3. 05/10: Remains intubated. On propofol for sedation. Normal saline at 1 L/h all day yesterday. Still anuric. Discussed with Dr. Brown this morning. Attempting to stimulate diuresis with Lasix 100 mg IV push followed by infusion at 10 mg/h. CK total 76,434. Potassium 5.0. Creatinine 5.23. Calcium 5.8. Albumin 1.5. Chest x-ray demonstrates a widened mediastinum, more prominent today than on previous. Patient's is at the bedside and reports that this has previously been identified, reported to her, and "thoroughly worked up for a possible aneurysmal thing". She states that the entire diagnostic evaluation was unrevealing. 05/11: Remains intubated. On propofol for sedation. Got hemodialysis today. - 5 L. Still an uric despite furosemide infusion. Case discussed with Dr. Brown this morning. Platelets 62 this morning. Off insulin infusion. Off D5. Potassium 5.4 this morning. 05/12: Remains intubated. On propofol/Precedex for sedation. CK total 43,765. Had transient hypotension yesterday. No significant improvement after albumin infusion. However, dry transfer man reports that the patient had dramatic improvement after a large BM. Afebrile. WBC 6.2. Platelets 49. Cam isolated Enterococcus. On Zosyn/vancomycin. 05/13: Remains intubated. Off propofol. On Precedex for sedation. Respiratory viral panel revealed the patient is positive for COVID-19. Added on Decadron and remdesivir yesterday. On zinc. CK total 27,357. Afebrile. Hemoglobin 7.5. WBC 5.3. Platelets 57, slightly increased after discontinuing heparin. Heparin induced platelet antibody pending. D-dimer > 20. CRP 378. 05/14: Seen on dialysis. Stable but not responding. Lasix drip stopped-anuric. 05/15: Patient had essentially unremarkable CT of head. 05/16/2020: No significant changes in the past 24 hours. Sedation has been weaned off. 05/17/2020: No significant changes over the past 24 hours. IV fluids have been discontinued. Patient remains only minimally responsive. 05/18/2020: HD yesterday. Patient continues to have spontaneous eye opening but remains unresponsive. 05/19/2020: Patient was more responsive today and was following commands. 05/20: Less responsive today. BUN is higher. 05/20: Dialyzed again today. Still not awake. 05/22. Essentially no change 05/23: Plan to get 5-6 L off today but still not awake and BUN not decreased. Review of systems relevant to events:: Nurological, renal. Reason for ICU Addmission:: Altered MS, Acute Resp. Failure, Opiod OD, Abnormal EKG ( wide complex ), intubated. - Medications: Medications reviewed and adjusted accordingly: Yes Vasopressors:: None Sedation:: None Physical Exam Vital Signs: Temp Pulse Resp BP Pulse Ox 99.0 F 82 18 116/74 100 05/23/20 09:24 05/23/20 13:57 05/23/20 13:57 05/23/20 08:48 05/23/20 13:57 Intake & Output 05/22/20 05/23/20 05/24/20 06:59 06:59 06:59 Intake Total 207 02 8276 Output Total 8010 2270 6000 Balance -7170 -2220 -4450 Weight 131.9 kg 129.6 kg Weight/Height Weight 129.6 kg Height 6 ft 6 in General appearance: PRESENT: no acute distress Head exam: PRESENT: atraumatic, normocephalic Eye exam: PRESENT: conjunctiva pink, EOMI, PERRLA. ABSENT: scleral icterus Ear exam: PRESENT: normal external ear exam Mouth exam: PRESENT: moist, tongue midline Respiratory exam: PRESENT: clear to auscultation bernard. ABSENT: rales, rhonchi, wheezes Cardiovascular exam: PRESENT: RRR. ABSENT: diastolic murmur, rubs, systolic murmur GI/Abdominal exam: PRESENT: normal bowel sounds, soft. ABSENT: distended, guarding, mass, organolmegaly, rebound, tenderness Rectal exam: PRESENT: deferred Gentrourinary exam: PRESENT: indwelling catheter Extremities exam: PRESENT: full ROM, other - Less edema. ABSENT: calf tenderness, clubbing, pedal edema Musculoskeletal exam: PRESENT: normal inspection Neurological exam: PRESENT: other - Moves extremities but not purposefully. Skin exam: PRESENT: dry, intact, warm. ABSENT: cyanosis, rash Tubes/Lines: PRESENT: Endotracheal Tube, Dialysis catheter, Nasogastic Tube Laboratory/Radiographs Laboratory Results: 05/23/20 03:45 05/23/20 03:45 05/23/20 05/23/20 05/23/20 03:45 03:45 03:45 WBC 24.9 H RBC 2.16 L Hgb 6.4 L Hct 19.5 L MCV 91 MCH 29.8 MCHC 32.9 RDW 17.1 H Plt Count 745 H Seg Neutrophils % Not Reportable Sodium 135.7 L Potassium 4.9 Chloride 99 Carbon Dioxide 25 Anion Gap 12 BUN 148 H D Creatinine 6.34 H Est GFR ( Amer) 11 L Glucose 174 H Calcium 8.0 L Ferritin 69.00 Total Bilirubin 0.6 AST 52 Alkaline Phosphatase 69 Total Protein 4.8 L Albumin 2.3 L Urine Color YELLOW Urine Appearance CLEAR Urine pH 6.0 Ur Specific [place] 1.011 Urine Protein 30 H Urine Glucose (UA) NEGATIVE Urine Ketones NEGATIVE Urine Blood MODERATE H Urine Nitrite NEGATIVE Ur Leukocyte Esterase NEGATIVE Urine WBC (Auto) 2 Urine RBC (Auto) 1 Blood Type Antibody Screen 05/23/20 05:35 WBC RBC Hgb Hct MCV MCH MCHC RDW Plt Count Seg Neutrophils % Sodium Potassium Chloride Carbon Dioxide Anion Gap BUN Creatinine Est GFR ( Amer) Glucose Calcium Ferritin Total Bilirubin AST Alkaline Phosphatase Total Protein Albumin Urine Color Urine Appearance Urine pH Ur Specific [place] Urine Protein Urine Glucose (UA) Urine Ketones Urine Blood Urine Nitrite Ur Leukocyte Esterase Urine WBC (Auto) Urine RBC (Auto) Blood Type A NEGATIVE Antibody Screen NEGATIVE 05/18/20 05:45 Tracheal Aspirate Gram Stain - Final 05/18/20 06:42 Blood Blood Culture - Final NO GROWTH IN 5 DAYS 05/07/20 05/07/20 05/08/20 20:42 20:42 04:20 Creatine Kinase 25469 H CK-MB (CK-2) 367.00 H Troponin I < 0.012 < 0.012 NT-Pro-B Natriuret Pep 282 H 05/08/20 05/08/20 05/09/20 04:20 12:15 03:38 Creatine Kinase 265423 H 033759 H CK-MB (CK-2) 323.00 H Troponin I < 0.012 NT-Pro-B Natriuret Pep 05/10/20 05/11/20 05/12/20 04:28 17:58 17:10 Creatine Kinase 14647 H 88486 H 58274 H CK-MB (CK-2) Troponin I NT-Pro-B Natriuret Pep 05/13/20 05/19/20 18:53 04:40 Creatine Kinase 39575 H 1260 H CK-MB (CK-2) Troponin I NT-Pro-B Natriuret Pep Impressions: Cervical Spine CT 05/07/20 20:51 IMPRESSION: No acute findings in the cervical spine. TECHNICAL DOCUMENTATION: Quality ID # 436: Final reports with documentation of one or more dose reduction techniques (e.g., Automated exposure control, adjustment of the mA and/or kV according to patient size, use of iterative reconstruction technique) copyright 2011 [employer]- All Rights Reserved Lower Extremity Ultrasound 05/08/20 00:00 IMPRESSION: Bilateral small vessel disease. No significant stenosis above the knee. Renal Ultrasound 05/09/20 00:00 IMPRESSION: Chronic medical renal disease without hydronephrosis. Possible nonobstructive calculus right kidney. KUB X-Ray 05/13/20 00:00 IMPRESSION: Esophagogastric tube tip and side port projects over the stomach. Head CT 05/15/20 00:00 IMPRESSION: STABLE MILD CHRONIC CHANGES. NO ACUTE FINDINGS. EVIDENCE OF ACUTE STROKE: NO. Chest X-Ray 05/20/20 06:00 IMPRESSION: 1. Increasing multifocal airspace opacities. 2. Interval retraction of the enteric tube. Recommend advancing 10 cm. Otherwise stable lines and tubes. All labs, radiographs, diagnostic studies and EKGs were personally reviewed: Yes In addition, reports of radiographic and diagnostic studies were read: Yes Assessment and Plan - Diagnosis (1) Rhabdomyolysis Qualifiers: Rhabdomyolysis type: traumatic Encounter type: subsequent encounter Qualified Code(s): T79.6XXD - Traumatic ischemia of muscle, subsequent encounter Is this a current diagnosis for this admission?: Yes Plan: The cause of his renal failure. (2) Acute kidney failure Qualifiers: Acute renal failure type: with acute tubular necrosis Qualified Code(s): N17.0 - Acute kidney failure with tubular necrosis Is this a current diagnosis for this admission?: Yes Plan: Urine output improving but renal numbers no better. (3) Pneumonia due to COVID-19 virus Is this a current diagnosis for this admission?: Yes Plan: The probable cause for his illness. Plan Summary: I have talked to the HD RN. His blood clots and she said this is the reason he cannot have a dialysis run long enough to clear his BUN. We cannot really assess his mental status without this number decreased. Critical Time Critical Time (minutes): 35 Level of Care: ICU Anticipated discharge: SNF Anticipated DC Timeframe: Other -: 1. The care of a critical patient is a dynamic process. This note is a software sales representative synopsis but static in nature. The timeframe for treatments given in order is not necessarily the actual time these treatments may have been done. 2. This patient requires critical care secondary to ongoing requirements for therapy not offered or safe outside the critical care environment. Transfer to a lower level of care will result in altered life or limb morbidity and mortality. 3. Multidisciplinary rounds completed. 4. ABCDE bundle addressed.
[2020-05-23] MEDS: DOCUSATE SODIUM 100 MG/10 ML UDC PO SCH ×2 (15:30→18:49)
[2020-05-23] MEDS: MEROPENEM 500 MG in NORMAL SALINE 50 ML IV SCH (19:08)
[2020-05-23 19:48] LABS: MEAN CORPUSCULAR HGB CONC 32.9 g/dL (32.0-36.0); MEAN CORPUSCULAR VOLUME 88 fl (80-97); PLATELET COUNT 631 10^3/uL (150-450); RED BLOOD COUNT 2.95 10^6/uL (4.35-5.55); RED CELL DISTRIBUTION WIDTH 17.4 % (11.5-14.0); WHITE BLOOD COUNT 28.4 10^3/uL (4.0-10.5)
[2020-05-23 20:08] LABS: HEMOGLOBIN 8.6 g/dL (13.5-17.0)
[2020-05-23 20:10] LABS: ABSOLUTE LYMPHOCYTES# (MANUAL) 1.4 10^3/uL (0.5-4.7); ABSOLUTE MONOCYTES # (MANUAL) 2.6 10^3/uL (0.1-1.4); BAND NEUTROPHILS % (MANUAL) 3 % (3-5); BASOPHILS % (MANUAL) 0 % (0-2); EOSINOPHILS % (MANUAL) 0 % (0-6); LYMPHOCYTES % (MANUAL) 5 % (13-45); MONOCYTES % (MANUAL) 9 % (3-13); SEGMENTED NEUTROPHILS % (MAN) 83 % (42-78); TOTAL CELLS COUNTED 100
[2020-05-23 20:11] LABS: ANISOCYTOSIS 1+; PLATELET COMMENT INCREASED; PLATELET LARGE PRESENT; POLYCHROMASIA 1+
[2020-05-24] MEDS: INSULIN REG, HUMAN 100 UNIT/ML 3 ML VIAL (PYX) SUBCUT SCH ×4 (01:02→18:27)
[2020-05-24] MEDS: ALBUTEROL SULFATE 0.083% NEB 2.5 MG/3 ML AMPUL NEB SCH ×4 (02:00→20:59)
--- NOTE | 2020-05-24 11:00 | PDOC CRITICAL CARE PROG REPORT ---
General Date:: 05/24/20 ICU Day:: 17 Ventilator Day:: 17 Hospital Day:: 17 Resuscitation Status: Full Code Events in the past 12 to 24 Hours:: This 54-year-old male presented to [facility] emergency department via EMS on 05/07/2020 with altered mental status. Basically, the patient has an unknown. Of unresponsiveness, as he was initially believed to be sleeping but raised concern to his when he was found to still be in the same position over 12 hours later. The reports that the his pupils were constricted at the time she called EMS. EMS arrived and found the patient to be obtunded. Narcan was given in the field. Although he was assessed to have a favorable response to Narcan initially, he subsequently demonstrated seizure- like movements on route. He was provided bag mask ventilatory support. No loss of pulse or pressure. However, in the emergency department he again demonstrated obtunded/altered mental status. He was given another dose of Narcan, which was not convincingly helpful. He was intubated in the emergency department. He was started on norepinephrine infusion for blood pressure support. Initial laboratory evaluation was compatible with acute kidney injury and rhabdomyolysis with CK total peaking at 152,203. He also had a severe metabolic acidosis with an elevated anion gap. Lactate level was elevated. Urine drug screen was positive for opiates. Alcohol level was undetectable ( reports he admits to consistent alcohol consumption for analgesic effect, although she believes his last drink was almost 7 days ago). 05/08: Remains intubated. On Levophed. 05/09: Remains intubated. ABG this a.m.: 7.41/40/79. Still on Levophed, decre asing. CK total peaked at 152,203, now 128,134. Albumin 1.9. Anuric. Creatinine 4.7. K5.4. Lactate 3.3. 05/10: Remains intubated. On propofol for sedation. Normal saline at 1 L/h all day yesterday. Still anuric. Discussed with Dr. Brown this morning. Attempting to stimulate diuresis with Lasix 100 mg IV push followed by infusion at 10 mg/h. CK total 76,434. Potassium 5.0. Creatinine 5.23. Calcium 5.8. Albumin 1.5. Chest x-ray demonstrates a widened mediastinum, more prominent today than on previous. Patient's is at the bedside and reports that this has previously been identified, reported to her, and "thoroughly worked up for a possible aneurysmal thing". She states that the entire diagnostic evaluation was unrevealing. 05/11: Remains intubated. On propofol for sedation. Got hemodialysis today. - 5 L. Still an uric despite furosemide infusion. Case discussed with Dr. Brown this morning. Platelets 62 this morning. Off insulin infusion. Off D5. Potassium 5.4 this morning. 05/12: Remains intubated. On propofol/Precedex for sedation. CK total 43,765. Had transient hypotension yesterday. No significant improvement after albumin infusion. However, night assistant reports that the patient had dramatic improvement after a large BM. Afebrile. WBC 6.2. Platelets 49. Cam isolated Enterococcus. On Zosyn/vancomycin. 05/13: Remains intubated. Off propofol. On Precedex for sedation. Respiratory viral panel revealed the patient is positive for COVID-19. Added on Decadron and remdesivir yesterday. On zinc. CK total 27,357. Afebrile. Hemoglobin 7.5. WBC 5.3. Platelets 57, slightly increased after discontinuing heparin. Heparin induced platelet antibody pending. D-dimer > 20. CRP 378. 05/14: Seen on dialysis. Stable but not responding. Lasix drip stopped-anuric. 05/15: Patient had essentially unremarkable CT of head. 05/16/2020: No significant changes in the past 24 hours. Sedation has been weaned off. 05/17/2020: No significant changes over the past 24 hours. IV fluids have been discontinued. Patient remains only minimally responsive. 05/18/2020: HD yesterday. Patient continues to have spontaneous eye opening but remains unresponsive. 05/19/2020: Patient was more responsive today and was following commands. 05/20: Less responsive today. BUN is higher. 05/20: Dialyzed again today. Still not awake. 05/22. Essentially no change 05/23: Plan to get 5-6 L off today but still not awake and BUN not decreased. 05/24: Essentially no change. Opens eyes to touch. Does not track, follow commands. Review of systems relevant to events:: Neurological, renal. Reason for ICU Addmission:: Altered MS, Acute Resp. Failure, Opiod OD, Abnormal EKG ( wide complex ), intubated. - Medications: Medications reviewed and adjusted accordingly: Yes Vasopressors:: None Sedation:: None. Physical Exam Vital Signs: Temp Pulse Resp BP Pulse Ox 99.1 F 77 15 127/77 H 99 05/24/20 08:00 05/24/20 10:00 05/24/20 10:00 05/24/20 10:00 05/24/20 10:00 Intake & Output 05/23/20 05/24/20 05/25/20 06:59 06:59 06:59 Intake Total 100 2110 Output Total 2270 7050 250 Balance -2170 -4940 -250 Weight 129.6 kg 125.2 kg Weight/Height Weight 125.2 kg Height 6 ft 6 in General appearance: PRESENT: no acute distress Head exam: PRESENT: atraumatic, normocephalic Eye exam: PRESENT: conjunctiva pink Ear exam: PRESENT: normal external ear exam Mouth exam: PRESENT: moist, tongue midline Respiratory exam: PRESENT: clear to auscultation bernard. ABSENT: rales, rhonchi, wheezes Cardiovascular exam: PRESENT: RRR. ABSENT: diastolic murmur, rubs, systolic murmur GI/Abdominal exam: PRESENT: normal bowel sounds, soft. ABSENT: distended, guarding, mass, organolmegaly, rebound, tenderness Rectal exam: PRESENT: deferred Gentrourinary exam: PRESENT: indwelling catheter Extremities exam: PRESENT: full ROM, other - No edema. ABSENT: calf tenderness, clubbing, pedal edema Musculoskeletal exam: PRESENT: normal inspection Neurological exam: PRESENT: other - He opens eyes to touch. No purposeful movement. Not following commands. Moves etremities at times. Skin exam: PRESENT: dry, intact, warm. ABSENT: cyanosis, rash Tubes/Lines: PRESENT: Endotracheal Tube, Nasogastic Tube Laboratory/Radiographs Laboratory Results: 05/23/20 19:05 05/23/20 03:45 05/23/20 19:05 WBC 28.4 H RBC 2.95 L Hgb 8.6 L D Hct 26.0 L MCV 88 MCH 29.0 MCHC 32.9 RDW 17.4 H Plt Count 631 H Seg Neutrophils % Not Reportable 05/18/20 05:45 Tracheal Aspirate Gram Stain - Final 05/18/20 05:45 Tracheal Aspirate Sputum Culture - Final Enterobacter Cloacae Normal [place] Absent 05/18/20 15:05 Blood Blood Culture - Final NO GROWTH IN 5 DAYS 05/18/20 06:42 Blood Blood Culture - Final NO GROWTH IN 5 DAYS 05/07/20 05/07/20 05/08/20 20:42 20:42 04:20 Creatine Kinase 30253 H CK-MB (CK-2) 367.00 H Troponin I < 0.012 < 0.012 NT-Pro-B Natriuret Pep 282 H 05/08/20 05/08/20 05/09/20 04:20 12:15 03:38 Creatine Kinase 229240 H 064028 H CK-MB (CK-2) 323.00 H Troponin I < 0.012 NT-Pro-B Natriuret Pep 05/10/20 05/11/20 05/12/20 04:28 17:58 17:10 Creatine Kinase 15049 H 05385 H 47394 H CK-MB (CK-2) Troponin I NT-Pro-B Natriuret Pep 05/13/20 05/19/20 18:53 04:40 Creatine Kinase 03336 H 1260 H CK-MB (CK-2) Troponin I NT-Pro-B Natriuret Pep Impressions: Cervical Spine CT 05/07/20 20:51 IMPRESSION: No acute findings in the cervical spine. TECHNICAL DOCUMENTATION: Quality ID # 436: Final reports with documentation of one or more dose reduction techniques (e.g., Automated exposure control, adjustment of the mA and/or kV according to patient size, use of iterative reconstruction technique) copyright 2011 [employer]- All Rights Reserved Lower Extremity Ultrasound 05/08/20 00:00 IMPRESSION: Bilateral small vessel disease. No significant stenosis above the knee. Renal Ultrasound 05/09/20 00:00 IMPRESSION: Chronic medical renal disease without hydronephrosis. Possible nonobstructive calculus right kidney. KUB X-Ray 05/13/20 00:00 IMPRESSION: Esophagogastric tube tip and side port projects over the stomach. Head CT 05/15/20 00:00 IMPRESSION: STABLE MILD CHRONIC CHANGES. NO ACUTE FINDINGS. EVIDENCE OF ACUTE STROKE: NO. Chest X-Ray 05/20/20 06:00 IMPRESSION: 1. Increasing multifocal airspace opacities. 2. Interval retraction of the enteric tube. Recommend advancing 10 cm. Otherwise stable lines and tubes. All labs, radiographs, diagnostic studies and EKGs were personally reviewed: Yes In addition, reports of radiographic and diagnostic studies were read: Yes Assessment and Plan - Diagnosis (1) Rhabdomyolysis Qualifiers: Rhabdomyolysis type: traumatic Encounter type: subsequent encounter Qualified Code(s): T79.6XXD - Traumatic ischemia of muscle, subsequent encounter Is this a current diagnosis for this admission?: Yes (2) Acute kidney failure Qualifiers: Acute renal failure type: with acute tubular necrosis Qualified Code(s): N17.0 - Acute kidney failure with tubular necrosis Is this a current diagnosis for this admission?: Yes Plan: His BUN is higher. I would hope that we can decrease this with HD to get a better idea of his mental capacity. (3) Pneumonia due to COVID-19 virus Is this a current diagnosis for this admission?: Yes Plan: Will retest soon. Not exhibiting signs. Intubated more for airway protection. Plan Summary: Reassesss mental status with BUN down from current level of 148. Critical Time Critical Time (minutes): 35 Level of Care: ICU Anticipated discharge: SNF Anticipated DC Timeframe: Other -: 1. The care of a critical patient is a dynamic process. This note is a unit support representative synopsis but static in nature. The timeframe for treatments given in order is not necessarily the actual time these treatments may have been done. 2. This patient requires critical care secondary to ongoing requirements for therapy not offered or safe outside the critical care environment. Transfer to a lower level of care will result in altered life or limb morbidity and mortality. 3. Multidisciplinary rounds completed. 4. ABCDE bundle addressed.
[2020-05-24] MEDS: DEXAMETHASONE SOD PHOS INJ 10 MG/1 ML VIAL IV SCH ×2 (11:26→11:29)
[2020-05-24] MEDS: FUROSEMIDE INJ/PF 100 MG/10 ML SDV IV SCH ×2 (11:27→21:17)
[2020-05-24] MEDS: PANTOPRAZOLE SODIUM 40 MG VIAL IV SCH (11:27)
[2020-05-24] MEDS: ZINC SULFATE 220 MG CAPSULE NG SCH (11:28)
[2020-05-24] MEDS: AMINO AC/PROTEIN HYDR/WHEY PRO 11 GM/45 ML PKT NG SCH ×3 (11:28→18:28)
[2020-05-24] MEDS: DOCUSATE SODIUM 100 MG/10 ML UDC PO SCH ×2 (11:28→18:26)
[2020-05-24] MEDS: ASCORBIC ACID 500 MG TABLET NG SCH ×2 (11:28→18:28)
--- NOTE | 2020-05-24 14:40 | RADIOLOGY REPORT (SQ) ---
EXAM DESCRIPTION: CHEST SINGLE VIEW IMAGES COMPLETED DATE/TIME: 05/24/2020 1:51 pm REASON FOR STUDY: NGtube placement COMPARISON: 05/20/2020 EXAM PARAMETERS: NUMBER OF VIEWS: One view. TECHNIQUE: Single frontal radiographic view of the chest acquired. RADIATION DOSE: NA LIMITATIONS: None. FINDINGS: LUNGS AND PLEURA: No opacities, masses or pneumothorax. No pleural effusion. MEDIASTINUM AND HILAR STRUCTURES: No masses. Contour normal. HEART AND VASCULAR STRUCTURES: Heart normal in size. Normal vasculature. BONES: No acute findings. HARDWARE: Interval placement of nasogastric tube, tip overlies the fundus of the stomach. OTHER: No other significant finding. IMPRESSION: 1. He would placement of nasogastric tube, tip overlies the fundus of the stomach. TECHNICAL DOCUMENTATION: JOB ID: [id number] 2010 [employer]- All Rights Reserved Reading location - IP/workstation name: [email or web address]
[2020-05-24] MEDS: MEROPENEM 500 MG in NORMAL SALINE 50 ML IV SCH (18:27)
[2020-05-25] MEDS: ALBUTEROL SULFATE 0.083% NEB 2.5 MG/3 ML AMPUL NEB SCH ×4 (02:33→20:33)
[2020-05-25] MEDS: INSULIN REG, HUMAN 100 UNIT/ML 3 ML VIAL (PYX) SUBCUT SCH ×5 (04:37→23:41)
[2020-05-25 05:04] LABS: APPEARANCE,URINE CLEAR; BILIRUBIN,URINE NEGATIVE (NEGATIVE); COLOR,URINE YELLOW; GLUCOSE, URINE NEGATIVE (NEGATIVE); KETONES,URINE NEGATIVE (NEGATIVE); LEUKOCYTE ESTERASE,URINE NEGATIVE (NEGATIVE); NITRITE,URINE NEGATIVE (NEGATIVE); PROTEIN,URINE 30 mg/dL (NEGATIVE); UROBILINOGEN,URINE NEGATIVE mg/dL (<2.0)
[2020-05-25 05:05] LABS: MEAN CORPUSCULAR HEMOGLOBIN 29.4 pg (27.0-33.4); MEAN CORPUSCULAR HGB CONC 32.8 g/dL (32.0-36.0); MEAN CORPUSCULAR VOLUME 90 fl (80-97); PLATELET COUNT 625 10^3/uL (150-450); RED BLOOD COUNT 2.68 10^6/uL (4.35-5.55); WHITE BLOOD COUNT 22.4 10^3/uL (4.0-10.5)
[2020-05-25 05:18] LABS: ANION GAP 16 (5-19); CALCIUM 8.6 mg/dL (8.4-10.2); CARBON DIOXIDE 23 mmol/L (22-30); CHLORIDE 99 mmol/L (98-107); GLUCOSE 125 mg/dL (75-110); POTASSIUM 4.7 mmol/L (3.6-5.0)
[2020-05-25 05:29] LABS: ABSOLUTE LYMPHOCYTES# (MANUAL) 1.1 10^3/uL (0.5-4.7); ABSOLUTE MONOCYTES # (MANUAL) 3.1 10^3/uL (0.1-1.4); BASOPHILS % (MANUAL) 0 % (0-2); EOSINOPHILS % (MANUAL) 0 % (0-6); LYMPHOCYTES % (MANUAL) 5 % (13-45); MONOCYTES % (MANUAL) 14 % (3-13); OVALOCYTES SLIGHT; PLATELET COMMENT INCREASED; POIKILOCYTOSIS SLIGHT; POLYCHROMASIA SLIGHT; SCHISTOCYTES SLIGHT; SEGMENTED NEUTROPHILS % (MAN) 81 % (42-78); TOTAL CELLS COUNTED 100
[2020-05-25 05:30] LABS: HEMOGLOBIN 7.9 g/dL (13.5-17.0)
[2020-05-25 05:32] LABS: BLOOD UREA NITROGEN 151 mg/dL (7-20)
[2020-05-25] MEDS ORDERED: EPOETIN ALFA-EPBX 30,000 UNIT in SYRINGE, DISPOSABLE, 1 EACH IV PRN (08:00)
[2020-05-25] MEDS ORDERED: NORMAL SALINE 250 ML IV PRN ×3 (08:52→22:41)
[2020-05-25] MEDS: AMINO AC/PROTEIN HYDR/WHEY PRO 11 GM/45 ML PKT NG SCH ×3 (09:13→18:24)
[2020-05-25] MEDS: ASCORBIC ACID 500 MG TABLET NG SCH ×2 (09:14→18:24)
[2020-05-25] MEDS: ZINC SULFATE 220 MG CAPSULE NG SCH (09:15)
[2020-05-25] MEDS: DOCUSATE SODIUM 100 MG/10 ML UDC PO SCH ×2 (09:15→18:24)
[2020-05-25] MEDS ORDERED: ALTEPLASE INJ 100 MG VIAL ONE (09:19)
[2020-05-25] MEDS ORDERED: ALTEPLASE INJ 2 MG VIAL (CATH CLEARANCE) IV ONE (09:30)
[2020-05-25] MEDS: HEPARIN SOD (PORCINE) 1,000 UNIT/ML 10 ML VIAL IV PRN ×2 (10:48→16:13)
[2020-05-25] MEDS: PANTOPRAZOLE SODIUM 40 MG VIAL IV SCH (11:49)
[2020-05-25] MEDS: DEXAMETHASONE SOD PHOS INJ 10 MG/1 ML VIAL IV SCH (11:49)
[2020-05-25] MEDS: FUROSEMIDE INJ/PF 100 MG/10 ML SDV IV SCH ×2 (11:50→22:00)
--- NOTE | 2020-05-25 12:05 | Progress Note ---
Provider Note Provider Note: New 20 CM dialysis line placed sterilly in L IJ. All ports returned blood and flushed.
--- NOTE | 2020-05-25 14:41 | PDOC CRITICAL CARE PROG REPORT ---
General Date:: 05/25/20 ICU Day:: 18 Ventilator Day:: 18 Hospital Day:: 18 Resuscitation Status: Full Code Events in the past 12 to 24 Hours:: This 54-year-old male presented to [facility] emergency department via EMS on 05/07/2020 with altered mental status. Basically, the patient has an unknown. Of unresponsiveness, as he was initially believed to be sleeping but raised concern to his when he was found to still be in the same position over 12 hours later. The reports that the his pupils were constricted at the time she called EMS. EMS arrived and found the patient to be obtunded. Narcan was given in the field. Although he was assessed to have a favorable response to Narcan initially, he subsequently demonstrated seizure- like movements on route. He was provided bag mask ventilatory support. No loss of pulse or pressure. However, in the emergency department he again demonstrated obtunded/altered mental status. He was given another dose of Narcan, which was not convincingly helpful. He was intubated in the emergency department. He was started on norepinephrine infusion for blood pressure support. Initial laboratory evaluation was compatible with acute kidney injury and rhabdomyolysis with CK total peaking at 152,203. He also had a severe metabolic acidosis with an elevated anion gap. Lactate level was elevated. Urine drug screen was positive for opiates. Alcohol level was undetectable ( reports he admits to consistent alcohol consumption for analgesic effect, although she believes his last drink was almost 7 days ago). 05/08: Remains intubated. On Levophed. 05/09: Remains intubated. ABG this a.m.: 7.41/40/79. Still on Levophed, decre asing. CK total peaked at 152,203, now 128,134. Albumin 1.9. Anuric. Creatinine 4.7. K5.4. Lactate 3.3. 05/10: Remains intubated. On propofol for sedation. Normal saline at 1 L/h all day yesterday. Still anuric. Discussed with Dr. Brown this morning. Attempting to stimulate diuresis with Lasix 100 mg IV push followed by infusion at 10 mg/h. CK total 76,434. Potassium 5.0. Creatinine 5.23. Calcium 5.8. Albumin 1.5. Chest x-ray demonstrates a widened mediastinum, more prominent today than on previous. Patient's is at the bedside and reports that this has previously been identified, reported to her, and "thoroughly worked up for a possible aneurysmal thing". She states that the entire diagnostic evaluation was unrevealing. 05/11: Remains intubated. On propofol for sedation. Got hemodialysis today. - 5 L. Still an uric despite furosemide infusion. Case discussed with Dr. Brown this morning. Platelets 62 this morning. Off insulin infusion. Off D5. Potassium 5.4 this morning. 05/12: Remains intubated. On propofol/Precedex for sedation. CK total 43,765. Had transient hypotension yesterday. No significant improvement after albumin infusion. However, night club manager reports that the patient had dramatic improvement after a large BM. Afebrile. WBC 6.2. Platelets 49. Cam isolated Enterococcus. On Zosyn/vancomycin. 05/13: Remains intubated. Off propofol. On Precedex for sedation. Respiratory viral panel revealed the patient is positive for COVID-19. Added on Decadron and remdesivir yesterday. On zinc. CK total 27,357. Afebrile. Hemoglobin 7.5. WBC 5.3. Platelets 57, slightly increased after discontinuing heparin. Heparin induced platelet antibody pending. D-dimer > 20. CRP 378. 05/14: Seen on dialysis. Stable but not responding. Lasix drip stopped-anuric. 05/15: Patient had essentially unremarkable CT of head. 05/16/2020: No significant changes in the past 24 hours. Sedation has been weaned off. 05/17/2020: No significant changes over the past 24 hours. IV fluids have been discontinued. Patient remains only minimally responsive. 05/18/2020: HD yesterday. Patient continues to have spontaneous eye opening but remains unresponsive. 05/19/2020: Patient was more responsive today and was following commands. 05/20: Less responsive today. BUN is higher. 05/20: Dialyzed again today. Still not awake. 05/22. Essentially no change 05/23: Plan to get 5-6 L off today but still not awake and BUN not decreased. 05/24: Essentially no change. Opens eyes to touch. Does not track, follow commands. 05/25: Dialysis catheter replaced over wire. Still not working. Not awake. Review of systems relevant to events:: Neurological, renal. Reason for ICU Addmission:: Altered MS, Acute Resp. Failure, Opiod OD, Abnormal EKG ( wide complex ), intubated. - Medications: Medications reviewed and adjusted accordingly: Yes Vasopressors:: None Sedation:: None Physical Exam Vital Signs: Temp Pulse Resp BP Pulse Ox 100.4 F 97 17 125/67 98 05/25/20 12:00 05/25/20 12:00 05/25/20 14:00 05/25/20 13:48 05/25/20 14:00 Intake & Output 05/24/20 05/25/20 05/26/20 06:59 06:59 06:59 Intake Total 2160 600 690 Output Total 7050 2300 1160 Balance -4890 -1700 -470 Weight 125.2 kg 120.6 kg Weight/Height Weight 120.6 kg Height 6 ft 6 in General appearance: PRESENT: no acute distress Head exam: PRESENT: atraumatic, normocephalic Eye exam: PRESENT: conjunctiva pink, PERRLA Ear exam: PRESENT: normal external ear exam Mouth exam: PRESENT: moist, tongue midline Respiratory exam: PRESENT: clear to auscultation bernard. ABSENT: rales, rhonchi, wheezes Cardiovascular exam: PRESENT: RRR, tachycardia. ABSENT: diastolic murmur, rubs, systolic murmur GI/Abdominal exam: PRESENT: normal bowel sounds, soft. ABSENT: distended, guarding, mass, organolmegaly, rebound, tenderness Rectal exam: PRESENT: deferred Gentrourinary exam: PRESENT: indwelling catheter Extremities exam: PRESENT: full ROM, other - Much less edema.. ABSENT: calf tenderness, clubbing, pedal edema Musculoskeletal exam: PRESENT: normal inspection Neurological exam: PRESENT: other - Moves to pain, nothing purposeful. Skin exam: PRESENT: dry, intact, warm. ABSENT: cyanosis, rash Tubes/Lines: PRESENT: Endotracheal Tube, Central Line, Dialysis catheter, Nasogastic Tube Laboratory/Radiographs Laboratory Results: 05/25/20 04:35 05/25/20 04:35 05/25/20 05/25/20 05/25/20 04:35 04:35 04:35 WBC 22.4 H RBC 2.68 L Hgb 7.9 L Hct 24.0 L MCV 90 MCH 29.4 MCHC 32.8 RDW 18.0 H Plt Count 625 H Seg Neutrophils % Not Reportable Sodium 138.1 Potassium 4.7 Chloride 99 Carbon Dioxide 23 Anion Gap 16 BUN 151 H Creatinine 6.62 H Est GFR ( Amer) 11 L Glucose 125 H Calcium 8.6 Ferritin 63.20 Urine Color YELLOW Urine Appearance CLEAR Urine pH 6.0 Ur Specific [place] 1.010 Urine Protein 30 H Urine Glucose (UA) NEGATIVE Urine Ketones NEGATIVE Urine Blood SMALL H Urine Nitrite NEGATIVE Ur Leukocyte Esterase NEGATIVE Urine WBC (Auto) 2 Urine RBC (Auto) 1 05/07/20 05/07/20 05/08/20 20:42 20:42 04:20 Creatine Kinase 00749 H CK-MB (CK-2) 367.00 H Troponin I < 0.012 < 0.012 NT-Pro-B Natriuret Pep 282 H 05/08/20 05/08/20 05/09/20 04:20 12:15 03:38 Creatine Kinase 213559 H 190168 H CK-MB (CK-2) 323.00 H Troponin I < 0.012 NT-Pro-B Natriuret Pep 05/10/20 05/11/20 05/12/20 04:28 17:58 17:10 Creatine Kinase 58621 H 51927 H 75820 H CK-MB (CK-2) Troponin I NT-Pro-B Natriuret Pep 05/13/20 05/19/20 18:53 04:40 Creatine Kinase 38081 H 1260 H CK-MB (CK-2) Troponin I NT-Pro-B Natriuret Pep Impressions: Cervical Spine CT 05/07/20 20:51 IMPRESSION: No acute findings in the cervical spine. TECHNICAL DOCUMENTATION: Quality ID # 436: Final reports with documentation of one or more dose reduction techniques (e.g., Automated exposure control, adjustment of the mA and/or kV according to patient size, use of iterative reconstruction technique) copyright 2011 [employer]- All Rights Reserved Lower Extremity Ultrasound 05/08/20 00:00 IMPRESSION: Bilateral small vessel disease. No significant stenosis above the knee. Renal Ultrasound 05/09/20 00:00 IMPRESSION: Chronic medical renal disease without hydronephrosis. Possible nonobstructive calculus right kidney. KUB X-Ray 05/13/20 00:00 IMPRESSION: Esophagogastric tube tip and side port projects over the stomach. Head CT 05/15/20 00:00 IMPRESSION: STABLE MILD CHRONIC CHANGES. NO ACUTE FINDINGS. EVIDENCE OF ACUTE STROKE: NO. Chest X-Ray 05/24/20 12:37 IMPRESSION: 1. He would placement of nasogastric tube, tip overlies the fundus of the stomach. All labs, radiographs, diagnostic studies and EKGs were personally reviewed: Yes In addition, reports of radiographic and diagnostic studies were read: Yes Assessment and Plan - Diagnosis (1) Acute kidney failure Qualifiers: Acute renal failure type: with acute tubular necrosis Qualified Code(s): N17.0 - Acute kidney failure with tubular necrosis Is this a current diagnosis for this admission?: Yes Plan: BUN 151. Source unclear. No bleeding from NG. Tolerating TF. Some occult blood and sense of some oozing. Dr. Shaikh consulted to replace HD catheter. Attempted X 2. (2) Rhabdomyolysis Qualifiers: Rhabdomyolysis type: traumatic Encounter type: subsequent encounter Qualified Code(s): T79.6XXD - Traumatic ischemia of muscle, subsequent encounter Is this a current diagnosis for this admission?: Yes Plan: CK 1260 on 05/19. No recurrence. (3) Pneumonia due to COVID-19 virus Is this a current diagnosis for this admission?: Yes Plan: He is still feeling the effects and may be the cause of his rhabdomyolysis. Plan Summary: Replace HD cathter and try to drop BUN and try to extubate if he is awake. Critical Time Critical Time (minutes): 35 Level of Care: ICU Anticipated discharge: SNF Anticipated DC Timeframe: Other -: 1. The care of a critical patient is a dynamic process. This note is a title insurance sales representative synopsis but static in nature. The timeframe for treatments given in order is not necessarily the actual time these treatments may have been done. 2. This patient requires critical care secondary to ongoing requirements for therapy not offered or safe outside the critical care environment. Transfer to a lower level of care will result in altered life or limb morbidity and mortality. 3. Multidisciplinary rounds completed. 4. ABCDE bundle addressed.
[2020-05-25] MEDS ORDERED: MORPHINE SULFATE 10 MG/ML INJ IV ONE (15:00)
--- NOTE | 2020-05-25 15:38 | Operative Report ---
Nonrecallable Operative Report DATE OF SURGERY: 05/25/20 PREOPERATIVE DIAGNOSIS: 1. Dysfunctional left IJ dialysis catheter. 2. Renal failure. POSTOPERATIVE DIAGNOSIS: Same as above OPERATION: 1. Ultrasound-guided central venous puncture. 2. Right femoral vein Vas-Cath placement. SURGEON: LEVAR YUEN ANESTHESIA: Local TISSUE REMOVED OR ALTERED: none COMPLICATIONS: none apparent ESTIMATED BLOOD LOSS: minimal PROCEDURE: Drains/implants: 30 cm right femoral Vas-Cath. Procedure in detail: After informed consent was obtained from the patient's , he was laid in the supine position. The area of the right groin was prepped and draped in a normal sterile fashion. An ultrasound was used to identify the right femoral vein. It was compressible with normal flow. Under direct ultrasonic guidance, the right femoral vein was cannulated using the supplied access needle. Dark venous, nonpulsatile blood was returned in the syringe. The wire was inserted into the vein easily. The wire was confirmed to be within the lumen of the vein using the ultrasound device. Picture documentation was printed. The catheter was then slid over the wire using a modified Seldinger technique. The catheter was sutured to the skin using 3-0 nylon. A sterile dressing was placed. The catheter was aspirated and flushed x3. At this time the procedure was concluded. All sponge, instrument, and needle counts were correct. Condition: Critical in ICU.
--- NOTE | 2020-05-25 16:21 | PDOC PROGRESS REPORT ---
Subjective Date:: 05/25/20 Reason For Visit: Patient seen in the ICU today. He remains intubated but not very sedated. However is not very responsive to any commands. Undergoing dialysis but soon after that had difficulties in flow through the temporary dialysis catheter. We tried TPA which did not good produce any good results therefore plan to do exchange catheter and redo rest of the treatment if possible. Patient has had good success in removing fluid the edema/anasarca is nothing that was initially on dialysis. Labs and medications were reviewed. Dialysis orders were reviewed with treating dialysis nurse. Discussions were done with treating nurse as well as with [employer] fusion consultant. Physical Exam Vital Signs: Temp Pulse Resp BP Pulse Ox 100.4 F 104 H 18 125/67 99 05/25/20 12:00 05/25/20 14:00 05/25/20 14:00 05/25/20 14:00 05/25/20 14:00 Intake & Output 05/24/20 05/25/20 05/26/20 06:59 06:59 06:59 Intake Total 2160 600 690 Output Total 7050 2300 1360 Balance -4890 -1700 -670 Weight 125.2 kg 120.6 kg General appearance: PRESENT: disheveled Exam: Remains intubated and sedated. Respiratory exam: PRESENT: clear to auscultation bernard. ABSENT: crackles Cardiovascular exam: PRESENT: +S1, +S2 GI/Abdominal exam: PRESENT: normal bowel sounds, soft. ABSENT: organomegaly, tenderness Extremities exam: PRESENT: pedal edema Skin exam: ABSENT: erythema, mottled, rash Results Laboratory Results: 05/25/20 04:35 05/25/20 04:35 05/25/20 05/25/20 05/25/20 04:35 04:35 04:35 WBC 22.4 H RBC 2.68 L Hgb 7.9 L Hct 24.0 L MCV 90 MCH 29.4 MCHC 32.8 RDW 18.0 H Plt Count 625 H Seg Neutrophils % Not Reportable Sodium 138.1 Potassium 4.7 Chloride 99 Carbon Dioxide 23 Anion Gap 16 BUN 151 H Creatinine 6.62 H Est GFR ( Amer) 11 L Glucose 125 H Calcium 8.6 Ferritin 63.20 Urine Color YELLOW Urine Appearance CLEAR Urine pH 6.0 Ur Specific [place] 1.010 Urine Protein 30 H Urine Glucose (UA) NEGATIVE Urine Ketones NEGATIVE Urine Blood SMALL H Urine Nitrite NEGATIVE Ur Leukocyte Esterase NEGATIVE Urine WBC (Auto) 2 Urine RBC (Auto) 1 05/07/20 05/07/20 05/08/20 20:42 20:42 04:20 Creatine Kinase 59046 H CK-MB (CK-2) 367.00 H Troponin I < 0.012 < 0.012 NT-Pro-B Natriuret Pep 282 H 05/08/20 05/08/20 05/09/20 04:20 12:15 03:38 Creatine Kinase 793081 H 764217 H CK-MB (CK-2) 323.00 H Troponin I < 0.012 NT-Pro-B Natriuret Pep 05/10/20 05/11/20 05/12/20 04:28 17:58 17:10 Creatine Kinase 03218 H 97423 H 83483 H CK-MB (CK-2) Troponin I NT-Pro-B Natriuret Pep 05/13/20 05/19/20 18:53 04:40 Creatine Kinase 48316 H 1260 H CK-MB (CK-2) Troponin I NT-Pro-B Natriuret Pep Impressions: Cervical Spine CT 05/07/20 20:51 IMPRESSION: No acute findings in the cervical spine. TECHNICAL DOCUMENTATION: Quality ID # 436: Final reports with documentation of one or more dose reduction techniques (e.g., Automated exposure control, adjustment of the mA and/or kV according to patient size, use of iterative reconstruction technique) copyright 2010 [employer]- All Rights Reserved Lower Extremity Ultrasound 05/08/20 00:00 IMPRESSION: Bilateral small vessel disease. No significant stenosis above the knee. Renal Ultrasound 05/09/20 00:00 IMPRESSION: Chronic medical renal disease without hydronephrosis. Possible nonobstructive calculus right kidney. KUB X-Ray 05/13/20 00:00 IMPRESSION: Esophagogastric tube tip and side port projects over the stomach. Head CT 05/15/20 00:00 IMPRESSION: STABLE MILD CHRONIC CHANGES. NO ACUTE FINDINGS. EVIDENCE OF ACUTE STROKE: NO. Chest X-Ray 05/24/20 12:37 IMPRESSION: 1. He would placement of nasogastric tube, tip overlies the fundus of the stomach. Assessment & Plan - Diagnosis (1) Pneumonia due to COVID-19 virus Is this a current diagnosis for this admission?: Yes Plan: As per [employer] fusion consultant. (2) Acute kidney injury Is this a current diagnosis for this admission?: Yes Plan: Patient has now become nonoliguric with improving urine output which is encouraging but renal numbers are still not getting any better. Currently therefore undergoing dialysis being supervised. Plan to remove approximately 3-4 L of fluid as tolerated. Vital signs/hemodynamically stable. Dialysis orders were reviewed and discussed with the treating dialysis nurse. Given the dif ficulty with functioning of his temporary catheter we have removed approximately a liter. Will redo dialysis with another couple of liters if catheter can be exchanged and a functioning catheter can be obtained. He has currently high BUN which I believe is most likely coming from upper GI bleed. Discussed with [employer] fusion consultant Dr. Cruz about having a low threshold for transfusions. Consider GI consult and possible upper GI endoscopy. (3) Hyperkalemia Is this a current diagnosis for this admission?: Yes Plan: Has responded to hemodialysis. Monitor. (4) Respiratory failure with hypoxia and hypercapnia Qualifiers: Chronicity: acute Qualified Code(s): J96.01 - Acute respiratory failure with hypoxia; J96.02 - Acute respiratory failure with hypercapnia Is this a current diagnosis for this admission?: Yes Plan: Currently intubated and sedated. Background of Covid. Management by [employer] fusion consultant. (5) Rhabdomyolysis Qualifiers: Rhabdomyolysis type: traumatic Encounter type: subsequent encounter Qualified Code(s): T79.6XXD - Traumatic ischemia of muscle, subsequent encounter Is this a current diagnosis for this admission?: Yes Plan: Severe rhabdo on presentation.Markedly improved and last CPK was 1260 from couple of days ago. (6) Abnormal LFTs Is this a current diagnosis for this admission?: Yes Plan: ? Alcohol induced. Other differentials to be considered includes DIC/drug- induced. Monitor carefully. Would recommend imaging studies to rule out other potential issues. (7) Anemia Is this a current diagnosis for this admission?: Yes Plan: On Retacrit.Continues to have drop in hemoglobin in spite of repeated transfusions. Differentials includes upper GI bleed/DIC. Have a low threshold for transfusions. Discussed with [employer] fusion consultant and treating nurse .
[2020-05-25 20:33] LABS: HEMATOCRIT 20.6 % (37.9-51.0); MEAN CORPUSCULAR HEMOGLOBIN 29.7 pg (27.0-33.4); MEAN CORPUSCULAR HGB CONC 32.8 g/dL (32.0-36.0); MEAN CORPUSCULAR VOLUME 90 fl (80-97); PLATELET COUNT 442 10^3/uL (150-450); RED BLOOD COUNT 2.28 10^6/uL (4.35-5.55); WHITE BLOOD COUNT 23.3 10^3/uL (4.0-10.5)
[2020-05-25 21:11] LABS: HEMOGLOBIN 6.8 g/dL (13.5-17.0)
[2020-05-26] MEDS: ALBUTEROL SULFATE 0.083% NEB 2.5 MG/3 ML AMPUL NEB SCH ×4 (01:21→19:25)
[2020-05-26 04:51] LABS: ARTERIAL BLOOD BASE EXCESS -1.3 mmol/L; ARTERIAL BLOOD H2CO3 1.05 mmol/L (1.05-1.35); ARTERIAL BLOOD HCO3 22.7 mmol/L (20-24); ARTERIAL BLOOD O2 SATURATION 98.8 % (94-98); ARTERIAL BLOOD PCO2 34.9 mmHg (35-45); ARTERIAL BLOOD PH 7.43 (7.35-7.45); ARTERIAL BLOOD PO2 133.5 mmHg (80-100); ARTERIAL BLOOD TOTAL CO2 23.8 mmol/L (23-27)
[2020-05-26 04:52] LABS: ARTERIAL BLOOD FIO2 35%
[2020-05-26 05:01] LABS: HEMATOCRIT 22.5 % (37.9-51.0); MEAN CORPUSCULAR HEMOGLOBIN 30.3 pg (27.0-33.4); MEAN CORPUSCULAR HGB CONC 33.6 g/dL (32.0-36.0); MEAN CORPUSCULAR VOLUME 90 fl (80-97); PLATELET COUNT 449 10^3/uL (150-450); RED BLOOD COUNT 2.49 10^6/uL (4.35-5.55); RED CELL DISTRIBUTION WIDTH 17.5 % (11.5-14.0); WHITE BLOOD COUNT 22.3 10^3/uL (4.0-10.5)
[2020-05-26 05:15] LABS: ANION GAP 15 (5-19); CALCIUM 8.5 mg/dL (8.4-10.2); CARBON DIOXIDE 23 mmol/L (22-30); CHLORIDE 100 mmol/L (98-107); GLUCOSE 111 mg/dL (75-110); POTASSIUM 4.3 mmol/L (3.6-5.0)
[2020-05-26 05:24] LABS: HEMOGLOBIN 7.5 g/dL (13.5-17.0)
[2020-05-26 05:26] LABS: ABSOLUTE LYMPHOCYTES# (MANUAL) 0.4 10^3/uL (0.5-4.7); ABSOLUTE MONOCYTES # (MANUAL) 1.8 10^3/uL (0.1-1.4); BASOPHILS % (MANUAL) 0 % (0-2); BLOOD UREA NITROGEN 137 mg/dL (7-20); EOSINOPHILS % (MANUAL) 0 % (0-6); LYMPHOCYTES % (MANUAL) 2 % (13-45); MONOCYTES % (MANUAL) 8 % (3-13); SEGMENTED NEUTROPHILS % (MAN) 90 % (42-78); TOTAL CELLS COUNTED 100
[2020-05-26 05:27] LABS: ANISOCYTOSIS 1+; OVALOCYTES 1+; PLATELET COMMENT ADEQUATE; POIKILOCYTOSIS 1+; TEAR DROP CELLS SLIGHT; TOXIC GRANULATION SLIGHT
[2020-05-26] MEDS: INSULIN REG, HUMAN 100 UNIT/ML 3 ML VIAL (PYX) SUBCUT SCH ×3 (07:39→17:15)
[2020-05-26] MEDS: ZINC SULFATE 220 MG CAPSULE NG SCH (09:00)
[2020-05-26] MEDS: DOCUSATE SODIUM 100 MG/10 ML UDC PO SCH ×2 (09:00→17:15)
[2020-05-26] MEDS: AMINO AC/PROTEIN HYDR/WHEY PRO 11 GM/45 ML PKT NG SCH ×3 (09:00→17:16)
[2020-05-26] MEDS: DEXAMETHASONE SOD PHOS INJ 10 MG/1 ML VIAL IV SCH (09:01)
[2020-05-26] MEDS: PANTOPRAZOLE SODIUM 40 MG VIAL IV SCH (09:01)
[2020-05-26] MEDS: ASCORBIC ACID 500 MG TABLET NG SCH ×2 (09:01→17:15)
[2020-05-26] MEDS: FUROSEMIDE INJ/PF 100 MG/10 ML SDV IV SCH ×2 (09:01→21:31)
--- NOTE | 2020-05-26 10:46 | PDOC CRITICAL CARE PROG REPORT ---
General Date:: 05/26/20 ICU Day:: 19 Ventilator Day:: 19 Hospital Day:: 19 Resuscitation Status: Full Code Events in the past 12 to 24 Hours:: This 54-year-old male presented to [facility] emergency department via EMS on 05/07/2020 with altered mental status. Basically, the patient has an unknown. Of unresponsiveness, as he was initially believed to be sleeping but raised concern to his when he was found to still be in the same position over 12 hours later. The reports that the his pupils were constricted at the time she called EMS. EMS arrived and found the patient to be obtunded. Narcan was given in the field. Although he was assessed to have a favorable response to Narcan initially, he subsequently demonstrated seizure- like movements on route. He was provided bag mask ventilatory support. No loss of pulse or pressure. However, in the emergency department he again demonstrated obtunded/altered mental status. He was given another dose of Narcan, which was not convincingly helpful. He was intubated in the emergency department. He was started on norepinephrine infusion for blood pressure support. Initial laboratory evaluation was compatible with acute kidney injury and rhabdomyolysis with CK total peaking at 152,203. He also had a severe metabolic acidosis with an elevated anion gap. Lactate level was elevated. Urine drug screen was positive for opiates. Alcohol level was undetectable ( reports he admits to consistent alcohol consumption for analgesic effect, although she believes his last drink was almost 7 days ago). 05/08: Remains intubated. On Levophed. 05/09: Remains intubated. ABG this a.m.: 7.41/40/79. Still on Levophed, decre asing. CK total peaked at 152,203, now 128,134. Albumin 1.9. Anuric. Creatinine 4.7. K5.4. Lactate 3.3. 05/10: Remains intubated. On propofol for sedation. Normal saline at 1 L/h all day yesterday. Still anuric. Discussed with Dr. Brown this morning. Attempting to stimulate diuresis with Lasix 100 mg IV push followed by infusion at 10 mg/h. CK total 76,434. Potassium 5.0. Creatinine 5.23. Calcium 5.8. Albumin 1.5. Chest x-ray demonstrates a widened mediastinum, more prominent today than on previous. Patient's is at the bedside and reports that this has previously been identified, reported to her, and "thoroughly worked up for a possible aneurysmal thing". She states that the entire diagnostic evaluation was unrevealing. 05/11: Remains intubated. On propofol for sedation. Got hemodialysis today. - 5 L. Still an uric despite furosemide infusion. Case discussed with Dr. Brown this morning. Platelets 62 this morning. Off insulin infusion. Off D5. Potassium 5.4 this morning. 05/12: Remains intubated. On propofol/Precedex for sedation. CK total 43,765. Had transient hypotension yesterday. No significant improvement after albumin infusion. However, injection molding machine tender reports that the patient had dramatic improvement after a large BM. Afebrile. WBC 6.2. Platelets 49. Cam isolated Enterococcus. On Zosyn/vancomycin. 05/13: Remains intubated. Off propofol. On Precedex for sedation. Respiratory viral panel revealed the patient is positive for COVID-19. Added on Decadron and remdesivir yesterday. On zinc. CK total 27,357. Afebrile. Hemoglobin 7.5. WBC 5.3. Platelets 57, slightly increased after discontinuing heparin. Heparin induced platelet antibody pending. D-dimer > 20. CRP 378. 05/14: Seen on dialysis. Stable but not responding. Lasix drip stopped-anuric. 05/15: Patient had essentially unremarkable CT of head. 05/16/2020: No significant changes in the past 24 hours. Sedation has been weaned off. 05/17/2020: No significant changes over the past 24 hours. IV fluids have been discontinued. Patient remains only minimally responsive. 05/18/2020: HD yesterday. Patient continues to have spontaneous eye opening but remains unresponsive. 05/19/2020: Patient was more responsive today and was following commands. 05/20: Less responsive today. BUN is higher. 05/20: Dialyzed again today. Still not awake. 05/22. Essentially no change 05/23: Plan to get 5-6 L off today but still not awake and BUN not decreased. 05/24: Essentially no change. Opens eyes to touch. Does not track, follow commands. 05/25: Dialysis catheter replaced over wire. Still not working. Not awake. 05/26: Groin catheter placed by Dr. Shaikh. Dr. Brown is considering GI bleeding as cause for his BUN. This however has been going on several days. There is some oozing from BM. Review of systems relevant to events:: Neurological, renal, GI. Reason for ICU Addmission:: Altered MS, Acute Resp. Failure, Opiod OD, Abnormal EKG ( wide complex ), intubated. - Medications: Medications reviewed and adjusted accordingly: Yes Vasopressors:: None Sedation:: None Physical Exam Vital Signs: Temp Pulse Resp BP Pulse Ox 98.6 F 80 12 128/73 H 100 05/26/20 06:00 05/26/20 08:10 05/26/20 08:10 05/26/20 07:22 05/26/20 08:10 Intake & Output 05/25/20 05/26/20 05/27/20 06:59 06:59 06:59 Intake Total 600 1610 Output Total 2300 3255 150 Balance -1700 -1645 -150 Weight 120.6 kg 118.3 kg Weight/Height Weight 118.3 kg Height 6 ft 6 in General appearance: PRESENT: no acute distress Head exam: PRESENT: atraumatic, normocephalic Eye exam: PRESENT: conjunctiva pink, EOMI, PERRLA. ABSENT: scleral icterus Ear exam: PRESENT: normal external ear exam Mouth exam: PRESENT: moist, tongue midline Respiratory exam: PRESENT: clear to auscultation bernard. ABSENT: rales, rhonchi, wheezes Cardiovascular exam: PRESENT: RRR. ABSENT: diastolic murmur, rubs, systolic murmur GI/Abdominal exam: PRESENT: normal bowel sounds, soft. ABSENT: distended, guarding, mass, organolmegaly, rebound, tenderness Rectal exam: PRESENT: deferred Gentrourinary exam: PRESENT: indwelling catheter Extremities exam: PRESENT: full ROM, +2 edema - Both lower legs.. ABSENT: calf tenderness, clubbing, pedal edema Neurological exam: PRESENT: other - Moves slightly both spontaneously and to touch Tubes/Lines: PRESENT: Endotracheal Tube, Central Line, Dialysis catheter, Nasogastic Tube Laboratory/Radiographs Laboratory Results: 05/26/20 04:30 05/26/20 04:30 05/23/20 05/25/20 05/26/20 05:35 20:00 04:30 WBC 23.3 H 22.3 H RBC 2.28 L 2.49 L Hgb 6.8 L 7.5 L Hct 20.6 L 22.5 L MCV 90 90 MCH 29.7 30.3 MCHC 32.8 33.6 RDW 18.0 H 17.5 H Plt Count 442 449 Seg Neutrophils % Not Reportable Carbonic Acid HCO3/H2CO3 Ratio ABG pH ABG pCO2 ABG pO2 ABG HCO3 ABG O2 Saturation ABG Base Excess FiO2 Sodium Potassium Chloride Carbon Dioxide Anion Gap BUN Creatinine Est GFR ( Amer) Glucose Calcium Phosphorus Magnesium Blood Type A NEGATIVE Antibody Screen NEGATIVE 05/26/20 05/26/20 04:30 04:30 WBC RBC Hgb Hct MCV MCH MCHC RDW Plt Count Seg Neutrophils % Carbonic Acid 1.05 HCO3/H2CO3 Ratio 21:1 ABG pH 7.43 ABG pCO2 34.9 L ABG pO2 133.5 H ABG HCO3 22.7 ABG O2 Saturation 98.8 H ABG Base Excess -1.3 FiO2 35% Sodium 138.1 Potassium 4.3 Chloride 100 Carbon Dioxide 23 Anion Gap 15 BUN 137 H Creatinine 5.64 H Est GFR ( Amer) 13 L Glucose 111 H Calcium 8.5 Phosphorus 10.0 H Magnesium 2.3 Blood Type Antibody Screen 05/07/20 05/07/20 05/08/20 20:42 20:42 04:20 Creatine Kinase 99600 H CK-MB (CK-2) 367.00 H Troponin I < 0.012 < 0.012 NT-Pro-B Natriuret Pep 282 H 05/08/20 05/08/20 05/09/20 04:20 12:15 03:38 Creatine Kinase 662409 H 606248 H CK-MB (CK-2) 323.00 H Troponin I < 0.012 NT-Pro-B Natriuret Pep 05/10/20 05/11/20 05/12/20 04:28 17:58 17:10 Creatine Kinase 49344 H 48577 H 95482 H CK-MB (CK-2) Troponin I NT-Pro-B Natriuret Pep 05/13/20 05/19/20 18:53 04:40 Creatine Kinase 14605 H 1260 H CK-MB (CK-2) Troponin I NT-Pro-B Natriuret Pep Impressions: Cervical Spine CT 05/07/20 20:51 IMPRESSION: No acute findings in the cervical spine. TECHNICAL DOCUMENTATION: Quality ID # 436: Final reports with documentation of one or more dose reduction techniques (e.g., Automated exposure control, adjustment of the mA and/or kV according to patient size, use of iterative reconstruction technique) copyright 2010 [employer]- All Rights Reserved Lower Extremity Ultrasound 05/08/20 00:00 IMPRESSION: Bilateral small vessel disease. No significant stenosis above the knee. Renal Ultrasound 05/09/20 00:00 IMPRESSION: Chronic medical renal disease without hydronephrosis. Possible nonobstructive calculus right kidney. KUB X-Ray 05/13/20 00:00 IMPRESSION: Esophagogastric tube tip and side port projects over the stomach. Head CT 05/15/20 00:00 IMPRESSION: STABLE MILD CHRONIC CHANGES. NO ACUTE FINDINGS. EVIDENCE OF ACUTE STROKE: NO. Chest X-Ray 05/24/20 12:37 IMPRESSION: 1. He would placement of nasogastric tube, tip overlies the fundus of the stomach. All labs, radiographs, diagnostic studies and EKGs were personally reviewed: Yes In addition, reports of radiographic and diagnostic studies were read: Yes Assessment and Plan - Diagnosis (1) Acute kidney failure Qualifiers: Acute renal failure type: with acute tubular necrosis Qualified Code(s): N17.0 - Acute kidney failure with tubular necrosis Is this a current diagnosis for this admission?: Yes Plan: Secondary to rhabdomyolysis. BUN/Cr unchanged. BUN about the same at 140. Needs to come down to adequately assess neuro status. (2) Rhabdomyolysis Qualifiers: Rhabdomyolysis type: traumatic Encounter type: subsequent encounter Qualified Code(s): T79.6XXD - Traumatic ischemia of muscle, subsequent encounter Is this a current diagnosis for this admission?: Yes Plan: Resolved (3) Pneumonia due to COVID-19 virus Is this a current diagnosis for this admission?: Yes Plan: We will retest today after 2 weeks. Plan Summary: No real change in plan. Await second Covid test. Critical Time Critical Time (minutes): 35 Level of Care: ICU Anticipated discharge: SNF Anticipated DC Timeframe: Other -: 1. The care of a critical patient is a dynamic process. This note is a compliance representative dealer synopsis but static in nature. The timeframe for treatments given in order is not necessarily the actual time these treatments may have been done. 2. This patient requires critical care secondary to ongoing requirements for therapy not offered or safe outside the critical care environment. Transfer to a lower level of care will result in altered life or limb morbidity and mortality. 3. Multidisciplinary rounds completed. 4. ABCDE bundle addressed.
[2020-05-26] MEDS ORDERED: HEPARIN SOD (PORCINE) 5,000 UNIT/ML 1 ML VIAL SUBCUT ONE (17:00)
[2020-05-26] MEDS: HEPARIN SOD (PORCINE) 5,000 UNIT/ML 1 ML VIAL SUBCUT SCH (21:31)
[2020-05-27] MEDS: INSULIN REG, HUMAN 100 UNIT/ML 3 ML VIAL (PYX) SUBCUT SCH ×4 (00:19→17:53)
[2020-05-27] MEDS: ALBUTEROL SULFATE 0.083% NEB 2.5 MG/3 ML AMPUL NEB SCH ×4 (02:14→20:16)
[2020-05-27 03:26] LABS: HEMATOCRIT 23.1 % (37.9-51.0); MEAN CORPUSCULAR HGB CONC 33.4 g/dL (32.0-36.0); MEAN CORPUSCULAR VOLUME 90 fl (80-97); PLATELET COUNT 464 10^3/uL (150-450); RED BLOOD COUNT 2.57 10^6/uL (4.35-5.55); RED CELL DISTRIBUTION WIDTH 17.5 % (11.5-14.0); WHITE BLOOD COUNT 20.9 10^3/uL (4.0-10.5)
[2020-05-27 03:59] LABS: HEMOGLOBIN 7.7 g/dL (13.5-17.0)
[2020-05-27 04:02] LABS: ANION GAP 16 (5-19); BLOOD UREA NITROGEN 156 mg/dL (7-20); CALCIUM 8.5 mg/dL (8.4-10.2); CARBON DIOXIDE 22 mmol/L (22-30); CHLORIDE 101 mmol/L (98-107); GLUCOSE 112 mg/dL (75-110); POTASSIUM 4.3 mmol/L (3.6-5.0)
[2020-05-27 04:09] LABS: ABSOLUTE LYMPHOCYTES# (MANUAL) 0.4 10^3/uL (0.5-4.7); ABSOLUTE MONOCYTES # (MANUAL) 1.7 10^3/uL (0.1-1.4); ANISOCYTOSIS 1+; BASOPHILS % (MANUAL) 0 % (0-2); EOSINOPHILS % (MANUAL) 0 % (0-6); LYMPHOCYTES % (MANUAL) 2 % (13-45); MONOCYTES % (MANUAL) 8 % (3-13); PLATELET CLUMPS PRESENT; PLATELET COMMENT INCREASED; SEGMENTED NEUTROPHILS % (MAN) 90 % (42-78); TOTAL CELLS COUNTED 100
[2020-05-27 04:11] LABS: POLYCHROMASIA SLIGHT
[2020-05-27 04:12] LABS: OVALOCYTES SLIGHT
[2020-05-27 04:13] LABS: TEAR DROP CELLS SLIGHT
[2020-05-27] MEDS ORDERED: MIDAZOLAM 2 MG/2 ML INJ IV ONE (04:41)
[2020-05-27] MEDS ORDERED: MIDAZOLAM 2 MG/2 ML INJ ONE (04:50)
--- NOTE | 2020-05-27 09:16 | PDOC CRITICAL CARE PROG REPORT ---
General Date:: 05/27/20 ICU Day:: 19 Ventilator Day:: 19 Hospital Day:: 20 Resuscitation Status: Full Code Events in the past 12 to 24 Hours:: This 54-year-old male presented to [facility] emergency department via EMS on 05/07/2020 with altered mental status. Basically, the patient has an unknown. Of unresponsiveness, as he was initially believed to be sleeping but raised concern to his when he was found to still be in the same position over 12 hours later. The reports that the his pupils were constricted at the time she called EMS. EMS arrived and found the patient to be obtunded. Narcan was given in the field. Although he was assessed to have a favorable response to Narcan initially, he subsequently demonstrated seizure- like movements on route. He was provided bag mask ventilatory support. No loss of pulse or pressure. However, in the emergency department he again demonstrated obtunded/altered mental status. He was given another dose of Narcan, which was not convincingly helpful. He was intubated in the emergency department. He was started on norepinephrine infusion for blood pressure support. Initial laboratory evaluation was compatible with acute kidney injury and rhabdomyolysis with CK total peaking at 152,203. He also had a severe metabolic acidosis with an elevated anion gap. Lactate level was elevated. Urine drug screen was positive for opiates. Alcohol level was undetectable ( reports he admits to consistent alcohol consumption for analgesic effect, although she believes his last drink was almost 7 days ago). 05/08: Remains intubated. On Levophed. 05/09: Remains intubated. ABG this a.m.: 7.41/40/79. Still on Levophed, decre asing. CK total peaked at 152,203, now 128,134. Albumin 1.9. Anuric. Creatinine 4.7. K5.4. Lactate 3.3. 05/10: Remains intubated. On propofol for sedation. Normal saline at 1 L/h all day yesterday. Still anuric. Discussed with Dr. Brown this morning. Attempting to stimulate diuresis with Lasix 100 mg IV push followed by infusion at 10 mg/h. CK total 76,434. Potassium 5.0. Creatinine 5.23. Calcium 5.8. Albumin 1.5. Chest x-ray demonstrates a widened mediastinum, more prominent today than on previous. Patient's is at the bedside and reports that this has previously been identified, reported to her, and "thoroughly worked up for a possible aneurysmal thing". She states that the entire diagnostic evaluation was unrevealing. 05/11: Remains intubated. On propofol for sedation. Got hemodialysis today. - 5 L. Still an uric despite furosemide infusion. Case discussed with Dr. Brown this morning. Platelets 62 this morning. Off insulin infusion. Off D5. Potassium 5.4 this morning. 05/12: Remains intubated. On propofol/Precedex for sedation. CK total 43,765. Had transient hypotension yesterday. No significant improvement after albumin infusion. However, weight shifter reports that the patient had dramatic improvement after a large BM. Afebrile. WBC 6.2. Platelets 49. Cam isolated Enterococcus. On Zosyn/vancomycin. 05/13: Remains intubated. Off propofol. On Precedex for sedation. Respiratory viral panel revealed the patient is positive for COVID-19. Added on Decadron and remdesivir yesterday. On zinc. CK total 27,357. Afebrile. Hemoglobin 7.5. WBC 5.3. Platelets 57, slightly increased after discontinuing heparin. Heparin induced platelet antibody pending. D-dimer > 20. CRP 378. 05/14: Seen on dialysis. Stable but not responding. Lasix drip stopped-anuric. 05/15: Patient had essentially unremarkable CT of head. 05/16/2020: No significant changes in the past 24 hours. Sedation has been weaned off. 05/17/2020: No significant changes over the past 24 hours. IV fluids have been discontinued. Patient remains only minimally responsive. 05/18/2020: HD yesterday. Patient continues to have spontaneous eye opening but remains unresponsive. 05/19/2020: Patient was more responsive today and was following commands. 05/20: Less responsive today. BUN is higher. 05/20: Dialyzed again today. Still not awake. 05/22. Essentially no change 05/23: Plan to get 5-6 L off today but still not awake and BUN not decreased. 05/24: Essentially no change. Opens eyes to touch. Does not track, follow commands. 05/25: Dialysis catheter replaced over wire. Still not working. Not awake. 05/26: Groin catheter placed by Dr. Shaikh. Dr. Brown is considering GI bleeding as cause for his BUN. This however has been going on several days. There is some oozing from BM. 05/27/20: BUN now 153. Red rectal bleeding noted. Rectal tube out. Review of systems relevant to events:: Neurological, renal, GI. Reason for ICU Addmission:: Altered MS, Acute Resp. Failure, Opiod OD, rhabdomyolysis, intubated. ARF - Medications: Medications reviewed and adjusted accordingly: Yes Vasopressors:: None Sedation:: Now on precedex for respiratory rate. Physical Exam Vital Signs: Temp Pulse Resp BP Pulse Ox 99.7 F 111 H 36 H 142/79 H 98 05/27/20 06:00 05/27/20 08:42 05/27/20 08:42 05/27/20 06:22 05/27/20 08:42 Intake & Output 05/26/20 05/27/20 05/28/20 06:59 06:59 06:59 Intake Total 1610 910 Output Total 3255 2995 Balance -1645 -2085 Weight 118.3 kg 116.8 kg Weight/Height Weight 116.8 kg Height 6 ft 6 in General appearance: PRESENT: no acute distress Head exam: PRESENT: atraumatic, normocephalic Eye exam: PRESENT: conjunctiva pink, EOMI, PERRLA. ABSENT: scleral icterus Ear exam: PRESENT: normal external ear exam Mouth exam: PRESENT: moist, tongue midline Respiratory exam: PRESENT: clear to auscultation bernard. ABSENT: rales, rhonchi, wheezes Cardiovascular exam: PRESENT: RRR. ABSENT: diastolic murmur, rubs, systolic murmur GI/Abdominal exam: PRESENT: normal bowel sounds, soft. ABSENT: distended, guarding, mass, organolmegaly, rebound, tenderness Rectal exam: PRESENT: deferred, heme (+) stool Gentrourinary exam: PRESENT: indwelling catheter Extremities exam: PRESENT: full ROM. ABSENT: calf tenderness, clubbing, pedal edema Musculoskeletal exam: PRESENT: normal inspection Neurological exam: PRESENT: altered, CN II-XII grossly intact, other - Opens eyes spontaneously. Moves extremities but not purposefully. Skin exam: PRESENT: dry, intact, warm. ABSENT: cyanosis, rash Tubes/Lines: PRESENT: Endotracheal Tube, Central Line, Dialysis catheter, Nasogastic Tube Laboratory/Radiographs Laboratory Results: 05/27/20 03:00 05/27/20 03:00 05/27/20 05/27/20 03:00 03:00 WBC 20.9 H RBC 2.57 L Hgb 7.7 L Hct 23.1 L MCV 90 MCH 30.0 MCHC 33.4 RDW 17.5 H Plt Count 464 H Seg Neutrophils % Not Reportable Sodium 138.8 Potassium 4.3 Chloride 101 Carbon Dioxide 22 Anion Gap 16 BUN 156 H Creatinine 6.08 H Est GFR ( Amer) 12 L Glucose 112 H Calcium 8.5 Ferritin 58.00 05/07/20 05/07/20 05/08/20 20:42 20:42 04:20 Creatine Kinase 59463 H CK-MB (CK-2) 367.00 H Troponin I < 0.012 < 0.012 NT-Pro-B Natriuret Pep 282 H 05/08/20 05/08/20 05/09/20 04:20 12:15 03:38 Creatine Kinase 679727 H 570161 H CK-MB (CK-2) 323.00 H Troponin I < 0.012 NT-Pro-B Natriuret Pep 05/10/20 05/11/20 05/12/20 04:28 17:58 17:10 Creatine Kinase 15518 H 69283 H 94630 H CK-MB (CK-2) Troponin I NT-Pro-B Natriuret Pep 05/13/20 05/19/20 18:53 04:40 Creatine Kinase 57361 H 1260 H CK-MB (CK-2) Troponin I NT-Pro-B Natriuret Pep Impressions: Cervical Spine CT 05/07/20 20:51 IMPRESSION: No acute findings in the cervical spine. TECHNICAL DOCUMENTATION: Quality ID # 436: Final reports with documentation of one or more dose reduction techniques (e.g., Automated exposure control, adjustment of the mA and/or kV according to patient size, use of iterative reconstruction technique) copyright 2011 [employer]- All Rights Reserved Lower Extremity Ultrasound 05/08/20 00:00 IMPRESSION: Bilateral small vessel disease. No significant stenosis above the knee. Renal Ultrasound 05/09/20 00:00 IMPRESSION: Chronic medical renal disease without hydronephrosis. Possible nonobstructive calculus right kidney. KUB X-Ray 05/13/20 00:00 IMPRESSION: Esophagogastric tube tip and side port projects over the stomach. Head CT 05/15/20 00:00 IMPRESSION: STABLE MILD CHRONIC CHANGES. NO ACUTE FINDINGS. EVIDENCE OF ACUTE STROKE: NO. Chest X-Ray 05/24/20 12:37 IMPRESSION: 1. He would placement of nasogastric tube, tip overlies the fundus of the stomach. All labs, radiographs, diagnostic studies and EKGs were personally reviewed: Yes In addition, reports of radiographic and diagnostic studies were read: Yes Assessment and Plan - Diagnosis (1) Acute kidney failure Qualifiers: Acute renal failure type: with acute tubular necrosis Qualified Code(s): N17.0 - Acute kidney failure with tubular necrosis Is this a current diagnosis for this admission?: Yes Plan: Still in need of HD with BUN rising. New groin catheter. (2) Rhabdomyolysis Qualifiers: Rhabdomyolysis type: traumatic Encounter type: subsequent encounter Qualified Code(s): T79.6XXD - Traumatic ischemia of muscle, subsequent encounter Is this a current diagnosis for this admission?: Yes Plan: Resolved (3) Pneumonia due to COVID-19 virus Is this a current diagnosis for this admission?: Yes Plan: Repeat testing pending. (4) LGI bleed Is this a current diagnosis for this admission?: Yes Plan: This is the first he has had evidence of bleeding. It was said to be red, indicating a lower source . Rectal tube removed and heparin stopped for now. Plan Summary: Monitor H/H for further bleeding. Needs HD Thursday. Critical Time Critical Time (minutes): 35 Level of Care: ICU Anticipated discharge: SNF Anticipated DC Timeframe: Other -: 1. The care of a critical patient is a dynamic process. This note is a contracts representative synopsis but static in nature. The timeframe for treatments given in order is not necessarily the actual time these treatments may have been done. 2. This patient requires critical care secondary to ongoing requirements for therapy not offered or safe outside the critical care environment. Transfer to a lower level of care will result in altered life or limb morbidity and mortality. 3. Multidisciplinary rounds completed. 4. ABCDE bundle addressed.
[2020-05-27] MEDS: PANTOPRAZOLE SODIUM 40 MG VIAL IV SCH (09:41)
[2020-05-27] MEDS: DEXMEDETOMIDINE IN 0.9 % NACL 400 MCG/100 ML RTUPB IV PRN ×2 (09:41→15:16)
[2020-05-27] MEDS: DEXAMETHASONE SOD PHOS INJ 10 MG/1 ML VIAL IV SCH (09:41)
[2020-05-27] MEDS: FUROSEMIDE INJ/PF 100 MG/10 ML SDV IV SCH ×2 (09:41→21:30)
[2020-05-27] MEDS: ASCORBIC ACID 500 MG TABLET NG SCH ×2 (09:42→17:54)
[2020-05-27] MEDS: ZINC SULFATE 220 MG CAPSULE NG SCH (09:42)
[2020-05-27] MEDS: AMINO AC/PROTEIN HYDR/WHEY PRO 11 GM/45 ML PKT NG SCH ×3 (09:43→17:54)
[2020-05-27] MEDS: DOCUSATE SODIUM 100 MG/10 ML UDC PO SCH ×2 (09:43→17:56)
[2020-05-28] MEDS: INSULIN REG, HUMAN 100 UNIT/ML 3 ML VIAL (PYX) SUBCUT SCH ×4 (00:19→18:40)
[2020-05-28] MEDS: DEXMEDETOMIDINE IN 0.9 % NACL 400 MCG/100 ML RTUPB IV PRN ×3 (00:19→15:31)
[2020-05-28] MEDS: ALBUTEROL SULFATE 0.083% NEB 2.5 MG/3 ML AMPUL NEB SCH ×4 (01:36→20:00)
[2020-05-28] MEDS ORDERED: EPOETIN ALFA-EPBX 2,000 UNIT, EPOETIN ALFA-EPBX 3,000 UNIT, EPOETIN ALFA-EPBX 20,000 UN... IV PRN ×4 (05:00)
[2020-05-28] MEDS ORDERED: HEPARIN SOD (PORCINE) 1,000 UNIT/ML 10 ML VIAL IV PRN (05:00)
[2020-05-28 05:46] LABS: HEMATOCRIT 21.3 % (37.9-51.0); MEAN CORPUSCULAR HEMOGLOBIN 29.8 pg (27.0-33.4); MEAN CORPUSCULAR HGB CONC 33.1 g/dL (32.0-36.0); MEAN CORPUSCULAR VOLUME 90 fl (80-97); PLATELET COUNT 402 10^3/uL (150-450); RED BLOOD COUNT 2.36 10^6/uL (4.35-5.55); RED CELL DISTRIBUTION WIDTH 18.2 % (11.5-14.0); WHITE BLOOD COUNT 15.5 10^3/uL (4.0-10.5)
[2020-05-28 05:56] LABS: ANION GAP 18 (5-19); CALCIUM 8.5 mg/dL (8.4-10.2); CARBON DIOXIDE 20 mmol/L (22-30); CHLORIDE 100 mmol/L (98-107); GLUCOSE 106 mg/dL (75-110); POTASSIUM 4.7 mmol/L (3.6-5.0)
[2020-05-28 06:03] LABS: BLOOD UREA NITROGEN 183 mg/dL (7-20)
[2020-05-28 06:16] LABS: ABSOLUTE LYMPHOCYTES# (MANUAL) 0.6 10^3/uL (0.5-4.7); ABSOLUTE MONOCYTES # (MANUAL) 0.9 10^3/uL (0.1-1.4); BASOPHILS % (MANUAL) 0 % (0-2); EOSINOPHILS % (MANUAL) 0 % (0-6); LYMPHOCYTES % (MANUAL) 4 % (13-45); MONOCYTES % (MANUAL) 6 % (3-13); NUCLEATED RED BLOOD CELLS 1 /100 WBC (0); SEGMENTED NEUTROPHILS % (MAN) 90 % (42-78); TOTAL CELLS COUNTED 100
[2020-05-28 06:19] LABS: ANISOCYTOSIS 1+; OVALOCYTES SLIGHT; PLATELET COMMENT ADEQUATE; POIKILOCYTOSIS 1+; TEAR DROP CELLS SLIGHT; TOXIC GRANULATION SLIGHT
[2020-05-28 06:48] LABS: APPEARANCE,URINE CLOUDY; BILIRUBIN,URINE NEGATIVE (NEGATIVE); COLOR,URINE YELLOW; GLUCOSE, URINE NEGATIVE (NEGATIVE); KETONES,URINE NEGATIVE (NEGATIVE); LEUKOCYTE ESTERASE,URINE SMALL (NEGATIVE); NITRITE,URINE POSITIVE (NEGATIVE); PROTEIN,URINE NEGATIVE (NEGATIVE); URINE SPECIFIC GRAVITY 1.012; UROBILINOGEN,URINE NEGATIVE mg/dL (<2.0)
[2020-05-28] MEDS: DOCUSATE SODIUM 100 MG/10 ML UDC PO SCH ×2 (09:47→18:40)
[2020-05-28] MEDS: ZINC SULFATE 220 MG CAPSULE NG SCH (11:02)
[2020-05-28] MEDS: AMINO AC/PROTEIN HYDR/WHEY PRO 11 GM/45 ML PKT NG SCH ×3 (15:04→18:39)
[2020-05-28] MEDS: FUROSEMIDE INJ/PF 100 MG/10 ML SDV IV SCH ×2 (15:27→21:50)
[2020-05-28] MEDS: PANTOPRAZOLE SODIUM 40 MG VIAL IV SCH (15:28)
[2020-05-28] MEDS: ASCORBIC ACID 500 MG TABLET NG SCH ×2 (15:28→18:40)
[2020-05-28] MEDS: DEXAMETHASONE SOD PHOS INJ 10 MG/1 ML VIAL IV SCH (15:29)
--- NOTE | 2020-05-28 16:45 | PDOC PROGRESS REPORT ---
Subjective Date:: 05/28/20 Subjective:: I am seeing the patient during dialysis this afternoon. He continues to be intu bated and still currently sedated lightly. His urine output seems to have improved for the last 3 days ranging anywhere between 1.8 to 2.4 L daily. His weight has significantly decreased: 121.6>151.6>116.3 associated with improvement of overall edema. He continues to be positive for Covid, last t ested in May 26. He continues to be on Decadron and Lasix. His blood pressure currently is on the low side and ultrafiltration is limited due to this. He does have some rectal bleeding. Reason For Visit: HYPERKALEMIA ALTERED MENTAL STATUS Physical Exam Vital Signs: Temp Pulse Resp BP Pulse Ox 98.7 F 73 26 H 106/72 98 05/28/20 13:06 05/28/20 13:55 05/28/20 13:55 05/28/20 13:06 05/28/20 13:55 Intake & Output 05/27/20 05/28/20 05/29/20 06:59 06:59 06:59 Intake Total 910 618 52 Output Total 2995 2216 480 Balance -2085 -1598 -428 Weight 116.8 kg 116.3 kg Vitals during dialysis: Blood pressure of 97/69, heart rate of 71, oxygen saturation of 98% with respiration of 14, FiO2 of 30%. Exam: General appearance: PRESENT: Intubated and sedated Head exam: PRESENT: atraumatic, normocephalic, facial edema is resolved from 2 weeks ago Eye exam: PRESENT: Eyes closed Neck exam: ABSENT: JVD Respiratory exam: PRESENT: Normal breath sounds. ABSENT: crackles, rales, rhonchi, unlabored, wheezes Cardiovascular exam: PRESENT: Regular rate rhythm -+S1, +S2. ABSENT: diastolic murmur, systolic murmur GI/Abdominal exam: PRESENT: normal bowel sounds, soft. ABSENT: guarding, mass, tenderness Extremities exam: Grade 2 bilateral lower extremity pitting edema, upper extremity edema has resolved Neurological exam: PRESENT: Sedated. Skin exam: PRESENT: dry, warm, Cardiovascular exam: PRESENT: +S1, +S2 GI/Abdominal exam: PRESENT: normal bowel sounds, soft. ABSENT: organomegaly, tenderness Results Laboratory Results: 05/28/20 05:00 05/28/20 05:00 05/28/20 05/28/20 05/28/20 05:00 05:00 05:30 WBC 15.5 H RBC 2.36 L Hgb 7.0 L Hct 21.3 L MCV 90 MCH 29.8 MCHC 33.1 RDW 18.2 H Plt Count 402 Seg Neutrophils % Not Reportable Sodium 137.7 Potassium 4.7 Chloride 100 Carbon Dioxide 20 L Anion Gap 18 BUN 183 H Creatinine 6.36 H Est GFR ( Amer) 11 L Glucose 106 Calcium 8.5 Urine Color YELLOW Urine Appearance CLOUDY Urine pH 5.0 Ur Specific [place] 1.012 Urine Protein NEGATIVE Urine Glucose (UA) NEGATIVE Urine Ketones NEGATIVE Urine Blood SMALL H Urine Nitrite POSITIVE H Ur Leukocyte Esterase SMALL H Urine WBC (Auto) 18 Urine RBC (Auto) 3 Blood Type Antibody Screen 05/28/20 11:30 WBC RBC Hgb Hct MCV MCH MCHC RDW Plt Count Seg Neutrophils % Sodium Potassium Chloride Carbon Dioxide Anion Gap BUN Creatinine Est GFR ( Amer) Glucose Calcium Urine Color Urine Appearance Urine pH Ur Specific [place] Urine Protein Urine Glucose (UA) Urine Ketones Urine Blood Urine Nitrite Ur Leukocyte Esterase Urine WBC (Auto) Urine RBC (Auto) Blood Type A NEGATIVE Antibody Screen NEGATIVE 05/07/20 05/07/20 05/08/20 20:42 20:42 04:20 Creatine Kinase 79454 H CK-MB (CK-2) 367.00 H Troponin I < 0.012 < 0.012 NT-Pro-B Natriuret Pep 282 H 05/08/20 05/08/20 05/09/20 04:20 12:15 03:38 Creatine Kinase 128848 H 860654 H CK-MB (CK-2) 323.00 H Troponin I < 0.012 NT-Pro-B Natriuret Pep 05/10/20 05/11/20 05/12/20 04:28 17:58 17:10 Creatine Kinase 73919 H 11092 H 03084 H CK-MB (CK-2) Troponin I NT-Pro-B Natriuret Pep 05/13/20 05/19/20 18:53 04:40 Creatine Kinase 18340 H 1260 H CK-MB (CK-2) Troponin I NT-Pro-B Natriuret Pep Impressions: Cervical Spine CT 05/07/20 20:51 IMPRESSION: No acute findings in the cervical spine. TECHNICAL DOCUMENTATION: Quality ID # 436: Final reports with documentation of one or more dose reduction techniques (e.g., Automated exposure control, adjustment of the mA and/or kV according to patient size, use of iterative reconstruction technique) copyright 2011 [employer]- All Rights Reserved Lower Extremity Ultrasound 05/08/20 00:00 IMPRESSION: Bilateral small vessel disease. No significant stenosis above the knee. Renal Ultrasound 05/09/20 00:00 IMPRESSION: Chronic medical renal disease without hydronephrosis. Possible nonobstructive calculus right kidney. KUB X-Ray 05/13/20 00:00 IMPRESSION: Esophagogastric tube tip and side port projects over the stomach. Head CT 05/15/20 00:00 IMPRESSION: STABLE MILD CHRONIC CHANGES. NO ACUTE FINDINGS. EVIDENCE OF ACUTE STROKE: NO. Chest X-Ray 05/24/20 12:37 IMPRESSION: 1. He would placement of nasogastric tube, tip overlies the fundus of the stomach. Assessment & Plan - Diagnosis (1) Acute kidney injury Is this a current diagnosis for this admission?: Yes Plan: Secondary to initial severe rhabdomyolysis but could also be multifactorial. Patient is found to be Covid positive on 05/12/2020 and most recently 05/26/20. Currently with improved of urine output and is nonoliguric. However his BUN continues to increase despite hemodialysis with unchanged creatinine. Other causes of elevated BUN aside from GRETCHEN include GI bleed evidence with rectal bleeding and ongoing steroid treatment. Patient is also on high catabolic rate given acute illness. We will do dialysis today for 4 hours, using the patient's dialysis catheter, with 2 potassium bath, blood flow rate of 350 mL per minute, dialysate flow rate of 600 mL per minute, ultrafiltration 1 to 2 L as tolerated, no heparin and Procrit with 25,000 units during dialysis intravenously. Patient will be monitored throughout dialysis treatment. We are going to continue dialysis support. (2) Respiratory failure with hypoxia and hypercapnia Qualifiers: Chronicity: acute Qualified Code(s): J96.01 - Acute respiratory failure with hypoxia; J96.02 - Acute respiratory failure with hypercapnia Is this a current diagnosis for this admission?: Yes Plan: On mechanical ventilation. Per revenue audit clerk. (3) Pneumonia due to COVID-19 virus Is this a current diagnosis for this admission?: Yes Plan: Patient currently being treated with IV Decadron, vitamin C, and zinc. Completed IV remdesivir. Management per revenue audit clerk. (4) Rhabdomyolysis Qualifiers: Rhabdomyolysis type: traumatic Encounter type: subsequent encounter Qualified Code(s): T79.6XXD - Traumatic ischemia of muscle, subsequent encounter Is this a current diagnosis for this admission?: Yes Plan: Patient initially presented with this. (5) Altered mental status Qualifiers: Altered mental status type: unspecified Qualified Code(s): R41.82 - Altered mental status, unspecified Is this a current diagnosis for this admission?: Yes (6) Hypoalbuminemia Is this a current diagnosis for this admission?: Yes (7) Hypocalcemia Is this a current diagnosis for this admission?: Yes Plan: Resolved. (8) Anemia Is this a current diagnosis for this admission?: Yes Plan: Patient is concomitant rectal bleeding. Hemoglobin has been persistently low and resistant to treatment with blood transfusions and Retacrit. Possibly need upper and lower endoscopy. Discussed with revenue audit clerk, Dr. Toney. (9) Abnormal LFTs Is this a current diagnosis for this admission?: Yes Plan: Could be secondary to history of alcohol dependence and underlying liver disease . (10) Enterococcus UTI Is this a current diagnosis for this admission?: Yes Plan: Treated with vancomycin. (11) EtOH dependence Qualifiers: Substance use status: unspecified alcohol-induced disorder Qualified Code(s): F10.29 - Alcohol dependence with unspecified alcohol-induced disorder Is this a current diagnosis for this admission?: Yes - Time Time with patient: 15-25 minutes
[2020-05-28] MEDS: CHOLECALCIFEROL (D3) 1,000 UNIT (25 MCG) TABLET NG SCH (18:40)
[2020-05-28 19:05] LABS: ANION GAP 10 (5-19); CALCIUM 8.6 mg/dL (8.4-10.2); CARBON DIOXIDE 27 mmol/L (22-30); CHLORIDE 100 mmol/L (98-107); GLUCOSE 113 mg/dL (75-110); POTASSIUM 4.2 mmol/L (3.6-5.0)
[2020-05-28 19:17] LABS: HEMATOCRIT 26.2 % (37.9-51.0); HEMOGLOBIN 8.7 g/dL (13.5-17.0); MEAN CORPUSCULAR HEMOGLOBIN 29.6 pg (27.0-33.4); MEAN CORPUSCULAR HGB CONC 33.1 g/dL (32.0-36.0); MEAN CORPUSCULAR VOLUME 90 fl (80-97); PLATELET COUNT 318 10^3/uL (150-450); RED BLOOD COUNT 2.92 10^6/uL (4.35-5.55); RED CELL DISTRIBUTION WIDTH 17.5 % (11.5-14.0); WHITE BLOOD COUNT 19.5 10^3/uL (4.0-10.5)
[2020-05-28 19:18] LABS: BLOOD UREA NITROGEN 112 mg/dL (7-20)
--- NOTE | 2020-05-28 19:27 | PDOC CRITICAL CARE PROG REPORT ---
General Date:: 05/28/20 ICU Day:: 20 Ventilator Day:: 20 Hospital Day:: 21 Resuscitation Status: Full Code Events in the past 12 to 24 Hours:: This 54-year-old male presented to [facility] emergency department via EMS on 05/07/2020 with altered mental status. Basically, the patient has an unknown. Of unresponsiveness, as he was initially believed to be sleeping but raised concern to his when he was found to still be in the same position over 12 hours later. The reports that the his pupils were constricted at the time she called EMS. EMS arrived and found the patient to be obtunded. Narcan was given in the field. Although he was assessed to have a favorable response to Narcan initially, he subsequently demonstrated seizure- like movements on route. He was provided bag mask ventilatory support. No loss of pulse or pressure. However, in the emergency department he again demonstrated obtunded/altered mental status. He was given another dose of Narcan, which was not convincingly helpful. He was intubated in the emergency department. He was started on norepinephrine infusion for blood pressure support. Initial laboratory evaluation was compatible with acute kidney injury and rhabdomyolysis with CK total peaking at 152,203. He also had a severe metabolic acidosis with an elevated anion gap. Lactate level was elevated. Urine drug screen was positive for opiates. Alcohol level was undetectable ( reports he admits to consistent alcohol consumption for analgesic effect, although she believes his last drink was almost 7 days ago). 05/08: Remains intubated. On Levophed. 05/09: Remains intubated. ABG this a.m.: 7.41/40/79. Still on Levophed, decre asing. CK total peaked at 152,203, now 128,134. Albumin 1.9. Anuric. Creatinine 4.7. K5.4. Lactate 3.3. 05/10: Remains intubated. On propofol for sedation. Normal saline at 1 L/h all day yesterday. Still anuric. Discussed with Dr. Brown this morning. Attempting to stimulate diuresis with Lasix 100 mg IV push followed by infusion at 10 mg/h. CK total 76,434. Potassium 5.0. Creatinine 5.23. Calcium 5.8. Albumin 1.5. Chest x-ray demonstrates a widened mediastinum, more prominent today than on previous. Patient's is at the bedside and reports that this has previously been identified, reported to her, and "thoroughly worked up for a possible aneurysmal thing". She states that the entire diagnostic evaluation was unrevealing. 05/11: Remains intubated. On propofol for sedation. Got hemodialysis today. - 5 L. Still an uric despite furosemide infusion. Case discussed with Dr. Brown this morning. Platelets 62 this morning. Off insulin infusion. Off D5. Potassium 5.4 this morning. 05/12: Remains intubated. On propofol/Precedex for sedation. CK total 43,765. Had transient hypotension yesterday. No significant improvement after albumin infusion. However, iron setter reports that the patient had dramatic improvement after a large BM. Afebrile. WBC 6.2. Platelets 49. Cam isolated Enterococcus. On Zosyn/vancomycin. 05/13: Remains intubated. Off propofol. On Precedex for sedation. Respiratory viral panel revealed the patient is positive for COVID-19. Added on Decadron and remdesivir yesterday. On zinc. CK total 27,357. Afebrile. Hemoglobin 7.5. WBC 5.3. Platelets 57, slightly increased after discontinuing heparin. Heparin induced platelet antibody pending. D-dimer > 20. CRP 378. 05/14: Seen on dialysis. Stable but not responding. Lasix drip stopped-anuric. 05/15: Patient had essentially unremarkable CT of head. 05/16/2020: No significant changes in the past 24 hours. Sedation has been weaned off. 05/17/2020: No significant changes over the past 24 hours. IV fluids have been discontinued. Patient remains only minimally responsive. 05/18/2020: HD yesterday. Patient continues to have spontaneous eye opening but remains unresponsive. 05/19/2020: Patient was more responsive today and was following commands. 05/20: Less responsive today. BUN is higher. 05/20: Dialyzed again today. Still not awake. 05/22. Essentially no change 05/23: Plan to get 5-6 L off today but still not awake and BUN not decreased. 05/24: Essentially no change. Opens eyes to touch. Does not track, follow commands. 05/25: Dialysis catheter replaced over wire. Still not working. Not awake. 05/26: Groin catheter placed by Dr. Shaikh. Dr. Brown is considering GI bleeding as cause for his BUN. This however has been going on several days. There is some oozing from BM. 05/27/20: BUN now 153. Red rectal bleeding noted. Rectal tube out. 05/28: remains intubated. On PSV 12/27. RR 32. Shows minimal response to verbal stimuli. Occasionally shows resting tremor, alternating upper expremities. Does not follow commands. For HD today. Had large BM today with modest amounts of bloody streaks. Review of systems relevant to events:: Neurological, renal, GI. Reason for ICU Addmission:: Altered MS, Acute Resp. Failure, Opiod OD, rhabdomyolysis, intubated. ARF - Medications: Medications reviewed and adjusted accordingly: Yes Vasopressors:: None Sedation:: Precedex Physical Exam Vital Signs: Temp Pulse Resp BP Pulse Ox 97.9 F 75 15 111/73 97 05/28/20 06:00 05/28/20 04:00 05/28/20 06:00 05/28/20 05:22 05/28/20 06:00 Intake & Output 05/27/20 05/28/20 05/29/20 06:59 06:59 06:59 Intake Total 910 618 52 Output Total 2994 7926 Balance -3807 -4302 52 Weight 116.8 kg 116.3 kg Weight/Height Weight 116.3 kg Height 1.98 m General appearance: PRESENT: no acute distress, well-developed, well-nourished Head exam: PRESENT: atraumatic, normocephalic Eye exam: PRESENT: conjunctiva pink, EOMI, PERRLA. ABSENT: scleral icterus Respiratory exam: PRESENT: rales - inspiratory squeaks. ABSENT: rhonchi, wheezes Cardiovascular exam: PRESENT: RRR. ABSENT: diastolic murmur, rubs, systolic murmur Pulses: PRESENT: normal dorsalis pedis pul Extremities exam: PRESENT: full ROM. ABSENT: calf tenderness, clubbing, pedal edema Musculoskeletal exam: PRESENT: normal inspection. ABSENT: deformity Skin exam: PRESENT: other - R foot has scattered small healing ulcerative lesions in the distribution of dorsalis pedis artery (starting from the distal shaft of the R tibia). Laboratory/Radiographs Laboratory Results: 05/28/20 05:00 05/28/20 05:00 05/28/20 05/28/20 05/28/20 05:00 05:00 05:30 WBC 15.5 H RBC 2.36 L Hgb 7.0 L Hct 21.3 L MCV 90 MCH 29.8 MCHC 33.1 RDW 18.2 H Plt Count 402 Seg Neutrophils % Not Reportable Sodium 137.7 Potassium 4.7 Chloride 100 Carbon Dioxide 20 L Anion Gap 18 BUN 183 H Creatinine 6.36 H Est GFR ( Amer) 11 L Glucose 106 Calcium 8.5 Urine Color YELLOW Urine Appearance CLOUDY Urine pH 5.0 Ur Specific [place] 1.012 Urine Protein NEGATIVE Urine Glucose (UA) NEGATIVE Urine Ketones NEGATIVE Urine Blood SMALL H Urine Nitrite POSITIVE H Ur Leukocyte Esterase SMALL H Urine WBC (Auto) 18 Urine RBC (Auto) 3 05/07/20 05/07/20 05/08/20 20:42 20:42 04:20 Creatine Kinase 06805 H CK-MB (CK-2) 367.00 H Troponin I < 0.012 < 0.012 NT-Pro-B Natriuret Pep 282 H 05/08/20 05/08/20 05/09/20 04:20 12:15 03:38 Creatine Kinase 799353 H 781589 H CK-MB (CK-2) 323.00 H Troponin I < 0.012 NT-Pro-B Natriuret Pep 05/10/20 05/11/20 05/12/20 04:28 17:58 17:10 Creatine Kinase 43015 H 91635 H 56325 H CK-MB (CK-2) Troponin I NT-Pro-B Natriuret Pep 05/13/20 05/19/20 18:53 04:40 Creatine Kinase 83515 H 1260 H CK-MB (CK-2) Troponin I NT-Pro-B Natriuret Pep Impressions: Cervical Spine CT 05/07/20 20:51 IMPRESSION: No acute findings in the cervical spine. TECHNICAL DOCUMENTATION: Quality ID # 436: Final reports with documentation of one or more dose reduction techniques (e.g., Automated exposure control, adjustment of the mA and/or kV according to patient size, use of iterative reconstruction technique) copyright 2011 [employer]- All Rights Reserved Lower Extremity Ultrasound 05/08/20 00:00 IMPRESSION: Bilateral small vessel disease. No significant stenosis above the knee. Renal Ultrasound 05/09/20 00:00 IMPRESSION: Chronic medical renal disease without hydronephrosis. Possible nonobstructive calculus right kidney. KUB X-Ray 05/13/20 00:00 IMPRESSION: Esophagogastric tube tip and side port projects over the stomach. Head CT 05/15/20 00:00 IMPRESSION: STABLE MILD CHRONIC CHANGES. NO ACUTE FINDINGS. EVIDENCE OF ACUTE STROKE: NO. Chest X-Ray 05/24/20 12:37 IMPRESSION: 1. He would placement of nasogastric tube, tip overlies the fundus of the stomach. All labs, radiographs, diagnostic studies and EKGs were personally reviewed: Yes In addition, reports of radiographic and diagnostic studies were read: Yes Assessment and Plan - Diagnosis (1) Pneumonia due to COVID-19 virus Is this a current diagnosis for this admission?: Yes Plan: * Repeat testing pending. * On Decadron 6 mg IV daily. * Continue vitamin C 1000 mg NG twice daily, zinc sulfate 220 mg NG daily. * Start vitamin D3 5000 units daily. (2) Endotracheally intubated Is this a current diagnosis for this admission?: Yes (3) Acute kidney injury Is this a current diagnosis for this admission?: Yes Plan: * Monitor urine output. * Nephrology recommendations appreciated: Will continue IV fluids. Continue fur osemide infusion. * Hemodialysis per nephrology. (4) Hypocalcemia Is this a current diagnosis for this admission?: Yes Plan: * Check ionized calcium in a.m. * Calcium gluconate supplementation as needed. (5) Hyperkalemia Is this a current diagnosis for this admission?: Yes (6) Altered mental status Qualifiers: Altered mental status type: stupor Qualified Code(s): R40.1 - Stupor Is this a current diagnosis for this admission?: Yes Plan: * Endotracheally intubated for airway protection. * I suspect that a significant component of this patient's altered mental status is due to uremic encephalopathy. (7) Overdose Qualifiers: Encounter type: subsequent encounter Injury intent: accidental or unintentional Qualified Code(s): T50.901D - Poisoning by unspecified drugs, medicaments and biological substances, accidental (unintentional), subsequent encounter Is this a current diagnosis for this admission?: Yes (8) Hyperglycemia Is this a current diagnosis for this admission?: Yes (9) Hypoalbuminemia Is this a current diagnosis for this admission?: Yes (10) Rhabdomyolysis Qualifiers: Rhabdomyolysis type: traumatic Encounter type: subsequent encounter Qualified Code(s): T79.6XXD - Traumatic ischemia of muscle, subsequent encounter Is this a current diagnosis for this admission?: Yes Critical Time Critical Time (minutes): 45 Level of Care: ICU -: 1. The care of a critical patient is a dynamic process. This note is a rep resentative synopsis but static in nature. The timeframe for treatments given in order is not necessarily the actual time these treatments may have been done. 2. This patient requires critical care secondary to ongoing requirements for therapy not offered or safe outside the critical care environment. Transfer to a lower level of care will result in altered life or limb morbidity and mortality. 3. Multidisciplinary rounds completed. 4. ABCDE bundle addressed.
[2020-05-28 22:39] LABS: ANION GAP 11 (5-19); BLOOD UREA NITROGEN 117 mg/dL (7-20); CALCIUM 8.7 mg/dL (8.4-10.2); CARBON DIOXIDE 25 mmol/L (22-30); CHLORIDE 100 mmol/L (98-107); GLUCOSE 130 mg/dL (75-110); POTASSIUM 4.3 mmol/L (3.6-5.0)
[2020-05-29] MEDS: DEXMEDETOMIDINE IN 0.9 % NACL 400 MCG/100 ML RTUPB IV PRN (00:05)
[2020-05-29] MEDS: INSULIN REG, HUMAN 100 UNIT/ML 3 ML VIAL (PYX) SUBCUT SCH ×4 (00:26→17:36)
[2020-05-29] MEDS: ALBUTEROL SULFATE 0.083% NEB 2.5 MG/3 ML AMPUL NEB SCH ×4 (01:39→20:23)
[2020-05-29 05:34] LABS: ARTERIAL BLOOD BASE EXCESS 0.7 mmol/L; ARTERIAL BLOOD H2CO3 1.02 mmol/L (1.05-1.35); ARTERIAL BLOOD HCO3 24.1 mmol/L (20-24); ARTERIAL BLOOD O2 SATURATION 98.3 % (94-98); ARTERIAL BLOOD PCO2 33.9 mmHg (35-45); ARTERIAL BLOOD PH 7.47 (7.35-7.45); ARTERIAL BLOOD PO2 108.5 mmHg (80-100); ARTERIAL BLOOD TOTAL CO2 25.2 mmol/L (23-27)
[2020-05-29 05:35] LABS: ARTERIAL BLOOD FIO2 30%; HEMATOCRIT 26.7 % (37.9-51.0); HEMOGLOBIN 8.9 g/dL (13.5-17.0); MEAN CORPUSCULAR HEMOGLOBIN 29.6 pg (27.0-33.4); MEAN CORPUSCULAR HGB CONC 33.3 g/dL (32.0-36.0); MEAN CORPUSCULAR VOLUME 89 fl (80-97); PLATELET COUNT 320 10^3/uL (150-450); RED CELL DISTRIBUTION WIDTH 17.8 % (11.5-14.0); WHITE BLOOD COUNT 17.5 10^3/uL (4.0-10.5)
[2020-05-29 05:53] LABS: ABSOLUTE LYMPHOCYTES# (MANUAL) 0.7 10^3/uL (0.5-4.7); ABSOLUTE MONOCYTES # (MANUAL) 0.9 10^3/uL (0.1-1.4); BASOPHILS % (MANUAL) 0 % (0-2); EOSINOPHILS % (MANUAL) 0 % (0-6); LYMPHOCYTES % (MANUAL) 4 % (13-45); MONOCYTES % (MANUAL) 5 % (3-13); SEGMENTED NEUTROPHILS % (MAN) 91 % (42-78); TOTAL CELLS COUNTED 100
[2020-05-29 05:54] LABS: TOXIC GRANULATION SLIGHT
[2020-05-29 05:55] LABS: ANISOCYTOSIS 1+; OVALOCYTES SLIGHT; PLATELET COMMENT ADEQUATE; POIKILOCYTOSIS 1+; TEAR DROP CELLS SLIGHT
[2020-05-29 06:03] LABS: PHOSPHORUS 9.4 mg/dL (2.5-4.5)
[2020-05-29 06:38] LABS: FERRITIN 62.1 ng/mL (17.9-464.0)
--- NOTE | 2020-05-29 08:24 | RADIOLOGY REPORT (SQ) ---
EXAM DESCRIPTION: CHEST SINGLE VIEW IMAGES COMPLETED DATE/TIME: 05/29/2020 7:15 am REASON FOR STUDY: ETT tube COMPARISON: 05/20/2020. EXAM PARAMETERS: NUMBER OF VIEWS: One view. TECHNIQUE: Single frontal radiographic view of the chest acquired. RADIATION DOSE: NA LIMITATIONS: None. FINDINGS: LUNGS AND PLEURA: Faint airspace disease. Improved aeration. MEDIASTINUM AND HILAR STRUCTURES: No masses. Contour normal. HEART AND VASCULAR STRUCTURES: Heart normal in size. Normal vasculature. BONES: No acute findings. HARDWARE: Stable endotracheal tube, nasogastric tube, and central line. OTHER: No other significant finding. IMPRESSION: IMPROVED APPEARANCE. TECHNICAL DOCUMENTATION: JOB ID: [id number] 2010 [employer]- All Rights Reserved Reading location - IP/workstation name: [email or web address]
[2020-05-29] MEDS: DOCUSATE SODIUM 100 MG/10 ML UDC PO SCH ×2 (10:47→17:36)
[2020-05-29] MEDS: ZINC SULFATE 220 MG CAPSULE NG SCH (10:48)
[2020-05-29] MEDS: PANTOPRAZOLE SODIUM 40 MG VIAL IV SCH (10:49)
[2020-05-29] MEDS: DEXAMETHASONE SOD PHOS INJ 10 MG/1 ML VIAL IV SCH (10:49)
[2020-05-29] MEDS: FUROSEMIDE INJ/PF 100 MG/10 ML SDV IV SCH ×2 (10:49→21:08)
[2020-05-29] MEDS: ASCORBIC ACID 500 MG TABLET NG SCH ×2 (10:49→17:36)
[2020-05-29] MEDS: AMINO AC/PROTEIN HYDR/WHEY PRO 11 GM/45 ML PKT NG SCH ×3 (10:49→17:37)
[2020-05-29] MEDS: CHOLECALCIFEROL (D3) 1,000 UNIT (25 MCG) TABLET NG SCH (17:41)
--- NOTE | 2020-05-29 19:26 | PDOC CRITICAL CARE PROG REPORT ---
General Date:: 05/29/20 ICU Day:: 21 Ventilator Day:: 21 Hospital Day:: 22 Resuscitation Status: Full Code Events in the past 12 to 24 Hours:: This 54-year-old male presented to [facility] emergency department via EMS on 05/07/2020 with altered mental status. Basically, the patient has an unknown. Of unresponsiveness, as he was initially believed to be sleeping but raised concern to his when he was found to still be in the same position over 12 hours later. The reports that the his pupils were constricted at the time she called EMS. EMS arrived and found the patient to be obtunded. Narcan was given in the field. Although he was assessed to have a favorable response to Narcan initially, he subsequently demonstrated seizure- like movements on route. He was provided bag mask ventilatory support. No loss of pulse or pressure. However, in the emergency department he again demonstrated obtunded/altered mental status. He was given another dose of Narcan, which was not convincingly helpful. He was intubated in the emergency department. He was started on norepinephrine infusion for blood pressure support. Initial laboratory evaluation was compatible with acute kidney injury and rhabdomyolysis with CK total peaking at 152,203. He also had a severe metabolic acidosis with an elevated anion gap. Lactate level was elevated. Urine drug screen was positive for opiates. Alcohol level was undetectable ( reports he admits to consistent alcohol consumption for analgesic effect, although she believes his last drink was almost 7 days ago). 05/08: Remains intubated. On Levophed. 05/09: Remains intubated. ABG this a.m.: 7.41/40/79. Still on Levophed, decre asing. CK total peaked at 152,203, now 128,134. Albumin 1.9. Anuric. Creatinine 4.7. K5.4. Lactate 3.3. 05/10: Remains intubated. On propofol for sedation. Normal saline at 1 L/h all day yesterday. Still anuric. Discussed with Dr. Brown this morning. Attempting to stimulate diuresis with Lasix 100 mg IV push followed by infusion at 10 mg/h. CK total 76,434. Potassium 5.0. Creatinine 5.23. Calcium 5.8. Albumin 1.5. Chest x-ray demonstrates a widened mediastinum, more prominent today than on previous. Patient's is at the bedside and reports that this has previously been identified, reported to her, and "thoroughly worked up for a possible aneurysmal thing". She states that the entire diagnostic evaluation was unrevealing. 05/11: Remains intubated. On propofol for sedation. Got hemodialysis today. - 5 L. Still an uric despite furosemide infusion. Case discussed with Dr. Brown this morning. Platelets 62 this morning. Off insulin infusion. Off D5. Potassium 5.4 this morning. 05/12: Remains intubated. On propofol/Precedex for sedation. CK total 43,765. Had transient hypotension yesterday. No significant improvement after albumin infusion. However, night worker reports that the patient had dramatic improvement after a large BM. Afebrile. WBC 6.2. Platelets 49. Cam isolated Enterococcus. On Zosyn/vancomycin. 05/13: Remains intubated. Off propofol. On Precedex for sedation. Respiratory viral panel revealed the patient is positive for COVID-19. Added on Decadron and remdesivir yesterday. On zinc. CK total 27,357. Afebrile. Hemoglobin 7.5. WBC 5.3. Platelets 57, slightly increased after discontinuing heparin. Heparin induced platelet antibody pending. D-dimer > 20. CRP 378. 05/14: Seen on dialysis. Stable but not responding. Lasix drip stopped-anuric. 05/15: Patient had essentially unremarkable CT of head. 05/16/2020: No significant changes in the past 24 hours. Sedation has been weaned off. 05/17/2020: No significant changes over the past 24 hours. IV fluids have been discontinued. Patient remains only minimally responsive. 05/18/2020: HD yesterday. Patient continues to have spontaneous eye opening but remains unresponsive. 05/19/2020: Patient was more responsive today and was following commands. 05/20: Less responsive today. BUN is higher. 05/20: Dialyzed again today. Still not awake. 05/22. Essentially no change 05/23: Plan to get 5-6 L off today but still not awake and BUN not decreased. 05/24: Essentially no change. Opens eyes to touch. Does not track, follow commands. 05/25: Dialysis catheter replaced over wire. Still not working. Not awake. 05/26: Groin catheter placed by Dr. Shaikh. Dr. Brown is considering GI bleeding as cause for his BUN. This however has been going on several days. There is some oozing from BM. 05/27/20: BUN now 153. Red rectal bleeding noted. Rectal tube out. 05/28: remains intubated. On PSV 8/. RR 32. Shows minimal response to verbal stimuli. Occasionally shows resting tremor, alternating upper expremities. Does not follow commands. For HD today. Had large BM today with modest amounts of bloody streaks. 05/29: remains intubated. of sedation. on PSV 8/. awake but does not follow commands. brisk cough. gag intact. withdraws to pain x 4 extremitites. intermittent resting tremor. BM again last night. FMS was placed. off heparin due to concerns for GI bleed, but no overt bloody GI output. Review of systems relevant to events:: Neurological, renal, GI. Reason for ICU Addmission:: Altered MS, Acute Resp. Failure, Opiod OD, rhabdomyolysis, intubated. ARF - Medications: Medications reviewed and adjusted accordingly: Yes Vasopressors:: None Sedation:: Precedex Physical Exam Vital Signs: Temp Pulse Resp BP Pulse Ox 99.5 F 113 H 17 140/86 H 97 05/29/20 10:00 05/29/20 10:00 05/29/20 10:30 05/29/20 10:00 05/29/20 10:30 Intake & Output 05/28/20 05/29/20 05/30/20 06:59 06:59 06:59 Intake Total 618 1493 Output Total 8190 3163 450 Balance -8487 -9462 -450 Weight 116.3 kg 113.3 kg Weight/Height Weight 113.3 kg Height 1.98 m General appearance: PRESENT: no acute distress, well-developed, well-nourished Head exam: PRESENT: atraumatic, normocephalic Eye exam: PRESENT: conjunctiva pink, EOMI, PERRLA. ABSENT: scleral icterus Neck exam: ABSENT: carotid bruit, JVD, lymphadenopathy, thyromegaly Respiratory exam: PRESENT: clear to auscultation bernard, symmetrical. ABSENT: rales, rhonchi, wheezes Cardiovascular exam: PRESENT: RRR, tachycardia. ABSENT: diastolic murmur, rubs, systolic murmur Pulses: PRESENT: normal dorsalis pedis pul GI/Abdominal exam: PRESENT: normal bowel sounds, soft. ABSENT: distended, guarding, mass, organolmegaly, rebound, tenderness Rectal exam: ABSENT: black stool Extremities exam: PRESENT: full ROM. ABSENT: calf tenderness, clubbing, pedal edema Musculoskeletal exam: PRESENT: normal inspection. ABSENT: deformity Neurological exam: PRESENT: awake, CN II-XII grossly intact, motor sensory deficit, other - withdraws to pain x 4 extremities. ABSENT: reflexes normal Psychiatric exam: ABSENT: agitated, anxious Skin exam: PRESENT: dry, intact, warm. ABSENT: cyanosis, rash Tubes/Lines: PRESENT: Endotracheal Tube, Central Line - R IJ, Dialysis catheter - R fem, Nasogastic Tube Laboratory/Radiographs Laboratory Results: 05/29/20 05:10 05/28/20 21:53 05/28/20 05/28/20 05/28/20 11:30 18:30 18:30 WBC RBC Hgb Hct MCV MCH MCHC RDW Plt Count Seg Neutrophils % Carbonic Acid HCO3/H2CO3 Ratio ABG pH ABG pCO2 ABG pO2 ABG HCO3 ABG O2 Saturation ABG Base Excess FiO2 Sodium 136.6 L Potassium 4.2 Chloride 100 Carbon Dioxide 27 Anion Gap 10 BUN 112 H D Creatinine 3.93 H Est GFR ( Amer) 19 L Glucose 113 H Calcium 8.6 Ionized Calcium Charles 1.10 L Phosphorus Magnesium Ferritin C-Reactive Protein Blood Type A NEGATIVE Antibody Screen NEGATIVE 05/28/20 05/28/20 05/29/20 18:35 21:53 05:10 WBC 19.5 H RBC 2.92 L Hgb 8.7 L Hct 26.2 L MCV 90 MCH 29.6 MCHC 33.1 RDW 17.5 H Plt Count 318 Seg Neutrophils % Carbonic Acid HCO3/H2CO3 Ratio ABG pH ABG pCO2 ABG pO2 ABG HCO3 ABG O2 Saturation ABG Base Excess FiO2 Sodium 136.0 L Potassium 4.3 Chloride 100 Carbon Dioxide 25 Anion Gap 11 BUN 117 H Creatinine 4.19 H Est GFR ( Amer) 18 L Glucose 130 H Calcium 8.7 Ionized Calcium Charles Phosphorus 9.4 H Magnesium 2.2 Ferritin 62.10 C-Reactive Protein Blood Type Antibody Screen 05/29/20 05/29/20 05/29/20 05:10 05:10 08:35 WBC 17.5 H RBC 3.00 L Hgb 8.9 L Hct 26.7 L MCV 89 MCH 29.6 MCHC 33.3 RDW 17.8 H Plt Count 320 Seg Neutrophils % Not Reportable Carbonic Acid 1.02 L HCO3/H2CO3 Ratio 23:1 ABG pH 7.47 H ABG pCO2 33.9 L ABG pO2 108.5 H ABG HCO3 24.1 H ABG O2 Saturation 98.3 H ABG Base Excess 0.7 FiO2 30% Sodium Potassium Chloride Carbon Dioxide Anion Gap BUN Creatinine Est GFR ( Amer) Glucose Calcium Ionized Calcium Charles Phosphorus Magnesium Ferritin C-Reactive Protein 31.4 H Blood Type Antibody Screen 05/24/20 08:00 Blood Blood Culture - Final NO GROWTH IN 5 DAYS 05/24/20 04:55 Blood Blood Culture - Final NO GROWTH IN 5 DAYS 05/07/20 05/07/20 05/08/20 20:42 20:42 04:20 Creatine Kinase 21241 H CK-MB (CK-2) 367.00 H Troponin I < 0.012 < 0.012 NT-Pro-B Natriuret Pep 282 H 05/08/20 05/08/20 05/09/20 04:20 12:15 03:38 Creatine Kinase 823409 H 742625 H CK-MB (CK-2) 323.00 H Troponin I < 0.012 NT-Pro-B Natriuret Pep 05/10/20 05/11/20 05/12/20 04:28 17:58 17:10 Creatine Kinase 35277 H 46549 H 26694 H CK-MB (CK-2) Troponin I NT-Pro-B Natriuret Pep 05/13/20 05/19/20 18:53 04:40 Creatine Kinase 85820 H 1260 H CK-MB (CK-2) Troponin I NT-Pro-B Natriuret Pep Impressions: Cervical Spine CT 05/07/20 20:51 IMPRESSION: No acute findings in the cervical spine. TECHNICAL DOCUMENTATION: Quality ID # 436: Final reports with documentation of one or more dose reduction techniques (e.g., Automated exposure control, adjustment of the mA and/or kV according to patient size, use of iterative reconstruction technique) copyright 2011 [employer] ([employer] All Rights Reserved Lower Extremity Ultrasound 05/08/20 00:00 IMPRESSION: Bilateral small vessel disease. No significant stenosis above the knee. Renal Ultrasound 05/09/20 00:00 IMPRESSION: Chronic medical renal disease without hydronephrosis. Possible nonobstructive calculus right kidney. KUB X-Ray 05/13/20 00:00 IMPRESSION: Esophagogastric tube tip and side port projects over the stomach. Head CT 05/15/20 00:00 IMPRESSION: STABLE MILD CHRONIC CHANGES. NO ACUTE FINDINGS. EVIDENCE OF ACUTE STROKE: NO. Chest X-Ray 05/29/20 05:00 IMPRESSION: IMPROVED APPEARANCE. All labs, radiographs, diagnostic studies and EKGs were personally reviewed: Yes In addition, reports of radiographic and diagnostic studies were read: Yes Assessment and Plan - Diagnosis (1) Pneumonia due to COVID-19 virus Is this a current diagnosis for this admission?: Yes Plan: * Repeat COVID 19 testing was positive. * On Decadron 6 mg IV daily. * Continue vitamin C 1000 mg NG twice daily, zinc sulfate 220 mg NG daily, vitamin D3 5000 units daily. (2) Endotracheally intubated Is this a current diagnosis for this admission?: Yes Plan: * Extubate today (3) Acute kidney injury Is this a current diagnosis for this admission?: Yes Plan: * Monitor urine output. * Nephrology recommendations appreciated: Will continue IV fluids. Continue furosemide infusion. * Hemodialysis per nephrology. (4) Hypocalcemia Is this a current diagnosis for this admission?: Yes (5) Hyperkalemia Is this a current diagnosis for this admission?: Yes (6) Altered mental status Qualifiers: Altered mental status type: stupor Qualified Code(s): R40.1 - Stupor Is this a current diagnosis for this admission?: Yes (7) Overdose Qualifiers: Encounter type: subsequent encounter Injury intent: accidental or unintentional Qualified Code(s): T50.901D - Poisoning by unspecified drugs, medicaments and biological substances, accidental (unintentional), subsequent encounter Is this a current diagnosis for this admission?: Yes (8) Hyperglycemia Is this a current diagnosis for this admission?: Yes (9) Hypoalbuminemia Is this a current diagnosis for this admission?: Yes (10) Rhabdomyolysis Qualifiers: Rhabdomyolysis type: traumatic Encounter type: subsequent encounter Qualified Code(s): T79.6XXD - Traumatic ischemia of muscle, subsequent encounter Is this a current diagnosis for this admission?: Yes Critical Time Critical Time (minutes): 60 Level of Care: ICU -: 1. The care of a critical patient is a dynamic process. This note is a access services representative synopsis but static in nature. The timeframe for treatments given in order is not necessarily the actual time these treatments may have been done. 2. This patient requires critical care secondary to ongoing requirements for therapy not offered or safe outside the critical care environment. Transfer to a lower level of care will result in altered life or limb morbidity and mortality. 3. Multidisciplinary rounds completed. 4. ABCDE bundle addressed.
[2020-05-29] MEDS ORDERED: EPOETIN ALFA-EPBX 2,000 UNIT, EPOETIN ALFA-EPBX 3,000 UNIT, EPOETIN ALFA-EPBX 20,000 UN... IV PRN ×4 (22:54)
[2020-05-30] MEDS: ALBUTEROL SULFATE 0.083% NEB 2.5 MG/3 ML AMPUL NEB SCH ×2 (02:08→08:55)
[2020-05-30] MEDS ORDERED: HEPARIN SOD (PORCINE) 1,000 UNIT/ML 10 ML VIAL IV PRN (05:00)
[2020-05-30] MEDS ORDERED: NORMAL SALINE 1000 ML 1,000 ML IV PRN (05:00)
[2020-05-30] MEDS: INSULIN REG, HUMAN 100 UNIT/ML 3 ML VIAL (PYX) SUBCUT SCH ×5 (05:50→23:53)
[2020-05-30 06:23] LABS: APPEARANCE,URINE CLEAR; BILIRUBIN,URINE NEGATIVE (NEGATIVE); COLOR,URINE YELLOW; GLUCOSE, URINE NEGATIVE (NEGATIVE); KETONES,URINE NEGATIVE (NEGATIVE); LEUKOCYTE ESTERASE,URINE TRACE (NEGATIVE); NITRITE,URINE NEGATIVE (NEGATIVE); PROTEIN,URINE NEGATIVE (NEGATIVE); URINE SPECIFIC GRAVITY 1.009; UROBILINOGEN,URINE NEGATIVE mg/dL (<2.0)
[2020-05-30 06:24] LABS: HEMATOCRIT 27.1 % (37.9-51.0); HEMOGLOBIN 8.9 g/dL (13.5-17.0); MEAN CORPUSCULAR HEMOGLOBIN 29.6 pg (27.0-33.4); MEAN CORPUSCULAR VOLUME 90 fl (80-97); PLATELET COUNT 340 10^3/uL (150-450); RED BLOOD COUNT 3.02 10^6/uL (4.35-5.55); RED CELL DISTRIBUTION WIDTH 17.3 % (11.5-14.0); WHITE BLOOD COUNT 17.8 10^3/uL (4.0-10.5)
[2020-05-30 07:01] LABS: ALBUMIN 2.7 g/dL (3.5-5.0); ANION GAP 14 (5-19); CALCIUM 9.4 mg/dL (8.4-10.2); CARBON DIOXIDE 26 mmol/L (22-30); CHLORIDE 100 mmol/L (98-107); GLUCOSE 110 mg/dL (75-110); POTASSIUM 3.8 mmol/L (3.6-5.0)
[2020-05-30 07:08] LABS: BLOOD UREA NITROGEN 141 mg/dL (7-20)
[2020-05-30] MEDS ORDERED: EPOETIN ALFA-EPBX 2,000 UNIT, EPOETIN ALFA-EPBX 3,000 UNIT, EPOETIN ALFA-EPBX 20,000 UN... IV PRN ×4 (07:26)
[2020-05-30] MEDS: DOCUSATE SODIUM 100 MG/10 ML UDC PO SCH ×2 (10:48→17:39)
[2020-05-30] MEDS: AMINO AC/PROTEIN HYDR/WHEY PRO 11 GM/45 ML PKT NG SCH ×3 (10:49→19:23)
[2020-05-30] MEDS: DEXAMETHASONE SOD PHOS INJ 10 MG/1 ML VIAL IV SCH (10:49)
[2020-05-30] MEDS: FUROSEMIDE INJ/PF 100 MG/10 ML SDV IV SCH ×2 (10:50→21:33)
[2020-05-30] MEDS: ASCORBIC ACID 500 MG TABLET NG SCH ×2 (10:51→17:39)
[2020-05-30] MEDS: CHOLECALCIFEROL (D3) 1,000 UNIT (25 MCG) TABLET NG SCH (10:52)
--- NOTE | 2020-05-30 12:20 | PDOC CRITICAL CARE PROG REPORT ---
General Date:: 05/30/20 ICU Day:: 22 Ventilator Day:: 22 Hospital Day:: 23 Resuscitation Status: Full Code Events in the past 12 to 24 Hours:: This 54-year-old male presented to [facility] emergency department via EMS on 05/07/2020 with altered mental status. Basically, the patient has an unknown. Of unresponsiveness, as he was initially believed to be sleeping but raised concern to his when he was found to still be in the same position over 12 hours later. The reports that the his pupils were constricted at the time she called EMS. EMS arrived and found the patient to be obtunded. Narcan was given in the field. Although he was assessed to have a favorable response to Narcan initially, he subsequently demonstrated seizure- like movements on route. He was provided bag mask ventilatory support. No loss of pulse or pressure. However, in the emergency department he again demonstrated obtunded/altered mental status. He was given another dose of Narcan, which was not convincingly helpful. He was intubated in the emergency department. He was started on norepinephrine infusion for blood pressure support. Initial laboratory evaluation was compatible with acute kidney injury and rhabdomyolysis with CK total peaking at 152,203. He also had a severe metabolic acidosis with an elevated anion gap. Lactate level was elevated. Urine drug screen was positive for opiates. Alcohol level was undetectable ( reports he admits to consistent alcohol consumption for analgesic effect, although she believes his last drink was almost 7 days ago). 05/08: Remains intubated. On Levophed. 05/09: Remains intubated. ABG this a.m.: 7.41/40/79. Still on Levophed, decre asing. CK total peaked at 152,203, now 128,134. Albumin 1.9. Anuric. Creatinine 4.7. K5.4. Lactate 3.3. 05/10: Remains intubated. On propofol for sedation. Normal saline at 1 L/h all day yesterday. Still anuric. Discussed with Dr. Brown this morning. Attempting to stimulate diuresis with Lasix 100 mg IV push followed by infusion at 10 mg/h. CK total 76,434. Potassium 5.0. Creatinine 5.23. Calcium 5.8. Albumin 1.5. Chest x-ray demonstrates a widened mediastinum, more prominent today than on previous. Patient's is at the bedside and reports that this has previously been identified, reported to her, and "thoroughly worked up for a possible aneurysmal thing". She states that the entire diagnostic evaluation was unrevealing. 05/11: Remains intubated. On propofol for sedation. Got hemodialysis today. - 5 L. Still an uric despite furosemide infusion. Case discussed with Dr. Brown this morning. Platelets 62 this morning. Off insulin infusion. Off D5. Potassium 5.4 this morning. 05/12: Remains intubated. On propofol/Precedex for sedation. CK total 43,765. Had transient hypotension yesterday. No significant improvement after albumin infusion. However, welder 2nd shift reports that the patient had dramatic improvement after a large BM. Afebrile. WBC 6.2. Platelets 49. Cam isolated Enterococcus. On Zosyn/vancomycin. 05/13: Remains intubated. Off propofol. On Precedex for sedation. Respiratory viral panel revealed the patient is positive for COVID-19. Added on Decadron and remdesivir yesterday. On zinc. CK total 27,357. Afebrile. Hemoglobin 7.5. WBC 5.3. Platelets 57, slightly increased after discontinuing heparin. Heparin induced platelet antibody pending. D-dimer > 20. CRP 378. 05/14: Seen on dialysis. Stable but not responding. Lasix drip stopped-anuric. 05/15: Patient had essentially unremarkable CT of head. 05/16/2020: No significant changes in the past 24 hours. Sedation has been weaned off. 05/17/2020: No significant changes over the past 24 hours. IV fluids have been discontinued. Patient remains only minimally responsive. 05/18/2020: HD yesterday. Patient continues to have spontaneous eye opening but remains unresponsive. 05/19/2020: Patient was more responsive today and was following commands. 05/20: Less responsive today. BUN is higher. 05/20: Dialyzed again today. Still not awake. 05/22. Essentially no change 05/23: Plan to get 5-6 L off today but still not awake and BUN not decreased. 05/24: Essentially no change. Opens eyes to touch. Does not track, follow commands. 05/25: Dialysis catheter replaced over wire. Still not working. Not awake. 05/26: Groin catheter placed by Dr. Shaikh. Dr. Brown is considering GI bleeding as cause for his BUN. This however has been going on several days. There is some oozing from BM. 05/27/20: BUN now 153. Red rectal bleeding noted. Rectal tube out. 05/28: remains intubated. On PSV 8/5. RR 32. Shows minimal response to verbal stimuli. Occasionally shows resting tremor, alternating upper expremities. Does not follow commands. For HD today. Had large BM today with modest amounts of bloody streaks. 05/29: remains intubated. of sedation. on PSV 8/. awake but does not follow commands. brisk cough. gag intact. withdraws to pain x 4 extremitites. intermittent resting tremor. BM again last night. FMS was placed. off heparin due to concerns for GI bleed, but no overt bloody GI output. 05/30: successfully extubated yesterday morning. on 2 LPM. SpO2 100%. awake, alert. generalized weakness. no significant neurologic change in the interim. Review of systems relevant to events:: Neurological, renal, GI. Reason for ICU Addmission:: Altered MS, Acute Resp. Failure, Opiod OD, rhabdomyolysis, intubated. ARF - Medications: Medications reviewed and adjusted accordingly: Yes Vasopressors:: None Sedation:: Precedex Physical Exam Vital Signs: Temp Pulse Resp BP Pulse Ox 99 F 89 19 129/81 H 100 05/29/20 18:00 05/30/20 08:55 05/30/20 11:00 05/30/20 10:56 05/30/20 11:00 Intake & Output 05/29/20 05/30/20 05/31/20 06:59 06:59 06:59 Intake Total 1493 895 120 Output Total 3167 4050 1100 Balance -8485 -9431 -980 Weight 113.3 kg 111.6 kg Weight/Height Weight 111.6 kg Height 1.98 m General appearance: PRESENT: no acute distress, well-developed, well-nourished Head exam: PRESENT: atraumatic, normocephalic Eye exam: PRESENT: conjunctiva pink, EOMI, PERRLA. ABSENT: scleral icterus Mouth exam: PRESENT: moist, tongue midline Neck exam: ABSENT: carotid bruit, JVD, lymphadenopathy, thyromegaly Respiratory exam: PRESENT: clear to auscultation bernard. ABSENT: rales, rhonchi, wheezes Cardiovascular exam: PRESENT: RRR. ABSENT: diastolic murmur, rubs, systolic murmur Pulses: PRESENT: normal dorsalis pedis pul GI/Abdominal exam: PRESENT: normal bowel sounds, soft. ABSENT: distended, guarding, mass, organolmegaly, rebound, tenderness Gentrourinary exam: PRESENT: indwelling catheter Extremities exam: PRESENT: full ROM. ABSENT: calf tenderness, clubbing, pedal edema Musculoskeletal exam: PRESENT: normal inspection, other - bulk atrophy. ABSENT: deformity Neurological exam: PRESENT: awake, reflexes normal, CN II-XII grossly intact, aphasic, other - generalized motor weakness Psychiatric exam: ABSENT: agitated, anxious Skin exam: PRESENT: dry, intact, warm, other - L posterior patellar eschar. ABSENT: cyanosis, rash Tubes/Lines: PRESENT: Central Line - R IJ, Nasogastic Tube Laboratory/Radiographs Laboratory Results: 05/30/20 05:48 05/30/20 05:48 05/30/20 05/30/20 05/30/20 05:48 05:48 05:48 WBC 17.8 H RBC 3.02 L Hgb 8.9 L Hct 27.1 L MCV 90 MCH 29.6 MCHC 33.0 RDW 17.3 H Plt Count 340 Sodium 139.5 Potassium 3.8 Chloride 100 Carbon Dioxide 26 Anion Gap 14 BUN 141 H Creatinine 4.89 H Est GFR ( Amer) 15 L Glucose 110 Calcium 9.4 Magnesium 2.3 Albumin 2.7 L Urine Color YELLOW Urine Appearance CLEAR Urine pH 6.0 Ur Specific [place] 1.009 Urine Protein NEGATIVE Urine Glucose (UA) NEGATIVE Urine Ketones NEGATIVE Urine Blood NEGATIVE Urine Nitrite NEGATIVE Ur Leukocyte Esterase TRACE H Urine WBC (Auto) 3 Urine RBC (Auto) 3 05/24/20 08:00 Blood Blood Culture - Final NO GROWTH IN 5 DAYS 05/07/20 05/07/20 05/08/20 20:42 20:42 04:20 Creatine Kinase 78505 H CK-MB (CK-2) 367.00 H Troponin I < 0.012 < 0.012 NT-Pro-B Natriuret Pep 282 H 05/08/20 05/08/20 05/09/20 04:20 12:15 03:38 Creatine Kinase 821994 H 417611 H CK-MB (CK-2) 323.00 H Troponin I < 0.012 NT-Pro-B Natriuret Pep 05/10/20 05/11/20 05/12/20 04:28 17:58 17:10 Creatine Kinase 37811 H 71773 H 18184 H CK-MB (CK-2) Troponin I NT-Pro-B Natriuret Pep 05/13/20 05/19/20 18:53 04:40 Creatine Kinase 99670 H 1260 H CK-MB (CK-2) Troponin I NT-Pro-B Natriuret Pep Impressions: Cervical Spine CT 05/07/20 20:51 IMPRESSION: No acute findings in the cervical spine. TECHNICAL DOCUMENTATION: Quality ID # 436: Final reports with documentation of one or more dose reduction techniques (e.g., Automated exposure control, adjustment of the mA and/or kV according to patient size, use of iterative reconstruction technique) copyright 2011 [employer]- All Rights Reserved Lower Extremity Ultrasound 05/08/20 00:00 IMPRESSION: Bilateral small vessel disease. No significant stenosis above the knee. Renal Ultrasound 05/09/20 00:00 IMPRESSION: Chronic medical renal disease without hydronephrosis. Possible nonobstructive calculus right kidney. KUB X-Ray 05/13/20 00:00 IMPRESSION: Esophagogastric tube tip and side port projects over the stomach. Head CT 05/15/20 00:00 IMPRESSION: STABLE MILD CHRONIC CHANGES. NO ACUTE FINDINGS. EVIDENCE OF ACUTE STROKE: NO. Chest X-Ray 05/29/20 05:00 IMPRESSION: IMPROVED APPEARANCE. All labs, radiographs, diagnostic studies and EKGs were personally reviewed: Yes In addition, reports of radiographic and diagnostic studies were read: Yes Assessment and Plan - Diagnosis (1) Pneumonia due to COVID-19 virus Is this a current diagnosis for this admission?: Yes Plan: * Repeat COVID 19 testing was positive. * On Decadron 6 mg IV daily. * Continue vitamin C 1000 mg NG twice daily, zinc sulfate 220 mg NG daily, vitamin D3 5000 units daily. (2) Uremic encephalopathy Is this a current diagnosis for this admission?: Yes (3) Acute kidney injury Is this a current diagnosis for this admission?: Yes Plan: * Monitor urine output. * Nephrology recommendations appreciated: Will continue IV fluids. * Hemodialysis per nephrology. (4) Altered mental status Qualifiers: Altered mental status type: stupor Qualified Code(s): R40.1 - Stupor Is this a current diagnosis for this admission?: Yes Plan: * Endotracheally intubated for airway protection. Successfully extubated. * I suspect that a significant component of this patient's altered mental status is due to uremic encephalopathy. * Head CT on 05/07/2020 and again on 05/15/2020 demonstrated stable, mild chronic changes. No acute findings. (5) Overdose Qualifiers: Encounter type: subsequent encounter Injury intent: accidental or unintentional Qualified Code(s): T50.901D - Poisoning by unspecified drugs, medicaments and biological substances, accidental (unintentional), subsequent encounter Is this a current diagnosis for this admission?: Yes (6) Hyperglycemia Is this a current diagnosis for this admission?: Yes (7) Hypoalbuminemia Is this a current diagnosis for this admission?: Yes (8) Rhabdomyolysis Qualifiers: Rhabdomyolysis type: traumatic Encounter type: subsequent encounter Qualified Code(s): T79.6XXD - Traumatic ischemia of muscle, subsequent encounter Is this a current diagnosis for this admission?: Yes (9) Endotracheally intubated Is this a current diagnosis for this admission?: Yes (10) Hypocalcemia Is this a current diagnosis for this admission?: Yes (11) Hyperkalemia Is this a current diagnosis for this admission?: Yes Plan Summary: Okay to transfer to the floor from pulmonary standpoint. Critical Time Critical Time (minutes): 45 Level of Care: ICU -: 1. The care of a critical patient is a dynamic process. This note is a customer service representative synopsis but static in nature. The timeframe for treatments given in order is not necessarily the actual time these treatments may have been done. 2. This patient requires critical care secondary to ongoing requirements for therapy not offered or safe outside the critical care environment. Transfer to a lower level of care will result in altered life or limb morbidity and mortality. 3. Multidisciplinary rounds completed. 4. ABCDE bundle addressed.
[2020-05-30] MEDS: ZINC SULFATE 220 MG CAPSULE NG SCH (12:36)
[2020-05-30] MEDS: COLLAGENASE CLOSTRIDIUM HIST. OINT 30 GM TP SCH ×2 (13:12→21:34)
[2020-05-30] MEDS: PANTOPRAZOLE SODIUM 40 MG VIAL IV SCH (13:12)
[2020-05-30] MEDS: NEOMY/BACITRAC ZN/POLY OINT 15 GM TP SCH ×2 (13:13→17:55)
[2020-05-30] MEDS: HEPARIN SOD (PORCINE) 5,000 UNIT/ML 1 ML VIAL SUBCUT SCH ×2 (13:14→21:34)
[2020-05-30] MEDS ORDERED: ALBUTEROL SULFATE 0.083% NEB 2.5 MG/3 ML AMPUL NEB PRN (13:31)
--- NOTE | 2020-05-30 23:13 | PDOC PROGRESS REPORT ---
Subjective Date:: 05/30/20 Subjective:: I am seeing the patient during dialysis this morning. Patient was successfully extubated yesterday morning and the patient is currently on nasal cannula and has been tolerating it well. He is hemodynamically stable. He is awake with his eyes open but basically obtunded and not much once. His urine output is significantly improved to 4000 mL for the last 24 hours. However his BUN and creatinine continues to increase in between dialysis treatments. Currently he is very comfortable receiving dialysis. Reason For Visit: HYPERKALEMIA ALTERED MENTAL STATUS Physical Exam Vital Signs: Temp Pulse Resp BP Pulse Ox 99 F 107 H 20 131/84 H 99 05/29/20 18:00 05/30/20 08:00 05/30/20 08:00 05/30/20 08:00 05/30/20 08:00 Intake & Output 05/29/20 05/30/20 05/31/20 06:59 06:59 06:59 Intake Total 1493 895 90 Output Total 3165 4050 100 Balance -1672 -3155 -10 Weight 113.3 kg 111.6 kg Vitals during dialysis: Blood pressure 136/88, heart rate of 91, respiratory rate of 19, oxygen saturation of 99%, blood flow rate of 330 mm/min and dialysate flow rate of 800 mL/min. Exam: General appearance: PRESENT: no acute distress, cooperative, fairly developed and fairly nourished Head exam: PRESENT: atraumatic, normocephalic Eye exam: PRESENT: conjunctiva pale, PERRLA. ABSENT: scleral icterus Neck exam: ABSENT: JVD Respiratory exam: PRESENT: Normal breath sounds. ABSENT: crackles, rales, rhonchi, unlabored, wheezes Cardiovascular exam: PRESENT: Regular rate rhythm -+S1, +S2. ABSENT: diastolic murmur, systolic murmur GI/Abdominal exam: PRESENT: normal bowel sounds, soft. ABSENT: guarding, mass, tenderness Extremities exam: Significantly improved grade 1 bilateral lower extremity edema mostly just in the feet. Edema and facial edema has completely resolved. Neurological exam: PRESENT: alert, awake, however does not have much response to questions nor follow commands Skin exam: PRESENT: dry, warm, Cardiovascular exam: PRESENT: +S1, +S2 GI/Abdominal exam: PRESENT: normal bowel sounds, soft. ABSENT: organomegaly, tenderness Results Laboratory Results: 05/30/20 05:48 05/30/20 05:48 05/29/20 05/30/20 05/30/20 08:35 05:48 05:48 WBC 17.8 H RBC 3.02 L Hgb 8.9 L Hct 27.1 L MCV 90 MCH 29.6 MCHC 33.0 RDW 17.3 H Plt Count 340 Sodium 139.5 Potassium 3.8 Chloride 100 Carbon Dioxide 26 Anion Gap 14 BUN 141 H Creatinine 4.89 H Est GFR ( Amer) 15 L Glucose 110 Calcium 9.4 Magnesium 2.3 C-Reactive Protein 31.4 H Albumin 2.7 L Urine Color Urine Appearance Urine pH Ur Specific [place] Urine Protein Urine Glucose (UA) Urine Ketones Urine Blood Urine Nitrite Ur Leukocyte Esterase Urine WBC (Auto) Urine RBC (Auto) 05/30/20 05:48 WBC RBC Hgb Hct MCV MCH MCHC RDW Plt Count Sodium Potassium Chloride Carbon Dioxide Anion Gap BUN Creatinine Est GFR ( Amer) Glucose Calcium Magnesium C-Reactive Protein Albumin Urine Color YELLOW Urine Appearance CLEAR Urine pH 6.0 Ur Specific [place] 1.009 Urine Protein NEGATIVE Urine Glucose (UA) NEGATIVE Urine Ketones NEGATIVE Urine Blood NEGATIVE Urine Nitrite NEGATIVE Ur Leukocyte Esterase TRACE H Urine WBC (Auto) 3 Urine RBC (Auto) 3 05/24/20 08:00 Blood Blood Culture - Final NO GROWTH IN 5 DAYS 05/24/20 04:55 Blood Blood Culture - Final NO GROWTH IN 5 DAYS 05/07/20 05/07/20 05/08/20 20:42 20:42 04:20 Creatine Kinase 34748 H CK-MB (CK-2) 367.00 H Troponin I < 0.012 < 0.012 NT-Pro-B Natriuret Pep 282 H 05/08/20 05/08/20 05/09/20 04:20 12:15 03:38 Creatine Kinase 057697 H 258715 H CK-MB (CK-2) 323.00 H Troponin I < 0.012 NT-Pro-B Natriuret Pep 05/10/20 05/11/20 05/12/20 04:28 17:58 17:10 Creatine Kinase 55242 H 03765 H 98676 H CK-MB (CK-2) Troponin I NT-Pro-B Natriuret Pep 05/13/20 05/19/20 18:53 04:40 Creatine Kinase 96695 H 1260 H CK-MB (CK-2) Troponin I NT-Pro-B Natriuret Pep Impressions: Cervical Spine CT 05/07/20 20:51 IMPRESSION: No acute findings in the cervical spine. TECHNICAL DOCUMENTATION: Quality ID # 436: Final reports with documentation of one or more dose reduction techniques (e.g., Automated exposure control, adjustment of the mA and/or kV according to patient size, use of iterative reconstruction technique) copyright 2011 [employer]- All Rights Reserved Lower Extremity Ultrasound 05/08/20 00:00 IMPRESSION: Bilateral small vessel disease. No significant stenosis above the knee. Renal Ultrasound 05/09/20 00:00 IMPRESSION: Chronic medical renal disease without hydronephrosis. Possible nonobstructive calculus right kidney. KUB X-Ray 05/13/20 00:00 IMPRESSION: Esophagogastric tube tip and side port projects over the stomach. Head CT 05/15/20 00:00 IMPRESSION: STABLE MILD CHRONIC CHANGES. NO ACUTE FINDINGS. EVIDENCE OF ACUTE STROKE: NO. Chest X-Ray 05/29/20 05:00 IMPRESSION: IMPROVED APPEARANCE. Assessment & Plan - Diagnosis (1) Acute kidney injury Is this a current diagnosis for this admission?: Yes Plan: Secondary to initial severe rhabdomyolysis but could also be multifactorial. Patient is found to be Covid positive on 05/12/2020 and most recently 05/26/20. Currently with significantly improved of urine output and likely on diuretic phase of ATN. However his BUN and creatinine continue to increase despite hemodialysis . Other causes of elevated BUN aside from GRETCHEN include GI bleed evidence with rectal bleeding previously but not actively currently and ongoing steroid treatment. Patient is also on high catabolic rate given acute illness. We will do dialysis today for 3 hours, using the patient's dialysis catheter, with 3 potassium bath, blood flow rate of 350 mL per minute, dialysate flow rate of 600 mL per minute, ultrafiltration 0.5-1 L as tolerated, no heparin and Procrit with 25,000 units during dialysis intravenously. Patient will be monitored throughout dialysis treatment. We are going to continue dialysis support. I will consider decreasing the patient's furosemide if he continues to be on a diuretic phase of ATN. (2) Respiratory failure with hypoxia and hypercapnia Qualifiers: Chronicity: acute Qualified Code(s): J96.01 - Acute respiratory failure with hypoxia; J96.02 - Acute respiratory failure with hypercapnia Is this a current diagnosis for this admission?: Yes Plan: Currently extubated and on nasal cannula. (3) Pneumonia due to COVID-19 virus Is this a current diagnosis for this admission?: Yes Plan: Patient currently being treated with IV Decadron, vitamin C, and zinc. Completed IV remdesivir. (4) Rhabdomyolysis Qualifiers: Rhabdomyolysis type: traumatic Encounter type: subsequent encounter Qualified Code(s): T79.6XXD - Traumatic ischemia of muscle, subsequent encounter Is this a current diagnosis for this admission?: Yes Plan: Patient initially presented with this. (5) Altered mental status Qualifiers: Altered mental status type: stupor Qualified Code(s): R40.1 - Stupor Is this a current diagnosis for this admission?: Yes Plan: Patient is more awake but still obtunded. (6) Hypoalbuminemia Is this a current diagnosis for this admission?: Yes (7) Hypocalcemia Is this a current diagnosis for this admission?: Yes Plan: Resolved. (8) Anemia Is this a current diagnosis for this admission?: Yes Plan: Patient had slow rectal bleeding. Hemoglobin has been persistently low and resistant to treatment with blood transfusions and Retacrit. Hemoglobin is finally slowly improving. (9) Abnormal LFTs Is this a current diagnosis for this admission?: Yes Plan: Could be secondary to history of alcohol dependence and underlying liver disease . (10) Enterococcus UTI Is this a current diagnosis for this admission?: Yes Plan: Treated with vancomycin. (11) EtOH dependence Qualifiers: Substance use status: unspecified alcohol-induced disorder Qualified Code(s): F10.29 - Alcohol dependence with unspecified alcohol-induced disorder Is this a current diagnosis for this admission?: Yes
[2020-05-31] MEDS: NORMAL SALINE 1000 ML 1,000 ML IV PRN ×2 (05:32→14:27)
[2020-05-31] MEDS: HEPARIN SOD (PORCINE) 5,000 UNIT/ML 1 ML VIAL SUBCUT SCH ×3 (05:56→21:27)
[2020-05-31] MEDS: INSULIN REG, HUMAN 100 UNIT/ML 3 ML VIAL (PYX) SUBCUT SCH ×3 (05:56→18:23)
[2020-05-31 08:56] LABS: HEMATOCRIT 26.6 % (37.9-51.0); HEMOGLOBIN 8.7 g/dL (13.5-17.0); MEAN CORPUSCULAR HEMOGLOBIN 29.4 pg (27.0-33.4); MEAN CORPUSCULAR HGB CONC 32.6 g/dL (32.0-36.0); MEAN CORPUSCULAR VOLUME 90 fl (80-97); PLATELET COUNT 316 10^3/uL (150-450); RED BLOOD COUNT 2.95 10^6/uL (4.35-5.55); RED CELL DISTRIBUTION WIDTH 16.8 % (11.5-14.0); WHITE BLOOD COUNT 17.7 10^3/uL (4.0-10.5)
[2020-05-31 09:10] LABS: ANION GAP 9 (5-19); BLOOD UREA NITROGEN 112 mg/dL (7-20); CALCIUM 9.8 mg/dL (8.4-10.2); CARBON DIOXIDE 29 mmol/L (22-30); CHLORIDE 102 mmol/L (98-107); CREATINE KINASE 62 U/L (55-170); GLUCOSE 118 mg/dL (75-110); POTASSIUM 3.6 mmol/L (3.6-5.0)
[2020-05-31] MEDS: FUROSEMIDE INJ/PF 100 MG/10 ML SDV IV SCH ×2 (12:31→21:25)
[2020-05-31] MEDS: PANTOPRAZOLE SODIUM 40 MG VIAL IV SCH (12:31)
[2020-05-31] MEDS: CHOLECALCIFEROL (D3) 1,000 UNIT (25 MCG) TABLET NG SCH (12:31)
[2020-05-31] MEDS: ASCORBIC ACID 500 MG TABLET NG SCH ×2 (12:31→17:49)
[2020-05-31] MEDS: DEXAMETHASONE SOD PHOS INJ 10 MG/1 ML VIAL IV SCH (12:31)
[2020-05-31] MEDS: DOCUSATE SODIUM 100 MG/10 ML UDC PO SCH ×2 (12:31→17:48)
[2020-05-31] MEDS: AMINO AC/PROTEIN HYDR/WHEY PRO 11 GM/45 ML PKT NG SCH ×3 (13:36→17:49)
--- NOTE | 2020-05-31 14:13 | NEURO WORKBENCH EEG REPORT ---
EEG Report Patient: Lon Spencer Jr. 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 This EEG was requested for AMS. EEG Interpretation This EEG was recorded in the awake, drowsy, and sleep states. The awake EEG is characterized by a disorganized background without a noted posterior dominant rhythm. The remainder of the background was characterized by a predominant combination of delta and theta frequencies. There were periods of intermittent periodicity with some sharply contoured waveforms noted as well as some triphasic morphology. These were poorly formed but could be consistent with generalized periodic discharges (GPDs). And there were no definitive epileptiform discharges. Drowsiness was not well-characterized. Vertex waves were of poor morphology and sleep spindles were poorly formed with both briefly seen in the midline head regions. Photic stimulation resulted in no significant changes. The EKG showed periods of an irregular beats with rate in the 100s. EEG Classification * GPDs, poor morphology * Generalized background slowing * EKG irregular rhythm, tachycardia EEG Impression This EEG is abnormal. It is consistent with diffuse cerebral dysfunction of nonspecific etiology (e.g. including but not limited to potential disease states such as toxic/metabolic, infectious, hypoxic, nonconvulsive status epilepticus, etc.). There were no definitive epileptiform abnormalities. There were no seizures. Of note, the EKG findings may require further investigation. INTERPRETING NEUROLOGIST: Yanni Douglas MD, FRCPC Board Certified in Neurology, with special qualification in Child Neurology, and in Clinical Neurophysiology [facility]
[2020-05-31] MEDS: NEOMY/BACITRAC ZN/POLY OINT 15 GM TP SCH ×2 (15:40→17:49)
[2020-05-31] MEDS: COLLAGENASE CLOSTRIDIUM HIST. OINT 30 GM TP SCH ×2 (15:41→21:27)
--- NOTE | 2020-05-31 19:05 | PDOC PROGRESS REPORT ---
Subjective Date:: 05/31/20 Subjective:: As per admitting provider on certification engineer team: "This 54-year-old male presented to [facility] emergency department via EMS on 05/07/2020 with altered mental status. Basically, the patient has an unknown. Of unresponsiveness, as he was initially believed to be sleeping but raised concern to his when he was found to still be in the same position over 12 hours later. The reports that the his pupils were constricted at the time she called EMS. EMS arrived and found the patient to be obtunded. Narcan was given in the field. Although he was assessed to have a favorable response to Narcan initially, he subsequently demonstrated seizure-like movements on route. He was provided bag mask ventilatory support. No loss of pulse or pressure. However, in the emergency department he again demonstrated obtunded/altered mental status. He was given another dose of Narcan, which was not convincingly helpful. He was intubated in the emergency department on 05/07/2020. He was started on norepinephrine infusion for blood pressure support. Initial laboratory evaluation was compatible with acute kidney injury and rhabdomyolysis with CK total peaking at 152,203. He also had a severe metabolic acidosis with an elevated anion gap. Lactate level was elevated. Urine drug screen was positive for opiates. Alcohol level was undetectable ( reports he admits to consistent alcohol consumption for analgesic effect, although she believes his last drink was almost 7 days ago)." Outline of care received thus far: Intubated on 05/07, Started on levophed. Found to have rhabdo Ck 150,000 and GRETCHEN (BUN 37, Creatinine 4.03). Patient Anuric regardless of IVF. Nephrology consulted, onboard, failed diursesis with lasix, hemodialysis initiated on 05/11; remains on MWF dialysis schedule. Required BP support with levophed and albumin transfusion. Since BP has remained stable, rather elevated, without need of pressors. Over entire course in ICU patient noted to be minimally responsive with resting tremor. Encephalopathy suspected to be related to elevated BUN which has remained elevated regardless of dialysis. Head CT [address] able chronic findings, without acute findings. Patient has hardware and ankle, no MRI brain performed. Pt tested + COVID on 05/12/2020, confirmed SANDY on 05/26/2020. Patient with noted bloody streaks in BM, has required a total of 6 transfusions. Elevated BUN concerning for LGIB. From respiratory stand point patient remained stable while intubated and was successfully extubated on 05/29/2020 and found to be stable for step down on 05/30/2019. From neuphrology stand point BUN/Cr has remained elevated with minimal improvement regardless of dialysis therapy. Nephrology remains on board. Progress note 05/31/2020: Patient seen on morning rounds. Tachycardic low 100s sinus rhythm. BP 150/80. 95% on room air. Resting in bed, eyes close. Does not open eyes or respond to touch or voice. When lifting his eyelid patient resists and closes eyes tightly. Otherwise without response. Minimal resting tremor noted. Nurse confirms similar findings on exam. Without blood in fecal collection system today, per nursing. Patient again evaluated on afternoon rounds. Patient seen lying in bed with eyes open. He blinks often. He does not track. Without purposeful movements. Reason For Visit: HYPERKALEMIA ALTERED MENTAL STATUS Physical Exam Vital Signs: Temp Pulse Resp BP Pulse Ox 98.8 F 107 H 26 H 151/86 H 95 05/31/20 12:57 05/31/20 12:57 05/31/20 12:57 05/31/20 12:57 05/31/20 12:57 Intake & Output 05/30/20 05/31/20 06/01/20 06:59 06:59 06:59 Intake Total 895 1411 1000 Output Total 4050 3300 1200 Balance -8705 -8329 -200 Weight 111.6 kg 115.1 kg General appearance: PRESENT: no acute distress, well-developed, well-nourished Head exam: PRESENT: atraumatic, normocephalic Eye exam: PRESENT: conjunctiva pink, PERRLA. ABSENT: scleral icterus Mouth exam: PRESENT: moist Neck exam: ABSENT: carotid bruit, JVD Respiratory exam: PRESENT: clear to auscultation bernard, other - Right IJ central line. ABSENT: crackles, rhonchi, wheezes Cardiovascular exam: PRESENT: tachycardia - Heart rate low 100s on telemetry regular rhythm. Pulses: PRESENT: normal radial pulses, normal dorsalis pedis pul GI/Abdominal exam: PRESENT: normal bowel sounds, soft, other - NG tube in place. ABSENT: distended, rebound Rectal exam: PRESENT: other - Fecal management in place Gentrourinary exam: PRESENT: indwelling catheter Musculoskeletal exam: PRESENT: other - Bulk atrophy Neurological exam: PRESENT: awake, other - Notable tremor at rest. Opens eyes spontaneously. Does not track. Does not respond to stimuli. Skin exam: PRESENT: dry, intact Results Laboratory Results: 05/31/20 08:30 05/31/20 08:30 05/31/20 05/31/20 05/31/20 08:30 08:30 08:30 WBC 17.7 H RBC 2.95 L Hgb 8.7 L Hct 26.6 L MCV 90 MCH 29.4 MCHC 32.6 RDW 16.8 H Plt Count 316 Sodium 139.6 Potassium 3.6 Chloride 102 Carbon Dioxide 29 Anion Gap 9 BUN 112 H Creatinine 4.09 H Est GFR ( Amer) 18 L Glucose 118 H Calcium 9.8 C-Reactive Protein 18.8 H 05/07/20 05/07/20 05/08/20 20:42 20:42 04:20 Creatine Kinase 85659 H CK-MB (CK-2) 367.00 H Troponin I < 0.012 < 0.012 NT-Pro-B Natriuret Pep 282 H 05/08/20 05/08/20 05/09/20 04:20 12:15 03:38 Creatine Kinase 004514 H 680702 H CK-MB (CK-2) 323.00 H Troponin I < 0.012 NT-Pro-B Natriuret Pep 05/10/20 05/11/20 05/12/20 04:28 17:58 17:10 Creatine Kinase 72484 H 73716 H 20175 H CK-MB (CK-2) Troponin I NT-Pro-B Natriuret Pep 05/13/20 05/19/20 05/31/20 18:53 04:40 08:30 Creatine Kinase 14004 H 1260 H 62 CK-MB (CK-2) Troponin I NT-Pro-B Natriuret Pep Impressions: Cervical Spine CT 05/07/20 20:51 IMPRESSION: No acute findings in the cervical spine. TECHNICAL DOCUMENTATION: Quality ID # 436: Final reports with documentation of one or more dose reduction techniques (e.g., Automated exposure control, adjustment of the mA and/or kV according to patient size, use of iterative reconstruction technique) copyright 2011 [employer]- All Rights Reserved Lower Extremity Ultrasound 05/08/20 00:00 IMPRESSION: Bilateral small vessel disease. No significant stenosis above the knee. Renal Ultrasound 05/09/20 00:00 IMPRESSION: Chronic medical renal disease without hydronephrosis. Possible nonobstructive calculus right kidney. KUB X-Ray 05/13/20 00:00 IMPRESSION: Esophagogastric tube tip and side port projects over the stomach. Head CT 05/15/20 00:00 IMPRESSION: STABLE MILD CHRONIC CHANGES. NO ACUTE FINDINGS. EVIDENCE OF ACUTE STROKE: NO. Chest X-Ray 05/29/20 05:00 IMPRESSION: IMPROVED APPEARANCE. Assessment and Plan - Diagnosis (1) Encephalopathy Is this a current diagnosis for this admission?: Yes (2) Acute kidney failure Qualifiers: Acute renal failure type: with acute tubular necrosis Qualified Code(s): N17.0 - Acute kidney failure with tubular necrosis Is this a current diagnosis for this admission?: Yes (3) Pneumonia due to COVID-19 virus Is this a current diagnosis for this admission?: Yes (4) Altered mental status Qualifiers: Altered mental status type: stupor Qualified Code(s): R40.1 - Stupor Is this a current diagnosis for this admission?: Yes (5) Endotracheally intubated Is this a current diagnosis for this admission?: Yes (6) Hyperglycemia Is this a current diagnosis for this admission?: Yes (7) Hyperkalemia Is this a current diagnosis for this admission?: Yes (8) Hypoalbuminemia Is this a current diagnosis for this admission?: Yes (9) Hypocalcemia Is this a current diagnosis for this admission?: Yes (10) Overdose Qualifiers: Encounter type: subsequent encounter Injury intent: accidental or unintentional Qualified Code(s): T50.901D - Poisoning by unspecified drugs, medicaments and biological substances, accidental (unintentional), subsequent encounter Is this a current diagnosis for this admission?: Yes (11) Rhabdomyolysis Qualifiers: Rhabdomyolysis type: traumatic Encounter type: subsequent encounter Qualified Code(s): T79.6XXD - Traumatic ischemia of muscle, subsequent encounter Is this a current diagnosis for this admission?: Yes - Plan Summary Summary: Altered mental status / Encephalopathy: Patient remains obtunded. Of unknow etiology: - Uremic encephalopathy: BUN reamins elevated 112, if in fact the cause would have expected improvement in mental status given dialysis. - Hypoxic brain injury: Patient with unknown time of unresponsiveness; related to opiod overdose. CT head without acute findings (05/15) Will obtain EEG. Consider LP to evaluate for infectious process. Continue to monitor with routine neuro-checks. Consider neuro consult. Cnt tube feeds Cnt fecal management system Physical deconditioning: Given length of hospital stay and mental status. Consult PT/OT in future. GRETCHEN on dilaysis / electrolyte abnormalities: BUN 112, Creatinine 4.09 MWF dailysis Nephrology on board, notes reviewed in detail, appreciated recommendations. Currently producing urine. Remains on furosemide, per nephrology. Continue to monitor. Cnt BMP for electrolyte abnormalities, correct appropriately. Rhabdo: Resolved. CK on initial presentation 150,000. Anemia requiring transfusions: Noted streaks in fecal collection tube per previous notes. Without blood noted on exam today. Has recieved total of 6 blood transfusions thus far. Hgb 8.7 today. Stable since last transfusion. Without previous surgical attention. Monitor for blood, monitor CBC, transfuse hgb 7. Covid-19 infection: + 05/12, 05/26. Cnt Dexamethasone, zinc, vit C Trend inflammatory markers: d-dimer, CRP, LDH, ESR, ferrittin Enterococcus UTI: + UC 05/08, Treated with Vancomycin. - Time Time Spent with patient: 35 or more minutes Medications reviewed and adjusted accordingly: Yes Anticipated Discharge Disposition: tbd Anticipated Discharge Timeframe: tbd
[2020-05-31] MEDS ORDERED: EPOETIN ALFA-EPBX 20,000 UNIT in SYRINGE, DISPOSABLE, 1 EACH IV PRN (22:13)
[2020-05-31] MEDS: FUROSEMIDE INJ/PF 40 MG/4 ML SDV IV SCH (22:46)
--- NOTE | 2020-06-01 00:05 | RADIOLOGY REPORT (SQ) ---
EXAM DESCRIPTION: X-ray abdomen 1 view CLINICAL DATA: 54 years Male Check Placement of NG Tube TECHNICAL DATA: A single AP supine x-ray of the abdomen was performed on 05/31/2020 at 11:27 PM. Comparison: 05/13/2020. FINDINGS: The bowel gas pattern is nonspecific and nonobstructive. The tip of the feeding tube projects over the proximal stomach near the GE junction. No pathologic abdominal or pelvic calcifications are identified. There are surgical clips in the right upper quadrant. There appear to be surgical sutures in the left upper quadrant. No abnormal air collections are identified. No focal soft tissue abnormalities are seen. No acute osseous abnormalities are identified. IMPRESSION: The tip of the feeding tube projects over the proximal stomach near the GE junction.
[2020-06-01] MEDS: INSULIN REG, HUMAN 100 UNIT/ML 3 ML VIAL (PYX) SUBCUT SCH ×4 (00:33→18:31)
--- NOTE | 2020-06-01 03:16 | RADIOLOGY REPORT (SQ) ---
CLINICAL HISTORY: NG placement COMPARISON: 05/31/2020. 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 There are no abnormal radiopaque foreign bodies or abnormal calcifications. Osseous structures are grossly unremarkable. NG tube tip is in the stomach, slightly more distally than on the prior study. Cholecystectomy was performed. IMPRESSION: NG tube tip in the stomach.
[2020-06-01] MEDS ORDERED: NORMAL SALINE 1000 ML 1,000 ML IV PRN (05:00)
[2020-06-01] MEDS ORDERED: HEPARIN SOD (PORCINE) 1,000 UNIT/ML 10 ML VIAL IV PRN (05:00)
[2020-06-01] MEDS: HEPARIN SOD (PORCINE) 5,000 UNIT/ML 1 ML VIAL SUBCUT SCH ×3 (05:59→21:55)
[2020-06-01 06:33] LABS: PHOSPHORUS 9.6 mg/dL (2.5-4.5)
[2020-06-01 06:46] LABS: HEMOGLOBIN 8.5 g/dL (13.5-17.0); MEAN CORPUSCULAR HEMOGLOBIN 28.9 pg (27.0-33.4); MEAN CORPUSCULAR HGB CONC 31.7 g/dL (32.0-36.0); MEAN CORPUSCULAR VOLUME 91 fl (80-97); PLATELET COUNT 336 10^3/uL (150-450); RED BLOOD COUNT 2.95 10^6/uL (4.35-5.55); RED CELL DISTRIBUTION WIDTH 17.6 % (11.5-14.0); WHITE BLOOD COUNT 17.8 10^3/uL (4.0-10.5)
[2020-06-01 06:51] LABS: AMORPHOUS SEDIMENT,URINE TRACE /HPF; APPEARANCE,URINE CLOUDY; BILIRUBIN,URINE NEGATIVE (NEGATIVE); COLOR,URINE YELLOW; GLUCOSE, URINE NEGATIVE (NEGATIVE); KETONES,URINE NEGATIVE (NEGATIVE); LEUKOCYTE ESTERASE,URINE LARGE (NEGATIVE); NITRITE,URINE POSITIVE (NEGATIVE); PROTEIN,URINE NEGATIVE (NEGATIVE); UROBILINOGEN,URINE NEGATIVE mg/dL (<2.0)
[2020-06-01 06:53] LABS: INTERNATIONAL RATION (INR) 1.01; PROTHROMBIN TIME 13.5 SEC (11.4-15.4)
[2020-06-01 06:54] LABS: PARTIAL THROMBOPLASTIN TIME 25.7 SEC (23.5-35.8)
[2020-06-01 07:04] LABS: ALBUMIN 2.8 g/dL (3.5-5.0); ANION GAP 11 (5-19); CALCIUM 9.9 mg/dL (8.4-10.2); CARBON DIOXIDE 27 mmol/L (22-30); CHLORIDE 104 mmol/L (98-107); GLUCOSE 90 mg/dL (75-110); POTASSIUM 3.6 mmol/L (3.6-5.0)
[2020-06-01 07:14] LABS: BLOOD UREA NITROGEN 123 mg/dL (7-20)
--- NOTE | 2020-06-01 10:54 | PDOC PROGRESS REPORT ---
Subjective Date:: 06/01/20 Subjective:: I am seeing the patient during dialysis this morning. He is now downgraded to I MCU. He remains to be obtunded without any response and not following commands. His urine output has significantly improved making 3 L of urine for the last 24 hours. He remains to be hemodynamically stable otherwise. He is tolerating dialysis this morning. Reason For Visit: HYPERKALEMIA ALTERED MENTAL STATUS Physical Exam Vital Signs: Temp Pulse Resp BP Pulse Ox 98.3 F 88 18 130/81 H 97 05/31/20 23:50 06/01/20 03:34 06/01/20 03:34 06/01/20 03:34 06/01/20 03:34 Intake & Output 05/31/20 06/01/20 06/02/20 06:59 06:59 06:59 Intake Total 1411 1760 1100 Output Total 3300 3200 1100 Balance -1889 -1440 0 Weight 115.1 kg 115.4 kg Vitals during dialysis: Blood pressure 153/84, heart rate of 84, blood flow rate of 350 mL/min and dialysate flow rate of 600 mL/min. Exam: General appearance: PRESENT: no acute distress, cooperative, fairly developed and fairly nourished Head exam: PRESENT: atraumatic, normocephalic Eye exam: PRESENT: conjunctiva pale, PERRLA. ABSENT: scleral icterus Neck exam: ABSENT: JVD Respiratory exam: PRESENT: Diminished breath sounds. ABSENT: crackles, rales, rhonchi, unlabored, wheezes Cardiovascular exam: PRESENT: Regular rate rhythm -+S1, +S2. ABSENT: diastolic murmur, systolic murmur GI/Abdominal exam: PRESENT: normal bowel sounds, soft. ABSENT: guarding, mass, tenderness Extremities exam: ABSENT: No edema Neurological exam: PRESENT: Obtunded. Skin exam: PRESENT: dry, warm, Cardiovascular exam: PRESENT: +S1, +S2 GI/Abdominal exam: PRESENT: normal bowel sounds, soft. ABSENT: organomegaly, tenderness Results Laboratory Results: 06/01/20 05:31 06/01/20 05:31 05/31/20 06/01/20 06/01/20 08:30 05:20 05:31 WBC 17.8 H RBC 2.95 L Hgb 8.5 L Hct 27.0 L MCV 91 MCH 28.9 MCHC 31.7 L RDW 17.6 H Plt Count 336 Sodium Potassium Chloride Carbon Dioxide Anion Gap BUN Creatinine Est GFR ( Amer) Glucose Calcium Phosphorus 9.6 H Magnesium 2.2 C-Reactive Protein 18.8 H Albumin Urine Color Urine Appearance Urine pH Ur Specific [place] Urine Protein Urine Glucose (UA) Urine Ketones Urine Blood Urine Nitrite Ur Leukocyte Esterase Urine WBC (Auto) Urine RBC (Auto) 06/01/20 06/01/20 05:31 05:46 WBC RBC Hgb Hct MCV MCH MCHC RDW Plt Count Sodium 142.1 Potassium 3.6 Chloride 104 Carbon Dioxide 27 Anion Gap 11 BUN 123 H Creatinine 4.40 H Est GFR ( Amer) 17 L Glucose 90 Calcium 9.9 Phosphorus Magnesium C-Reactive Protein Albumin 2.8 L Urine Color YELLOW Urine Appearance CLOUDY Urine pH 8.0 Ur Specific [place] 1.010 Urine Protein NEGATIVE Urine Glucose (UA) NEGATIVE Urine Ketones NEGATIVE Urine Blood SMALL H Urine Nitrite POSITIVE H Ur Leukocyte Esterase LARGE H Urine WBC (Auto) 37 Urine RBC (Auto) 4 05/07/20 05/07/20 05/08/20 20:42 20:42 04:20 Creatine Kinase 91838 H CK-MB (CK-2) 367.00 H Troponin I < 0.012 < 0.012 NT-Pro-B Natriuret Pep 282 H 05/08/20 05/08/20 05/09/20 04:20 12:15 03:38 Creatine Kinase 741586 H 284119 H CK-MB (CK-2) 323.00 H Troponin I < 0.012 NT-Pro-B Natriuret Pep 05/10/20 05/11/20 05/12/20 04:28 17:58 17:10 Creatine Kinase 09105 H 75844 H 51286 H CK-MB (CK-2) Troponin I NT-Pro-B Natriuret Pep 05/13/20 05/19/20 05/31/20 18:53 04:40 08:30 Creatine Kinase 53140 H 1260 H 62 CK-MB (CK-2) Troponin I NT-Pro-B Natriuret Pep Impressions: Cervical Spine CT 05/07/20 20:51 IMPRESSION: No acute findings in the cervical spine. TECHNICAL DOCUMENTATION: Quality ID # 436: Final reports with documentation of one or more dose reduction techniques (e.g., Automated exposure control, adjustment of the mA and/or kV according to patient size, use of iterative reconstruction technique) copyright 2011 [email or web address]- All Rights Reserved Lower Extremity Ultrasound 05/08/20 00:00 IMPRESSION: Bilateral small vessel disease. No significant stenosis above the knee. Renal Ultrasound 05/09/20 00:00 IMPRESSION: Chronic medical renal disease without hydronephrosis. Possible nonobstructive calculus right kidney. Head CT 05/15/20 00:00 IMPRESSION: STABLE MILD CHRONIC CHANGES. NO ACUTE FINDINGS. EVIDENCE OF ACUTE STROKE: NO. Chest X-Ray 05/29/20 05:00 IMPRESSION: IMPROVED APPEARANCE. KUB X-Ray 06/01/20 00:00 IMPRESSION: NG tube tip in the stomach. Assessment & Plan - Diagnosis (1) Acute kidney injury Is this a current diagnosis for this admission?: Yes Plan: Secondary to initial severe rhabdomyolysis but could also be multifactorial. Patient is found to be Covid positive on 05/12/2020 and most recently 05/26/20. Currently with significantly improved of urine output and likely on diuretic phase of ATN. However his BUN and creatinine continue to increase despite hemodialysis . Other causes of elevated BUN aside from GRETCHEN include GI bleed evidence with rectal bleeding previously but not actively currently and ongoing steroid treatment. Patient is also on high catabolic rate given acute illness. We will do dialysis today for 3 hours, using the patient's dialysis catheter, with 3 potassium bath, blood flow rate of 350 mL per minute, dialysate flow rate of 600 mL per minute, ultrafiltration 0.5 L as tolerated, no heparin and Procrit with 25,000 units during dialysis intravenously. Patient will be monitored throughout dialysis treatment. We are going to continue dialysis support. I decrease his furosemide to 40 mg IV every 12 hours. If the patient continues to have urine output greater than 2 L in 24 hours, need to discontinue the furosemide. (2) Respiratory failure with hypoxia and hypercapnia Qualifiers: Chronicity: acute Qualified Code(s): J96.01 - Acute respiratory failure with hypoxia; J96.02 - Acute respiratory failure with hypercapnia Is this a current diagnosis for this admission?: Yes Plan: Currently extubated and on nasal cannula. (3) Pneumonia due to COVID-19 virus Is this a current diagnosis for this admission?: Yes Plan: Patient currently being treated with IV Decadron, vitamin C, and zinc. Completed IV remdesivir. (4) Rhabdomyolysis Qualifiers: Rhabdomyolysis type: traumatic Encounter type: subsequent encounter Qualified Code(s): T79.6XXD - Traumatic ischemia of muscle, subsequent encounter Is this a current diagnosis for this admission?: Yes Plan: Patient initially presented with this. (5) Altered mental status Qualifiers: Altered mental status type: stupor Qualified Code(s): R40.1 - Stupor Is this a current diagnosis for this admission?: Yes Plan: Patient is still obtunded. CT of the head negative for acute process. EEG consistent with diffuse cerebral dysfunction of nonspecific etiology. No definitive epileptiform abnormalities. (6) Hypoalbuminemia Is this a current diagnosis for this admission?: Yes (7) Hypocalcemia Is this a current diagnosis for this admission?: Yes Plan: Resolved. (8) Anemia Is this a current diagnosis for this admission?: Yes Plan: Patient had slow rectal bleeding. Hemoglobin has been persistently low and resistant to treatment with blood transfusions and Retacrit. Hemoglobin is finally slowly improving. (9) Abnormal LFTs Is this a current diagnosis for this admission?: Yes Plan: Could be secondary to history of alcohol dependence and underlying liver disease . (10) Enterococcus UTI Is this a current diagnosis for this admission?: Yes Plan: Treated with vancomycin. (11) EtOH dependence Qualifiers: Substance use status: unspecified alcohol-induced disorder Qualified Code(s): F10.29 - Alcohol dependence with unspecified alcohol-induced disorder Is this a current diagnosis for this admission?: Yes - Time Time with patient: 15-25 minutes
[2020-06-01] MEDS: DEXAMETHASONE SOD PHOS INJ 10 MG/1 ML VIAL IV SCH (11:36)
[2020-06-01] MEDS: DOCUSATE SODIUM 100 MG/10 ML UDC PO SCH ×2 (11:36→17:32)
[2020-06-01] MEDS: FUROSEMIDE INJ/PF 40 MG/4 ML SDV IV SCH ×2 (11:36→21:56)
[2020-06-01] MEDS: PANTOPRAZOLE SODIUM 40 MG VIAL IV SCH (11:37)
[2020-06-01] MEDS: AMINO AC/PROTEIN HYDR/WHEY PRO 11 GM/45 ML PKT NG SCH ×3 (11:37→17:33)
[2020-06-01] MEDS: ASCORBIC ACID 500 MG TABLET NG SCH ×2 (11:37→17:32)
[2020-06-01] MEDS: CHOLECALCIFEROL (D3) 1,000 UNIT (25 MCG) TABLET NG SCH (11:37)
[2020-06-01] MEDS: NORMAL SALINE 1000 ML 1,000 ML IV PRN ×2 (11:37→22:13)
[2020-06-01] MEDS: NEOMY/BACITRAC ZN/POLY OINT 15 GM TP SCH ×2 (11:38→17:33)
[2020-06-01] MEDS: COLLAGENASE CLOSTRIDIUM HIST. OINT 30 GM TP SCH ×2 (11:39→21:57)
--- NOTE | 2020-06-01 16:01 | RADIOLOGY REPORT (SQ) ---
EXAM DESCRIPTION: LUMBAR PUNCTURE IMAGES COMPLETED DATE/TIME: 06/01/2020 3:43 pm REASON FOR STUDY: AMS hypoxic brain injury overdose COMPARISON: None. FLUOROSCOPY TIME: 12 seconds of fluoroscopy was used 1 images saved to PACS. TECHNIQUE: Fluoroscopic guided lumbar puncture. LIMITATIONS: None. PROCEDURE: After written consent and assessment were obtained, the patient was brought into the fluo roscopy room and placed prone on the table. The patient's lower back was prepped in a sterile fashio n and an entry site was selected under live fluoroscopic guidance. The entry site was anesthetized wi th 1% lidocaine. A 20 gauge needle was advanced through the skin and into the thecal sac at the level of L2-L3. After approximately 10 ml was drained, the needle was removed and a sterile bandage was pl aced of the site. Specimens were sent to the lab for testing. A fluoroscopic spot image was saved t o PACS confirming level access. FINDINGS: Clear CSF IMPRESSION: Lumbar puncture under fluoroscopy. No immediate complication. COMMENT: Patient medication list reviewed: Yes- Quality ID# 130:Eligible professional attests to doc umenting in the medical record they obtained, updated, or reviewed the patient's current medications. . Quality ID 145: Final reports for procedures using fluoroscopy that document radiation exposure trevon henny, or exposure time and number of fluorographic images (if radiation exposure indices are not avail able) TECHNICAL DOCUMENTATION: JOB ID: [id number] 2010 [employer]- All Rights Reserved Reading location - IP/workstation name: [email or web address] [id number]
[2020-06-01 16:37] LABS: APPEARANCE ALL TUBES CLEAR; COLOR ALL TUBES COLORLESS
[2020-06-01 16:38] LABS: GLUCOSE,CSF 67 mg/dL (40-70); PROTEIN,CSF 61 mg/dL (12-60); RED BLOOD CELL,CSF 0 /uL (0-10); WHITE BLOOD CELL,CSF 2 /uL (0-5)
[2020-06-01 16:39] LABS: CSF TUBE NUMBER 3
--- NOTE | 2020-06-01 17:27 | PDOC PROGRESS REPORT ---
Subjective Date:: 06/01/20 Subjective:: Hospital coarse: 54-year-old male presented to [facility] emergency department via EMS on 05/07/2020 with altered mental status and unknown time of unresponsiveness. Per EMS on arrival pt was obtunded. Narcan was given in the field with and initial favorable repsonse, followed by seizure-like movements on route. Bag mask ventilatory support initiated. No loss of pulse or pressure. Remained obtunded/altered mental status in ED. Recieved second dose of Narcan without improvement. He was intubated in the emergency department on 05/07/2020. He was started on norepinephrine infusion for blood pressure support. Found to have rhabdo Ck 150,000 and GRETCHEN (BUN 37, Creatinine 4.03). Patient Anuric regardless of IVF. Nephrology consulted, onboard, failed diursesis with lasix, hemodialysis initiated on 05/11; remains on [facility] dialysis schedule. Required on going BP support with levophed and albumin transfusion. Since BP has remained stable, rather elevated, without need of pressors. Over entire course in ICU patient noted to be minimally responsive with resting tremor. Encephalopathy of unknown etiology, ICU thought perhaps related to elevated BUN which has remained elevated regardless of dialysis. Head CT 05/15 with normal stable chronic findings, without acute findings. Patient has hardware in ankle, no MRI brain performed. Pt tested + COVID on 05/12/2020, confirmed on 05/26/2020. Patient with noted bloody streaks in BM, has required a total of 6 transfusions. Elevated BUN concerning for LGIB. Heparin was held and has since been resumed given stable Hgb and without blood in stool. From respiratory stand point patient remained stable while intubated and was successfully extubated on 05/29/2020. Since extubation O2 sats have been stable and WNL on room air. Pt subsequentially found to be stable for step down on 05/30/2019. From neuphrology stand point BUN/Cr has remained elevated with minimal improvement regardless of dialysis therapy. Nephrology remains on board, patient remains on dialysis. 05/31/2020: Patient seen on morning rounds. Tachycardic low 100s sinus rhythm. BP 150/80. 95% on room air. Resting in bed, eyes close. Does not open eyes or respond to touch or voice. When lifting his eyelid patient resists and closes eyes tightly. Otherwise without response. Minimal resting tremor noted. Nurse confirms similar findings on exam. Without blood in fecal collection system today, per nursing. Patient again evaluated on afternoon rounds. Patient seen lying in bed with eyes open. He blinks often. He does not track. Without purposeful movements. 06/01/2020: Patient seen on morning rounds. VSS. Patient resting in bed. Spontaneous movement noted during evaluation, significantly more than previous visit. Without purposeful movements. I update patient on plan of care. Resting tremor again noted. Fecal collection system without blood or dark/tary stool. Nurse confirms and agrees to monitor for blood in stool, given hx LGIB. Contacted patient's Kelsi on the phone. Provides me with additional history. Per pt with x6 month history of "seizu [id number]". Describes events where patient would become sweaty, legs and arms would begin to "aggressively twitch", legs would become weak and he would slowly lower to the floor. Following this patient would remain "out of it" and be "really weak", sometimes would hallucinate. Would return to baseline within a few hours. Notes several occasions at which he fell to the floor and hit his head, denies LOC. Reports 1-2 episodes weekly. Symptoms began shortly after pt had surgery on LE and was initiated on pain medications. I provide with detailed update. She tells me she would like us to do everything to investigate cause of AMS. Discussed LP in detail including risk vs benefit. Provides consent for LP; nurse contacted separately and again received formal, verbal consent for LP. Agrees to plan with Ban. Provides me with no further questions or concerns at this time. Reason For Visit: HYPERKALEMIA ALTERED MENTAL STATUS Physical Exam Vital Signs: Temp Pulse Resp BP Pulse Ox 98.3 F 88 18 130/81 H 97 05/31/20 23:50 06/01/20 03:34 06/01/20 03:34 06/01/20 03:34 06/01/20 03:34 Intake & Output 05/31/20 06/01/20 06/02/20 06:59 06:59 06:59 Intake Total 1411 2760 1100 Output Total 3300 3200 1100 Balance -1889 -440 0 Weight 115.1 kg 115.4 kg Additional comments: General appearance: PRESENT: no acute distress, well-developed, well-nourished Eye exam: PRESENT: conjunctiva pink, PERRLA. Mouth/Nose exam: PRESENT: moist, NG tube in place Respiratory exam: PRESENT: clear to auscultation bernard, other - Right IJ central line. ABSENT: crackles, rhonchi, wheezes Cardiovascular exam: PRESENT: RRR. Pulses: PRESENT: normal radial pulses GI/Abdominal exam: PRESENT: normal bowel sounds, soft ABSENT: distended, rebound Rectal exam: PRESENT: other - Fecal management in place, without red or dark/tar stool noted in collection bag Gentrourinary exam: PRESENT: indwelling catheter Musculoskeletal exam: PRESENT: other - Bulk atrophy Neurological exam: PRESENT: awake, other - Notable tremor at rest. Opens eyes spontaneously. With spontaneous movement. Does not track. Without response to stimuli. Skin exam: PRESENT: dry, intact Results Laboratory Results: 06/01/20 05:31 06/01/20 05:31 06/01/20 06/01/20 06/01/20 05:20 05:31 05:31 WBC 17.8 H RBC 2.95 L Hgb 8.5 L Hct 27.0 L MCV 91 MCH 28.9 MCHC 31.7 L RDW 17.6 H Plt Count 336 Sodium 142.1 Potassium 3.6 Chloride 104 Carbon Dioxide 27 Anion Gap 11 BUN 123 H Creatinine 4.40 H Est GFR ( Amer) 17 L Glucose 90 Calcium 9.9 Phosphorus 9.6 H Magnesium 2.2 Albumin 2.8 L Urine Color Urine Appearance Urine pH Ur Specific [place] Urine Protein Urine Glucose (UA) Urine Ketones Urine Blood Urine Nitrite Ur Leukocyte Esterase Urine WBC (Auto) Urine RBC (Auto) 06/01/20 05:46 WBC RBC Hgb Hct MCV MCH MCHC RDW Plt Count Sodium Potassium Chloride Carbon Dioxide Anion Gap BUN Creatinine Est GFR ( Amer) Glucose Calcium Phosphorus Magnesium Albumin Urine Color YELLOW Urine Appearance CLOUDY Urine pH 8.0 Ur Specific [place] 1.010 Urine Protein NEGATIVE Urine Glucose (UA) NEGATIVE Urine Ketones NEGATIVE Urine Blood SMALL H Urine Nitrite POSITIVE H Ur Leukocyte Esterase LARGE H Urine WBC (Auto) 37 Urine RBC (Auto) 4 05/07/20 05/07/20 05/08/20 20:42 20:42 04:20 Creatine Kinase 92709 H CK-MB (CK-2) 367.00 H Troponin I < 0.012 < 0.012 NT-Pro-B Natriuret Pep 282 H 05/08/20 05/08/20 05/09/20 04:20 12:15 03:38 Creatine Kinase 041010 H 499055 H CK-MB (CK-2) 323.00 H Troponin I < 0.012 NT-Pro-B Natriuret Pep 05/10/20 05/11/20 05/12/20 04:28 17:58 17:10 Creatine Kinase 57770 H 19982 H 34954 H CK-MB (CK-2) Troponin I NT-Pro-B Natriuret Pep 05/13/20 05/19/20 05/31/20 18:53 04:40 08:30 Creatine Kinase 96237 H 1260 H 62 CK-MB (CK-2) Troponin I NT-Pro-B Natriuret Pep Impressions: Cervical Spine CT 05/07/20 20:51 IMPRESSION: No acute findings in the cervical spine. TECHNICAL DOCUMENTATION: Quality ID # 436: Final reports with documentation of one or more dose reduction techniques (e.g., Automated exposure control, adjustment of the mA and/or kV according to patient size, use of iterative reconstruction technique) copyright 2011 [employer]- All Rights Reserved Lower Extremity Ultrasound 05/08/20 00:00 IMPRESSION: Bilateral small vessel disease. No significant stenosis above the knee. Renal Ultrasound 05/09/20 00:00 IMPRESSION: Chronic medical renal disease without hydronephrosis. Possible nonobstructive calculus right kidney. Head CT 05/15/20 00:00 IMPRESSION: STABLE MILD CHRONIC CHANGES. NO ACUTE FINDINGS. EVIDENCE OF ACUTE STROKE: NO. Chest X-Ray 05/29/20 05:00 IMPRESSION: IMPROVED APPEARANCE. KUB X-Ray 06/01/20 00:00 IMPRESSION: NG tube tip in the stomach. Lumbar Puncture 06/01/20 00:00 IMPRESSION: Lumbar puncture under fluoroscopy. No immediate complication. Assessment and Plan - Diagnosis (1) Encephalopathy Is this a current diagnosis for this admission?: Yes (2) Acute kidney failure Qualifiers: Acute renal failure type: with acute tubular necrosis Qualified Code(s): N17.0 - Acute kidney failure with tubular necrosis Is this a current diagnosis for this admission?: Yes (3) Pneumonia due to COVID-19 virus Is this a current diagnosis for this admission?: Yes (4) Altered mental status Qualifiers: Altered mental status type: stupor Qualified Code(s): R40.1 - Stupor Is this a current diagnosis for this admission?: Yes (5) Endotracheally intubated Is this a current diagnosis for this admission?: Yes (6) Hyperglycemia Is this a current diagnosis for this admission?: Yes (7) Hyperkalemia Is this a current diagnosis for this admission?: Yes (8) Hypoalbuminemia Is this a current diagnosis for this admission?: Yes (9) Hypocalcemia Is this a current diagnosis for this admission?: Yes (10) Overdose Qualifiers: Encounter type: subsequent encounter Injury intent: accidental or unintentional Qualified Code(s): T50.901D - Poisoning by unspecified drugs, medicaments and biological substances, accidental (unintentional), subsequent encounter Is this a current diagnosis for this admission?: Yes (11) Rhabdomyolysis Qualifiers: Rhabdomyolysis type: traumatic Encounter type: subsequent encounter Qualified Code(s): T79.6XXD - Traumatic ischemia of muscle, subsequent encounter Is this a current diagnosis for this admission?: Yes - Plan Summary Summary: Altered mental status / Encephalopathy: Patient remains obtunded. Of unknow etiology: - Uremic encephalopathy: BUN reamins elevated, if in fact the cause would have expected improvement in mental status given dialysis. - Hypoxic brain injury most likely: Patient with unknown time of unresponsiveness; related to opiod overdose. CT head without acute findings (05/15) EEG: Diffuse cerebral dysfunction of non-specific etiology (toxic/metabolic, infectious, hypoxic, non-convulsive status epilepticus) - Initiate Keppra 500mg IV BID, repeat EEG on Thursday. IF change in EEG cnt Keppra, if not can r/o epilepticus. - Consent for LP per . LP performed today. Pending results. Continue to monitor with routine neuro-checks. Consider neuro consult. Cnt tube feeds Cnt fecal management system Physical deconditioning: Given length of hospital stay and mental status. Consider consult PT/OT. GRETCHEN on dilaysis / electrolyte abnormalities: BUN 123, Creatinine 4.40 MWF dailysis. S/p dialysis today. Nephrology on board, notes reviewed in detail, appreciated recommendations. - 3L urine output last 24hours; decrease his furosemide to 40 mg IV every 12 hours. - Discontinue Furosemide if output 2L in 24hrs. Continue to monitor. Cnt BMP for electrolyte abnormalities, correct appropriately. Rhabdo: Resolved. CK on initial presentation 150,000. Since resolved. Anemia requiring transfusions: Without blood noted on exam today. - Noted streaks in fecal collection tube per previous notes. - Slow GI bleed, resistant to transfusions and Retacrit. - Has recieved total of 6 blood transfusions thus far. - Hgb 8.5 today. Stable since last transfusion. - Without previous surgical attention/investigation. - Monitor for blood, monitor CBC, transfuse hgb 7. Covid-19 infection: + 05/12, 05/26. - Cnt Dexamethasone, zinc, vit C - Completed iv remdesivir previously. - Trend inflammatory markers: d-dimer, CRP, LDH, ESR, ferrittin Enterococcus UTI: + UC 05/08, Treated with Vancomycin. - Time Time Spent with patient: 35 or more minutes Medications reviewed and adjusted accordingly: Yes Anticipated Discharge Disposition: TBD Anticipated Discharge Timeframe: TBD
[2020-06-01] MEDS: LEVETIRACETAM 500 MG/NACL-ISO 500 MG/100 ML RTUPB IV SCH (21:55)
[2020-06-02] MEDS: INSULIN REG, HUMAN 100 UNIT/ML 3 ML VIAL (PYX) SUBCUT SCH ×4 (00:42→18:58)
[2020-06-02] MEDS: HEPARIN SOD (PORCINE) 5,000 UNIT/ML 1 ML VIAL SUBCUT SCH ×3 (05:10→21:03)
[2020-06-02] MEDS: NORMAL SALINE 1000 ML 1,000 ML IV PRN ×2 (05:12→17:43)
[2020-06-02 08:40] LABS: HEMATOCRIT 25.5 % (37.9-51.0); HEMOGLOBIN 8.2 g/dL (13.5-17.0); MEAN CORPUSCULAR HEMOGLOBIN 29.6 pg (27.0-33.4); MEAN CORPUSCULAR HGB CONC 32.1 g/dL (32.0-36.0); MEAN CORPUSCULAR VOLUME 92 fl (80-97); PLATELET COUNT 281 10^3/uL (150-450); RED BLOOD COUNT 2.76 10^6/uL (4.35-5.55); RED CELL DISTRIBUTION WIDTH 17.3 % (11.5-14.0); WHITE BLOOD COUNT 17.9 10^3/uL (4.0-10.5)
[2020-06-02 08:49] LABS: AMORPHOUS SEDIMENT,URINE 1+ /HPF; APPEARANCE,URINE TURBID; BILIRUBIN,URINE NEGATIVE (NEGATIVE); COLOR,URINE YELLOW; GLUCOSE, URINE NEGATIVE (NEGATIVE); KETONES,URINE NEGATIVE (NEGATIVE); PROTEIN,URINE 100 mg/dL (NEGATIVE); URINE SPECIFIC GRAVITY 1.011; UROBILINOGEN,URINE NEGATIVE mg/dL (<2.0)
[2020-06-02 09:00] LABS: ANION GAP 10 (5-19); CALCIUM 9.7 mg/dL (8.4-10.2); CARBON DIOXIDE 25 mmol/L (22-30); CHLORIDE 106 mmol/L (98-107); GLUCOSE 97 mg/dL (75-110); POTASSIUM 3.3 mmol/L (3.6-5.0)
[2020-06-02 09:14] LABS: BLOOD UREA NITROGEN 101 mg/dL (7-20)
[2020-06-02] MEDS: DEXAMETHASONE SOD PHOS INJ 10 MG/1 ML VIAL IV SCH (11:22)
[2020-06-02] MEDS: DOCUSATE SODIUM 100 MG/10 ML UDC PO SCH ×2 (11:22→17:40)
[2020-06-02] MEDS: PANTOPRAZOLE SODIUM 40 MG VIAL IV SCH (11:22)
[2020-06-02] MEDS: FUROSEMIDE INJ/PF 40 MG/4 ML SDV IV SCH ×2 (11:22→21:03)
[2020-06-02] MEDS: LEVETIRACETAM 500 MG/NACL-ISO 500 MG/100 ML RTUPB IV SCH ×2 (11:23→21:02)
[2020-06-02] MEDS: AMINO AC/PROTEIN HYDR/WHEY PRO 11 GM/45 ML PKT NG SCH ×3 (11:23→17:39)
[2020-06-02] MEDS: CHOLECALCIFEROL (D3) 1,000 UNIT (25 MCG) TABLET NG SCH (11:23)
[2020-06-02] MEDS: ASCORBIC ACID 500 MG TABLET NG SCH ×2 (11:24→18:59)
[2020-06-02] MEDS: NEOMY/BACITRAC ZN/POLY OINT 15 GM TP SCH ×2 (12:44→17:39)
[2020-06-02] MEDS: COLLAGENASE CLOSTRIDIUM HIST. OINT 30 GM TP SCH ×2 (12:45→21:03)
--- NOTE | 2020-06-02 14:14 | PDOC PROGRESS REPORT ---
Subjective Date:: 06/02/20 Subjective:: Hospital coarse: 54-year-old male presented to [facility] emergency department via EMS on 05/07/2020 with altered mental status and unknown time of unresponsiveness. Per EMS on arrival pt was obtunded. Narcan was given in the field with and initial favorable repsonse, followed by seizure-like movements on route. Bag mask ventilatory support initiated. No loss of pulse or pressure. Remained obtunded/altered mental status in ED. Recieved second dose of Narcan without improvement. He was intubated in the emergency department on 05/07/2020. He was started on norepinephrine infusion for blood pressure support. Found to have rhabdo Ck 150,000 and GRETCHEN (BUN 37, Creatinine 4.03). Patient Anuric regardless of IVF. Nephrology consulted, onboard, failed diursesis with lasix, hemodialysis initiated on 05/11; remains on [facility] dialysis schedule. Required on going BP support with levophed and albumin transfusion. Since BP has remained stable, rather elevated, without need of pressors. Over entire course in ICU patient noted to be minimally responsive with resting tremor. Encephalopathy of unknown etiology, ICU thought perhaps related to elevated BUN which has remained elevated regardless of dialysis. Head CT 05/15 with normal stable chronic findings, without acute findings. Patient has hardware in ankle, no MRI brain performed. Pt tested + COVID on 05/12/2020, confirmed on 05/26/2020. Patient with noted bloody streaks in BM, has required a total of 6 transfusions. Elevated BUN concerning for LGIB. Heparin was held and has since been resumed given stable Hgb and without blood in stool. From respiratory stand point patient remained stable while intubated and was successfully extubated on 05/29/2020. Since extubation O2 sats have been stable and WNL on room air. Pt subsequentially found to be stable for step down on 05/30/2019. From neuphrology stand point BUN/Cr has remained elevated with minimal improvement regardless of dialysis therapy. Nephrology remains on board, patient remains on dialysis. 05/31/2020: Patient seen on morning rounds. Tachycardic low 100s sinus rhythm. BP 150/80. 95% on room air. Resting in bed, eyes close. Does not open eyes or respond to touch or voice. When lifting his eyelid patient resists and closes eyes tightly. Otherwise without response. Minimal resting tremor noted. Nurse confirms similar findings on exam. Without blood in fecal collection system today, per nursing. Patient again evaluated on afternoon rounds. Patient seen lying in bed with eyes open. He blinks often. He does not track. Without purposeful movements. 06/01/2020: Patient seen on morning rounds. VSS. Patient resting in bed. Spontaneous movement noted during evaluation, significantly more than previous visit. Without purposeful movements. I update patient on plan of care. Resting tremor again noted. Fecal collection system without blood or dark/tary stool. Nurse confirms and agrees to monitor for blood in stool, given hx LGIB. Contacted patient's Kelsi on the phone. Provides me with additional history. Per pt with x6 month history of "seizu [id number]". Describes events where patient would become sweaty, legs and arms would begin to "aggressively twitch", legs would become weak and he would slowly lower to the floor. Following this patient would remain "out of it" and be "really weak", sometimes would hallucinate. Would return to baseline within a few hours. Notes several occasions at which he fell to the floor and hit his head, denies LOC. Reports 1-2 episodes weekly. Symptoms began shortly after pt had surgery on LE and was initiated on pain medications. I provide with detailed update. She tells me she would like us to do everything to investigate cause of AMS. Discussed LP in detail including risk vs benefit. Provides consent for LP; nurse contacted separately and again received formal, verbal consent for LP. Agrees to plan with Ban. Provides me with no further questions or concerns at this time. 06/02/2020: Patient seen on morning rounds. Spontaneous movement noted on exam though eyes remain closed. 99% on RA. Dialysis yesterday. No blood noted in fecal management system. Updated patient on plan of care. Unable to provide ROS given status. updated via phone call. Discussed with nursing. Reports urine output 1L thus far today. Notes axillary temp 99.4. Confirms no blood in stool. No further questions. Reason For Visit: HYPERKALEMIA ALTERED MENTAL STATUS Physical Exam Vital Signs: Temp Pulse Resp BP Pulse Ox 99.4 F 113 H 17 129/73 H 93 06/02/20 11:28 06/02/20 11:28 06/02/20 11:28 06/02/20 11:28 06/02/20 11:28 Intake & Output 06/01/20 06/02/20 06/03/20 06:59 06:59 06:59 Intake Total 2760 3888 Output Total 3200 3627 769 Balance -326 -864 -565 Weight 115.4 kg 108.6 kg Additional comments: General appearance: no acute distress, spontaneous movements Mouth/Nose exam: NG tube in place Respiratory exam: PRESENT: clear to auscultation bernard, other - Right IJ central line. ABSENT: crackles, rhonchi, wheezes Cardiovascular exam: PRESENT: RRR. GI/Abdominal exam: PRESENT: normal bowel sounds, soft ABSENT: distended, rebound Rectal exam: PRESENT: Fecal management in place, without red or dark/tar stool noted in collection bag Gentrourinary exam: PRESENT: indwelling catheter Musculoskeletal exam: PRESENT: other - Bulk atrophy Neurological exam: PRESENT: awake, other - Notable tremor at rest. Opens eyes spontaneously. With spontaneous movement. Does not track. Without response to stimuli. Skin exam: PRESENT: dry, intact Results Laboratory Results: 06/02/20 05:15 06/02/20 05:15 06/01/20 06/01/20 06/02/20 15:23 15:23 05:15 WBC RBC Hgb Hct MCV MCH MCHC RDW Plt Count Sodium Potassium Chloride Carbon Dioxide Anion Gap BUN Creatinine Est GFR ( Amer) Glucose Calcium C-Reactive Protein 10.1 H Urine Color Urine Appearance Urine pH Ur Specific [place] Urine Protein Urine Glucose (UA) Urine Ketones Urine Blood Urine RBC (Auto) Fluid Tube Number 3 CSF Volume 11.0 CSF Appearance CLEAR CSF Color COLORLESS CSF WBC 2 CSF RBC 0 CSF Glucose 67 CSF Total Protein 61 H 06/02/20 06/02/20 06/02/20 05:15 05:15 08:15 WBC 17.9 H RBC 2.76 L Hgb 8.2 L Hct 25.5 L MCV 92 MCH 29.6 MCHC 32.1 RDW 17.3 H Plt Count 281 Sodium 140.8 Potassium 3.3 L Chloride 106 Carbon Dioxide 25 Anion Gap 10 BUN 101 H D Creatinine 3.65 H Est GFR ( Amer) 21 L Glucose 97 Calcium 9.7 C-Reactive Protein Urine Color YELLOW Urine Appearance TURBID Urine pH 9.0 Ur Specific [place] 1.011 Urine Protein 100 H Urine Glucose (UA) NEGATIVE Urine Ketones NEGATIVE Urine Blood NEGATIVE Urine RBC (Auto) 3 Fluid Tube Number CSF Volume CSF Appearance CSF Color CSF WBC CSF RBC CSF Glucose CSF Total Protein 05/07/20 05/07/20 05/08/20 20:42 20:42 04:20 Creatine Kinase 84572 H CK-MB (CK-2) 367.00 H Troponin I < 0.012 < 0.012 NT-Pro-B Natriuret Pep 282 H 05/08/20 05/08/20 05/09/20 04:20 12:15 03:38 Creatine Kinase 056900 H 901670 H CK-MB (CK-2) 323.00 H Troponin I < 0.012 NT-Pro-B Natriuret Pep 05/10/20 05/11/20 05/12/20 04:28 17:58 17:10 Creatine Kinase 58808 H 68096 H 02597 H CK-MB (CK-2) Troponin I NT-Pro-B Natriuret Pep 05/13/20 05/19/20 05/31/20 18:53 04:40 08:30 Creatine Kinase 74251 H 1260 H 62 CK-MB (CK-2) Troponin I NT-Pro-B Natriuret Pep Impressions: Cervical Spine CT 05/07/20 20:51 IMPRESSION: No acute findings in the cervical spine. TECHNICAL DOCUMENTATION: Quality ID # 436: Final reports with documentation of one or more dose reduction techniques (e.g., Automated exposure control, adjustment of the mA and/or kV according to patient size, use of iterative reconstruction technique) copyright 2011 [employer] All Rights Reserved Lower Extremity Ultrasound 05/08/20 00:00 IMPRESSION: Bilateral small vessel disease. No significant stenosis above the knee. Renal Ultrasound 05/09/20 00:00 IMPRESSION: Chronic medical renal disease without hydronephrosis. Possible nonobstructive calculus right kidney. Head CT 05/15/20 00:00 IMPRESSION: STABLE MILD CHRONIC CHANGES. NO ACUTE FINDINGS. EVIDENCE OF ACUTE STROKE: NO. Chest X-Ray 05/29/20 05:00 IMPRESSION: IMPROVED APPEARANCE. KUB X-Ray 06/01/20 00:00 IMPRESSION: NG tube tip in the stomach. Lumbar Puncture 06/01/20 00:00 IMPRESSION: Lumbar puncture under fluoroscopy. No immediate complication. Assessment and Plan - Diagnosis (1) Encephalopathy Is this a current diagnosis for this admission?: Yes (2) Acute kidney failure Qualifiers: Acute renal failure type: with acute tubular necrosis Qualified Code(s): N17.0 - Acute kidney failure with tubular necrosis Is this a current diagnosis for this admission?: Yes (3) Pneumonia due to COVID-19 virus Is this a current diagnosis for this admission?: Yes (4) Altered mental status Qualifiers: Altered mental status type: stupor Qualified Code(s): R40.1 - Stupor Is this a current diagnosis for this admission?: Yes (5) Endotracheally intubated Is this a current diagnosis for this admission?: Yes (6) Hyperglycemia Is this a current diagnosis for this admission?: Yes (7) Hyperkalemia Is this a current diagnosis for this admission?: Yes (8) Hypoalbuminemia Is this a current diagnosis for this admission?: Yes (9) Hypocalcemia Is this a current diagnosis for this admission?: Yes (10) Overdose Qualifiers: Encounter type: subsequent encounter Injury intent: accidental or unintentional Qualified Code(s): T50.901D - Poisoning by unspecified drugs, medicaments and biological substances, accidental (unintentional), subsequent encounter Is this a current diagnosis for this admission?: Yes (11) Rhabdomyolysis Qualifiers: Rhabdomyolysis type: traumatic Encounter type: subsequent encounter Qualified Code(s): T79.6XXD - Traumatic ischemia of muscle, subsequent encounter Is this a current diagnosis for this admission?: Yes - Plan Summary Summary: Altered mental status / Encephalopathy: Patient remains obtunded. Of unknow etiology: - Uremic encephalopathy: BUN reamins elevated, if in fact the cause would have expected improvement in mental status given dialysis. - Hypoxic brain injury most likely: Patient with unknown time of unresponsiveness; related to opiod overdose. CT head without acute findings (05/15) EEG (05/31): Diffuse cerebral dysfunction of non-specific etiology (toxic/metabolic, infectious, hypoxic, non-convulsive status epilepticus) - Initiate Keppra 500mg IV BID, repeat EEG on Thursday. IF change in EEG cnt Keppra, if not can r/o epilepticus. Lumbar puncture (06/01): CSF total protein 61, otherwise WNL. Cx and GS pending. Continue to monitor with routine neuro-checks. Consider neuro consult. Cnt tube feeds Cnt fecal management system GRETCHEN on dilaysis / electrolyte abnormalities: BUN 101, Creatinine 3.6. MWF dailysis. Nephrology on board, notes reviewed in detail, appreciated recommendations. - Lasix dose changed to 40mg IV q12hr given urine output 3L in 24hrs. - Discontinue lasix if urine output 2L in 24hrs. Continue to monitor. Cnt BMP for electrolyte abnormalities, correct appropriately. Catheter associated UTI: UA with leukocyte esterase. - UC pending - Catheter removed and replaced 06/02. - Axillary temp 99.4, HR fluctuates btwn 90-110s, WBC without increase. - Previous UC susceptibility reviewed, initiate abx day 1. Anemia requiring transfusions: Hgb stable. Without blood noted on exam today. - Noted streaks in fecal collection tube per previous notes. - Slow GI bleed, resistant to transfusions and Retacrit. - Has recieved total of 6 blood transfusions thus far. - Hgb stable since last transfusion 05/28. - Without previous surgical attention/investigation. - Monitor for blood, monitor CBC, transfuse hgb 7. Physical deconditioning: Given length of hospital stay and mental status. Consider consult PT/OT. - Nurse instructed on routine position changes as to prevent ulcers. Covid-19 infection: + 05/12, 05/26. - Cnt Dexamethasone, zinc, vit C - Completed iv remdesivir previously. - Trend inflammatory markers: d-dimer, CRP, LDH, ESR, ferrittin Enterococcus UTI: + UC 05/08, Treated with Vancomycin. Rhabdo: Resolved. CK on initial presentation 150,000. Since resolved. - Time Time Spent with patient: 25-34 minutes Medications reviewed and adjusted accordingly: Yes Anticipated Discharge Disposition: tbd Anticipated Discharge Timeframe: tbd
[2020-06-02] MEDS ORDERED: VANCOMYCIN HCL 0 MG in DEXTROSE 5%-WATER 250 ML IV NR (14:45)
[2020-06-02] MEDS ORDERED: ACETAMINOPHEN 325 MG TABLET ONE (16:45)
[2020-06-02] MEDS ORDERED: ACETAMINOPHEN 325 MG TABLET NG ONE (17:30)
[2020-06-02] MEDS ORDERED: VANCOMYCIN HCL 1,500 MG in DEXTROSE 5%-WATER 250 ML IV ONE (18:00)
[2020-06-03] MEDS: INSULIN REG, HUMAN 100 UNIT/ML 3 ML VIAL (PYX) SUBCUT SCH ×4 (01:58→19:04)
[2020-06-03 04:31] LABS: HEMATOCRIT 25.6 % (37.9-51.0); MEAN CORPUSCULAR HEMOGLOBIN 28.8 pg (27.0-33.4); MEAN CORPUSCULAR HGB CONC 31.4 g/dL (32.0-36.0); MEAN CORPUSCULAR VOLUME 92 fl (80-97); PLATELET COUNT 284 10^3/uL (150-450); RED BLOOD COUNT 2.79 10^6/uL (4.35-5.55); RED CELL DISTRIBUTION WIDTH 17.5 % (11.5-14.0); WHITE BLOOD COUNT 17.3 10^3/uL (4.0-10.5)
[2020-06-03] MEDS: NORMAL SALINE 1000 ML 1,000 ML IV PRN ×2 (04:31→13:23)
[2020-06-03 04:59] LABS: ANION GAP 13 (5-19); BLOOD UREA NITROGEN 109 mg/dL (7-20); CALCIUM 9.7 mg/dL (8.4-10.2); CARBON DIOXIDE 24 mmol/L (22-30); CHLORIDE 109 mmol/L (98-107); GLUCOSE 98 mg/dL (75-110); POTASSIUM 3.2 mmol/L (3.6-5.0)
[2020-06-03] MEDS: HEPARIN SOD (PORCINE) 5,000 UNIT/ML 1 ML VIAL SUBCUT SCH ×3 (05:41→22:22)
[2020-06-03] MEDS ORDERED: POTASSI CL 20 MEQ/50 ML RIDER 20 MEQ/50 ML RTUPB IV ONE (07:39)
[2020-06-03] MEDS: PANTOPRAZOLE SODIUM 40 MG VIAL IV SCH (09:14)
[2020-06-03] MEDS: AMINO AC/PROTEIN HYDR/WHEY PRO 11 GM/45 ML PKT NG SCH ×3 (09:14→17:46)
[2020-06-03] MEDS: DOCUSATE SODIUM 100 MG/10 ML UDC PO SCH ×2 (09:15→17:46)
[2020-06-03] MEDS: ASCORBIC ACID 500 MG TABLET NG SCH ×2 (09:15→17:46)
[2020-06-03] MEDS: CHOLECALCIFEROL (D3) 1,000 UNIT (25 MCG) TABLET NG SCH (09:15)
[2020-06-03] MEDS: DEXAMETHASONE SOD PHOS INJ 10 MG/1 ML VIAL IV SCH (09:15)
[2020-06-03] MEDS: NEOMY/BACITRAC ZN/POLY OINT 15 GM TP SCH ×2 (09:16→17:47)
[2020-06-03] MEDS: COLLAGENASE CLOSTRIDIUM HIST. OINT 30 GM TP SCH ×2 (09:16→22:23)
[2020-06-03] MEDS: LEVETIRACETAM 500 MG/NACL-ISO 500 MG/100 ML RTUPB IV SCH ×2 (10:22→22:22)
[2020-06-03 14:40] LABS: C DIFFICILE GDH NEGATIVE (NEGATIVE)
--- NOTE | 2020-06-03 17:14 | PDOC PROGRESS REPORT ---
Subjective Date:: 06/03/20 Subjective:: Hospital coarse: 54-year-old male presented to [facility] emergency department via EMS on 05/07/2020 with altered mental status and unknown time of unresponsiveness. Per EMS on arrival pt was obtunded. Narcan was given in the field with and initial favorable repsonse, followed by seizure-like movements on route. Bag mask ventilatory support initiated. No loss of pulse or pressure. Remained obtunded/altered mental status in ED. Recieved second dose of Narcan without improvement. He was intubated in the emergency department on 05/07/2020. He was started on norepinephrine infusion for blood pressure support. Found to have rhabdo Ck 150,000 and GRETCHEN (BUN 37, Creatinine 4.03). Patient Anuric regardless of IVF. Nephrology consulted, onboard, failed diursesis with lasix, hemodialysis initiated on 05/11; remains on [facility] dialysis schedule. Required on going BP support with levophed and albumin transfusion. Since BP has remained stable, rather elevated, without need of pressors. Over entire course in ICU patient noted to be minimally responsive with resting tremor. Encephalopathy of unknown etiology, ICU thought perhaps related to elevated BUN which has remained elevated regardless of dialysis. Head CT 05/15 with normal stable chronic findings, without acute findings. Patient has hardware in ankle, no MRI brain performed. Pt tested + COVID on 05/12/2020, confirmed on 05/26/2020. Patient with noted bloody streaks in BM, has required a total of 6 transfusions. Elevated BUN concerning for LGIB. Heparin was held and has since been resumed given stable Hgb and without blood in stool. From respiratory stand point patient remained stable while intubated and was successfully extubated on 05/29/2020. Since extubation O2 sats have been stable and WNL on room air. Pt subsequentially found to be stable for step down on 05/30/2019. From neuphrology stand point BUN/Cr has remained elevated with minimal improvement regardless of dialysis therapy. Nephrology remains on board, patient remains on dialysis. 05/31/2020: Patient seen on morning rounds. Tachycardic low 100s sinus rhythm. BP 150/80. 95% on room air. Resting in bed, eyes close. Does not open eyes or respond to touch or voice. When lifting his eyelid patient resists and closes eyes tightly. Otherwise without response. Minimal resting tremor noted. Nurse confirms similar findings on exam. Without blood in fecal collection system today, per nursing. Patient again evaluated on afternoon rounds. Patient seen lying in bed with eyes open. He blinks often. He does not track. Without purposeful movements. 06/01/2020: Patient seen on morning rounds. VSS. Patient resting in bed. Spontaneous movement noted during evaluation, significantly more than previous visit. Without purposeful movements. I update patient on plan of care. Resting tremor again noted. Fecal collection system without blood or dark/tary stool. Nurse confirms and agrees to monitor for blood in stool, given hx LGIB. Contacted patient's Kelsi on the phone. Provides me with additional history. Per pt with x6 month history of "seizu [id number]". Describes events where patient would become sweaty, legs and arms would begin to "aggressively twitch", legs would become weak and he would slowly lower to the floor. Following this patient would remain "out of it" and be "really weak", sometimes would hallucinate. Would return to baseline within a few hours. Notes several occasions at which he fell to the floor and hit his head, denies LOC. Reports 1-2 episodes weekly. Symptoms began shortly after pt had surgery on LE and was initiated on pain medications. I provide with detailed update. She tells me she would like us to do everything to investigate cause of AMS. Discussed LP in detail including risk vs benefit. Provides consent for LP; nurse contacted separately and again received formal, verbal consent for LP. Agrees to plan with Ban. Provides me with no further questions or concerns at this time. 06/02/2020: Patient seen on morning rounds. Spontaneous movement noted on exam though eyes remain closed. 99% on RA. Dialysis yesterday. No blood noted in fecal management system. Updated patient on plan of care. Unable to provide ROS given status. updated via phone call. Discussed with nursing. Reports urine output 1L thus far today. Notes axillary temp 99.4. Confirms no blood in stool. No further questions. 06/03/2020: Seen on morning rounds. Spontaneous movement similar to yesterday. VSS. Stool with strong sent, given abx hx tested for C. diff; negative. UC + gram negative rods, Meropenem. Cnt Ban with plan for repeat EEG tomorrow. Urine output in past 24hrs exceeded 2L; hold lasix, as per Nephrology recommendations. Patient with minimal change in mental status over 27 day hospital course stay thus far, may require placement in long-term facility. Reason For Visit: HYPERKALEMIA ALTERED MENTAL STATUS Physical Exam Vital Signs: Temp Pulse Resp BP Pulse Ox 98.1 F 87 9 L 152/93 H 98 06/03/20 12:23 06/03/20 12:23 06/03/20 12:23 06/03/20 12:23 06/03/20 12:23 Intake & Output 06/02/20 06/03/20 06/04/20 06:59 06:59 06:59 Intake Total 3888 3257 1719 Output Total 4693 3565 Balance -787 -308 1719 Weight 108.6 kg 104.9 kg Additional comments: General appearance: no acute distress, spontaneous movements Mouth/Nose exam: NG tube in place Respiratory exam: PRESENT: clear to auscultation bernard, other - Right IJ central line. ABSENT: crackles, rhonchi, wheezes Cardiovascular exam: PRESENT: RRR. GI/Abdominal exam: PRESENT: normal bowel sounds, soft ABSENT: distended, rebound Rectal exam: PRESENT: Fecal management in place, without red or dark/tar stool noted in collection bag Gentrourinary exam: PRESENT: indwelling catheter Musculoskeletal exam: PRESENT: other - Bulk atrophy Neurological exam: PRESENT: awake, other - Notable tremor at rest. Opens eyes spontaneously. With spontaneous movement. Does not track. Without response to stimuli. Skin exam: PRESENT:Dry. Results Laboratory Results: 06/03/20 03:50 06/03/20 15:30 06/03/20 06/03/20 06/03/20 03:50 03:50 03:50 WBC 17.3 H RBC 2.79 L Hgb 8.0 L Hct 25.6 L MCV 92 MCH 28.8 MCHC 31.4 L RDW 17.5 H Plt Count 284 Sodium 146.2 H Potassium 3.2 L Chloride 109 H Carbon Dioxide 24 Anion Gap 13 BUN 109 H Creatinine 3.86 H Est GFR ( Amer) 20 L Glucose 98 Calcium 9.7 Magnesium 2.0 06/03/20 15:30 WBC RBC Hgb Hct MCV MCH MCHC RDW Plt Count Sodium Potassium 3.7 Chloride Carbon Dioxide Anion Gap BUN Creatinine Est GFR ( Amer) Glucose Calcium Magnesium 05/07/20 05/07/20 05/08/20 20:42 20:42 04:20 Creatine Kinase 87231 H CK-MB (CK-2) 367.00 H Troponin I < 0.012 < 0.012 NT-Pro-B Natriuret Pep 282 H 05/08/20 05/08/20 05/09/20 04:20 12:15 03:38 Creatine Kinase 704302 H 921839 H CK-MB (CK-2) 323.00 H Troponin I < 0.012 NT-Pro-B Natriuret Pep 05/10/20 05/11/20 05/12/20 04:28 17:58 17:10 Creatine Kinase 25855 H 57297 H 93054 H CK-MB (CK-2) Troponin I NT-Pro-B Natriuret Pep 05/13/20 05/19/20 05/31/20 18:53 04:40 08:30 Creatine Kinase 41554 H 1260 H 62 CK-MB (CK-2) Troponin I NT-Pro-B Natriuret Pep Impressions: Cervical Spine CT 05/07/20 20:51 IMPRESSION: No acute findings in the cervical spine. TECHNICAL DOCUMENTATION: Quality ID # 436: Final reports with documentation of one or more dose reduction techniques (e.g., Automated exposure control, adjustment of the mA and/or kV according to patient size, use of iterative reconstruction technique) copyright 2011 [employer]- All Rights Reserved Lower Extremity Ultrasound 05/08/20 00:00 IMPRESSION: Bilateral small vessel disease. No significant stenosis above the knee. Renal Ultrasound 05/09/20 00:00 IMPRESSION: Chronic medical renal disease without hydronephrosis. Possible nonobstructive calculus right kidney. Head CT 05/15/20 00:00 IMPRESSION: STABLE MILD CHRONIC CHANGES. NO ACUTE FINDINGS. EVIDENCE OF ACUTE STROKE: NO. Chest X-Ray 05/29/20 05:00 IMPRESSION: IMPROVED APPEARANCE. KUB X-Ray 06/01/20 00:00 IMPRESSION: NG tube tip in the stomach. Lumbar Puncture 06/01/20 00:00 IMPRESSION: Lumbar puncture under fluoroscopy. No immediate complication. Assessment and Plan - Diagnosis (1) Encephalopathy Is this a current diagnosis for this admission?: Yes (2) Acute kidney failure Qualifiers: Acute renal failure type: with acute tubular necrosis Qualified Code(s): N17.0 - Acute kidney failure with tubular necrosis Is this a current diagnosis for this admission?: Yes (3) Pneumonia due to COVID-19 virus Is this a current diagnosis for this admission?: Yes (4) Altered mental status Qualifiers: Altered mental status type: stupor Qualified Code(s): R40.1 - Stupor Is this a current diagnosis for this admission?: Yes (5) Endotracheally intubated Is this a current diagnosis for this admission?: Yes (6) Hyperglycemia Is this a current diagnosis for this admission?: Yes (7) Hyperkalemia Is this a current diagnosis for this admission?: Yes (8) Hypoalbuminemia Is this a current diagnosis for this admission?: Yes (9) Hypocalcemia Is this a current diagnosis for this admission?: Yes (10) Overdose Qualifiers: Encounter type: subsequent encounter Injury intent: accidental or unintentional Qualified Code(s): T50.901D - Poisoning by unspecified drugs, medicaments and biological substances, accidental (unintentional), subsequent encounter Is this a current diagnosis for this admission?: Yes (11) Rhabdomyolysis Qualifiers: Rhabdomyolysis type: traumatic Encounter type: subsequent encounter Qualified Code(s): T79.6XXD - Traumatic ischemia of muscle, subsequent encounter Is this a current diagnosis for this admission?: Yes - Plan Summary Summary: Altered mental status / Encephalopathy: Patient remains obtunded. Potential to [facility] to [facility] treatment facility for further care. Of unknow etiology: - Uremic encephalopathy: BUN reamins elevated, if in fact the cause would have expected improvement in mental status given dialysis. - Hypoxic brain injury most likely: Patient with unknown time of unresponsiveness; related to opiod overdose. CT head without acute findings (05/15) EEG (05/31): Diffuse cerebral dysfunction of non-specific etiology (toxic/metab olic, infectious, hypoxic, non-convulsive status epilepticus) - Initiate Keppra 500mg IV BID, repeat EEG on Thursday. IF change in EEG cnt Keppra, if not can r/o epilepticus. Lumbar puncture (06/01): CSF total protein 61, otherwise WNL. Cx and GS NGTD. Continue to monitor with routine neuro-checks. Consider neuro consult. Cnt tube feeds Cnt fecal management system Cnt routine repositioning of patient. GRETCHEN on dilaysis / electrolyte abnormalities: BUN 109, Creatinine 3.86. MWF dailysis. Nephrology on board, notes reviewed in detail, appreciated recommendations. - >2L urine output in 24 hours; hold IV lasix, cnt monitor strict I&O. Continue to monitor. Cnt BMP for electrolyte abnormalities, correct appropriately. Hypokalemia: Corrected with IV K. Catheter associated UTI: UA with leukocyte esterase. - UC + gram negative rods - Catheter removed and replaced 06/02. - VSS. WBC without increase. - Cnt abx day 2; will adjust pending culture sensitivity Anemia requiring transfusions: Hgb stable. Without blood noted on exam today. - Noted streaks in fecal collection tube per previous notes. - Slow GI bleed, resistant to transfusions and Retacrit. - Has recieved total of 6 blood transfusions thus far. - Hgb stable since last transfusion 05/28. - Without previous surgical attention/investigation. - Monitor for blood, monitor CBC, transfuse hgb 7. Physical deconditioning: Given length of hospital stay and mental status. Consult PT/OT. - Nurse instructed on routine position changes as to prevent ulcers. Covid-19 infection: + 05/12, 05/26. - Cnt Dexamethasone, zinc, vit C - Completed iv remdesivir previously. - Trend inflammatory markers: d-dimer, CRP, LDH, ESR, ferrittin Enterococcus UTI: + UC 05/08, Treated with Vancomycin. Rhabdo: Resolved. CK on initial presentation 150,000. Since resolved. - Time Time Spent with patient: 25-34 minutes Medications reviewed and adjusted accordingly: Yes Anticipated Discharge Disposition: tbd Anticipated Discharge Timeframe: tbd
[2020-06-03] MEDS: MEROPENEM 500 MG in NORMAL SALINE 50 ML IV SCH (17:46)
[2020-06-03] MEDS ORDERED: EPOETIN ALFA-EPBX 2,000 UNIT, EPOETIN ALFA-EPBX 3,000 UNIT, EPOETIN ALFA-EPBX 20,000 UN... IV PRN ×4 (20:19)
[2020-06-04] MEDS: INSULIN REG, HUMAN 100 UNIT/ML 3 ML VIAL (PYX) SUBCUT SCH ×4 (01:50→19:16)
[2020-06-04] MEDS: NORMAL SALINE 1000 ML 1,000 ML IV PRN ×3 (02:15→22:53)
[2020-06-04 04:45] LABS: HEMATOCRIT 25.3 % (37.9-51.0); MEAN CORPUSCULAR HEMOGLOBIN 29.3 pg (27.0-33.4); MEAN CORPUSCULAR HGB CONC 31.7 g/dL (32.0-36.0); MEAN CORPUSCULAR VOLUME 92 fl (80-97); PLATELET COUNT 281 10^3/uL (150-450); RED BLOOD COUNT 2.74 10^6/uL (4.35-5.55); RED CELL DISTRIBUTION WIDTH 17.5 % (11.5-14.0); WHITE BLOOD COUNT 15.6 10^3/uL (4.0-10.5)
[2020-06-04 04:52] LABS: APPEARANCE,URINE SLIGHTLY-CLOUDY; BILIRUBIN,URINE NEGATIVE (NEGATIVE); CALCIUM OXALATE CRYSTALS,URINE FEW /HPF; COLOR,URINE YELLOW; GLUCOSE, URINE NEGATIVE (NEGATIVE); KETONES,URINE NEGATIVE (NEGATIVE); LEUKOCYTE ESTERASE,URINE LARGE (NEGATIVE); NITRITE,URINE NEGATIVE (NEGATIVE); PROTEIN,URINE 30 mg/dL (NEGATIVE); URINE SPECIFIC GRAVITY 1.013; UROBILINOGEN,URINE NEGATIVE mg/dL (<2.0)
[2020-06-04] MEDS ORDERED: NORMAL SALINE 1000 ML 1,000 ML IV PRN (05:00)
[2020-06-04] MEDS ORDERED: HEPARIN SOD (PORCINE) 1,000 UNIT/ML 10 ML VIAL IV PRN (05:00)
[2020-06-04 05:13] LABS: ANION GAP 10 (5-19); BLOOD UREA NITROGEN 113 mg/dL (7-20); CALCIUM 9.3 mg/dL (8.4-10.2); CARBON DIOXIDE 23 mmol/L (22-30); CHLORIDE 113 mmol/L (98-107); GLUCOSE 98 mg/dL (75-110); POTASSIUM 3.4 mmol/L (3.6-5.0)
[2020-06-04] MEDS: HEPARIN SOD (PORCINE) 5,000 UNIT/ML 1 ML VIAL SUBCUT SCH ×3 (05:30→22:46)
[2020-06-04] MEDS: MEROPENEM 500 MG in NORMAL SALINE 50 ML IV SCH ×2 (06:05→19:06)
--- NOTE | 2020-06-04 11:29 | PDOC PROGRESS REPORT ---
Subjective Date:: 06/04/20 Physical Exam Vital Signs: Temp Pulse Resp BP Pulse Ox 97.8 F 86 18 150/91 H 100 06/04/20 04:06 06/04/20 04:06 06/04/20 04:06 06/04/20 04:06 06/04/20 04:06 Intake & Output 06/03/20 06/04/20 06/05/20 06:59 06:59 06:59 Intake Total 3257 3778 1000 Output Total 3565 2815 1000 Balance -308 963 0 Weight 104.9 kg 105.9 kg General appearance: PRESENT: no acute distress Respiratory exam: PRESENT: clear to auscultation bernard, decreased breath sounds. ABSENT: crackles Cardiovascular exam: PRESENT: +S1, +S2 GI/Abdominal exam: PRESENT: normal bowel sounds, soft. ABSENT: organomegaly, tenderness Extremities exam: PRESENT: pedal edema Neurological exam: PRESENT: altered Results Laboratory Results: 06/04/20 04:00 06/04/20 04:00 06/03/20 06/04/20 06/04/20 15:30 04:00 04:00 WBC RBC Hgb Hct MCV MCH MCHC RDW Plt Count Sodium Potassium 3.7 Chloride Carbon Dioxide Anion Gap BUN Creatinine Est GFR ( Amer) Glucose Calcium Magnesium C-Reactive Protein 9.0 Urine Color YELLOW Urine Appearance SLIGHTLY-CLOUDY Urine pH 7.0 Ur Specific [place] 1.013 Urine Protein 30 H Urine Glucose (UA) NEGATIVE Urine Ketones NEGATIVE Urine Blood NEGATIVE Urine Nitrite NEGATIVE Ur Leukocyte Esterase LARGE H Urine WBC (Auto) 44 Urine RBC (Auto) 9 06/04/20 06/04/20 04:00 04:00 WBC 15.6 H RBC 2.74 L Hgb 8.0 L Hct 25.3 L MCV 92 MCH 29.3 MCHC 31.7 L RDW 17.5 H Plt Count 281 Sodium 145.8 H Potassium 3.4 L Chloride 113 H Carbon Dioxide 23 Anion Gap 10 BUN 113 H Creatinine 3.19 H Est GFR ( Amer) 25 L Glucose 98 Calcium 9.3 Magnesium 2.0 C-Reactive Protein Urine Color Urine Appearance Urine pH Ur Specific [place] Urine Protein Urine Glucose (UA) Urine Ketones Urine Blood Urine Nitrite Ur Leukocyte Esterase Urine WBC (Auto) Urine RBC (Auto) 06/02/20 08:15 Cam Catheter Urine Culture - Final Providencia Rettgeri Stenotrophomonas Maltophilia 06/01/20 15:23 Cerebral Spinal Fluid - Csf Gram Stain - Final 06/01/20 15:23 Cerebral Spinal Fluid - Csf CSF Culture - Final NO GROWTH 3 DAYS 05/07/20 05/07/20 05/08/20 20:42 20:42 04:20 Creatine Kinase 33133 H CK-MB (CK-2) 367.00 H Troponin I < 0.012 < 0.012 NT-Pro-B Natriuret Pep 282 H 05/08/20 05/08/20 05/09/20 04:20 12:15 03:38 Creatine Kinase 685293 H 947433 H CK-MB (CK-2) 323.00 H Troponin I < 0.012 NT-Pro-B Natriuret Pep 05/10/20 05/11/20 05/12/20 04:28 17:58 17:10 Creatine Kinase 86460 H 69364 H 35810 H CK-MB (CK-2) Troponin I NT-Pro-B Natriuret Pep 05/13/20 05/19/20 05/31/20 18:53 04:40 08:30 Creatine Kinase 75734 H 1260 H 62 CK-MB (CK-2) Troponin I NT-Pro-B Natriuret Pep Impressions: Cervical Spine CT 05/07/20 20:51 IMPRESSION: No acute findings in the cervical spine. TECHNICAL DOCUMENTATION: Quality ID # 436: Final reports with documentation of one or more dose reduction techniques (e.g., Automated exposure control, adjustment of the mA and/or kV according to patient size, use of iterative reconstruction technique) copyright 2011 [employer] All Rights Reserved Lower Extremity Ultrasound 05/08/20 00:00 IMPRESSION: Bilateral small vessel disease. No significant stenosis above the knee. Renal Ultrasound 05/09/20 00:00 IMPRESSION: Chronic medical renal disease without hydronephrosis. Possible nonobstructive calculus right kidney. Head CT 05/15/20 00:00 IMPRESSION: STABLE MILD CHRONIC CHANGES. NO ACUTE FINDINGS. EVIDENCE OF ACUTE STROKE: NO. Chest X-Ray 05/29/20 05:00 IMPRESSION: IMPROVED APPEARANCE. KUB X-Ray 06/01/20 00:00 IMPRESSION: NG tube tip in the stomach. Lumbar Puncture 06/01/20 00:00 IMPRESSION: Lumbar puncture under fluoroscopy. No immediate complication. Assessment & Plan - Diagnosis (1) Pneumonia due to COVID-19 virus Is this a current diagnosis for this admission?: Yes Plan: As per hospitalist. (2) Acute kidney injury Is this a current diagnosis for this admission?: Yes Plan: Patient has now become nonoliguric with improving urine output which is enco uraging and renal numbers are finally showing some signs of getting better. Currently undergoing dialysis being supervised. His BUN is not as high as it has been in the last couple of weeks and his hemoglobin seems to be stabilizing and probably indicates that he may not be gi bleeding as has been in the past. Continue to monitor closely.Plan to remove approximately 3-4 L of fluid as tolerated. Vital signs/hemodynamically stable. Dialysis orders were reviewed and discussed with the treating dialysis nurse. (3) Respiratory failure with hypoxia and hypercapnia Qualifiers: Chronicity: acute Qualified Code(s): J96.01 - Acute respiratory failure with hypoxia; J96.02 - Acute respiratory failure with hypercapnia Is this a current diagnosis for this admission?: Yes Plan: Currently extubated and transferred to floor. Background of Covid. Management by hospitalist. (4) Abnormal LFTs Is this a current diagnosis for this admission?: Yes Plan: Monitor. (5) Anemia Is this a current diagnosis for this admission?: Yes Plan: On Retacrit .Looks like his hemoglobin is finally stabilizing. Continue to monitor. (6) Altered mental status Qualifiers: Altered mental status type: stupor Qualified Code(s): R40.1 - Stupor Is this a current diagnosis for this admission?: Yes Plan: Likely metabolic encephalopathy/? Anoxic encephalopathy. Continue to monitor and see response as we continue to dialyze him and his urea gets better..
[2020-06-04] MEDS: CHOLECALCIFEROL (D3) 1,000 UNIT (25 MCG) TABLET NG SCH (12:19)
[2020-06-04] MEDS: PANTOPRAZOLE SODIUM 40 MG VIAL IV SCH (12:19)
[2020-06-04] MEDS: AMINO AC/PROTEIN HYDR/WHEY PRO 11 GM/45 ML PKT NG SCH ×3 (12:19→19:06)
[2020-06-04] MEDS: DEXAMETHASONE SOD PHOS INJ 10 MG/1 ML VIAL IV SCH (12:19)
[2020-06-04] MEDS: DOCUSATE SODIUM 100 MG/10 ML UDC PO SCH ×2 (12:19→19:06)
[2020-06-04] MEDS: ASCORBIC ACID 500 MG TABLET NG SCH ×2 (12:20→19:06)
[2020-06-04] MEDS: ZINC SULFATE 220 MG CAPSULE NG SCH (12:20)
[2020-06-04] MEDS: LEVETIRACETAM 500 MG/NACL-ISO 500 MG/100 ML RTUPB IV SCH ×2 (12:20→22:46)
[2020-06-04] MEDS: NEOMY/BACITRAC ZN/POLY OINT 15 GM TP SCH ×2 (12:20→19:16)
[2020-06-04] MEDS: COLLAGENASE CLOSTRIDIUM HIST. OINT 30 GM TP SCH ×2 (12:21→22:47)
[2020-06-04] MEDS ORDERED: VANCOMYCIN HCL 750 MG in DEXTROSE 5%-WATER 250 ML IV SCH (18:00)
--- NOTE | 2020-06-04 18:10 | EKG REPORT ---
SEVERITY:- DEFECTIVE ECG - VENTRICULAR PREMATURE COMPLEXES BORDERLINE T ABNORMALITIES, INFERIOR LEADS PROLONGED QT INTERVAL BASELINE ARTIFACT.PROBABLY SINUS RHYTHM.REPEAT EKG : Confirmed by: Doreen Ward MD 04-Jun-2020 18:09:52
--- NOTE | 2020-06-04 18:16 | NEURO WORKBENCH EEG REPORT ---
EEG Report Patient: Lon Spencer ID: [id number] Referring Doctor: Brenda Frank DOS: 06/04/2020 Medications: prosource, vitamin C, D3, collagenase, decadron, colace, porcine, pyxis, keppra, meropenem, neosporin, protonix, zinc History This is a 54 year old male with a history of hypertension, COPD, depression, prescription drug abuse, orthopedic surgery, admitted with hyperkalemia and AMS. Prior EEG dated 05/31/2020 showed poor morphology GPDs, GBS, and EKG with irregularity. This EEG was requested for AMS. EEG Interpretation This EEG was recorded without clear state identified. The EEG is characterized by a disorganized background without a noted posterior dominant rhythm. The remainder of the background was characterized by a combination of predominantly theta and delta frequencies. 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 Photic stimulation resulted in no significant changes. There were no epileptiform abnormalities. The EKG showed an irregular rhythm in the 90s. EEG Classification * GPDs, poor morphology * Generalized background slowing * EKG irregular rhythm EEG Impression This EEG is abnormal. It is consistent with diffuse cerebral dysfunction. Compared to the prior EEG dated 05/31/2020, it is similar. INTERPRETING NEUROLOGIST: Yanni Douglas MD, [facility] Board Certified in Neurology, with special qualification in Child Neurology, and in Clinical Neurophysiology [facility]
--- NOTE | 2020-06-04 18:38 | PDOC PROGRESS REPORT ---
Subjective Date:: 06/04/20 Subjective:: Hospital coarse: 54-year-old male presented to [facility] emergency department via EMS on 05/07/2020 with altered mental status and unknown time of unresponsiveness. Per EMS on arrival pt was obtunded. Narcan was given in the field with and initial favorable repsonse, followed by seizure-like movements on route. Bag mask ventilatory support initiated. No loss of pulse or pressure. Remained obtunded/altered mental status in ED. Recieved second dose of Narcan without improvement. He was intubated in the emergency department on 05/07/2020. He was started on norepinephrine infusion for blood pressure support. Found to have rhabdo Ck 150,000 and GRETCHEN (BUN 37, Creatinine 4.03). Patient Anuric regardless of IVF. Nephrology consulted, onboard, failed diursesis with lasix, hemodialysis initiated on 05/11; remains on [facility] dialysis schedule. Required on going BP support with levophed and albumin transfusion. Since BP has remained stable, rather elevated, without need of pressors. Over entire course in ICU patient noted to be minimally responsive with resting tremor. Encephalopathy of unknown etiology, ICU thought perhaps related to elevated BUN which has remained elevated regardless of dialysis. Head CT 05/15 with normal stable chronic findings, without acute findings. Patient has hardware in ankle, no MRI brain performed. Pt tested + COVID on 05/12/2020, confirmed on 05/26/2020. Patient with noted bloody streaks in BM, has required a total of 6 transfusions. Elevated BUN concerning for LGIB. Heparin was held and has since been resumed given stable Hgb and without blood in stool. From respiratory stand point patient remained stable while intubated and was successfully extubated on 05/29/2020. Since extubation O2 sats have been stable and WNL on room air. Pt subsequentially found to be stable for step down on 05/30/2019. From neuphrology stand point BUN/Cr has remained elevated with minimal improvement regardless of dialysis therapy. Nephrology remains on board, patient remains on dialysis. 05/31/2020: Patient seen on morning rounds. Tachycardic low 100s sinus rhythm. BP 150/80. 95% on room air. Resting in bed, eyes close. Does not open eyes or respond to touch or voice. When lifting his eyelid patient resists and closes eyes tightly. Otherwise without response. Minimal resting tremor noted. Nurse confirms similar findings on exam. Without blood in fecal collection system today, per nursing. Patient again evaluated on afternoon rounds. Patient seen lying in bed with eyes open. He blinks often. He does not track. Without purposeful movements. 06/01/2020: Patient seen on morning rounds. VSS. Patient resting in bed. Spontaneous movement noted during evaluation, significantly more than previous visit. Without purposeful movements. I update patient on plan of care. Resting tremor again noted. Fecal collection system without blood or dark/tary stool. Nurse confirms and agrees to monitor for blood in stool, given hx LGIB. Contacted patient's Kelsi on the phone. Provides me with additional history. Per pt with x6 month history of "seizu [id number]". Describes events where patient would become sweaty, legs and arms would begin to "aggressively twitch", legs would become weak and he would slowly lower to the floor. Following this patient would remain "out of it" and be "really weak", sometimes would hallucinate. Would return to baseline within a few hours. Notes several occasions at which he fell to the floor and hit his head, denies LOC. Reports 1-2 episodes weekly. Symptoms began shortly after pt had surgery on LE and was initiated on pain medications. I provide with detailed update. She tells me she would like us to do everything to investigate cause of AMS. Discussed LP in detail including risk vs benefit. Provides consent for LP; nurse contacted separately and again received formal, verbal consent for LP. Agrees to plan with Ban. Provides me with no further questions or concerns at this time. 06/02/2020: Patient seen on morning rounds. Spontaneous movement noted on exam though eyes remain closed. 99% on RA. Dialysis yesterday. No blood noted in fecal management system. Updated patient on plan of care. Unable to provide ROS given status. updated via phone call. Discussed with nursing. Reports urine output 1L thus far today. Notes axillary temp 99.4. Confirms no blood in stool. No further questions. 06/03/2020: Seen on morning rounds. Spontaneous movement similar to yesterday. VSS. Stool with strong sent, given abx hx tested for C. diff; negative. UC + gram negative rods, Meropenem. Cnt Ban with plan for repeat EEG tomorrow. Urine output in past 24hrs exceeded 2L; hold lasix, as per Nephrology recommendations. Patient with minimal change in mental status over 27 day hospital course stay thus far, may require placement in long-term facility. 06/04/2019: Patient seen on morning rounds, just following his dialysis. VSS. Patient non nonoliguric. Urine output improved. Patient is more awake today, eyes are open though still does not track. VSS. Continue UTI tx with Meropenem. Repeat EEG done today, study is still pending, will continue [place] in the time being. Continue abx for UTI. PCT in the room with me and completed passive ROM exercises with the patient and repositions him. Patient's Kelsi contacted , updated on patient presentation and renal function. Discussed t hat patient may require placement in a facility moving forward, she was understanding of this. She would like to continue to be updated and inquires when she will be able to see the patient again in person given his +Covid on 05/26. Geetha with patient advocate made aware and plans to make arrangements. Reason For Visit: HYPERKALEMIA ALTERED MENTAL STATUS Physical Exam Vital Signs: Temp Pulse Resp BP Pulse Ox 98.2 F 91 12 136/89 H 100 06/04/20 15:48 06/04/20 15:48 06/04/20 15:48 06/04/20 15:48 06/04/20 15:48 Intake & Output 06/03/20 06/04/20 06/05/20 06:59 06:59 06:59 Intake Total 3258 3778 2330 Output Total 3564 2815 1000 Balance -646 702 3294 Weight 104.9 kg 105.9 kg Additional comments: General appearance: no acute distress, spontaneous movements Mouth/Nose exam: NG tube in place Respiratory exam: PRESENT: clear to auscultation bernard, other - Right IJ central line. ABSENT: crackles, rhonchi, wheezes Cardiovascular exam: PRESENT: RRR. GI/Abdominal exam: PRESENT: normal bowel sounds, soft ABSENT: distended, rebound Rectal exam: PRESENT: Fecal management in place, without red or dark/tar stool noted in collection bag Gentrourinary exam: PRESENT: indwelling catheter Musculoskeletal exam: PRESENT: other - Bulk atrophy Neurological exam: PRESENT: awake, other - Notable tremor at rest. Opens eyes spontaneously. With spontaneous movement. Does not track. Skin exam: PRESENT:Dry. Results Laboratory Results: 06/04/20 04:00 06/04/20 04:00 06/04/20 06/04/20 06/04/20 04:00 04:00 04:00 WBC 15.6 H RBC 2.74 L Hgb 8.0 L Hct 25.3 L MCV 92 MCH 29.3 MCHC 31.7 L RDW 17.5 H Plt Count 281 Sodium Potassium Chloride Carbon Dioxide Anion Gap BUN Creatinine Est GFR ( Amer) Glucose Calcium Magnesium C-Reactive Protein 9.0 Urine Color YELLOW Urine Appearance SLIGHTLY-CLOUDY Urine pH 7.0 Ur Specific [place] 1.013 Urine Protein 30 H Urine Glucose (UA) NEGATIVE Urine Ketones NEGATIVE Urine Blood NEGATIVE Urine Nitrite NEGATIVE Ur Leukocyte Esterase LARGE H Urine WBC (Auto) 44 Urine RBC (Auto) 9 06/04/20 04:00 WBC RBC Hgb Hct MCV MCH MCHC RDW Plt Count Sodium 145.8 H Potassium 3.4 L Chloride 113 H Carbon Dioxide 23 Anion Gap 10 BUN 113 H Creatinine 3.19 H Est GFR ( Amer) 25 L Glucose 98 Calcium 9.3 Magnesium 2.0 C-Reactive Protein Urine Color Urine Appearance Urine pH Ur Specific [place] Urine Protein Urine Glucose (UA) Urine Ketones Urine Blood Urine Nitrite Ur Leukocyte Esterase Urine WBC (Auto) Urine RBC (Auto) 06/02/20 08:15 Cam Catheter Urine Culture - Final Providencia Rettgeri Stenotrophomonas Maltophilia 06/01/20 15:23 Cerebral Spinal Fluid - Csf Gram Stain - Final 06/01/20 15:23 Cerebral Spinal Fluid - Csf CSF Culture - Final NO GROWTH 3 DAYS 05/07/20 05/07/20 05/08/20 20:42 20:42 04:20 Creatine Kinase 53163 H CK-MB (CK-2) 367.00 H Troponin I < 0.012 < 0.012 NT-Pro-B Natriuret Pep 282 H 05/08/20 05/08/20 05/09/20 04:20 12:15 03:38 Creatine Kinase 408876 H 536441 H CK-MB (CK-2) 323.00 H Troponin I < 0.012 NT-Pro-B Natriuret Pep 05/10/20 05/11/20 05/12/20 04:28 17:58 17:10 Creatine Kinase 81758 H 43517 H 81481 H CK-MB (CK-2) Troponin I NT-Pro-B Natriuret Pep 05/13/20 05/19/20 05/31/20 18:53 04:40 08:30 Creatine Kinase 40572 H 1260 H 62 CK-MB (CK-2) Troponin I NT-Pro-B Natriuret Pep Impressions: Cervical Spine CT 05/07/20 20:51 IMPRESSION: No acute findings in the cervical spine. TECHNICAL DOCUMENTATION: Quality ID # 436: Final reports with documentation of one or more dose reduction techniques (e.g., Automated exposure control, adjustment of the mA and/or kV according to patient size, use of iterative reconstruction technique) copyright 2011 [employer]- All Rights Reserved Lower Extremity Ultrasound 05/08/20 00:00 IMPRESSION: Bilateral small vessel disease. No significant stenosis above the knee. Renal Ultrasound 05/09/20 00:00 IMPRESSION: Chronic medical renal disease without hydronephrosis. Possible nonobstructive calculus right kidney. Head CT 05/15/20 00:00 IMPRESSION: STABLE MILD CHRONIC CHANGES. NO ACUTE FINDINGS. EVIDENCE OF ACUTE STROKE: NO. Chest X-Ray 05/29/20 05:00 IMPRESSION: IMPROVED APPEARANCE. KUB X-Ray 06/01/20 00:00 IMPRESSION: NG tube tip in the stomach. Lumbar Puncture 06/01/20 00:00 IMPRESSION: Lumbar puncture under fluoroscopy. No immediate complication. Assessment and Plan - Diagnosis (1) Encephalopathy Is this a current diagnosis for this admission?: Yes (2) Acute kidney failure Qualifiers: Acute renal failure type: with acute tubular necrosis Qualified Code(s): N17.0 - Acute kidney failure with tubular necrosis Is this a current diagnosis for this admission?: Yes (3) Pneumonia due to COVID-19 virus Is this a current diagnosis for this admission?: Yes (4) Altered mental status Qualifiers: Altered mental status type: stupor Qualified Code(s): R40.1 - Stupor Is this a current diagnosis for this admission?: Yes (5) Endotracheally intubated Is this a current diagnosis for this admission?: Yes (6) Hyperglycemia Is this a current diagnosis for this admission?: Yes (7) Hyperkalemia Is this a current diagnosis for this admission?: Yes (8) Hypoalbuminemia Is this a current diagnosis for this admission?: Yes (9) Hypocalcemia Is this a current diagnosis for this admission?: Yes (10) Overdose Qualifiers: Encounter type: subsequent encounter Injury intent: accidental or unintentional Qualified Code(s): T50.901D - Poisoning by unspecified drugs, medicaments and biological substances, accidental (unintentional), subsequent encounter Is this a current diagnosis for this admission?: Yes (11) Rhabdomyolysis Qualifiers: Rhabdomyolysis type: traumatic Encounter type: subsequent encounter Qualified Code(s): T79.6XXD - Traumatic ischemia of muscle, subsequent encounter Is this a current diagnosis for this admission?: Yes - Plan Summary Summary: Altered mental status / Encephalopathy: Patient remains obtunded. Potential to dc to assisted treatment facility for further care. Of unknow etiology: - Uremic encephalopathy: BUN reamins elevated, continue to monitor for potential response to dialysis. - Anoxic brain injury: Patient with unknown time of unresponsiveness related to opiod overdose. CT head without acute findings (05/15) EEG (05/31): Diffuse cerebral dysfunction of non-specific etiology (toxic/metabolic, infectious, hypoxic, non-convulsive status epilepticus) - Initiate Keppra 500mg IV BID, EEG repeated today results pending. Idea would be to see if there is a change after implementing Keppra. Lumbar puncture (06/01): CSF total protein 61, otherwise WNL. Cx and GS NGTD. Continue to monitor with routine neuro-checks. Consider neuro consult. Cnt tube feeds Cnt fecal management system Cnt routine repositioning of patient. GRETCHEN on dilaysis / electrolyte abnormalities: Bun improving. Nonoliguric with improved urine output. MWF dailysis. Nephrology on board, notes reviewed in detail, appreciated recommendations. Continue to monitor. Cnt BMP for electrolyte abnormalities, correct appropriately. Catheter associated UTI: UA with leukocyte esterase. UC+ Providencia Rettgeri. - Cnt abx day 3, Meropenem appropriate per sensitivity. - Catheter removed and replaced 06/02. - VSS. WBC without increase. Anemia requiring transfusions: Hgb stable. Without blood noted on exam today. - Noted streaks in fecal collection tube per previous notes. - On retacrit. - Has recieved total of 6 blood transfusions thus far. - Hgb stable since last transfusion 05/28. - Without previous surgical attention/investigation. - Monitor for blood, monitor CBC Physical deconditioning: Given length of hospital stay and mental status. Cons ult PT/OT. - Nurse instructed on routine position changes as to prevent ulcers. Covid-19 infection: + 05/26. - Patient's inquirs about visitors, patient advocate Geetha on board will contact attending physician with update tomrorrow. - Cnt Dexamethasone, zinc, vit C - Completed iv remdesivir previously. - Trend inflammatory markers: d-dimer, CRP, LDH, ESR, ferrittin Enterococcus UTI: + UC 05/08, Treated with Vancomycin. Rhabdo: Resolved. CK on initial presentation 150,000. Since resolved. - Time Time Spent with patient: 35 or more minutes Medications reviewed and adjusted accordingly: Yes Anticipated Discharge Disposition: Home, Self Care - vs assisted facility Anticipated Discharge Timeframe: tbd
[2020-06-05] MEDS: INSULIN REG, HUMAN 100 UNIT/ML 3 ML VIAL (PYX) SUBCUT SCH ×4 (00:40→18:41)
[2020-06-05] MEDS: MEROPENEM 500 MG in NORMAL SALINE 50 ML IV SCH ×2 (05:38→17:15)
[2020-06-05] MEDS: HEPARIN SOD (PORCINE) 5,000 UNIT/ML 1 ML VIAL SUBCUT SCH ×3 (05:38→21:19)
[2020-06-05 06:13] LABS: HEMATOCRIT 24.2 % (37.9-51.0); MEAN CORPUSCULAR HEMOGLOBIN 29.3 pg (27.0-33.4); MEAN CORPUSCULAR HGB CONC 31.5 g/dL (32.0-36.0); MEAN CORPUSCULAR VOLUME 93 fl (80-97); PLATELET COUNT 209 10^3/uL (150-450); RED CELL DISTRIBUTION WIDTH 18.3 % (11.5-14.0); WHITE BLOOD COUNT 12.3 10^3/uL (4.0-10.5)
[2020-06-05 06:15] LABS: HEMOGLOBIN 7.6 g/dL (13.5-17.0)
[2020-06-05 06:29] LABS: ANION GAP 8 (5-19); BLOOD UREA NITROGEN 88 mg/dL (7-20); CALCIUM 9.4 mg/dL (8.4-10.2); CARBON DIOXIDE 24 mmol/L (22-30); CHLORIDE 114 mmol/L (98-107); GLUCOSE 102 mg/dL (75-110); POTASSIUM 3.3 mmol/L (3.6-5.0)
[2020-06-05] MEDS: PANTOPRAZOLE SODIUM 40 MG VIAL IV SCH (09:25)
[2020-06-05] MEDS: DOCUSATE SODIUM 100 MG/10 ML UDC PO SCH ×2 (09:26→17:15)
[2020-06-05] MEDS: CHOLECALCIFEROL (D3) 1,000 UNIT (25 MCG) TABLET NG SCH (09:26)
[2020-06-05] MEDS: ASCORBIC ACID 500 MG TABLET NG SCH ×2 (09:26→17:15)
[2020-06-05] MEDS: ZINC SULFATE 220 MG CAPSULE NG SCH (09:26)
[2020-06-05] MEDS: AMINO AC/PROTEIN HYDR/WHEY PRO 11 GM/45 ML PKT NG SCH ×3 (09:26→17:16)
[2020-06-05] MEDS: DEXAMETHASONE SOD PHOSPHATE INJ 4 MG/1 ML VIAL IV SCH (09:26)
[2020-06-05] MEDS: COLLAGENASE CLOSTRIDIUM HIST. OINT 30 GM TP SCH ×2 (09:27→21:21)
[2020-06-05] MEDS: NEOMY/BACITRAC ZN/POLY OINT 15 GM TP SCH ×2 (09:27→17:16)
[2020-06-05] MEDS: NORMAL SALINE 1000 ML 1,000 ML IV PRN ×2 (09:37→17:16)
[2020-06-05] MEDS ORDERED: POTASSIUM CHLORIDE 20 MEQ PACKET PO ONE (09:45)
[2020-06-05] MEDS ORDERED: DEXAMETHASONE SOD PHOS INJ 10 MG/1 ML VIAL IV SCH (10:00)
[2020-06-05] MEDS: LEVETIRACETAM 500 MG/NACL-ISO 500 MG/100 ML RTUPB IV SCH ×2 (10:06→21:19)
--- NOTE | 2020-06-05 12:49 | PDOC PROGRESS REPORT ---
Subjective Date:: 06/05/20 Reason For Visit: Patient was seen today. He remains awake but unresponsive. He looks rather on the dry side. Labs and medications were reviewed. Had an uneventful dialysis yesterday. Physical Exam Vital Signs: Temp Pulse Resp BP Pulse Ox 98.4 F 95 24 H 143/88 H 99 06/05/20 09:27 06/05/20 09:27 06/05/20 09:27 06/05/20 09:27 06/05/20 09:27 Intake & Output 06/04/20 06/05/20 06/06/20 06:59 06:59 06:59 Intake Total 3828 4650 250 Output Total 2815 3050 Balance 1013 1600 250 Weight 105.9 kg 109.3 kg General appearance: PRESENT: disheveled Exam: Patient is awake but unresponsive to any oral commands. He will lies in bed eyes open not moving. Respiratory exam: PRESENT: clear to auscultation bernard, decreased breath sounds. ABSENT: crackles Cardiovascular exam: PRESENT: +S1, +S2 GI/Abdominal exam: PRESENT: normal bowel sounds, soft. ABSENT: organomegaly, tenderness Extremities exam: ABSENT: pedal edema Results Laboratory Results: 06/05/20 05:50 06/05/20 05:50 06/05/20 06/05/20 05:50 05:50 WBC 12.3 H RBC 2.60 L Hgb 7.6 L Hct 24.2 L MCV 93 MCH 29.3 MCHC 31.5 L RDW 18.3 H Plt Count 209 Sodium 145.5 H Potassium 3.3 L Chloride 114 H Carbon Dioxide 24 Anion Gap 8 BUN 88 H Creatinine 2.45 H Est GFR ( Amer) 33 L Glucose 102 Calcium 9.4 Magnesium 1.9 06/02/20 08:15 Cam Catheter Urine Culture - Final Providencia Rettgeri Stenotrophomonas Maltophilia 06/01/20 15:23 Cerebral Spinal Fluid - Csf Gram Stain - Final 06/01/20 15:23 Cerebral Spinal Fluid - Csf CSF Culture - Final NO GROWTH 3 DAYS 05/07/20 05/07/20 05/08/20 20:42 20:42 04:20 Creatine Kinase 93011 H CK-MB (CK-2) 367.00 H Troponin I < 0.012 < 0.012 NT-Pro-B Natriuret Pep 282 H 05/08/20 05/08/20 05/09/20 04:20 12:15 03:38 Creatine Kinase 867876 H 781415 H CK-MB (CK-2) 323.00 H Troponin I < 0.012 NT-Pro-B Natriuret Pep 05/10/20 05/11/20 05/12/20 04:28 17:58 17:10 Creatine Kinase 40598 H 74227 H 81166 H CK-MB (CK-2) Troponin I NT-Pro-B Natriuret Pep 05/13/20 05/19/20 05/31/20 18:53 04:40 08:30 Creatine Kinase 20088 H 1260 H 62 CK-MB (CK-2) Troponin I NT-Pro-B Natriuret Pep Impressions: Cervical Spine CT 05/07/20 20:51 IMPRESSION: No acute findings in the cervical spine. TECHNICAL DOCUMENTATION: Quality ID # 436: Final reports with documentation of one or more dose reduction techniques (e.g., Automated exposure control, adjustment of the mA and/or kV according to patient size, use of iterative reconstruction technique) copyright 2011 [employer]- All Rights Reserved Lower Extremity Ultrasound 05/08/20 00:00 IMPRESSION: Bilateral small vessel disease. No significant stenosis above the knee. Renal Ultrasound 05/09/20 00:00 IMPRESSION: Chronic medical renal disease without hydronephrosis. Possible nonobstructive calculus right kidney. Head CT 05/15/20 00:00 IMPRESSION: STABLE MILD CHRONIC CHANGES. NO ACUTE FINDINGS. EVIDENCE OF ACUTE STROKE: NO. Chest X-Ray 05/29/20 05:00 IMPRESSION: IMPROVED APPEARANCE. KUB X-Ray 06/01/20 00:00 IMPRESSION: NG tube tip in the stomach. Lumbar Puncture 06/01/20 00:00 IMPRESSION: Lumbar puncture under fluoroscopy. No immediate complication. Assessment & Plan - Diagnosis (1) Pneumonia due to COVID-19 virus Is this a current diagnosis for this admission?: Yes Plan: As per hospitalist. (2) Acute kidney injury Is this a current diagnosis for this admission?: Yes Plan: Patient is currently nonoliguric and making good amount of urine output. Monitor for need for dialysis on a regular basis. Next dialysis as per schedule is tomorrow but will see how his labs and his urine output is. (3) Respiratory failure with hypoxia and hypercapnia Qualifiers: Chronicity: acute Qualified Code(s): J96.01 - Acute respiratory failure with hypoxia; J96.02 - Acute respiratory failure with hypercapnia Is this a current diagnosis for this admission?: Yes Plan: Currently extubated and transferred to floor. Background of Covid. Management by hospitalist. (4) Abnormal LFTs Is this a current diagnosis for this admission?: Yes Plan: Monitor. (5) Anemia Is this a current diagnosis for this admission?: Yes Plan: On Retacrit .Mild drop in his hemoglobin from yesterday. Continue to monitor and see if he requires blood transfusions. However his BUN is dropping which is encouraging. Continue to monitor. (6) Altered mental status Qualifiers: Altered mental status type: stupor Qualified Code(s): R40.1 - Stupor Is this a current diagnosis for this admission?: Yes Plan: Likely metabolic encephalopathy/? Anoxic encephalopathy. Continue to monitor and see response as we continue to dialyze him and his urea gets better..
--- NOTE | 2020-06-05 18:39 | PDOC PROGRESS REPORT ---
Subjective Date:: 06/05/20 Subjective:: Not obtainable due to patient's mental status Reason For Visit: ENCEPHALOPATHY, ACUTE KIDNEY PAILURE, COVID Physical Exam Vital Signs: Temp Pulse Resp BP Pulse Ox 98.4 F 94 24 H 143/88 H 99 06/05/20 09:27 06/05/20 13:17 06/05/20 09:27 06/05/20 09:27 06/05/20 09:27 Intake & Output 06/04/20 06/05/20 06/06/20 06:59 06:59 06:59 Intake Total 3828 4650 1206 Output Total 2815 3050 Balance 1013 1600 1206 Weight 105.9 kg 109.3 kg General appearance: PRESENT: no acute distress, cooperative Eye exam: PRESENT: PERRLA Neck exam: ABSENT: JVD Respiratory exam: PRESENT: clear to auscultation bernard, symmetrical, unlabored. ABSENT: tachypnea, wheezes Cardiovascular exam: PRESENT: RRR, +S1, +S2. ABSENT: tachycardia GI/Abdominal exam: PRESENT: soft. ABSENT: rebound, rigid, tenderness Neurological exam: PRESENT: altered, motor sensory deficit - rigid upper extremities. Lower extremities are mildly rigid as well., aphasic - mute, other - Patient does not follow any instructions and is stuporous. Not uinteractive in any way. ABSENT: oriented to person, oriented to place, oriented to time, oriented to situation Psychiatric exam: ABSENT: agitated, anxious Results Laboratory Results: 06/05/20 05:50 06/05/20 05:50 06/05/20 06/05/20 05:50 05:50 WBC 12.3 H RBC 2.60 L Hgb 7.6 L Hct 24.2 L MCV 93 MCH 29.3 MCHC 31.5 L RDW 18.3 H Plt Count 209 Sodium 145.5 H Potassium 3.3 L Chloride 114 H Carbon Dioxide 24 Anion Gap 8 BUN 88 H Creatinine 2.45 H Est GFR ( Amer) 33 L Glucose 102 Calcium 9.4 Magnesium 1.9 05/07/20 05/07/20 05/08/20 20:42 20:42 04:20 Creatine Kinase 05542 H CK-MB (CK-2) 367.00 H Troponin I < 0.012 < 0.012 NT-Pro-B Natriuret Pep 282 H 05/08/20 05/08/20 05/09/20 04:20 12:15 03:38 Creatine Kinase 602082 H 812350 H CK-MB (CK-2) 323.00 H Troponin I < 0.012 NT-Pro-B Natriuret Pep 05/10/20 05/11/20 05/12/20 04:28 17:58 17:10 Creatine Kinase 04663 H 97001 H 69491 H CK-MB (CK-2) Troponin I NT-Pro-B Natriuret Pep 05/13/20 05/19/20 05/31/20 18:53 04:40 08:30 Creatine Kinase 57099 H 1260 H 62 CK-MB (CK-2) Troponin I NT-Pro-B Natriuret Pep Impressions: Cervical Spine CT 05/07/20 20:51 IMPRESSION: No acute findings in the cervical spine. TECHNICAL DOCUMENTATION: Quality ID # 436: Final reports with documentation of one or more dose reduction techniques (e.g., Automated exposure control, adjustment of the mA and/or kV according to patient size, use of iterative reconstruction technique) copyright 2011 [employer]- All Rights Reserved Lower Extremity Ultrasound 05/08/20 00:00 IMPRESSION: Bilateral small vessel disease. No significant stenosis above the knee. Renal Ultrasound 05/09/20 00:00 IMPRESSION: Chronic medical renal disease without hydronephrosis. Possible nonobstructive calculus right kidney. Head CT 05/15/20 00:00 IMPRESSION: STABLE MILD CHRONIC CHANGES. NO ACUTE FINDINGS. EVIDENCE OF ACUTE STROKE: NO. Chest X-Ray 05/29/20 05:00 IMPRESSION: IMPROVED APPEARANCE. KUB X-Ray 06/01/20 00:00 IMPRESSION: NG tube tip in the stomach. Lumbar Puncture 06/01/20 00:00 IMPRESSION: Lumbar puncture under fluoroscopy. No immediate complication. Assessment and Plan - Diagnosis (1) Encephalopathy Is this a current diagnosis for this admission?: Yes (2) Altered mental status Qualifiers: Altered mental status type: stupor Qualified Code(s): R40.1 - Stupor Is this a current diagnosis for this admission?: Yes (3) Acute kidney failure Qualifiers: Acute renal failure type: with acute tubular necrosis Qualified Code(s): N17.0 - Acute kidney failure with tubular necrosis Is this a current diagnosis for this admission?: Yes (4) Overdose Qualifiers: Encounter type: subsequent encounter Injury intent: accidental or unintentional Qualified Code(s): T50.901D - Poisoning by unspecified drugs, medicaments and biological substances, accidental (unintentional), subsequent encounter Is this a current diagnosis for this admission?: Yes (5) Pneumonia due to COVID-19 virus Is this a current diagnosis for this admission?: Yes (6) Rhabdomyolysis Qualifiers: Rhabdomyolysis type: traumatic Encounter type: subsequent encounter Qualified Code(s): T79.6XXD - Traumatic ischemia of muscle, subsequent encounter Is this a current diagnosis for this admission?: Yes (7) UTI (urinary tract infection) Qualifiers: Urinary tract infection type: acute cystitis Is this a current diagnosis for this admission?: Yes - Plan Summary Summary: Patient remains stuporous and not interactive. He remains completely altered. He has had no improvement in several days. He has been in the hospital for 29 days now and according to notes and records, it seems he has had no improvement in his mental status during sedation holidays while intubated and also since extubation on 05/30. Head CT shows small hypodensities in both internal capsules which may be indicative of anoxic brain injuries or possible strokes. He is also quite rigid in his extremities and occasionally posturing. Unfortunately, it seems MRI was unobtainable due to patient's hardware. EEG shows diffuse cerebral dysfunction but no epileptiform activity or seizures. LP was unremarkable. Patient does have significantly elevated BUN but has been trending down with dialysis and currently renal function is showing improvement as well. ? of whether part of the BUN increase was due to GI bleed. Patient has notably not shown any mental change with improvement of BUN which is starting to make uremic encephalopathy less likely. I do think patient likely has anoxic brain injury or suffered from a stroke. We will continue to monitor patient's mental status with continued treatment of his renal failure and will also have discussion with patient's about possible hospice care tomorrow. - Time Time Spent with patient: 15-24 minutes Anticipated Discharge Disposition: [facility] Anticipated Discharge Timeframe: n/a
[2020-06-06] MEDS: INSULIN REG, HUMAN 100 UNIT/ML 3 ML VIAL (PYX) SUBCUT SCH ×4 (03:38→18:21)
[2020-06-06] MEDS: MEROPENEM 500 MG in NORMAL SALINE 50 ML IV SCH ×2 (06:04→18:16)
[2020-06-06] MEDS: HEPARIN SOD (PORCINE) 5,000 UNIT/ML 1 ML VIAL SUBCUT SCH ×3 (06:05→22:50)
[2020-06-06] MEDS: NORMAL SALINE 1000 ML 1,000 ML IV PRN (06:05)
[2020-06-06 06:51] LABS: HEMATOCRIT 23.8 % (37.9-51.0); MEAN CORPUSCULAR HEMOGLOBIN 28.7 pg (27.0-33.4); MEAN CORPUSCULAR HGB CONC 30.5 g/dL (32.0-36.0); MEAN CORPUSCULAR VOLUME 94 fl (80-97); PLATELET COUNT 200 10^3/uL (150-450); RED BLOOD COUNT 2.52 10^6/uL (4.35-5.55); RED CELL DISTRIBUTION WIDTH 18.8 % (11.5-14.0); WHITE BLOOD COUNT 11.1 10^3/uL (4.0-10.5)
[2020-06-06 06:55] LABS: APPEARANCE,URINE SLIGHTLY-CLOUDY; BILIRUBIN,URINE NEGATIVE (NEGATIVE); COLOR,URINE YELLOW; GLUCOSE, URINE NEGATIVE (NEGATIVE); HEMOGLOBIN 7.3 g/dL (13.5-17.0); KETONES,URINE NEGATIVE (NEGATIVE); LEUKOCYTE ESTERASE,URINE MODERATE (NEGATIVE); NITRITE,URINE NEGATIVE (NEGATIVE); PROTEIN,URINE NEGATIVE (NEGATIVE); URINE SPECIFIC GRAVITY 1.013; UROBILINOGEN,URINE NEGATIVE mg/dL (<2.0)
[2020-06-06 07:09] LABS: ANION GAP 7 (5-19); BLOOD UREA NITROGEN 80 mg/dL (7-20); CALCIUM 9.9 mg/dL (8.4-10.2); CARBON DIOXIDE 24 mmol/L (22-30); CHLORIDE 117 mmol/L (98-107); GLUCOSE 101 mg/dL (75-110); POTASSIUM 3.4 mmol/L (3.6-5.0)
[2020-06-06] MEDS ORDERED: 1/2 NORMAL SALINE 1,000 ML IV PRN (07:33)
[2020-06-06] MEDS ORDERED: 1/2 NORMAL SALINE 1,000 ML with POTASSIUM CHLORIDE 20 MEQ IV PRN ×2 (07:35)
[2020-06-06] MEDS: POTASSI CL 20 MEQ/1/2NS 1L 1000 ML IV PRN ×2 (09:07→18:50)
[2020-06-06] MEDS: DEXAMETHASONE SOD PHOSPHATE INJ 4 MG/1 ML VIAL IV SCH (09:07)
[2020-06-06] MEDS: ZINC SULFATE 220 MG CAPSULE NG SCH (09:07)
[2020-06-06] MEDS: DOCUSATE SODIUM 100 MG/10 ML UDC PO SCH ×2 (09:07→18:17)
[2020-06-06] MEDS: ASCORBIC ACID 500 MG TABLET NG SCH ×2 (09:08→18:16)
[2020-06-06] MEDS: PANTOPRAZOLE SODIUM 40 MG VIAL IV SCH (09:08)
[2020-06-06] MEDS: NEOMY/BACITRAC ZN/POLY OINT 15 GM TP SCH (09:08)
[2020-06-06] MEDS: AMINO AC/PROTEIN HYDR/WHEY PRO 11 GM/45 ML PKT NG SCH ×3 (09:08→18:16)
[2020-06-06] MEDS: CHOLECALCIFEROL (D3) 1,000 UNIT (25 MCG) TABLET NG SCH (09:08)
[2020-06-06] MEDS: COLLAGENASE CLOSTRIDIUM HIST. OINT 30 GM TP SCH ×2 (09:09→22:51)
[2020-06-06] MEDS: LEVETIRACETAM 500 MG/NACL-ISO 500 MG/100 ML RTUPB IV SCH ×2 (09:15→22:50)
--- NOTE | 2020-06-06 11:26 | PDOC PROGRESS REPORT ---
Subjective Date:: 06/06/20 Reason For Visit: Patient seen today. He continues to remain encephalopathy. He has made 2+ liters of urine today and is chemistry shows renal numbers pretty stable. Therefore plan is not to make him undergo hemodialysis today hoping that he is making good renal recovery. Physical Exam Vital Signs: Temp Pulse Resp BP Pulse Ox 98.6 F 90 18 138/84 H 98 06/05/20 16:38 06/06/20 06:57 06/05/20 16:38 06/05/20 16:38 06/05/20 16:38 Intake & Output 06/05/20 06/06/20 06/07/20 06:59 06:59 06:59 Intake Total 4650 2584 717 Output Total 3050 2125 Balance 1600 459 717 Weight 109.3 kg 109.2 kg General appearance: PRESENT: no acute distress Exam: Patient remains mute and unresponsive to any commands. Respiratory exam: PRESENT: clear to auscultation bernard, decreased breath sounds. ABSENT: crackles Cardiovascular exam: PRESENT: +S1, +S2 GI/Abdominal exam: PRESENT: normal bowel sounds, soft. ABSENT: organomegaly, tenderness Extremities exam: ABSENT: pedal edema Neurological exam: PRESENT: altered Results Laboratory Results: 06/06/20 06:18 06/06/20 06:18 06/06/20 06/06/20 06/06/20 06:18 06:18 06:18 WBC 11.1 H RBC 2.52 L Hgb 7.3 L Hct 23.8 L MCV 94 MCH 28.7 MCHC 30.5 L RDW 18.8 H Plt Count 200 Sodium Potassium Chloride Carbon Dioxide Anion Gap BUN Creatinine Est GFR ( Amer) Glucose Calcium C-Reactive Protein 11.7 H Urine Color YELLOW Urine Appearance SLIGHTLY-CLOUDY Urine pH 6.0 Ur Specific [place] 1.013 Urine Protein NEGATIVE Urine Glucose (UA) NEGATIVE Urine Ketones NEGATIVE Urine Blood NEGATIVE Urine Nitrite NEGATIVE Ur Leukocyte Esterase MODERATE H Urine WBC (Auto) 18 Urine RBC (Auto) 6 06/06/20 06:18 WBC RBC Hgb Hct MCV MCH MCHC RDW Plt Count Sodium 147.7 H Potassium 3.4 L Chloride 117 H Carbon Dioxide 24 Anion Gap 7 BUN 80 H Creatinine 2.59 H Est GFR ( Amer) 31 L Glucose 101 Calcium 9.9 C-Reactive Protein Urine Color Urine Appearance Urine pH Ur Specific [place] Urine Protein Urine Glucose (UA) Urine Ketones Urine Blood Urine Nitrite Ur Leukocyte Esterase Urine WBC (Auto) Urine RBC (Auto) 05/07/20 05/07/20 05/08/20 20:42 20:42 04:20 Creatine Kinase 01014 H CK-MB (CK-2) 367.00 H Troponin I < 0.012 < 0.012 NT-Pro-B Natriuret Pep 282 H 05/08/20 05/08/20 05/09/20 04:20 12:15 03:38 Creatine Kinase 639028 H 798262 H CK-MB (CK-2) 323.00 H Troponin I < 0.012 NT-Pro-B Natriuret Pep 05/10/20 05/11/20 05/12/20 04:28 17:58 17:10 Creatine Kinase 30093 H 71279 H 37808 H CK-MB (CK-2) Troponin I NT-Pro-B Natriuret Pep 05/13/20 05/19/20 05/31/20 18:53 04:40 08:30 Creatine Kinase 47229 H 1260 H 62 CK-MB (CK-2) Troponin I NT-Pro-B Natriuret Pep Impressions: Cervical Spine CT 05/07/20 20:51 IMPRESSION: No acute findings in the cervical spine. TECHNICAL DOCUMENTATION: Quality ID # 436: Final reports with documentation of one or more dose reduction techniques (e.g., Automated exposure control, adjustment of the mA and/or kV according to patient size, use of iterative reconstruction technique) copyright 2011 [employer]- All Rights Reserved Lower Extremity Ultrasound 05/08/20 00:00 IMPRESSION: Bilateral small vessel disease. No significant stenosis above the knee. Renal Ultrasound 05/09/20 00:00 IMPRESSION: Chronic medical renal disease without hydronephrosis. Possible nonobstructive calculus right kidney. Head CT 05/15/20 00:00 IMPRESSION: STABLE MILD CHRONIC CHANGES. NO ACUTE FINDINGS. EVIDENCE OF ACUTE STROKE: NO. Chest X-Ray 05/29/20 05:00 IMPRESSION: IMPROVED APPEARANCE. KUB X-Ray 06/01/20 00:00 IMPRESSION: NG tube tip in the stomach. Lumbar Puncture 06/01/20 00:00 IMPRESSION: Lumbar puncture under fluoroscopy. No immediate complication. Assessment & Plan - Diagnosis (1) Pneumonia due to COVID-19 virus Is this a current diagnosis for this admission?: Yes Plan: As per hospitalist. (2) Acute kidney injury Is this a current diagnosis for this admission?: Yes Plan: Patient is currently nonoliguric and making good amount of urine output. So today there is no indications for renal replacements. Monitor for need for dialysis on a regular basis. (3) Respiratory failure with hypoxia and hypercapnia Qualifiers: Chronicity: acute Qualified Code(s): J96.01 - Acute respiratory failure with hypoxia; J96.02 - Acute respiratory failure with hypercapnia Is this a current diagnosis for this admission?: Yes Plan: Currently extubated and transferred to floor. Background of Covid. Management by hospitalist. (4) Abnormal LFTs Is this a current diagnosis for this admission?: Yes Plan: Monitor. (5) Anemia Is this a current diagnosis for this admission?: Yes Plan: On Retacrit .Mild drop in his hemoglobin from yesterday to 7.3 from 7.6. Continue to monitor and see if he requires blood transfusions. However his BUN is dropping which is encouraging. Continue to monitor. (6) Altered mental status Qualifiers: Altered mental status type: stupor Qualified Code(s): R40.1 - Stupor Is this a current diagnosis for this admission?: Yes Plan: Likely metabolic encephalopathy/? Anoxic encephalopathy. Continue to monitor.
--- NOTE | 2020-06-06 16:42 | RADIOLOGY REPORT (SQ) ---
EXAM DESCRIPTION: KUB/ABDOMEN (SINGLE VIEW) IMAGES COMPLETED DATE/TIME: 06/06/2020 4:33 pm REASON FOR STUDY: NG-Tube placement COMPARISON: 06/01/2020 NUMBER OF VIEWS: One view. TECHNIQUE: Supine radiographic image of the abdomen acquired. LIMITATIONS: None. FINDINGS: Nasogastric tube tip overlies the stomach. No dilated bowel loops. IMPRESSION: Nasogastric tube in the stomach. TECHNICAL DOCUMENTATION: JOB ID: [id number] 2010 [employer]- All Rights Reserved Reading location - IP/workstation name: [email or web address]
--- NOTE | 2020-06-06 17:31 | PDOC PROGRESS REPORT ---
Subjective Date:: 06/06/20 Subjective:: Subjective not obtainable due to mental status. Reason For Visit: ENCEPHALOPATHY, ACUTE KIDNEY PAILURE, COVID Physical Exam Vital Signs: Temp Pulse Resp BP Pulse Ox 98.5 F 87 20 132/85 H 98 06/06/20 14:06 06/06/20 14:06 06/06/20 14:06 06/06/20 14:06 06/06/20 14:06 Intake & Output 06/05/20 06/06/20 06/07/20 06:59 06:59 06:59 Intake Total 4650 2584 717 Output Total 3050 2125 950 Balance 1600 459 -233 Weight 109.3 kg 109.2 kg General appearance: PRESENT: no acute distress Head exam: PRESENT: normocephalic Neck exam: ABSENT: JVD Respiratory exam: PRESENT: symmetrical, unlabored. ABSENT: accessory muscle use, retraction, tachypnea Cardiovascular exam: PRESENT: RRR, +S1, +S2. ABSENT: tachycardia GI/Abdominal exam: PRESENT: soft. ABSENT: rebound, rigid, tenderness Neurological exam: PRESENT: altered - Patient remains completely altered with eyes closed, completely aphasic, rigid flexed arms with occasional tremors in his arms and legs separately, not interacting or engaging in environment Psychiatric exam: ABSENT: agitated, anxious Skin exam: ABSENT: jaundice Results Laboratory Results: 06/06/20 06:18 06/06/20 06:18 06/06/20 06/06/20 06/06/20 06:18 06:18 06:18 WBC 11.1 H RBC 2.52 L Hgb 7.3 L Hct 23.8 L MCV 94 MCH 28.7 MCHC 30.5 L RDW 18.8 H Plt Count 200 Sodium Potassium Chloride Carbon Dioxide Anion Gap BUN Creatinine Est GFR ( Amer) Glucose Calcium C-Reactive Protein 11.7 H Urine Color YELLOW Urine Appearance SLIGHTLY-CLOUDY Urine pH 6.0 Ur Specific [place] 1.013 Urine Protein NEGATIVE Urine Glucose (UA) NEGATIVE Urine Ketones NEGATIVE Urine Blood NEGATIVE Urine Nitrite NEGATIVE Ur Leukocyte Esterase MODERATE H Urine WBC (Auto) 18 Urine RBC (Auto) 6 06/06/20 06:18 WBC RBC Hgb Hct MCV MCH MCHC RDW Plt Count Sodium 147.7 H Potassium 3.4 L Chloride 117 H Carbon Dioxide 24 Anion Gap 7 BUN 80 H Creatinine 2.59 H Est GFR ( Amer) 31 L Glucose 101 Calcium 9.9 C-Reactive Protein Urine Color Urine Appearance Urine pH Ur Specific [place] Urine Protein Urine Glucose (UA) Urine Ketones Urine Blood Urine Nitrite Ur Leukocyte Esterase Urine WBC (Auto) Urine RBC (Auto) 05/07/20 05/07/20 05/08/20 20:42 20:42 04:20 Creatine Kinase 55594 H CK-MB (CK-2) 367.00 H Troponin I < 0.012 < 0.012 NT-Pro-B Natriuret Pep 282 H 05/08/20 05/08/20 05/09/20 04:20 12:15 03:38 Creatine Kinase 332262 H 237603 H CK-MB (CK-2) 323.00 H Troponin I < 0.012 NT-Pro-B Natriuret Pep 05/10/20 05/11/20 05/12/20 04:28 17:58 17:10 Creatine Kinase 89977 H 41624 H 34515 H CK-MB (CK-2) Troponin I NT-Pro-B Natriuret Pep 05/13/20 05/19/20 05/31/20 18:53 04:40 08:30 Creatine Kinase 09656 H 1260 H 62 CK-MB (CK-2) Troponin I NT-Pro-B Natriuret Pep Impressions: Cervical Spine CT 05/07/20 20:51 IMPRESSION: No acute findings in the cervical spine. TECHNICAL DOCUMENTATION: Quality ID # 436: Final reports with documentation of one or more dose reduction techniques (e.g., Automated exposure control, adjustment of the mA and/or kV according to patient size, use of iterative reconstruction technique) copyright 2011 [employer]- All Rights Reserved Lower Extremity Ultrasound 05/08/20 00:00 IMPRESSION: Bilateral small vessel disease. No significant stenosis above the knee. Renal Ultrasound 05/09/20 00:00 IMPRESSION: Chronic medical renal disease without hydronephrosis. Possible nonobstructive calculus right kidney. Head CT 05/15/20 00:00 IMPRESSION: STABLE MILD CHRONIC CHANGES. NO ACUTE FINDINGS. EVIDENCE OF ACUTE STROKE: NO. Chest X-Ray 05/29/20 05:00 IMPRESSION: IMPROVED APPEARANCE. Lumbar Puncture 06/01/20 00:00 IMPRESSION: Lumbar puncture under fluoroscopy. No immediate complication. KUB X-Ray 06/06/20 15:58 IMPRESSION: Nasogastric tube in the stomach. Assessment and Plan - Diagnosis (1) Encephalopathy Is this a current diagnosis for this admission?: Yes (2) Altered mental status Qualifiers: Altered mental status type: stupor Qualified Code(s): R40.1 - Stupor Is this a current diagnosis for this admission?: Yes (3) Acute kidney failure Qualifiers: Acute renal failure type: with acute tubular necrosis Qualified Code(s): N17.0 - Acute kidney failure with tubular necrosis Is this a current diagnosis for this admission?: Yes (4) Overdose Qualifiers: Encounter type: subsequent encounter Injury intent: accidental or unintentional Qualified Code(s): T50.901D - Poisoning by unspecified drugs, medicaments and biological substances, accidental (unintentional), subsequent encounter Is this a current diagnosis for this admission?: Yes (5) Pneumonia due to COVID-19 virus Is this a current diagnosis for this admission?: Yes (6) Rhabdomyolysis Qualifiers: Rhabdomyolysis type: traumatic Encounter type: subsequent encounter Qualified Code(s): T79.6XXD - Traumatic ischemia of muscle, subsequent encounter Is this a current diagnosis for this admission?: Yes (7) UTI (urinary tract infection) Qualifiers: Urinary tract infection type: acute cystitis Is this a current diagnosis for this admission?: Yes - Plan Summary Summary: Patient remains stuporous and not interactive. He remains completely altered. He has had no improvement in several days. He has been in the hospital for 29 days now and according to notes and records, it seems he has had no improvement in his mental status during sedation holidays while intubated and also since extubation on 05/30. Head CT shows small hypodensities in both internal capsules which may be indicative of anoxic brain injuries or possible strokes. He is also quite rigid in his extremities and occasionally posturing. Unfortunately, it seems MRI was unobtainable due to patient's hardware. EEG shows diffuse cerebral dysfunction but no epileptiform activity or seizures. LP was unremarkable. Patient does have significantly elevated BUN but has been trend ing down with dialysis and currently renal function is showing improvement as well. ? of whether part of the BUN increase was due to GI bleed. Patient has notably not shown any mental change with improvement of BUN which is starting to make uremic encephalopathy less likely. I do think patient likely has anoxic brain injury or suffered from a stroke. We will continue to monitor patient's mental status with continued treatment of his renal failure and will also have discussion with patient's about possible hospice care tomorrow. 06/06/2020 No improvement in patient's mental status. Of note patient has showed no improvement throughout hospital course. It seems he was taken off propofol on 05/16 and off Precedex on 05/19 eventually was extubated on 05/30 on review of chart. Essentially, being off sedation this long, he should have shown some type of improvement in his mental state. As noted, patient's rigid flexed arms as well as the subtle hypointensities on CT in b/l internal capsules suggest to me that he has sustained significant brain damage. Either anoxic brain injury following his overdose on hydrocodone or significant stroke. I do not anticipate the patient will have any improvement if he has not done so by now. BUN continues to improve gradually with hydration. Creatinine has stabilized around 2.5. Has good urinary output. Nephrology is on board. I do not think this is uremic encephalopathy. His CBC slowly downtrending so we will monitor this. He does have fecal management system so we will monitor for any bleeding evidence. Advance care planning 65mins I had a thorough conversation with patient's . I also spoke with patient's mother over the phone with present. We discussed patient's current situation and his encephalopathy and what is likely sustained brain damage. We discussed his renal failure and improvement in that condition without improvement in his mentation. We discussed that given how long he has not shown any improvement in his faculties that it is highly unlikely that he will show any improvement. We had a very elaborate conversation about the options going forward including nutrition/PEG tube, disposition in LTAC and hospice care. Also discussed on CODE STATUS elaborately. Patient's wants patient to be made a DNR/DNI. She will discuss with patient's mother further about further goals of care regarding decision of hospice care versus continued treatment. - Time Time Spent with patient: 35 or more minutes Anticipated Discharge Disposition: [facility] Anticipated Discharge Timeframe: unknown
[2020-06-07] MEDS: INSULIN REG, HUMAN 100 UNIT/ML 3 ML VIAL (PYX) SUBCUT SCH ×4 (00:08→18:19)
[2020-06-07] MEDS: POTASSI CL 20 MEQ/1/2NS 1L 1000 ML IV PRN ×2 (04:19→15:25)
[2020-06-07] MEDS: MEROPENEM 500 MG in NORMAL SALINE 50 ML IV SCH ×2 (06:26→18:20)
[2020-06-07] MEDS: HEPARIN SOD (PORCINE) 5,000 UNIT/ML 1 ML VIAL SUBCUT SCH ×3 (06:27→21:41)
[2020-06-07 07:06] LABS: ABSOLUTE BASOPHILS # (AUTO) 0.1 10^3/uL (0.0-0.2); ABSOLUTE EOSINOPHILS # (AUTO) 0.1 10^3/uL (0.0-0.6); ABSOLUTE LYMPHOCYTES (AUTO) 0.7 10^3/uL (0.5-4.7); ABSOLUTE MONOCYTES (AUTO) 1.2 10^3/uL (0.1-1.4); BASOPHILS % (AUTO) 0.6 % (0-2); HEMATOCRIT 22.9 % (37.9-51.0); LYMPHOCYTES % (AUTO) 6.5 % (13-45); MEAN CORPUSCULAR HEMOGLOBIN 30.6 pg (27.0-33.4); MEAN CORPUSCULAR HGB CONC 32.4 g/dL (32.0-36.0); MEAN CORPUSCULAR VOLUME 94 fl (80-97); MONOCYTES % (AUTO) 12.3 % (3-13); PLATELET COUNT 223 10^3/uL (150-450); RED BLOOD COUNT 2.43 10^6/uL (4.35-5.55); RED CELL DISTRIBUTION WIDTH 18.6 % (11.5-14.0); SEGMENTED NEUTROPHILS % (AUTO) 79.6 % (42-78); TOTAL CELLS COUNTED % (AUTO) 100 %; WHITE BLOOD COUNT 10.1 10^3/uL (4.0-10.5)
[2020-06-07 07:09] LABS: HEMOGLOBIN 7.4 g/dL (13.5-17.0)
[2020-06-07 07:21] LABS: ALBUMIN 2.5 g/dL (3.5-5.0); ALKALINE PHOSPHATASE 68 U/L (38-126); ANION GAP 7 (5-19); ASPARTATE AMINO TRANSFERASE 30 U/L (17-59); BILIRUBIN,DIRECT 0.2 mg/dL (0.0-0.4); BILIRUBIN,TOTAL 0.7 mg/dL (0.2-1.3); BLOOD UREA NITROGEN 77 mg/dL (7-20); CALCIUM 9.7 mg/dL (8.4-10.2); CARBON DIOXIDE 23 mmol/L (22-30); CHLORIDE 120 mmol/L (98-107); GLUCOSE 102 mg/dL (75-110); POTASSIUM 4.1 mmol/L (3.6-5.0); TOTAL PROTEIN 5.2 g/dL (6.3-8.2)
[2020-06-07] MEDS ORDERED: 1/2 NORMAL SALINE 1,000 ML IV ONE (07:45)
[2020-06-07] MEDS: ZINC SULFATE 220 MG CAPSULE NG SCH (10:57)
[2020-06-07] MEDS: AMINO AC/PROTEIN HYDR/WHEY PRO 11 GM/45 ML PKT NG SCH ×3 (10:57→18:20)
[2020-06-07] MEDS: LEVETIRACETAM 500 MG/NACL-ISO 500 MG/100 ML RTUPB IV SCH ×2 (10:57→21:41)
[2020-06-07] MEDS: CHOLECALCIFEROL (D3) 1,000 UNIT (25 MCG) TABLET NG SCH (10:57)
[2020-06-07] MEDS: DEXAMETHASONE SOD PHOSPHATE INJ 4 MG/1 ML VIAL IV SCH (10:57)
[2020-06-07] MEDS: DOCUSATE SODIUM 100 MG/10 ML UDC PO SCH ×2 (10:57→18:19)
[2020-06-07] MEDS: ASCORBIC ACID 500 MG TABLET NG SCH ×2 (10:57→18:20)
[2020-06-07] MEDS: COLLAGENASE CLOSTRIDIUM HIST. OINT 30 GM TP SCH ×2 (10:58→21:42)
--- NOTE | 2020-06-07 13:00 | PDOC PROGRESS REPORT ---
Subjective Date:: 06/07/20 Subjective:: No improvement in mental state. Subjective is not obtainable Reason For Visit: ENCEPHALOPATHY, ACUTE KIDNEY PAILURE, COVID Physical Exam Vital Signs: Temp Pulse Resp BP Pulse Ox 98.8 F 93 16 144/92 H 98 06/07/20 11:58 06/07/20 11:58 06/07/20 11:58 06/07/20 11:58 06/07/20 11:58 Intake & Output 06/06/20 06/07/20 06/08/20 06:59 06:59 06:59 Intake Total 2584 3333 1150 Output Total 2125 2525 Balance 488 231 3662 Weight 109.2 kg 107.1 kg General appearance: PRESENT: no acute distress Head exam: PRESENT: normocephalic Neck exam: ABSENT: JVD Respiratory exam: PRESENT: symmetrical, unlabored. ABSENT: accessory muscle use, retraction, tachypnea Cardiovascular exam: PRESENT: RRR, +S1, +S2. ABSENT: tachycardia GI/Abdominal exam: PRESENT: soft. ABSENT: rebound, rigid, tenderness Neurological exam: PRESENT: altered - Remains essentially stuporous with no interaction with his environment, occasionally opens his eyes. Rigid flexion in his neck and both arms., aphasic Results Laboratory Results: 06/07/20 06:00 06/07/20 06:00 06/07/20 06/07/20 06:00 06:00 WBC 10.1 RBC 2.43 L Hgb 7.4 L Hct 22.9 L MCV 94 MCH 30.6 MCHC 32.4 RDW 18.6 H Plt Count 223 Seg Neutrophils % 79.6 H Sodium 150.3 H Potassium 4.1 Chloride 120 H Carbon Dioxide 23 Anion Gap 7 BUN 77 H Creatinine 2.18 H Est GFR ( Amer) 38 L Glucose 102 Calcium 9.7 Total Bilirubin 0.7 AST 30 Alkaline Phosphatase 68 Total Protein 5.2 L Albumin 2.5 L 05/07/20 05/07/20 05/08/20 20:42 20:42 04:20 Creatine Kinase 96280 H CK-MB (CK-2) 367.00 H Troponin I < 0.012 < 0.012 NT-Pro-B Natriuret Pep 282 H 05/08/20 05/08/20 05/09/20 04:20 12:15 03:38 Creatine Kinase 272199 H 688108 H CK-MB (CK-2) 323.00 H Troponin I < 0.012 NT-Pro-B Natriuret Pep 05/10/20 05/11/20 05/12/20 04:28 17:58 17:10 Creatine Kinase 25278 H 00625 H 58393 H CK-MB (CK-2) Troponin I NT-Pro-B Natriuret Pep 05/13/20 05/19/20 05/31/20 18:53 04:40 08:30 Creatine Kinase 95340 H 1260 H 62 CK-MB (CK-2) Troponin I NT-Pro-B Natriuret Pep Impressions: Cervical Spine CT 05/07/20 20:51 IMPRESSION: No acute findings in the cervical spine. TECHNICAL DOCUMENTATION: Quality ID # 436: Final reports with documentation of one or more dose reduction techniques (e.g., Automated exposure control, adjustment of the mA and/or kV according to patient size, use of iterative reconstruction technique) copyright 2011 [employer]- All Rights Reserved Lower Extremity Ultrasound 05/08/20 00:00 IMPRESSION: Bilateral small vessel disease. No significant stenosis above the knee. Renal Ultrasound 05/09/20 00:00 IMPRESSION: Chronic medical renal disease without hydronephrosis. Possible nonobstructive calculus right kidney. Head CT 05/15/20 00:00 IMPRESSION: STABLE MILD CHRONIC CHANGES. NO ACUTE FINDINGS. EVIDENCE OF ACUTE STROKE: NO. Chest X-Ray 05/29/20 05:00 IMPRESSION: IMPROVED APPEARANCE. Lumbar Puncture 06/01/20 00:00 IMPRESSION: Lumbar puncture under fluoroscopy. No immediate complication. KUB X-Ray 06/06/20 15:58 IMPRESSION: Nasogastric tube in the stomach. Assessment and Plan - Diagnosis (1) Encephalopathy Is this a current diagnosis for this admission?: Yes (2) Altered mental status Qualifiers: Altered mental status type: stupor Qualified Code(s): R40.1 - Stupor Is this a current diagnosis for this admission?: Yes (3) Acute kidney failure Qualifiers: Acute renal failure type: with acute tubular necrosis Qualified Code(s): N17.0 - Acute kidney failure with tubular necrosis Is this a current diagnosis for this admission?: Yes (4) Overdose Qualifiers: Encounter type: subsequent encounter Injury intent: accidental or unintentional Qualified Code(s): T50.901D - Poisoning by unspecified drugs, medicaments and biological substances, accidental (unintentional), subsequent encounter Is this a current diagnosis for this admission?: Yes (5) Anoxic brain damage Is this a current diagnosis for this admission?: Yes (6) Pneumonia due to COVID-19 virus Is this a current diagnosis for this admission?: Yes (7) Rhabdomyolysis Qualifiers: Rhabdomyolysis type: traumatic Encounter type: subsequent encounter Qualified Code(s): T79.6XXD - Traumatic ischemia of muscle, subsequent encounter Is this a current diagnosis for this admission?: Yes (8) UTI (urinary tract infection) Qualifiers: Urinary tract infection type: acute cystitis Is this a current diagnosis for this admission?: Yes - Plan Summary Summary: Patient remains stuporous and not interactive. He remains completely altered. He has had no improvement in several days. He has been in the hospital for 29 days now and according to notes and records, it seems he has had no improvement in his mental status during sedation holidays while intubated and also since extubation on 05/30. Head CT shows small hypodensities in both internal capsules which may be indicative of anoxic brain injuries or possible strokes. He is also quite rigid in his extremities and occasionally posturing. Unfortunately, it seems MRI was unobtainable due to patient's hardware. EEG shows diffuse cerebral dysfunction but no epileptiform activity or seizures. LP was unremarkable. Patient does have significantly elevated BUN but has been trending down with dialysis and currently renal function is showing improvement as well. ? of whether part of the BUN increase was due to GI bleed. Patient has notably not shown any mental change with improvement of BUN which is starting to make uremic encephalopathy less likely. I do think patient likely has anoxic brain injury or suffered from a stroke. We will continue to monitor patient's mental status with continued treatment of his renal failure and will also have discussion with patient's about possible hospice care tomorrow. 06/06/2020 No improvement in patient's mental status. Of note patient has showed no improvement throughout hospital course. It seems he was taken off propofol on 05/16 and off Precedex on 05/19 eventually was extubated on 05/30 on review of chart. Essentially, being off sedation this long, he should have shown some type of improvement in his mental state. As noted, patient's rigid flexed arms as well as the subtle hypointensities on CT in b/l internal capsules suggest to me that he has sustained significant brain damage. Either anoxic brain injury following his overdose on hydrocodone or significant stroke. I do not anticipate the patient will have any improvement if he has not done so by now. BUN continues to improve gradually with hydration. Creatinine has stabilized around 2.5. Has good urinary output. Nephrology is on board. I do not think this is uremic encephalopathy. His CBC slowly downtrending so we will monitor this. He does have fecal management system so we will monitor for any bleeding evidence. Advance care planning 65mins I had a thorough conversation with patient's . I also spoke with patient's mother over the phone with present. We discussed patient's current situation and his encephalopathy and what is likely sustained brain damage. We discussed his renal failure and improvement in that condition without improvement in his mentation. We discussed that given how long he has not shown any improvement in his faculties that it is highly unlikely that he will show any improvement. We had a very elaborate conversation about the options going forward including nutrition/PEG tube, disposition in LTAC and hospice care. Also discussed on CODE STATUS elaborately. Patient's wants patient to be made a DNR/DNI. She will discuss with patient's mother further about further goals of care regarding decision of hospice care versus continued treatment. 06/07/2020 No improvement in his mental status. Prognosis remains poor. Remains with clear evidence of brain damage and rigid posturing. Remains highly unlikely that his mental status will have any improvement. Kidney function is improving. BUN is going down. Leukocytosis is resolving. We will continue meropenem for 2 more days. Remains on room air. His COVID-19 does not seem to be causing significant issues respiratory mae. He is hypernatremic today. I will give bolus of half-normal saline recheck BMP later this afternoon. If hypernatremia persists, will place on D5W. Awaiting decision from his family regarding PEG tube placement versus hospice. - Time Time Spent with patient: 15-24 minutes Anticipated Discharge Disposition: Long-Term Care Facility Anticipated Discharge Timeframe: within 72 hours
[2020-06-07 15:05] LABS: BLOOD UREA NITROGEN 64 mg/dL (7-20); CALCIUM 8.3 mg/dL (8.4-10.2); CHLORIDE 122 mmol/L (98-107); GLUCOSE 105 mg/dL (75-110); POTASSIUM 3.8 mmol/L (3.6-5.0)
[2020-06-07 15:10] LABS: ANION GAP 5 (5-19); CARBON DIOXIDE 19 mmol/L (22-30)
[2020-06-08] MEDS: INSULIN REG, HUMAN 100 UNIT/ML 3 ML VIAL (PYX) SUBCUT SCH ×4 (01:26→19:26)
[2020-06-08] MEDS: POTASSI CL 20 MEQ/1/2NS 1L 1000 ML IV PRN (02:01)
[2020-06-08 03:30] LABS: ALBUMIN 2.5 g/dL (3.5-5.0); ALKALINE PHOSPHATASE 64 U/L (38-126); ANION GAP 7 (5-19); ASPARTATE AMINO TRANSFERASE 23 U/L (17-59); BILIRUBIN,DIRECT 0.2 mg/dL (0.0-0.4); BILIRUBIN,TOTAL 0.6 mg/dL (0.2-1.3); BLOOD UREA NITROGEN 70 mg/dL (7-20); CALCIUM 9.4 mg/dL (8.4-10.2); CARBON DIOXIDE 21 mmol/L (22-30); CHLORIDE 120 mmol/L (98-107); GLUCOSE 94 mg/dL (75-110); POTASSIUM 4.2 mmol/L (3.6-5.0); TOTAL PROTEIN 5.2 g/dL (6.3-8.2)
[2020-06-08] MEDS: HEPARIN SOD (PORCINE) 5,000 UNIT/ML 1 ML VIAL SUBCUT SCH ×3 (05:25→22:38)
[2020-06-08] MEDS: MEROPENEM 500 MG in NORMAL SALINE 50 ML IV SCH ×2 (05:26→18:32)
[2020-06-08] MEDS: POTASSI CL 20 MEQ/1/2NS 1L 20 MEQ/1,000 ML RTUINJ IV PRN (08:20)
[2020-06-08] MEDS: DOCUSATE SODIUM 100 MG/10 ML UDC PO SCH (10:57)
[2020-06-08] MEDS: DEXAMETHASONE SOD PHOSPHATE INJ 4 MG/1 ML VIAL IV SCH (10:57)
[2020-06-08] MEDS: LEVETIRACETAM 500 MG/NACL-ISO 500 MG/100 ML RTUPB IV SCH (10:59)
[2020-06-08] MEDS: AMINO AC/PROTEIN HYDR/WHEY PRO 11 GM/45 ML PKT NG SCH ×2 (10:59→13:58)
[2020-06-08] MEDS: ASCORBIC ACID 500 MG TABLET NG SCH ×2 (10:59→18:32)
[2020-06-08] MEDS: ZINC SULFATE 220 MG CAPSULE NG SCH (10:59)
[2020-06-08] MEDS: CHOLECALCIFEROL (D3) 1,000 UNIT (25 MCG) TABLET NG SCH (10:59)
[2020-06-08] MEDS: COLLAGENASE CLOSTRIDIUM HIST. OINT 30 GM TP SCH ×2 (11:00→22:39)
--- NOTE | 2020-06-08 12:34 | PDOC PROGRESS REPORT ---
Subjective Date:: 06/08/20 Subjective:: Not obtainable due to mental status Reason For Visit: ENCEPHALOPATHY, ACUTE KIDNEY PAILURE, COVID Physical Exam Vital Signs: Temp Pulse Resp BP Pulse Ox 99.1 F 100 22 H 141/85 H 97 06/08/20 08:34 06/08/20 08:34 06/08/20 08:34 06/08/20 08:34 06/08/20 08:34 Intake & Output 06/07/20 06/08/20 06/09/20 06:59 06:59 06:59 Intake Total 3333 4126 695 Output Total 2525 3225 Balance 808 901 695 Weight 107.1 kg 108.4 kg General appearance: PRESENT: no acute distress Eye exam: PRESENT: PERRLA Neck exam: ABSENT: JVD Respiratory exam: PRESENT: symmetrical, unlabored. ABSENT: accessory muscle use, retraction, tachypnea, wheezes Cardiovascular exam: PRESENT: RRR, +S1, +S2. ABSENT: tachycardia GI/Abdominal exam: PRESENT: soft. ABSENT: rebound, rigid, tenderness Neurological exam: PRESENT: altered - No improvement in mental state. Remains stuporous not following any commands, flexed arms, not responding to pain, not moving extremities and occasionally tremulous in his extremities.. ABSENT: alert, awake Results Laboratory Results: 06/07/20 06:00 06/08/20 02:30 06/07/20 06/08/20 14:20 02:30 Sodium 145.6 H 148.1 H Potassium 3.8 4.2 Chloride 122 H 120 H Carbon Dioxide 19 L 21 L Anion Gap 5 7 BUN 64 H 70 H Creatinine 1.85 H 1.96 H Est GFR ( Amer) 46 L 43 L Glucose 105 94 Calcium 8.3 L 9.4 Total Bilirubin 0.6 AST 23 Alkaline Phosphatase 64 Total Protein 5.2 L Albumin 2.5 L 05/07/20 05/07/20 05/08/20 20:42 20:42 04:20 Creatine Kinase 59090 H CK-MB (CK-2) 367.00 H Troponin I < 0.012 < 0.012 NT-Pro-B Natriuret Pep 282 H 05/08/20 05/08/20 05/09/20 04:20 12:15 03:38 Creatine Kinase 308814 H 021565 H CK-MB (CK-2) 323.00 H Troponin I < 0.012 NT-Pro-B Natriuret Pep 05/10/20 05/11/20 05/12/20 04:28 17:58 17:10 Creatine Kinase 44939 H 05437 H 37030 H CK-MB (CK-2) Troponin I NT-Pro-B Natriuret Pep 05/13/20 05/19/20 05/31/20 18:53 04:40 08:30 Creatine Kinase 86283 H 1260 H 62 CK-MB (CK-2) Troponin I NT-Pro-B Natriuret Pep Impressions: Cervical Spine CT 05/07/20 20:51 IMPRESSION: No acute findings in the cervical spine. TECHNICAL DOCUMENTATION: Quality ID # 436: Final reports with documentation of one or more dose reduction techniques (e.g., Automated exposure control, adjustment of the mA and/or kV according to patient size, use of iterative reconstruction technique) copyright 2011 [employer]- All Rights Reserved Lower Extremity Ultrasound 05/08/20 00:00 IMPRESSION: Bilateral small vessel disease. No significant stenosis above the knee. Renal Ultrasound 05/09/20 00:00 IMPRESSION: Chronic medical renal disease without hydronephrosis. Possible nonobstructive calculus right kidney. Head CT 05/15/20 00:00 IMPRESSION: STABLE MILD CHRONIC CHANGES. NO ACUTE FINDINGS. EVIDENCE OF ACUTE STROKE: NO. Chest X-Ray 05/29/20 05:00 IMPRESSION: IMPROVED APPEARANCE. Lumbar Puncture 06/01/20 00:00 IMPRESSION: Lumbar puncture under fluoroscopy. No immediate complication. KUB X-Ray 06/06/20 15:58 IMPRESSION: Nasogastric tube in the stomach. Assessment and Plan - Diagnosis (1) Encephalopathy Is this a current diagnosis for this admission?: Yes (2) Anoxic brain damage Is this a current diagnosis for this admission?: Yes (3) Acute kidney failure Qualifiers: Acute renal failure type: with acute tubular necrosis Qualified Code(s): N17.0 - Acute kidney failure with tubular necrosis Is this a current diagnosis for this admission?: Yes (4) Overdose Qualifiers: Encounter type: subsequent encounter Injury intent: accidental or unintentional Qualified Code(s): T50.901D - Poisoning by unspecified drugs, medicaments and biological substances, accidental (unintentional), subsequent encounter Is this a current diagnosis for this admission?: Yes (5) Pneumonia due to COVID-19 virus Is this a current diagnosis for this admission?: Yes (6) Rhabdomyolysis Qualifiers: Rhabdomyolysis type: traumatic Encounter type: subsequent encounter Qualified Code(s): T79.6XXD - Traumatic ischemia of muscle, subsequent encounter Is this a current diagnosis for this admission?: Yes (7) UTI (urinary tract infection) Qualifiers: Urinary tract infection type: acute cystitis Is this a current diagnosis for this admission?: Yes - Plan Summary Summary: Patient remains stuporous and not interactive. He remains completely altered. He has had no improvement in several days. He has been in the hospital for 29 days now and according to notes and records, it seems he has had no improvement in his mental status during sedation holidays while intubated and also since extubation on 05/30. Head CT shows small hypodensities in both internal capsules which may be indicative of anoxic brain injuries or possible strokes. He is also quite rigid in his extremities and occasionally posturing. Unfortunately, it seems MRI was unobtainable due to patient's hardware. EEG shows diffuse cerebral dysfunction but no epileptiform activity or seizures. LP was unremarkable. Patient does have significantly elevated BUN but has been trending down with dialysis and currently renal function is showing improvement as well. ? of whether part of the BUN increase was due to GI bleed. Patient has notably not shown any mental change with improvement of BUN which is starting to make uremic encephalopathy less likely. I do think patient likely has anoxic brain injury or suffered from a stroke. We will continue to monitor patient's mental status with continued treatment of his renal failure and will also have discussion with patient's about possible hospice care tomorrow. 06/06/2020 No improvement in patient's mental status. Of note patient has showed no improvement throughout hospital course. It seems he was taken off propofol on 05/16 and off Precedex on 05/19 eventually was extubated on 05/30 on review of chart. Essentially, being off sedation this long, he should have shown some type of improvement in his mental state. As noted, patient's rigid flexed arms as well as the subtle hypointensities on CT in b/l internal capsules suggest to me that he has sustained significant brain damage. Either anoxic brain injury following his overdose on hydrocodone or significant stroke. I do not anticipate the patient will have any improvement if he has not done so by now. BUN continues to improve gradually with hydration. Creatinine has stabilized around 2.5. Has good urinary output. Nephrology is on board. I do not think this is uremic encephalopathy. His CBC slowly downtrending so we will monitor this. He does have fecal manag ement system so we will monitor for any bleeding evidence. Advance care planning 65mins I had a thorough conversation with patient's . I also spoke with patient's mother over the phone with present. We discussed patient's current situation and his encephalopathy and what is likely sustained brain damage. We discussed his renal failure and improvement in that condition without improvem ent in his mentation. We discussed that given how long he has not shown any improvement in his faculties that it is highly unlikely that he will show any improvement. We had a very elaborate conversation about the options going forward including nutrition/PEG tube, disposition in LTAC and hospice care. Also discussed on CODE STATUS elaborately. Patient's wants patient to be made a DNR/DNI. She will discuss with patient's mother further about further goals of care regarding decision of hospice care versus continued treatment. 06/07/2020 No improvement in his mental status. Prognosis remains poor. Remains with clear evidence of brain damage and rigid posturing. Remains highly unlikely that his mental status will have any improvement. Kidney function is improving. BUN is going down. Leukocytosis is resolving. We will continue meropenem for 2 more days. Remains on room air. His COVID-19 does not seem to be causing significant issues respiratory mae. He is hypernatremic today. I will give bolus of half-normal saline recheck BMP later this afternoon. If hypernatremia persists, will place on D5W. Awaiting decision from his family regarding PEG tube placement versus hospice. 06/08/2020 Patient's requested neurology evaluation before making decision on hospice. I did do consultation with neurology Dr. Castaneda at [facility]. Dr. Castaneda reviewed the images as well and did note some white matter disease and changes and we reviewed his clinical presentation and clinical course and she feels he has anoxic brain injury. In terms of prognosis, she could not give me a clear expectation as to the prognosis or how much functionality, he may recover and may have a clearer assessment in 3-6 months. It however will likely not be a tremendous jump in his functionality. I relayed my conversation with patient's and she wants to proceed with PEG tube placement and waiting a few months before deciding on hospice. I have consulted surgery for PEG tube placement. We will try to get patient placement. Mildly hypernatremic today so I have increased free water flushes to 200 cc every 4 hours. Continue half-normal saline. Check electrolytes in the morning. Will start on Flexeril for rigidity. Occupational Therapy consult. - Time Anticipated Discharge Disposition: [facility] Anticipated Discharge Timeframe: within 72 hours
[2020-06-08] MEDS: CYCLOBENZAPRINE HCL 10 MG TABLET PO SCH ×2 (13:56→22:37)
--- NOTE | 2020-06-08 16:39 | RADIOLOGY REPORT (SQ) ---
EXAM DESCRIPTION: CHEST SINGLE VIEW IMAGES COMPLETED DATE/TIME: 06/08/2020 2:42 pm REASON FOR STUDY: change in respiratory status COMPARISON: 05/29/2020 EXAM PARAMETERS: NUMBER OF VIEWS: One view. TECHNIQUE: Single frontal radiographic view of the chest acquired. RADIATION DOSE: NA LIMITATIONS: None. FINDINGS: LUNGS AND PLEURA: Improved but persistent patchy bibasilar opacities. No dense consolidat ion. No significant effusion. No pneumothorax. MEDIASTINUM AND HILAR STRUCTURES: Stable. HEART AND VASCULAR STRUCTURES: Heart normal in size. Normal vasculature. BONES: No acute findings. HARDWARE: Interval extubation. Enteric tube tip below diaphragm but excluded by collimation. Right internal jugular central venous catheter tip at cavoatrial junction. OTHER: No other significant finding. IMPRESSION: Improved but persistent mild patchy bibasilar opacities. Interval extubation. No other evidence of acute intrathoracic process. TECHNICAL DOCUMENTATION: JOB ID: [id number] 2010 [employer]- All Rights Reserved Reading location - IP/workstation name: [email or web address]
[2020-06-08] MEDS: LEVETIRACETAM ORAL SOLN 500 MG/5 ML UDCUP PO SCH (22:38)
[2020-06-09] MEDS: POTASSI CL 20 MEQ/1/2NS 1L 20 MEQ/1,000 ML RTUINJ IV PRN
--- NOTE | 2020-06-09 00:27 | PDOC PROGRESS REPORT ---
Subjective Date:: 06/08/20 Subjective:: Patient's mental status has not changed unfortunately. Hospitalist service is consulting neurology. On one hand the patient continues to pass adequate urine output. Kidney functio n continues to improve as well without renal replacement therapy. Reason For Visit: ENCEPHALOPATHY, ACUTE KIDNEY PAILURE, COVID Physical Exam Vital Signs: Temp Pulse Resp BP Pulse Ox 98.9 F 104 H 20 133/83 H 96 06/08/20 12:13 06/08/20 12:13 06/08/20 12:13 06/08/20 12:13 06/08/20 12:13 Intake & Output 06/07/20 06/08/20 06/09/20 06:59 06:59 06:59 Intake Total 3333 4126 795 Output Total 2525 3225 800 Balance 808 901 -5 Weight 107.1 kg 108.4 kg Exam: Limited physical exam due to COVID-19 infection. General appearance: PRESENT: no acute distress, still obtunded Head exam: PRESENT: atraumatic, normocephalic Eye exam: PRESENT: conjunctiva pale, PERRLA. ABSENT: scleral icterus Neck exam: ABSENT: JVD Respiratory exam: Not performed due to COVID-19 infection but nurse reports patient has diminished breath sounds Cardiovascular exam: PRESENT: Reportedly with regular rate rhythm -+S1, +S2. ABSENT: diastolic murmur, systolic murmur Extremities exam: ABSENT: No edema Neurological exam: PRESENT: Obtunded. Skin exam: PRESENT: dry, warm, Cardiovascular exam: PRESENT: +S1, +S2 GI/Abdominal exam: PRESENT: normal bowel sounds, soft. ABSENT: organomegaly, tenderness Results Laboratory Results: 06/07/20 06:00 06/08/20 02:30 06/07/20 06/08/20 14:20 02:30 Sodium 145.6 H 148.1 H Potassium 3.8 4.2 Chloride 122 H 120 H Carbon Dioxide 19 L 21 L Anion Gap 5 7 BUN 64 H 70 H Creatinine 1.85 H 1.96 H Est GFR ( Amer) 46 L 43 L Glucose 105 94 Calcium 8.3 L 9.4 Total Bilirubin 0.6 AST 23 Alkaline Phosphatase 64 Total Protein 5.2 L Albumin 2.5 L 05/07/20 05/07/20 05/08/20 20:42 20:42 04:20 Creatine Kinase 33748 H CK-MB (CK-2) 367.00 H Troponin I < 0.012 < 0.012 NT-Pro-B Natriuret Pep 282 H 05/08/20 05/08/20 05/09/20 04:20 12:15 03:38 Creatine Kinase 279957 H 348826 H CK-MB (CK-2) 323.00 H Troponin I < 0.012 NT-Pro-B Natriuret Pep 05/10/20 05/11/20 05/12/20 04:28 17:58 17:10 Creatine Kinase 54667 H 41671 H 58392 H CK-MB (CK-2) Troponin I NT-Pro-B Natriuret Pep 05/13/20 05/19/20 05/31/20 18:53 04:40 08:30 Creatine Kinase 72019 H 1260 H 62 CK-MB (CK-2) Troponin I NT-Pro-B Natriuret Pep Impressions: Cervical Spine CT 05/07/20 20:51 IMPRESSION: No acute findings in the cervical spine. TECHNICAL DOCUMENTATION: Quality ID # 436: Final reports with documentation of one or more dose reduction techniques (e.g., Automated exposure control, adjustment of the mA and/or kV according to patient size, use of iterative reconstruction technique) copyright 2011 [employer]- All Rights Reserved Lower Extremity Ultrasound 05/08/20 00:00 IMPRESSION: Bilateral small vessel disease. No significant stenosis above the knee. Renal Ultrasound 05/09/20 00:00 IMPRESSION: Chronic medical renal disease without hydronephrosis. Possible nonobstructive calculus right kidney. Head CT 05/15/20 00:00 IMPRESSION: STABLE MILD CHRONIC CHANGES. NO ACUTE FINDINGS. EVIDENCE OF ACUTE STROKE: NO. Chest X-Ray 05/29/20 05:00 IMPRESSION: IMPROVED APPEARANCE. Lumbar Puncture 06/01/20 00:00 IMPRESSION: Lumbar puncture under fluoroscopy. No immediate complication. KUB X-Ray 06/06/20 15:58 IMPRESSION: Nasogastric tube in the stomach. Assessment & Plan - Diagnosis (1) Acute kidney injury Is this a current diagnosis for this admission?: Yes Plan: Secondary to initial severe rhabdomyolysis but could also be multifactorial. Patient is found to be Covid positive on 05/12/2020 and most recently 05/26/20. Kidney function continues to improve without renal replacement therapy. Excellent urine output. I do not anticipate the patient would need further renal replacement therapy. May remove triialysis catheter. I will sign off at this time. (2) Encephalopathy Is this a current diagnosis for this admission?: Yes Plan: Per hospitalist service. (3) UTI (urinary tract infection) Qualifiers: Urinary tract infection type: acute cystitis Is this a current diagnosis for this admission?: Yes Plan: On meropenem. (4) Pneumonia due to COVID-19 virus Is this a current diagnosis for this admission?: Yes Plan: Still on vitamin C and zinc. (5) Rhabdomyolysis Qualifiers: Rhabdomyolysis type: traumatic Encounter type: subsequent encounter Qualified Code(s): T79.6XXD - Traumatic ischemia of muscle, subsequent encounter Is this a current diagnosis for this admission?: Yes Plan: Resolved. (6) Hypoalbuminemia Is this a current diagnosis for this admission?: Yes (7) Anemia Is this a current diagnosis for this admission?: Yes (8) Abnormal LFTs Is this a current diagnosis for this admission?: Yes (9) EtOH dependence Qualifiers: Substance use status: unspecified alcohol-induced disorder Qualified Code(s): F10.29 - Alcohol dependence with unspecified alcohol-induced disorder Is this a current diagnosis for this admission?: Yes (10) Respiratory failure with hypoxia and hypercapnia Qualifiers: Chronicity: acute Qualified Code(s): J96.01 - Acute respiratory failure with hypoxia; J96.02 - Acute respiratory failure with hypercapnia Is this a current diagnosis for this admission?: Yes Plan: Resolved. - Notes Notes: Please call us back if we can be of further assistance.
[2020-06-09] MEDS: AMINO AC/PROTEIN HYDR/WHEY PRO 11 GM/45 ML PKT NG SCH (00:43)
[2020-06-09] MEDS: INSULIN REG, HUMAN 100 UNIT/ML 3 ML VIAL (PYX) SUBCUT SCH ×4 (00:45→19:21)
[2020-06-09 05:00] LABS: INTERNATIONAL RATION (INR) 1.02; PROTHROMBIN TIME 13.6 SEC (11.4-15.4)
[2020-06-09 05:01] LABS: PARTIAL THROMBOPLASTIN TIME 27.1 SEC (23.5-35.8)
[2020-06-09 05:10] LABS: ANION GAP 7 (5-19); BLOOD UREA NITROGEN 70 mg/dL (7-20); CALCIUM 9.4 mg/dL (8.4-10.2); CARBON DIOXIDE 20 mmol/L (22-30); CHLORIDE 119 mmol/L (98-107); GLUCOSE 94 mg/dL (75-110); POTASSIUM 4.6 mmol/L (3.6-5.0)
[2020-06-09] MEDS: HEPARIN SOD (PORCINE) 5,000 UNIT/ML 1 ML VIAL SUBCUT SCH ×3 (05:51→14:50)
[2020-06-09] MEDS: MEROPENEM 500 MG in NORMAL SALINE 50 ML IV SCH ×2 (05:53→19:15)
[2020-06-09] MEDS: CYCLOBENZAPRINE HCL 10 MG TABLET PO SCH ×3 (05:54→23:19)
--- NOTE | 2020-06-09 06:03 | PDOC CONSULTATION ---
Consultation Consult Date: 06/09/20 Provider Consulted: SURGICAL SURGICALIST Consult reason:: PEG placement History of Present Illness Admission Date/PCP: 05/07/20 23:08 ANTONIO MAJOR MD Patient complains of: anoxic brain injury, opiate overdose History of Present Illness: JOSELITO WEINER JR is a 54 year old male admitted to the hospital many weeks ago with a presumed opioid overdose. He was also found to have COVID-19. He was intubated for many days, and was felt to have suffered an anoxic brain injury. The patient is not alert. He does not follow commands. His mental state has been unchanged now since extubation. The patient cannot provide any history or review of systems, as he is nonverbal. He also does not respond to stimuli. All pertinent medical history is obtained from the medical record and the nursing staff. Past Medical History Cardiac Medical History: Reports: Hypertension Pulmonary Medical History: Reports: Chronic Obstructive Pulmonary Disease (COPD) EENT Medical History: Reports: None Neurological Medical History: Reports: None Renal/ Medical History: Reports: None GI Medical History: Reports: None Psychiatric Medical History: Reports: Alcohol Dependency, Depression Traumatic Medical History: Reports: None Hematology: Reports: None Infectious Medical History: Reports: None Past Surgical History Past Surgical History: Reports: Orthopedic Surgery Social History Lives with: Family, Spouse/Significant other Smoking Status: Unknown if Ever Smoked Frequency of Alcohol Use: Heavy - per 1/2 gallon of crown whiskey every oth er day Hx Prescription Drug Abuse: Yes - Advance Directive Resuscitation Status: Do Not Resuscitate Family History Family History: Other - Unable Parental Family History Reviewed: Yes Children Family History Reviewed: Yes Sibling(s) Family History Reviewed.: Yes Medication/Allergy Home Medications: Allopurinol [Zyloprim 300 mg Tablet] 300 mg PO DAILY 05/08/20 Amlodipine Besylate [Norvasc 5 mg Tablet] 5 mg PO DAILY 05/08/20 Colchicine [Colcrys 0.6 mg Tablet] 0.6 mg PO BID 05/08/20 Diclofenac Sodium 100 gm TP QIDP PRN 05/08/20 Gabapentin [Neurontin 300 mg Capsule] 300 mg PO Q8 05/08/20 Hydrocodone/Acetaminophen [[place] 5-325 mg Tablet] 1 tab PO TIDP PRN 05/08/20 Losartan Potassium 100 mg PO DAILY 05/08/20 Mirtazapine [Remeron] 15 mg PO QHS 05/08/20 Potassium Citrate [Potassium Citrate ER] 10 meq PO DAILY 05/08/20 Tizanidine HCl [Zanaflex] 4 mg PO Q8HP PRN 05/08/20 Venlafaxine HCl [Effexor Xr] 150 mg PO Q12 05/08/20 Allergies/Adverse Reactions: No Known Allergies Allergy (Unverified 05/07/20 21:20) Review of Systems ROS unobtainable: Due to mental status Physical Exam Vital Signs: Temp Pulse Resp BP Pulse Ox 99.1 F 102 H 22 H 153/85 H 97 06/09/20 03:22 06/09/20 03:22 06/09/20 03:22 06/09/20 03:22 06/09/20 03:22 Intake & Output 06/07/20 06/08/20 06/09/20 06:59 06:59 06:59 Intake Total 3333 4126 3245 Output Total 2525 3225 2600 Balance 808 901 645 Weight 107.1 kg 108.4 kg 108.4 kg General appearance: PRESENT: obese Head exam: PRESENT: atraumatic Eye exam: ABSENT: scleral icterus Mouth exam: PRESENT: moist, neck supple Neck exam: ABSENT: tracheal deviation, tracheostomy Respiratory exam: PRESENT: tachypnea - Mild Cardiovascular exam: PRESENT: tachycardia GI/Abdominal exam: PRESENT: soft, other - Obese. ABSENT: rigid, tenderness Rectal exam: PRESENT: deferred, other - Rectal tube in place Musculoskeletal exam: PRESENT: other - Developing contractures of upper extremities. Neurological exam: PRESENT: other - Increased spasticity of bilateral upper extremities. ABSENT: alert, oriented to person, oriented to place, oriented to time, oriented to situation Psychiatric exam: ABSENT: agitated Skin exam: ABSENT: erythema, jaundice Results Laboratory Results: 06/07/20 06:00 06/09/20 04:30 06/09/20 04:30 Sodium 145.6 H Potassium 4.6 Chloride 119 H Carbon Dioxide 20 L Anion Gap 7 BUN 70 H Creatinine 1.79 H Est GFR ( Amer) 48 L Glucose 94 Calcium 9.4 Magnesium 1.7 05/07/20 05/07/20 05/08/20 20:42 20:42 04:20 Creatine Kinase 65811 H CK-MB (CK-2) 367.00 H Troponin I < 0.012 < 0.012 NT-Pro-B Natriuret Pep 282 H 05/08/20 05/08/20 05/09/20 04:20 12:15 03:38 Creatine Kinase 123067 H 732338 H CK-MB (CK-2) 323.00 H Troponin I < 0.012 NT-Pro-B Natriuret Pep 05/10/20 05/11/20 05/12/20 04:28 17:58 17:10 Creatine Kinase 40389 H 09293 H 66530 H CK-MB (CK-2) Troponin I NT-Pro-B Natriuret Pep 05/13/20 05/19/20 05/31/20 18:53 04:40 08:30 Creatine Kinase 28631 H 1260 H 62 CK-MB (CK-2) Troponin I NT-Pro-B Natriuret Pep Impressions: Cervical Spine CT 05/07/20 20:51 IMPRESSION: No acute findings in the cervical spine. TECHNICAL DOCUMENTATION: Quality ID # 436: Final reports with documentation of one or more dose reduction techniques (e.g., Automated exposure control, adjustment of the mA and/or kV according to patient size, use of iterative reconstruction technique) copyright 2010 [employer]- All Rights Reserved Lower Extremity Ultrasound 05/08/20 00:00 IMPRESSION: Bilateral small vessel disease. No significant stenosis above the knee. Renal Ultrasound 05/09/20 00:00 IMPRESSION: Chronic medical renal disease without hydronephrosis. Possible nonobstructive calculus right kidney. Head CT 05/15/20 00:00 IMPRESSION: STABLE MILD CHRONIC CHANGES. NO ACUTE FINDINGS. EVIDENCE OF ACUTE STROKE: NO. Lumbar Puncture 06/01/20 00:00 IMPRESSION: Lumbar puncture under fluoroscopy. No immediate complication. KUB X-Ray 06/06/20 15:58 IMPRESSION: Nasogastric tube in the stomach. Chest X-Ray 06/08/20 00:00 IMPRESSION: Improved but persistent mild patchy bibasilar opacities. Interval extubation. No other evidence of acute intrathoracic process. Assessment & Plan - Diagnosis (1) Inanition Is this a current diagnosis for this admission?: Yes (2) Anoxic brain damage Is this a current diagnosis for this admission?: Yes (3) Pneumonia due to COVID-19 virus Is this a current diagnosis for this admission?: Yes - Plan Summary Plan Summary: 54-year-old male with an anoxic brain injury and COVID-19. The patient is in need of a feeding tube in order to be placed in a long-term care facility. He is currently unresponsive to stimuli. At this time, he is being fed via NG tube (which he is tolerating). There are multiple complicating factors including his history of alcohol abuse, obesity, and recent Covid infection. He was last tested for Covid virus on 05/26/2020, and tested positive. Unfortunately this presents problems with aerosolizing procedures like upper endoscopy. Specific logistical considerations must be made. Plan for PEG tube, once all appropriate safety measures can be put into place (suspect next week).
--- NOTE | 2020-06-09 09:32 | PDOC PROGRESS REPORT ---
Subjective Date:: 06/09/20 Reason For Visit: ENCEPHALOPATHY, ACUTE KIDNEY PAILURE, COVID Physical Exam Vital Signs: Temp Pulse Resp BP Pulse Ox 99.1 F 102 H 22 H 153/85 H 97 06/09/20 03:22 06/09/20 03:22 06/09/20 03:22 06/09/20 03:22 06/09/20 03:22 Intake & Output 06/08/20 06/09/20 06/10/20 06:59 06:59 06:59 Intake Total 4126 4905 Output Total 3225 3400 Balance 901 1505 Weight 108.4 kg 110.5 kg Results Laboratory Results: 06/07/20 06:00 06/09/20 04:30 06/09/20 04:30 Sodium 145.6 H Potassium 4.6 Chloride 119 H Carbon Dioxide 20 L Anion Gap 7 BUN 70 H Creatinine 1.79 H Est GFR ( Amer) 48 L Glucose 94 Calcium 9.4 Magnesium 1.7 05/07/20 05/07/20 05/08/20 20:42 20:42 04:20 Creatine Kinase 57660 H CK-MB (CK-2) 367.00 H Troponin I < 0.012 < 0.012 NT-Pro-B Natriuret Pep 282 H 05/08/20 05/08/20 05/09/20 04:20 12:15 03:38 Creatine Kinase 815583 H 329863 H CK-MB (CK-2) 323.00 H Troponin I < 0.012 NT-Pro-B Natriuret Pep 05/10/20 05/11/20 05/12/20 04:28 17:58 17:10 Creatine Kinase 75962 H 77105 H 85985 H CK-MB (CK-2) Troponin I NT-Pro-B Natriuret Pep 05/13/20 05/19/20 05/31/20 18:53 04:40 08:30 Creatine Kinase 53548 H 1260 H 62 CK-MB (CK-2) Troponin I NT-Pro-B Natriuret Pep Impressions: Cervical Spine CT 05/07/20 20:51 IMPRESSION: No acute findings in the cervical spine. TECHNICAL DOCUMENTATION: Quality ID # 436: Final reports with documentation of one or more dose reduction techniques (e.g., Automated exposure control, adjustment of the mA and/or kV according to patient size, use of iterative reconstruction technique) copyright 2010 [employer]- All Rights Reserved Lower Extremity Ultrasound 05/08/20 00:00 IMPRESSION: Bilateral small vessel disease. No significant stenosis above the knee. Renal Ultrasound 05/09/20 00:00 IMPRESSION: Chronic medical renal disease without hydronephrosis. Possible nonobstructive calculus right kidney. Head CT 05/15/20 00:00 IMPRESSION: STABLE MILD CHRONIC CHANGES. NO ACUTE FINDINGS. EVIDENCE OF ACUTE STROKE: NO. Lumbar Puncture 06/01/20 00:00 IMPRESSION: Lumbar puncture under fluoroscopy. No immediate complication. KUB X-Ray 06/06/20 15:58 IMPRESSION: Nasogastric tube in the stomach. Chest X-Ray 06/08/20 00:00 IMPRESSION: Improved but persistent mild patchy bibasilar opacities. Interval extubation. No other evidence of acute intrathoracic process. Assessment & Plan - Diagnosis (1) Anoxic brain damage Is this a current diagnosis for this admission?: Yes Plan: Impression: Anoxic brain injury with sustained severe neurologic deficit; patient slated to be transferred to shelter facility next week. Plan: 1. We will set patient up for percutaneous endoscopic gastrostomy tube placement, June 11, Dr. Shaikh. Tube feeds to be held after midnight 06/10/2020 2. Please hold Lovenox injections on June 11. - Time Anticipated Discharge Disposition: Group Home Facility Anticipated Discharge Timeframe: within 72 hours
[2020-06-09] MEDS: ZINC SULFATE 220 MG CAPSULE NG SCH (09:35)
[2020-06-09] MEDS: ASCORBIC ACID 500 MG TABLET NG SCH ×2 (09:35→19:15)
[2020-06-09] MEDS: LEVETIRACETAM ORAL SOLN 500 MG/5 ML UDCUP PO SCH ×2 (09:35→23:20)
[2020-06-09] MEDS: CHOLECALCIFEROL (D3) 1,000 UNIT (25 MCG) TABLET NG SCH (09:35)
[2020-06-09] MEDS: LOSARTAN POTASSIUM 50 MG TABLET PO SCH ×2 (09:35→23:19)
[2020-06-09] MEDS: COLLAGENASE CLOSTRIDIUM HIST. OINT 30 GM TP SCH ×2 (09:36→23:21)
--- NOTE | 2020-06-09 11:33 | PDOC PROGRESS REPORT ---
Subjective Date:: 06/09/20 Subjective:: not obtainable Reason For Visit: ENCEPHALOPATHY, ACUTE KIDNEY PAILURE, COVID Physical Exam Vital Signs: Temp Pulse Resp BP Pulse Ox 98.5 F 103 H 17 139/84 H 96 06/09/20 08:08 06/09/20 08:08 06/09/20 08:08 06/09/20 08:08 06/09/20 08:08 Intake & Output 06/08/20 06/09/20 06/10/20 06:59 06:59 06:59 Intake Total 4126 4905 Output Total 3225 3400 Balance 901 1505 Weight 108.4 kg 110.5 kg General appearance: PRESENT: no acute distress, cooperative Neck exam: ABSENT: lymphadenopathy Respiratory exam: PRESENT: symmetrical, unlabored. ABSENT: tachypnea, wheezes Cardiovascular exam: PRESENT: +S1, +S2, tachycardia. ABSENT: irregular rhythm GI/Abdominal exam: PRESENT: soft. ABSENT: tenderness Neurological exam: PRESENT: altered Results Laboratory Results: 06/07/20 06:00 06/09/20 04:30 06/09/20 04:30 Sodium 145.6 H Potassium 4.6 Chloride 119 H Carbon Dioxide 20 L Anion Gap 7 BUN 70 H Creatinine 1.79 H Est GFR ( Amer) 48 L Glucose 94 Calcium 9.4 Magnesium 1.7 05/07/20 05/07/20 05/08/20 20:42 20:42 04:20 Creatine Kinase 50497 H CK-MB (CK-2) 367.00 H Troponin I < 0.012 < 0.012 NT-Pro-B Natriuret Pep 282 H 05/08/20 05/08/20 05/09/20 04:20 12:15 03:38 Creatine Kinase 295737 H 029383 H CK-MB (CK-2) 323.00 H Troponin I < 0.012 NT-Pro-B Natriuret Pep 05/10/20 05/11/20 05/12/20 04:28 17:58 17:10 Creatine Kinase 45151 H 90759 H 07515 H CK-MB (CK-2) Troponin I NT-Pro-B Natriuret Pep 05/13/20 05/19/20 05/31/20 18:53 04:40 08:30 Creatine Kinase 77841 H 1260 H 62 CK-MB (CK-2) Troponin I NT-Pro-B Natriuret Pep Impressions: Cervical Spine CT 05/07/20 20:51 IMPRESSION: No acute findings in the cervical spine. TECHNICAL DOCUMENTATION: Quality ID # 436: Final reports with documentation of one or more dose reduction techniques (e.g., Automated exposure control, adjustment of the mA and/or kV according to patient size, use of iterative reconstruction technique) copyright 2011 [employer]- All Rights Reserved Lower Extremity Ultrasound 05/08/20 00:00 IMPRESSION: Bilateral small vessel disease. No significant stenosis above the knee. Renal Ultrasound 05/09/20 00:00 IMPRESSION: Chronic medical renal disease without hydronephrosis. Possible nonobstructive calculus right kidney. Head CT 05/15/20 00:00 IMPRESSION: STABLE MILD CHRONIC CHANGES. NO ACUTE FINDINGS. EVIDENCE OF ACUTE STROKE: NO. Lumbar Puncture 06/01/20 00:00 IMPRESSION: Lumbar puncture under fluoroscopy. No immediate complication. KUB X-Ray 06/06/20 15:58 IMPRESSION: Nasogastric tube in the stomach. Chest X-Ray 06/08/20 00:00 IMPRESSION: Improved but persistent mild patchy bibasilar opacities. Interval extubation. No other evidence of acute intrathoracic process. Assessment and Plan - Diagnosis (1) Encephalopathy Is this a current diagnosis for this admission?: Yes (2) Anoxic brain damage Is this a current diagnosis for this admission?: Yes (3) Acute kidney failure Qualifiers: Acute renal failure type: with acute tubular necrosis Qualified Code(s): N17.0 - Acute kidney failure with tubular necrosis Is this a current diagnosis for this admission?: Yes (4) Overdose Qualifiers: Encounter type: subsequent encounter Injury intent: accidental or unintentional Qualified Code(s): T50.901D - Poisoning by unspecified drugs, medicaments and biological substances, accidental (unintentional), subsequent encounter Is this a current diagnosis for this admission?: Yes (5) Pneumonia due to COVID-19 virus Is this a current diagnosis for this admission?: Yes (6) Rhabdomyolysis Qualifiers: Rhabdomyolysis type: traumatic Encounter type: subsequent encounter Qualified Code(s): T79.6XXD - Traumatic ischemia of muscle, subsequent encounter Is this a current diagnosis for this admission?: Yes (7) UTI (urinary tract infection) Qualifiers: Urinary tract infection type: acute cystitis Is this a current diagnosis for this admission?: Yes - Plan Summary Summary: Patient remains stuporous and not interactive. He remains completely altered. He has had no improvement in several days. He has been in the hospital for 29 days now and according to notes and records, it seems he has had no improvement in his mental status during sedation holidays while intubated and also since extubation on 05/30. Head CT shows small hypodensities in both internal capsules which may be indicative of anoxic brain injuries or possible strokes. He is also quite rigid in his extremities and occasionally posturing. Unfortunately, it seems MRI was unobtainable due to patient's hardware. EEG shows diffuse cerebral dysfunction but no epileptiform activity or seizures. LP was unremarkable. Patient does have significantly elevated BUN but has been trending down with dialysis and currently renal function is showing improvement as well. ? of whether part of the BUN increase was due to GI bleed. Patient has notably not shown any mental change with improvement of BUN which is starting to make uremic encephalopathy less likely. I do think patient likely has anoxic brain injury or suffered from a stroke. We will continue to monitor patient's mental status with continued treatment of his renal failure and will also have discussion with patient's about possible hospice care tomorrow. 06/06/2020 No improvement in patient's mental status. Of note patient has showed no improvement throughout hospital course. It seems he was taken off propofol on 05/16 and off Precedex on 05/19 eventually was extubated on 05/30 on review of chart. Essentially, being off sedation this long, he should have shown some type of improvement in his mental state. As noted, patient's rigid flexed arms as well as the subtle hypointensities on CT in b/l internal capsules suggest to me that he has sustained significant brain damage. Either anoxic brain injury following his overdose on hydrocodone or significant stroke. I do not an ticipate the patient will have any improvement if he has not done so by now. BUN continues to improve gradually with hydration. Creatinine has stabilized around 2.5. Has good urinary output. Nephrology is on board. I do not think this is uremic encephalopathy. His CBC slowly downtrending so we will monitor this. He does have fecal management system so we will monitor for any bleeding evidence. Advance care planning 65mins I had a thorough conversation with patient's . I also spoke with patient's mother over the phone with present. We discussed patient's current situation and his encephalopathy and what is likely sustained brain damage. We discussed his renal failure and improvement in that condition without improvement in his mentation. We discussed that given how long he has not shown any improvement in his faculties that it is highly unlikely that he will show any improvement. We had a very elaborate conversation about the options going forward including nutrition/PEG tube, disposition in LTAC and hospice care. Also discussed on CODE STATUS elaborately. Patient's wants patient to be made a DNR/DNI. She will discuss with patient's mother further about further goals of care regarding decision of hospice care versus continued treatment. 06/07/2020 No improvement in his mental status. Prognosis remains poor. Remains with clear evidence of brain damage and rigid posturing. Remains highly unlikely that his mental status will have any improvement. Kidney function is improving. BUN is going down. Leukocytosis is resolving. We will continue meropenem for 2 more days. Remains on room air. His COVID-19 does not seem to be causing significant issues respiratory mae. He is hypernatremic today. I will give bolus of half-normal saline recheck BMP later this afternoon. If hypernatremia persists, will place on D5W. Awaiting decision from his family regarding PEG tube placement versus hospice. 06/08/2020 Patient's requested neurology evaluation before making decision on hospice. I did do consultation with neurology Dr. Castaneda at [facility]. Dr. Castaneda reviewed the images as well and did note some white matter disease and changes and we reviewed his clinical presentation and clinical course and she feels he has anoxic brain injury. In terms of prognosis, she could not give me a clear expectation as to the prognosis or how much functionality, he may recover and may have a clearer assessment in 3-6 months. It however will likely not be a tremendous jump in his functionality. I relayed my conversation with patient's and she wants to proceed with PEG tube placement and waiting a few months before deciding on hospice. I have consulted surgery for PEG tube placement. We will try to get patient placement. Mildly hypernatremic today so I have increased free water flushes to 200 cc every 4 hours. Continue half-normal saline. Check electrolytes in the morning. Will start on Flexeril for rigidity. Occupational Therapy consult. 06/09/2020 Still hypernatremic today. Mildly tachycardic. Chest x-ray yesterday actually shows improved aeration. We will continue meropenem today. Continue Flexeril. Recheck Covid test. I will try to get him off the IV fluids and increase his tube flushes to 300 cc every 4 hours. Continue to monitor I's and O's. PEG tube placement planned for Thursday. - Time Time Spent with patient: Less than 15 minutes Anticipated Discharge Disposition: [facility] Anticipated Discharge Timeframe: within 72 hours
[2020-06-09] MEDS ORDERED: 1/2 NORMAL SALINE 1,000 ML IV ONE (16:41)
[2020-06-09] MEDS ORDERED: PANTOPRAZOLE SODIUM 40 MG VIAL IV ONE ×2 (16:43→19:15)
[2020-06-09 21:22] LABS: HEMATOCRIT 23.8 % (37.9-51.0); MEAN CORPUSCULAR HEMOGLOBIN 29.5 pg (27.0-33.4); MEAN CORPUSCULAR HGB CONC 30.9 g/dL (32.0-36.0); MEAN CORPUSCULAR VOLUME 96 fl (80-97); PLATELET COUNT 262 10^3/uL (150-450); RED BLOOD COUNT 2.49 10^6/uL (4.35-5.55); RED CELL DISTRIBUTION WIDTH 19.2 % (11.5-14.0); WHITE BLOOD COUNT 9.5 10^3/uL (4.0-10.5)
[2020-06-09 21:29] LABS: HEMOGLOBIN 7.4 g/dL (13.5-17.0)
[2020-06-09] MEDS ORDERED: LEVETIRACETAM 500 MG TABLET PO ONE (22:17)
[2020-06-09] MEDS ORDERED: LEVETIRACETAM ORAL SOLN 500 MG/5 ML UDCUP ONE (23:08)
[2020-06-10] MEDS: INSULIN REG, HUMAN 100 UNIT/ML 3 ML VIAL (PYX) SUBCUT SCH ×4 (05:35→18:40)
[2020-06-10] MEDS: CYCLOBENZAPRINE HCL 10 MG TABLET PO SCH ×2 (05:44→15:00)
[2020-06-10] MEDS: MEROPENEM 500 MG in NORMAL SALINE 50 ML IV SCH (05:48)
[2020-06-10] MEDS: PANTOPRAZOLE SODIUM 40 MG PACKET.DR NG SCH (06:29)
[2020-06-10 06:33] LABS: HEMATOCRIT 22.1 % (37.9-51.0); MEAN CORPUSCULAR HGB CONC 32.5 g/dL (32.0-36.0); MEAN CORPUSCULAR VOLUME 95 fl (80-97); PLATELET COUNT 263 10^3/uL (150-450); RED BLOOD COUNT 2.32 10^6/uL (4.35-5.55); RED CELL DISTRIBUTION WIDTH 19.5 % (11.5-14.0); WHITE BLOOD COUNT 9.6 10^3/uL (4.0-10.5)
[2020-06-10 06:37] LABS: HEMOGLOBIN 7.2 g/dL (13.5-17.0)
[2020-06-10 07:12] LABS: ALBUMIN 2.4 g/dL (3.5-5.0); ALKALINE PHOSPHATASE 62 U/L (38-126); ANION GAP 5 (5-19); ASPARTATE AMINO TRANSFERASE 28 U/L (17-59); BILIRUBIN,DIRECT 0.2 mg/dL (0.0-0.4); BILIRUBIN,TOTAL 0.6 mg/dL (0.2-1.3); BLOOD UREA NITROGEN 63 mg/dL (7-20); CALCIUM 9.5 mg/dL (8.4-10.2); CARBON DIOXIDE 21 mmol/L (22-30); CHLORIDE 117 mmol/L (98-107); GLUCOSE 103 mg/dL (75-110); POTASSIUM 4.6 mmol/L (3.6-5.0)
[2020-06-10] MEDS: LOSARTAN POTASSIUM 50 MG TABLET PO SCH (11:42)
[2020-06-10] MEDS: ASCORBIC ACID 500 MG TABLET NG SCH ×2 (11:42→18:43)
[2020-06-10] MEDS: CHOLECALCIFEROL (D3) 1,000 UNIT (25 MCG) TABLET NG SCH (11:42)
[2020-06-10] MEDS: COLLAGENASE CLOSTRIDIUM HIST. OINT 30 GM TP SCH (11:48)
[2020-06-10] MEDS: ZINC SULFATE 220 MG CAPSULE NG SCH (11:51)
[2020-06-10] MEDS: LEVETIRACETAM ORAL SOLN 500 MG/5 ML UDCUP PO SCH (11:55)
--- NOTE | 2020-06-10 17:29 | PDOC PROGRESS REPORT ---
Subjective Date:: 06/10/20 Reason For Visit: ENCEPHALOPATHY, ACUTE KIDNEY PAILURE, COVID Physical Exam Vital Signs: Temp Pulse Resp BP Pulse Ox 98.8 F 107 H 18 112/80 98 06/10/20 12:01 06/10/20 14:00 06/10/20 12:01 06/10/20 12:01 06/10/20 12:01 Intake & Output 06/09/20 06/10/20 06/11/20 06:59 06:59 06:59 Intake Total 4905 2760 50 Output Total 3400 3705 675 Balance 1505 -715 -444 Weight 110.5 kg 110.5 kg General appearance: PRESENT: no acute distress, cooperative Neck exam: ABSENT: JVD Respiratory exam: PRESENT: unlabored. ABSENT: accessory muscle use, wheezes Cardiovascular exam: PRESENT: +S1, +S2, tachycardia. ABSENT: irregular rhythm GI/Abdominal exam: PRESENT: soft. ABSENT: tenderness Neurological exam: PRESENT: altered, awake, motor sensory deficit, aphasic. ABSENT: oriented to person, oriented to place, oriented to time, oriented to situation, CN II-XII grossly intact Results Laboratory Results: 06/10/20 06:05 06/10/20 06:05 06/09/20 06/10/20 06/10/20 19:30 06:05 06:05 WBC 9.5 9.6 RBC 2.49 L 2.32 L Hgb 7.4 L 7.2 L Hct 23.8 L 22.1 L MCV 96 95 MCH 29.5 31.0 MCHC 30.9 L 32.5 RDW 19.2 H 19.5 H Plt Count 262 263 Sodium 143.4 Potassium 4.6 Chloride 117 H Carbon Dioxide 21 L Anion Gap 5 BUN 63 H Creatinine 1.60 H Est GFR ( Amer) 55 L Glucose 103 Calcium 9.5 Total Bilirubin 0.6 AST 28 Alkaline Phosphatase 62 Total Protein 5.0 L Albumin 2.4 L 05/07/20 05/07/20 05/08/20 20:42 20:42 04:20 Creatine Kinase 99126 H CK-MB (CK-2) 367.00 H Troponin I < 0.012 < 0.012 NT-Pro-B Natriuret Pep 282 H 05/08/20 05/08/20 05/09/20 04:20 12:15 03:38 Creatine Kinase 678178 H 266169 H CK-MB (CK-2) 323.00 H Troponin I < 0.012 NT-Pro-B Natriuret Pep 05/10/20 05/11/20 05/12/20 04:28 17:58 17:10 Creatine Kinase 93257 H 62476 H 11862 H CK-MB (CK-2) Troponin I NT-Pro-B Natriuret Pep 05/13/20 05/19/20 05/31/20 18:53 04:40 08:30 Creatine Kinase 76279 H 1260 H 62 CK-MB (CK-2) Troponin I NT-Pro-B Natriuret Pep Impressions: Cervical Spine CT 05/07/20 20:51 IMPRESSION: No acute findings in the cervical spine. TECHNICAL DOCUMENTATION: Quality ID # 436: Final reports with documentation of one or more dose reduction techniques (e.g., Automated exposure control, adjustment of the mA and/or kV according to patient size, use of iterative reconstruction technique) copyright 2011 [employer] All Rights Reserved Lower Extremity Ultrasound 05/08/20 00:00 IMPRESSION: Bilateral small vessel disease. No significant stenosis above the knee. Renal Ultrasound 05/09/20 00:00 IMPRESSION: Chronic medical renal disease without hydronephrosis. Possible nonobstructive calculus right kidney. Head CT 05/15/20 00:00 IMPRESSION: STABLE MILD CHRONIC CHANGES. NO ACUTE FINDINGS. EVIDENCE OF ACUTE STROKE: NO. Lumbar Puncture 06/01/20 00:00 IMPRESSION: Lumbar puncture under fluoroscopy. No immediate complication. KUB X-Ray 06/06/20 15:58 IMPRESSION: Nasogastric tube in the stomach. Chest X-Ray 06/08/20 00:00 IMPRESSION: Improved but persistent mild patchy bibasilar opacities. Interval extubation. No other evidence of acute intrathoracic process. Assessment and Plan - Diagnosis (1) Encephalopathy Is this a current diagnosis for this admission?: Yes (2) Anoxic brain damage Is this a current diagnosis for this admission?: Yes (3) Acute kidney failure Qualifiers: Acute renal failure type: with acute tubular necrosis Qualified Code(s): N17.0 - Acute kidney failure with tubular necrosis Is this a current diagnosis for this admission?: Yes (4) Overdose Qualifiers: Encounter type: subsequent encounter Injury intent: accidental or unintentional Qualified Code(s): T50.901D - Poisoning by unspecified drugs, medicaments and biological substances, accidental (unintentional), subsequent encounter Is this a current diagnosis for this admission?: Yes (5) Pneumonia due to COVID-19 virus Is this a current diagnosis for this admission?: Yes (6) Rhabdomyolysis Qualifiers: Rhabdomyolysis type: traumatic Encounter type: subsequent encounter Qualified Code(s): T79.6XXD - Traumatic ischemia of muscle, subsequent encounter Is this a current diagnosis for this admission?: Yes (7) UTI (urinary tract infection) Qualifiers: Urinary tract infection type: acute cystitis Is this a current diagnosis for this admission?: Yes - Plan Summary Summary: Patient remains stuporous and not interactive. He remains completely altered. He has had no improvement in several days. He has been in the hospital for 29 days now and according to notes and records, it seems he has had no improvement in his mental status during sedation holidays while intubated and also since extubation on 05/30. Head CT shows small hypodensities in both internal capsules which may be indicative of anoxic brain injuries or possible strokes. He is also quite rigid in his extremities and occasionally posturing. Unfortunately, it seems MRI was unobtainable due to patient's hardware. EEG shows diffuse cerebral dysfunction but no epileptiform activity or seizures. LP was unremarkable. Patient does have significantly elevated BUN but has been trending down with dialysis and currently renal function is showing improvement as well. ? of whether part of the BUN increase was due to GI bleed. Patient has notably not shown any mental change with improvement of BUN which is starting to make uremic encephalopathy less likely. I do think patient likely has anoxic brain injury or suffered from a stroke. We will continue to monitor patient's mental status with continued treatment of his renal failure and will also have discussion with patient's about possible hospice care tomorrow. 06/06/2020 No improvement in patient's mental status. Of note patient has showed no improvement throughout hospital course. It seems he was taken off propofol on 05/16 and off Precedex on 05/19 eventually was extubated on 05/30 on review of chart. Essentially, being off sedation this long, he should have shown some type of improvement in his mental state. As noted, patient's rigid flexed arms as well as the subtle hypointensities on CT in b/l internal capsules suggest to me that he has sustained significant brain damage. Either anoxic brain injury following his overdose on hydrocodone or significant stroke. I do not anticipate the patient will have any improvement if he has not done so by now. BUN continues to improve gradually with hydration. Creatinine has stabilized around 2.5. Has good urinary output. Nephrology is on board. I do not think this is uremic encephalopathy. His CBC slowly downtrending so we will monitor this. He does have fecal management system so we will monitor for any bleeding evidence. Advance care planning 65mins I had a thorough conversation with patient's . I also spoke with patient's mother over the phone with present. We discussed patient's current situation and his encephalopathy and what is likely sustained brain damage. We discussed his renal failure and improvement in that condition without improvement in his mentation. We discussed that given how long he has not shown any improvement in his faculties that it is highly unlikely that he will show any improvement. We had a very elaborate conversation about the options going forward including nutrition/PEG tube, disposition in LTAC and hospice care. Also discussed on CODE STATUS elaborately. Patient's wants patient to be made a DNR/DNI. She will discuss with patient's mother further about further goals of care regarding decision of hospice care versus continued treatment. 06/07/2020 No improvement in his mental status. Prognosis remains poor. Remains with clear evidence of brain damage and rigid posturing. Remains highly unlikely that his mental status will have any improvement. Kidney function is improving. BUN is going down. Leukocytosis is resolving. We will continue meropenem for 2 more days. Remains on room air. His COVID-19 does not seem to be causing significant issues respiratory mae. He is hypernatremic today. I will give bolus of half-normal saline recheck BMP later this afternoon. If hypernatremia persists, will place on D5W. Awaiting decision from his family regarding PEG tube placement versus hospice. 06/08/2020 Patient's requested neurology evaluation before making decision on hospice. I did do consultation with neurology Dr. Castaneda at [facility]. Dr. Castaneda reviewed the images as well and did note some white matter disease and changes and we reviewed his clinical presentation and clinical course and she feels he has an oxic brain injury. In terms of prognosis, she could not give me a clear expectation as to the prognosis or how much functionality, he may recover and may have a clearer assessment in 3-6 months. It however will likely not be a tremendous jump in his functionality. I relayed my conversation with patient's and she wants to proceed with PEG tube placement and waiting a few months before deciding on hospice. I have consulted surgery for PEG tube placement. We will try to get patient placement. Mildly hypernatremic today so I have increased free water flushes to 200 cc every 4 hours. Continue half-normal saline. Check electrolytes in the morning. Will start on Flexeril for rigidity. Occupational Therapy consult. 06/09/2020 Still hypernatremic today. Mildly tachycardic. Chest x-ray yesterday actually shows improved aeration. We will continue meropenem today. Continue Flexeril. Recheck Covid test. I will try to get him off the IV fluids and increase his tube flushes to 300 cc every 4 hours. Continue to monitor I's and O's. PEG tube placement planned for Thursday. 06/10/2020 Opens eyes to voice today. It remains unclear if he can understand what is being told. I did instruct him to shut his eyes which he did briefly but on further instructions to repeat the same process he did not follow instruction. His Covid is now negative. Likely has cleared the infection as he has been here over a month. Renal function continues to improve. He is now off IV fluids and just on tube free water flushes. Tube feeds will be stopped at midnight with plan for PEG tube placement tomorrow subsequent placement. - Time Time Spent with patient: Less than 15 minutes Anticipated Discharge Disposition: Home, Self Care Anticipated Discharge Timeframe: within 48 hours
[2020-06-11] MEDS: CYCLOBENZAPRINE HCL 10 MG TABLET PO SCH ×4 (00:16→22:33)
[2020-06-11] MEDS: LOSARTAN POTASSIUM 50 MG TABLET PO SCH ×3 (00:16→22:34)
[2020-06-11] MEDS: LEVETIRACETAM ORAL SOLN 500 MG/5 ML UDCUP PO SCH ×3 (00:17→22:33)
[2020-06-11] MEDS: COLLAGENASE CLOSTRIDIUM HIST. OINT 30 GM TP SCH ×3 (00:18→22:35)
[2020-06-11] MEDS: INSULIN REG, HUMAN 100 UNIT/ML 3 ML VIAL (PYX) SUBCUT SCH ×4 (01:43→17:48)
[2020-06-11] MEDS: PANTOPRAZOLE SODIUM 40 MG PACKET.DR NG SCH (06:03)
[2020-06-11] MEDS ORDERED: PROPOFOL INJ 200 MG/20 ML VIAL IV ONE (06:45)
[2020-06-11 07:48] LABS: ABSOLUTE BASOPHILS # (AUTO) 0.1 10^3/uL (0.0-0.2); ABSOLUTE EOSINOPHILS # (AUTO) 0.2 10^3/uL (0.0-0.6); ABSOLUTE LYMPHOCYTES (AUTO) 0.9 10^3/uL (0.5-4.7); ABSOLUTE MONOCYTES (AUTO) 1.2 10^3/uL (0.1-1.4); ABSOLUTE NEUT (AUTO) 7.9 10^3/uL (1.7-8.2); BASOPHILS % (AUTO) 0.6 % (0-2); EOSINOPHILS % (AUTO) 1.8 % (0-6); HEMATOCRIT 23.5 % (37.9-51.0); LYMPHOCYTES % (AUTO) 8.7 % (13-45); MEAN CORPUSCULAR HEMOGLOBIN 30.4 pg (27.0-33.4); MEAN CORPUSCULAR HGB CONC 31.9 g/dL (32.0-36.0); MEAN CORPUSCULAR VOLUME 95 fl (80-97); MONOCYTES % (AUTO) 11.3 % (3-13); PLATELET COUNT 291 10^3/uL (150-450); RED BLOOD COUNT 2.46 10^6/uL (4.35-5.55); RED CELL DISTRIBUTION WIDTH 19.8 % (11.5-14.0); SEGMENTED NEUTROPHILS % (AUTO) 77.6 % (42-78); TOTAL CELLS COUNTED % (AUTO) 100 %; WHITE BLOOD COUNT 10.2 10^3/uL (4.0-10.5)
[2020-06-11 08:02] LABS: HEMOGLOBIN 7.5 g/dL (13.5-17.0)
--- NOTE | 2020-06-11 09:07 | PDOC PROGRESS REPORT ---
Subjective Date:: 06/11/20 Subjective:: 54-year-old male with anoxic brain injury. The patient is in need of a feeding t ube for LTAC placement. A review of systems is unobtainable due to the patient's current mental status. Nursing staff reports no new issues. Reason For Visit: ENCEPHALOPATHY, ACUTE KIDNEY PAILURE, COVID Physical Exam Vital Signs: Temp Pulse Resp BP Pulse Ox 99.7 F 121 H 23 H 113/82 99 06/10/20 15:39 06/11/20 07:00 06/10/20 15:39 06/10/20 15:39 06/10/20 15:39 Intake & Output 06/10/20 06/11/20 06/12/20 06:59 06:59 06:59 Intake Total 2760 650 Output Total 3705 2550 Balance -945 -1900 Weight 110.5 kg 110 kg General appearance: PRESENT: no acute distress. ABSENT: cooperative Head exam: PRESENT: atraumatic Eye exam: ABSENT: scleral icterus Mouth exam: PRESENT: neck supple Neck exam: ABSENT: thyromegaly, tracheal deviation Respiratory exam: PRESENT: tachypnea Cardiovascular exam: PRESENT: tachycardia GI/Abdominal exam: PRESENT: soft, other - obese. ABSENT: tenderness Rectal exam: PRESENT: deferred Extremities exam: ABSENT: clubbing Musculoskeletal exam: PRESENT: other - developing contracture bilat. UE's Neurological exam: ABSENT: alert, oriented to person, oriented to place, oriented to time, oriented to situation Focused psych exam: PRESENT: catatonic Skin exam: ABSENT: jaundice Results Laboratory Results: 06/11/20 04:30 06/10/20 06:05 06/11/20 04:30 WBC 10.2 RBC 2.46 L Hgb 7.5 L Hct 23.5 L MCV 95 MCH 30.4 MCHC 31.9 L RDW 19.8 H Plt Count 291 Seg Neutrophils % 77.6 05/07/20 05/07/20 05/08/20 20:42 20:42 04:20 Creatine Kinase 40798 H CK-MB (CK-2) 367.00 H Troponin I < 0.012 < 0.012 NT-Pro-B Natriuret Pep 282 H 05/08/20 05/08/20 05/09/20 04:20 12:15 03:38 Creatine Kinase 574779 H 486311 H CK-MB (CK-2) 323.00 H Troponin I < 0.012 NT-Pro-B Natriuret Pep 05/10/20 05/11/20 05/12/20 04:28 17:58 17:10 Creatine Kinase 40133 H 53255 H 59680 H CK-MB (CK-2) Troponin I NT-Pro-B Natriuret Pep 05/13/20 05/19/20 05/31/20 18:53 04:40 08:30 Creatine Kinase 88949 H 1260 H 62 CK-MB (CK-2) Troponin I NT-Pro-B Natriuret Pep Impressions: Cervical Spine CT 05/07/20 20:51 IMPRESSION: No acute findings in the cervical spine. TECHNICAL DOCUMENTATION: Quality ID # 436: Final reports with documentation of one or more dose reduction techniques (e.g., Automated exposure control, adjustment of the mA and/or kV according to patient size, use of iterative reconstruction technique) copyright 2011 [employer]- All Rights Reserved Lower Extremity Ultrasound 05/08/20 00:00 IMPRESSION: Bilateral small vessel disease. No significant stenosis above the knee. Renal Ultrasound 05/09/20 00:00 IMPRESSION: Chronic medical renal disease without hydronephrosis. Possible nonobstructive calculus right kidney. Head CT 05/15/20 00:00 IMPRESSION: STABLE MILD CHRONIC CHANGES. NO ACUTE FINDINGS. EVIDENCE OF ACUTE STROKE: NO. Lumbar Puncture 06/01/20 00:00 IMPRESSION: Lumbar puncture under fluoroscopy. No immediate complication. KUB X-Ray 06/06/20 15:58 IMPRESSION: Nasogastric tube in the stomach. Chest X-Ray 06/08/20 00:00 IMPRESSION: Improved but persistent mild patchy bibasilar opacities. Interval extubation. No other evidence of acute intrathoracic process. Assessment & Plan - Diagnosis (1) Inanition Is this a current diagnosis for this admission?: Yes (2) Anoxic brain damage Is this a current diagnosis for this admission?: Yes (3) Pneumonia due to COVID-19 virus Is this a current diagnosis for this admission?: Yes - Time Anticipated Discharge Disposition: [facility] Anticipated Discharge Timeframe: unknown - Plan Summary Plan Summary: 54-year-old male status post anoxic brain injury. The patient cannot feed himself. He is not awake or alert. The patient is in need of a feeding tube for LTAC placement. I have discussed his situation and condition at length with his . She relays that he has had a previous gastric bypass. Unfortunately, this prevents us from placing a PEG tube. The patient will need an open jejunostomy placement. I have discussed this at length with the patient's . Unfortunately, this will require large amount of logistical planning. His Covid test is negative (which helps our situation somewhat), however he will have to be reintubated, and again weaned from the ventilator in the ICU. The patient's is agreeable to these interventions. I have discussed the case with our application processor Dr. Toney, and he will alert me whenever a bed is available. Plan to perform jejunostomy placement when ICU bed is open, and OR has availability. Surgery will continue to follow.
[2020-06-11] MEDS: ZINC SULFATE 220 MG CAPSULE NG SCH (11:18)
[2020-06-11] MEDS: ASCORBIC ACID 500 MG TABLET NG SCH ×2 (11:19→17:48)
--- NOTE | 2020-06-11 12:14 | RADIOLOGY REPORT (SQ) ---
EXAM DESCRIPTION: VENOUS BILATERAL LOWER IMAGES COMPLETED DATE/TIME: 06/11/2020 11:55 am REASON FOR STUDY: swelling COMPARISON: None. TECHNIQUE: Dynamic and static page scale and color images acquired of both lower extremity venous sy stems. Selected spectral images acquired with additional compression and augmentation maneuvers. Imag es stored on PACS. LIMITATIONS: None. FINDINGS: RIGHT LEG COMMON FEMORAL AND FEMORAL: There is acute thrombus in the right common femoral and femoral vein. POPLITEAL: There is acute thrombus in the right popliteal vein. CALF VESSELS: Normal compression and augmentation. No visualized echogenic material on page scale. No defects on color image. GSV AND SSV: Normal compression. No visualized echogenic material on page scale. No defects on color images. ANY DEEP VENOUS INSUFFICIENCY: Not evaluated. ANY EVIDENCE OF POPLITEAL CYST: No. OTHER: No other significant finding. LEFT LEG COMMON FEMORAL AND FEMORAL: Normal phasicity, compression and augmentation. No visualized echogenic m aterial on page scale. No defects on color images. POPLITEAL: Normal compression and augmentation. No visualized echogenic material on page scale. No de fects on color images. CALF VESSELS: Normal compression and augmentation. No visualized echogenic material on page scale. No defects on color images. GSV AND SSV: Normal compression. No visualized echogenic material on page scale. No defects on color images. ANY DEEP VENOUS INSUFFICIENCY: Not evaluated. ANY EVIDENCE POPLITEAL CYST: No. OTHER: No other significant finding. IMPRESSION: Acute nonocclusive DVT in the right common femoral vein, femoral vein and popliteal vein . No evidence of DVT or SVT in the left lower extremity. TECHNICAL DOCUMENTATION: JOB ID: [id number] [employer]- All Rights Reserved Reading location - IP/workstation name: [email or web address]
[2020-06-11] MEDS: CHOLECALCIFEROL (D3) 1,000 UNIT (25 MCG) TABLET NG SCH (14:08)
--- NOTE | 2020-06-11 18:27 | PDOC PROGRESS REPORT ---
Subjective Date:: 06/11/20 Subjective:: Not obtainable due to mental status Reason For Visit: ENCEPHALOPATHY, ACUTE KIDNEY PAILURE, COVID Physical Exam Vital Signs: Temp Pulse Resp BP Pulse Ox 97.8 F 113 H 16 148/85 H 98 06/11/20 11:48 06/11/20 14:00 06/11/20 11:48 06/11/20 11:48 06/11/20 11:48 Intake & Output 06/10/20 06/11/20 06/12/20 06:59 06:59 06:59 Intake Total 2760 650 0 Output Total 3705 2550 900 Balance -945 1900 -900 Weight 110.5 kg 110 kg 110 kg General appearance: PRESENT: no acute distress, cooperative Neck exam: ABSENT: JVD Respiratory exam: PRESENT: symmetrical, tachypnea, unlabored. ABSENT: wheezes Cardiovascular exam: PRESENT: +S1, +S2, tachycardia. ABSENT: irregular rhythm GI/Abdominal exam: PRESENT: soft. ABSENT: rebound, rigid, tenderness Extremities exam: PRESENT: +1 edema - r>l Neurological exam: PRESENT: altered - Stuporous, not interactive with environment, motor sensory deficit - Rigid contracted upper extremities, aphasic. ABSENT: oriented to time, oriented to situation Results Laboratory Results: 06/11/20 04:30 06/10/20 06:05 06/11/20 04:30 WBC 10.2 RBC 2.46 L Hgb 7.5 L Hct 23.5 L MCV 95 MCH 30.4 MCHC 31.9 L RDW 19.8 H Plt Count 291 Seg Neutrophils % 77.6 05/07/20 05/07/20 05/08/20 20:42 20:42 04:20 Creatine Kinase 55004 H CK-MB (CK-2) 367.00 H Troponin I < 0.012 < 0.012 NT-Pro-B Natriuret Pep 282 H 05/08/20 05/08/20 05/09/20 04:20 12:15 03:38 Creatine Kinase 803233 H 342348 H CK-MB (CK-2) 323.00 H Troponin I < 0.012 NT-Pro-B Natriuret Pep 05/10/20 05/11/20 05/12/20 04:28 17:58 17:10 Creatine Kinase 38077 H 28182 H 21882 H CK-MB (CK-2) Troponin I NT-Pro-B Natriuret Pep 05/13/20 05/19/20 05/31/20 18:53 04:40 08:30 Creatine Kinase 07861 H 1260 H 62 CK-MB (CK-2) Troponin I NT-Pro-B Natriuret Pep Impressions: Cervical Spine CT 05/07/20 20:51 IMPRESSION: No acute findings in the cervical spine. TECHNICAL DOCUMENTATION: Quality ID # 436: Final reports with documentation of one or more dose reduction techniques (e.g., Automated exposure control, adjustment of the mA and/or kV according to patient size, use of iterative reconstruction technique) copyright 2010 [employer]- All Rights Reserved Lower Extremity Ultrasound 05/08/20 00:00 IMPRESSION: Bilateral small vessel disease. No significant stenosis above the knee. Renal Ultrasound 05/09/20 00:00 IMPRESSION: Chronic medical renal disease without hydronephrosis. Possible nonobstructive calculus right kidney. Head CT 05/15/20 00:00 IMPRESSION: STABLE MILD CHRONIC CHANGES. NO ACUTE FINDINGS. EVIDENCE OF ACUTE STROKE: NO. Lumbar Puncture 06/01/20 00:00 IMPRESSION: Lumbar puncture under fluoroscopy. No immediate complication. KUB X-Ray 06/06/20 15:58 IMPRESSION: Nasogastric tube in the stomach. Chest X-Ray 06/08/20 00:00 IMPRESSION: Improved but persistent mild patchy bibasilar opacities. Interval extubation. No other evidence of acute intrathoracic process. Venous Doppler Study 06/11/20 00:00 IMPRESSION: Acute nonocclusive DVT in the right common femoral vein, femoral vein and popliteal vein. No evidence of DVT or SVT in the left lower extremity. Assessment and Plan - Diagnosis (1) Anoxic brain damage Is this a current diagnosis for this admission?: Yes (2) Encephalopathy Is this a current diagnosis for this admission?: Yes (3) Acute kidney failure Qualifiers: Acute renal failure type: with acute tubular necrosis Qualified Code(s): N17.0 - Acute kidney failure with tubular necrosis Is this a current diagnosis for this admission?: Yes (4) Overdose Qualifiers: Encounter type: subsequent encounter Injury intent: accidental or unintentional Qualified Code(s): T50.901D - Poisoning by unspecified drugs, medicaments and biological substances, accidental (unintentional), subsequent encounter Is this a current diagnosis for this admission?: Yes (5) Pneumonia due to COVID-19 virus Is this a current diagnosis for this admission?: Yes (6) Rhabdomyolysis Qualifiers: Rhabdomyolysis type: traumatic Encounter type: subsequent encounter Qualified Code(s): T79.6XXD - Traumatic ischemia of muscle, subsequent encounter Is this a current diagnosis for this admission?: Yes (7) UTI (urinary tract infection) Qualifiers: Urinary tract infection type: acute cystitis Is this a current diagnosis for this admission?: Yes (8) DVT (deep venous thrombosis) Qualifiers: DVT location: lower extremity Affected thrombotic vein of extremity: femoral Chronicity: acute Laterality: right Qualified Code(s): I82.411 - Acute embolism and thrombosis of right femoral vein Is this a current diagnosis for this admission?: Yes - Plan Summary Summary: BeforePatient remains stuporous and not interactive. He remains completely altered. He has had no improvement in several days. He has been in the hospital for 29 days now and according to notes and records, it seems he has had no improvement in his mental status during sedation holidays while intubated and also since extubation on 05/30. Head CT shows small hypodensities in both internal capsules which may be indicative of anoxic brain injuries or possible strokes. He is also quite rigid in his extremities and occasionally posturing. Unfortunately, it seems MRI was unobtainable due to patient's hardware. EEG shows diffuse cerebral dysfunction but no epileptiform activity or seizures. LP was unremarkable. Patient does have significantly elevated BUN but has been trending down with dialysis and currently renal function is showing improvement as well. ? of whether part of the BUN increase was due to GI bleed. Patient has notably not shown any mental change with improvement of BUN which is starting to make uremic encephalopathy less likely. I do think patient likely has anoxic brain injury or suffered from a stroke. We will continue to monitor patient's mental status with continued treatment of his renal failure and will also have discussion with patient's about possible hospice care tomorrow. 06/06/2020 No improvement in patient's mental status. Of note patient has showed no improvement throughout hospital course. It seems he was taken off propofol on 05/16 and off Precedex on 05/19 eventually was extubated on 05/30 on review of chart. Essentially, being off sedation this long, he should have shown some type of improvement in his mental state. As noted, patient's rigid flexed arms as well as the subtle hypointensities on CT in b/l internal capsules suggest to me that he has sustained significant brain damage. Either anoxic brain injury following his overdose on hydrocodone or significant stroke. I do not anticipate the patient will have any improvement if he has not done so by now. BUN continues to improve gradually with hydration. Creatinine has stabilized around 2.5. Has good urinary output. Nephrology is on board. I do not think this is uremic encephalopathy. His CBC slowly downtrending so we will monitor this. He does have fecal management system so we will monitor for any bleeding evidence. Advance care planning 65mins I had a thorough conversation with patient's . I also spoke with patient's mother over the phone with present. We discussed patient's current situation and his encephalopathy and what is likely sustained brain damage. We discussed his renal failure and improvement in that condition without improvement in his mentation. We discussed that given how long he has not shown any improvement in his faculties that it is highly unlikely that he will show any improvement. We had a very elaborate conversation about the options going forward including nutrition/PEG tube, disposition in LTAC and hospice care. Also discussed on CODE STATUS elaborately. Patient's wants patient to be made a DNR/DNI. She will discuss with patient's mother further about further goals of care regarding decision of hospice care versus continued treatment. 06/07/2020 No improvement in his mental status. Prognosis remains poor. Remains with clear evidence of brain damage and rigid posturing. Remains highly unlikely that his mental status will have any improvement. Kidney function is improving. BUN is going down. Leukocytosis is resolving. We will continue meropenem for 2 more days. Remains on room air. His COVID-19 does not seem to be causing significant issues respiratory mae. He is hypernatremic today. I will give bolus of half-normal saline recheck BMP later this afternoon. If hypernatremia persists, will place on D5W. Awaiting decision from his family regarding PEG tube placement versus hospice. 06/08/2020 Patient's requested neurology evaluation before making decision on hospice. I did do consultation with neurology Dr. Castaneda at [facility]. Dr. Castandea reviewed the images as well and did note some white matter disease and changes and we reviewed his clinical presentation and clinical course and she feels he has anox ic brain injury. In terms of prognosis, she could not give me a clear expectation as to the prognosis or how much functionality, he may recover and may have a clearer assessment in 3-6 months. It however will likely not be a tremendous jump in his functionality. I relayed my conversation with patient's and she wants to proceed with PEG tube placement and waiting a few months before deciding on hospice. I have consulted surgery for PEG tube placement. We will try to get patient placement. Mildly hypernatremic today so I have increased free water flushes to 200 cc every 4 hours. Continue half-normal saline. Check electrolytes in the morning. Will start on Flexeril for rigidity. Occupational Therapy consult. 06/09/2020 Still hypernatremic today. Mildly tachycardic. Chest x-ray yesterday actually shows improved aeration. We will continue meropenem today. Continue Flexeril. Recheck Covid test. I will try to get him off the IV fluids and increase his tube flushes to 300 cc every 4 hours. Continue to monitor I's and O's. PEG tube placement planned for Thursday. 06/10/2020 Opens eyes to voice today. It remains unclear if he can understand what is being told. I did instruct him to shut his eyes which he did briefly but on further instructions to repeat the same process he did not follow instruction. His Covid is now negative. Likely has cleared the infection as he has been here over a month. Renal function continues to improve. He is now off IV fluids and just on tube free water flushes. Tube feeds will be stopped at midnight with plan for PEG tube placement tomorrow subsequent placement. 06/11/2020 Renal function continues to improve. Patient does show some episodes of cluster breathing consistent with his anoxic brain injury. Patient cannot obtain PEG tube due to history of bariatric surgery and would require a J-tube instead with transferring to the ICU for recovery. I did obtain a ultrasound of patient's legs as his right leg is more swollen than left. Notably he has DVT in his right leg. Propagated by his COVID-19 and immobility. I discussed patient's situation especially the dilemma that this presents with patient's Kelsi. Ideally I would have started patient on heparin drip but the patient had remarkable amount of blood loss anemia from GI bleed earlier in admission and required 6 units of blood transfusion in the ICU. He was also noted to have some blood in his stool 2 days ago. He would require endoscopic evaluation before starting him on a heparin drip so as not to precipitate a fatal bleed. I discussed these plans with patient's and she was hesitant to go ahead with these procedures especially the J-tube placement. After an extensive conversation, Kelsi made a firm decision to proceed with inpatient hospice. She states that patient would not want to live like this. She specifically requested [facility] hospice. I have placed a discharge planning consult. I have notified surgery about cancellation of the procedure. - Time Time Spent with patient: 35 or more minutes Anticipated Discharge Disposition: Hospice Center Anticipated Discharge Timeframe: when bed available
[2020-06-12] MEDS: INSULIN REG, HUMAN 100 UNIT/ML 3 ML VIAL (PYX) SUBCUT SCH ×3 (00:16→11:31)
[2020-06-12] MEDS ORDERED: DEXTROSE 5%-WATER 1000 ML 1,000 ML IV PRN (00:24)
--- NOTE | 2020-06-12 05:32 | Progress Note ---
Provider Note Provider Note: Spoke with Dr. Cannon last night. Pt's has now decided against feeding tube placement due to his overall condition. Surgery will sign-off. Please renotify with any questions or concerns.
[2020-06-12] MEDS: CYCLOBENZAPRINE HCL 10 MG TABLET PO SCH (05:55)
[2020-06-12] MEDS: PANTOPRAZOLE SODIUM 40 MG PACKET.DR NG SCH (05:55)
[2020-06-12] MEDS: LOSARTAN POTASSIUM 50 MG TABLET PO SCH (10:05)
[2020-06-12] MEDS: CHOLECALCIFEROL (D3) 1,000 UNIT (25 MCG) TABLET NG SCH (10:05)
--- NOTE | 2020-06-12 10:05 | PDOC PROGRESS REPORT ---
Subjective Date:: 06/12/20 Subjective:: Patient opens his eyes to verbal stimulation but did not establish eye contact. Nonverbal. Does not appear to be in significant discomfort. Reason For Visit: ENCEPHALOPATHY, ACUTE KIDNEY PAILURE, COVID Physical Exam Vital Signs: Temp Pulse Resp BP Pulse Ox 97.4 F 82 20 129/85 H 100 06/12/20 08:00 06/12/20 08:00 06/12/20 08:00 06/12/20 08:00 06/12/20 08:00 Intake & Output 06/11/20 06/12/20 06/13/20 06:59 06:59 06:59 Intake Total 650 300 Output Total 2550 1740 Balance -1900 -1440 Weight 110 kg 92.9 kg General appearance: PRESENT: no acute distress, well-developed. ABSENT: cooperative Head exam: PRESENT: atraumatic, normocephalic Respiratory exam: PRESENT: symmetrical, other - Some central congestion. Peripherally clear. ABSENT: rales, rhonchi, tachypnea Cardiovascular exam: PRESENT: RRR, +S1, +S2. ABSENT: systolic murmur GI/Abdominal exam: PRESENT: diminished bowel sounds, soft. ABSENT: tenderness Rectal exam: PRESENT: deferred Extremities exam: ABSENT: pedal edema Musculoskeletal exam: ABSENT: ambulatory Neurological exam: PRESENT: alert, awake Psychiatric exam: ABSENT: agitated Focused psych exam: PRESENT: other - Nonverbal. No clear interaction. Results Laboratory Results: 06/11/20 04:30 06/10/20 06:05 05/07/20 05/07/20 05/08/20 20:42 20:42 04:20 Creatine Kinase 33873 H CK-MB (CK-2) 367.00 H Troponin I < 0.012 < 0.012 NT-Pro-B Natriuret Pep 282 H 05/08/20 05/08/20 05/09/20 04:20 12:15 03:38 Creatine Kinase 866735 H 267774 H CK-MB (CK-2) 323.00 H Troponin I < 0.012 NT-Pro-B Natriuret Pep 05/10/20 05/11/20 05/12/20 04:28 17:58 17:10 Creatine Kinase 42846 H 88612 H 98635 H CK-MB (CK-2) Troponin I NT-Pro-B Natriuret Pep 05/13/20 05/19/20 05/31/20 18:53 04:40 08:30 Creatine Kinase 61737 H 1260 H 62 CK-MB (CK-2) Troponin I NT-Pro-B Natriuret Pep Impressions: Cervical Spine CT 05/07/20 20:51 IMPRESSION: No acute findings in the cervical spine. TECHNICAL DOCUMENTATION: Quality ID # [id number]: Final reports with documentation of one or more dose reduction techniques (e.g., Automated exposure control, adjustment of the mA and/or kV according to patient size, use of iterative reconstruction technique) copyright 2010 [employer]- All Rights Reserved Lower Extremity Ultrasound 05/08/20 00:00 IMPRESSION: Bilateral small vessel disease. No significant stenosis above the knee. Renal Ultrasound 05/09/20 00:00 IMPRESSION: Chronic medical renal disease without hydronephrosis. Possible nonobstructive calculus right kidney. Head CT 05/15/20 00:00 IMPRESSION: STABLE MILD CHRONIC CHANGES. NO ACUTE FINDINGS. EVIDENCE OF ACUTE STROKE: NO. Lumbar Puncture 06/01/20 00:00 IMPRESSION: Lumbar puncture under fluoroscopy. No immediate complication. KUB X-Ray 06/06/20 15:58 IMPRESSION: Nasogastric tube in the stomach. Chest X-Ray 06/08/20 00:00 IMPRESSION: Improved but persistent mild patchy bibasilar opacities. Interval extubation. No other evidence of acute intrathoracic process. Venous Doppler Study 06/11/20 00:00 IMPRESSION: Acute nonocclusive DVT in the right common femoral vein, femoral vein and popliteal vein. No evidence of DVT or SVT in the left lower extremity. Assessment and Plan - Diagnosis (1) Anoxic brain damage Is this a current diagnosis for this admission?: Yes (2) Encephalopathy Is this a current diagnosis for this admission?: Yes (3) Acute kidney failure Qualifiers: Acute renal failure type: with acute tubular necrosis Qualified Code(s): N17.0 - Acute kidney failure with tubular necrosis Is this a current diagnosis for this admission?: Yes (4) Overdose Qualifiers: Encounter type: subsequent encounter Injury intent: accidental or unintentional Qualified Code(s): T50.901D - Poisoning by unspecified drugs, medicaments and biological substances, accidental (unintentional), subsequent encounter Is this a current diagnosis for this admission?: Yes (5) Pneumonia due to COVID-19 virus Is this a current diagnosis for this admission?: Yes (6) Rhabdomyolysis Qualifiers: Rhabdomyolysis type: traumatic Encounter type: subsequent encounter Qualified Code(s): T79.6XXD - Traumatic ischemia of muscle, subsequent encounter Is this a current diagnosis for this admission?: Yes (7) UTI (urinary tract infection) Qualifiers: Urinary tract infection type: acute cystitis Is this a current diagnosis for this admission?: Yes (8) DVT (deep venous thrombosis) Qualifiers: DVT location: lower extremity Affected thrombotic vein of extremity: femoral Chronicity: acute Laterality: right Qualified Code(s): I82.411 - Acute embolism and thrombosis of right femoral vein Is this a current diagnosis for this admission?: Yes - Plan Summary Summary: BeforePatient remains stuporous and not interactive. He remains completely altered. He has had no improvement in several days. He has been in the hospital for 29 days now and according to notes and records, it seems he has had no improvement in his mental status during sedation holidays while intubated and also since extubation on 05/30. Head CT shows small hypodensities in both internal capsules which may be indicative of anoxic brain injuries or possible strokes. He is also quite rigid in his extremities and occasionally posturing. Unfortunately, it seems MRI was unobtainable due to patient's hardware. EEG shows diffuse cerebral dysfunction but no epileptiform activity or seizures. LP was unremarkable. Patient does have significantly elevated BUN but has been trending down with dialysis and currently renal function is showing improvement as well. ? of whether part of the BUN increase was due to GI bleed. Patient has notably not shown any mental change with improvement of BUN which is starting to make uremic encephalopathy less likely. I do think patient likely has anoxic brain injury or suffered from a stroke. We will continue to monitor patient's mental status with continued treatment of his renal failure and will also have discussion with patient's about possible hospice care tomorrow. 06/06/2020 No improvement in patient's mental status. Of note patient has showed no improvement throughout hospital course. It seems he was taken off propofol on 05/16 and off Precedex on 05/19 eventually was extubated on 05/30 on review of chart. Essentially, being off sedation this long, he should have shown some type of improvement in his mental state. As noted, patient's rigid flexed arms as well as the subtle hypointensities on CT in b/l internal capsules suggest to me that he has sustained significant brain damage. Either anoxic brain injury following his overdose on hydrocodone or significant stroke. I do not anticipate the patient will have any improvement if he has not done so by now. BUN continues to improve gradually with hydration. Creatinine has stabilized around 2.5. Has good urinary output. Nephrology is on board. I do not think this is uremic encephalopathy. His CBC slowly downtrending so we will monitor this. He does have fecal management system so we will monitor for any bleeding evidence. Advance care planning 65mins I had a thorough conversation with patient's . I also spoke with patient's mother over the phone with present. We discussed patient's current situation and his encephalopathy and what is likely sustained brain damage. We discussed his renal failure and improvement in that condition without improvement in his mentation. We discussed that given how long he has not shown any improvement in his faculties that it is highly unlikely that he will show any improvement. We had a very elaborate conversation about the options going forward including nutrition/PEG tube, disposition in LTAC and hospice care. Also discussed on CODE STATUS elaborately. Patient's wants patient to be made a DNR/DNI. She will discuss with patient's mother further about further goals of care regarding decision of hospice care versus continued treatment. 06/07/2020 No improvement in his mental status. Prognosis remains poor. Remains with clear evidence of brain damage and rigid posturing. Remains highly unlikely that his mental status will have any improvement. Kidney function is improving. BUN is going down. Leukocytosis is resolving. We will continue meropenem for 2 more days. Remains on room air. His COVID-19 does not seem to be causing significant issues respiratory mae. He is hypernatremic today. I will give bolus of half-normal saline recheck BMP later this afternoon. If hypernatremia persists, will place on D5W. Awaiting decision from his family regarding PEG tube placement versus hospice. 06/08/2020 Patient's requested neurology evaluation before making decision on hospice. I did do consultation with neurology Dr. Castaneda at [facility]. Dr. Castaneda reviewed the images as well and did note some white matter disease and changes and we reviewed his clinical presentation and clinical course and she feels he has a noxic brain injury. In terms of prognosis, she could not give me a clear expectation as to the prognosis or how much functionality, he may recover and may have a clearer assessment in 3-6 months. It however will likely not be a tremendous jump in his functionality. I relayed my conversation with patient's and she wants to proceed with PEG tube placement and waiting a few months before deciding on hospice. I have consulted surgery for PEG tube placement. We will try to get patient placement. Mildly hypernatremic today so I have increased free water flushes to 200 cc every 4 hours. Continue half-normal saline. Check electrolytes in the morning. Will start on Flexeril for rigidity. Occupational Therapy consult. 06/09/2020 Still hypernatremic today. Mildly tachycardic. Chest x-ray yesterday actually shows improved aeration. We will continue meropenem today. Continue Flexeril. Recheck Covid test. I will try to get him off the IV fluids and increase his tube flushes to 300 cc every 4 hours. Continue to monitor I's and O's. PEG tube placement planned for Thursday. 06/10/2020 Opens eyes to voice today. It remains unclear if he can understand what is being told. I did instruct him to shut his eyes which he did briefly but on further instructions to repeat the same process he did not follow instruction. His Covid is now negative. Likely has cleared the infection as he has been here over a month. Renal function continues to improve. He is now off IV fluids and just on tube free water flushes. Tube feeds will be stopped at midnight with plan for PEG tube placement tomorrow subsequent placement. 06/11/2020 Renal function continues to improve. Patient does show some episodes of cluster breathing consistent with his anoxic brain injury. Patient cannot obtain PEG tu be due to history of bariatric surgery and would require a J-tube instead with transferring to the ICU for recovery. I did obtain a ultrasound of patient's legs as his right leg is more swollen than left. Notably he has DVT in his right leg. Propagated by his COVID-19 and immobility. I discussed patient's situation especially the dilemma that this presents with patient's Kelsi. Ideally I would have started patient on heparin drip but the patient had remarkable amount of blood loss anemia from GI bleed earlier in admission and required 6 units of blood transfusion in the ICU. He was also noted to have some blood in his stool 2 days ago. He would require endoscopic evaluation before starting him on a heparin drip so as not to precipitate a fatal bleed. I discussed these plans with patient's and she was hesitant to go ahead with these procedures especially the J-tube placement. After an extensive conversation, Kelsi made a firm decision to proceed with inpatient hospice. She states that patient would not want to live like this. She specifically requested [facility] hospice. I have placed a discharge planning consult. I have notified surgery about cancellation of the procedure. 06/12/2020- Reviewed previous notes. Patient was noninteractive today. He did open his eyes to verbal stimulus but did not make eye contact. As noted above the placement of a J-tube is not going to be undertaken. In fact a consult has been placed for [facility] hospice. I will discontinue the Accu-Cheks and sliding scale insulin. No other changes at this time. Once hospice is confirmed we will discontinue other medications not intended for comfort. We will continue current dressing changes and other aspects of care. I will coordinate with discharge planning. I will help facilitate placement to the best extent possible. - Time Time Spent with patient: 15-24 minutes Medications reviewed and adjusted accordingly: Yes Anticipated Discharge Disposition: Hospice Center Anticipated Discharge Timeframe: when bed available
[2020-06-12] MEDS: COLLAGENASE CLOSTRIDIUM HIST. OINT 30 GM TP SCH (10:06)
[2020-06-12] MEDS: ASCORBIC ACID 500 MG TABLET NG SCH (10:06)
[2020-06-12] MEDS: LEVETIRACETAM ORAL SOLN 500 MG/5 ML UDCUP PO SCH (10:06)
--- NOTE | 2020-06-12 16:10 | PDOC TRANSFER SUMMARY ---
General - Admit/Disc Date/PCP Admission Date/Primary Care Provider: 05/07/20 23:08 ANTONIO MAJOR MD Discharge Date: 06/12/20 - Discharge Diagnosis (1) Anoxic brain damage Is this a current diagnosis for this admission?: Yes (2) Encephalopathy Is this a current diagnosis for this admission?: Yes (3) Acute kidney failure Is this a current diagnosis for this admission?: Yes (4) Overdose Is this a current diagnosis for this admission?: Yes (5) Pneumonia due to COVID-19 virus Is this a current diagnosis for this admission?: Yes (6) Rhabdomyolysis Is this a current diagnosis for this admission?: Yes (7) UTI (urinary tract infection) Is this a current diagnosis for this admission?: Yes (8) DVT (deep venous thrombosis) Is this a current diagnosis for this admission?: Yes - Additional Information Resuscitation Status: Do Not Resuscitate Discharge Diet: Tube Feeding (Comments) - Will likely discontinue at hospice house Discharge Activity: Bedrest Home Medications: Allopurinol [Zyloprim 300 mg Tablet] 300 mg PO DAILY 05/08/20 Amlodipine Besylate [Norvasc 5 mg Tablet] 5 mg PO DAILY 05/08/20 Colchicine [Colcrys 0.6 mg Tablet] 0.6 mg PO BID 05/08/20 Diclofenac Sodium 100 gm TP QIDP PRN 05/08/20 Gabapentin [Neurontin 300 mg Capsule] 300 mg PO Q8 05/08/20 Hydrocodone/Acetaminophen [Iola 5-325 mg Tablet] 1 tab PO TIDP PRN 05/08/20 Losartan Potassium 100 mg PO DAILY 05/08/20 Mirtazapine [Remeron] 15 mg PO QHS 05/08/20 Potassium Citrate [Potassium Citrate ER] 10 meq PO DAILY 05/08/20 Tizanidine HCl [Zanaflex] 4 mg PO Q8HP PRN 05/08/20 Venlafaxine HCl [Effexor Xr] 150 mg PO Q12 05/08/20 History of Present Illness Admission Date/PCP: 05/07/20 23:08 ANTONIO MAJOR MD History of Present Illness: JOSELITO WEINER JR is a 54 year old male with a history of hypertension, gout, chronic opioid use for ankle pain, heavy daily alcohol use presents with altered mental status x1 day. 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 Patient's says that she went back to check on him shortly before activating EMS and he was still sitting up but completely unresponsive to her, she says that his pupils were constricted, and she called EMS. EMS says that patient was obtunded, was given Narcan in the field which he initially seemed to have response to but then became obtunded again and had some seizure-like movements in route. Patient was ventilated with BVM but never had a loss of pulses. Was hyperglycemic in the field. Patient's denies patie nt having any recent illness, complaining of any chest pain, headache, neck pain, fever, diarrhea or vomiting, renal history (says that he has had multiple episodes of kidney stones in the past but no recent issues and no renal insufficiency history). Patient's said patient just refilled his h ydrocodone and that when she looked at his pills they were 1 or 2 days fewer pills than she should have still had. Has had a history of overuse of prescribed opioids. History limited by patient's altered mental status. He received another dose of narcan which did not helped, he remains obtunded then required to be intubated to protect his airways. His EKG noted a widening rhtymn which dissipated after a dose of calcium IV, mostly @ V1 - V3. Hospital Course Hospital Course: (1) Anoxic brain damage Is this a current diagnosis for this admission?: Yes (2) Encephalopathy Is this a current diagnosis for this admission?: Yes (3) Acute kidney failure Qualifiers: Acute renal failure type: with acute tubular necrosis Qualified Code(s): N17.0 - Acute kidney failure with tubular necrosis Is this a current diagnosis for this admission?: Yes (4) Overdose Qualifiers: Encounter type: subsequent encounter Injury intent: accidental or unintentional Qualified Code(s): T50.901D - Poisoning by unspecified drugs, medicaments and biological substances, accidental (unintentional), subsequent encounter Is this a current diagnosis for this admission?: Yes (5) Pneumonia due to COVID-19 virus Is this a current diagnosis for this admission?: Yes (6) Rhabdomyolysis Qualifiers: Rhabdomyolysis type: traumatic Encounter type: subsequent encounter Qualified Code(s): T79.6XXD - Traumatic ischemia of muscle, subsequent encounter Is this a current diagnosis for this admission?: Yes (7) UTI (urinary tract infection) Qualifiers: Urinary tract infection type: acute cystitis Is this a current diagnosis for this admission?: Yes (8) DVT (deep venous thrombosis) Qualifiers: DVT location: lower extremity Affected thrombotic vein of extremity: femoral Chronicity: acute Laterality: right Qualified Code(s): I82.411 - Acute embolism and thrombosis of right femoral vein Is this a current diagnosis for this admission?: Yes Summary: BeforePatient remains stuporous and not interactive. He remains completely altered. He has had no improvement in several days. He has been in the hospital for 29 days now and according to notes and records, it seems he has had no improvement in his mental status during sedation holidays while intubated and also since extubation on 05/30. Head CT shows small hypodensities in both internal capsules which may be indicative of anoxic brain injuries or possible strokes. He is also quite rigid in his extremities and occasionally posturing. Unfortunately, it seems MRI was unobtainable due to patient's hardware. EEG shows diffuse cerebral dysfunction but no epileptiform activity or seizures. LP was unremarkable. Patient does have significantly elevated BUN but has been trending down with dialysis and currently renal function is showing improvement as well. ? of whether part of the BUN increase was due to GI bleed. Patient has notably not shown any mental change with improvement of BUN which is starting to make uremic encephalopathy less likely. I do think patient likely has anoxic brain injury or suffered from a stroke. We will continue to monitor patient's mental status with continued treatment of his renal failure and will also have discussion with patient's about possible hospice care tomorrow. 06/06/2020 No improvement in patient's mental status. Of note patient has showed no improvement throughout hospital course. It seems he was taken off propofol on 05/16 and off Precedex on 05/19 eventually was extubated on 05/30 on review of chart. Essentially, being off sedation this long, he should have shown some type of improvement in his mental state. As noted, patient's rigid flexed arms as well as the subtle hypointensities on CT in b/l internal capsules suggest to me that he has sustained significant brain damage. Either anoxic brain injury following his overdose on hydrocodone or significant stroke. I do not anticipate the patient will have any improvement if he has not done so by now. BUN continues to improve gradually with hydration. Creatinine has stabilized around 2.5. Has good urinary output. Nephrology is on board. I do not think this is uremic encephalopathy. His CBC slowly downtrending so we will monitor this. He does have fecal management system so we will monitor for any bleeding evidence. Advance care planning 65mins I had a thorough conversation with patient's . I also spoke with patient's mother over the phone with present. We discussed patient's current situation and his encephalopathy and what is likely sustained brain damage. We discussed his renal failure and improvement in that condition without improvement in his mentation. We discussed that given how long he has not shown any improvement in his faculties that it is highly unlikely that he will show any improvement. We had a very elaborate conversation about the options going forward including nutrition/PEG tube, disposition in LTAC and hospice care. Also discussed on CODE STATUS elaborately. Patient's wants patient to be made a DNR/DNI. She will discuss with patient's mother further about further goals of care regarding decision of hospice care versus continued treatment. 06/07/2020 No improvement in his mental status. Prognosis remains poor. Remains with clear evidence of brain damage and rigid posturing. Remains highly unlikely that his mental status will have any improvement. Kidney function is improving. BUN is going down. Leukocytosis is resolving. We will continue meropenem for 2 more days. Remains on room air. His COVID-19 does not seem to be causing significant issues respiratory mae. He is hypernatremic today. I will give bolus of half-normal saline recheck BMP later this afternoon. If hypernatremia persists, will place on D5W. Awaiting decision from his family regarding PEG tube placement versus hospice. 06/08/2020 Patient's requested neurology evaluation before making decision on hospice. I did do consultation with neurology Dr. Castaneda at [facility]. Dr. Castaneda reviewed the images as well and did note some white matter disease and changes and we reviewed his clinical presentation and clinical course and she feels he has anoxic brain injury. In terms of prognosis, she could not give me a clear expectation as to the prognosis or how much functionality, he may recover and may have a clearer assessment in 3-6 months. It however will likely not be a tremendous jump in his functionality. I relayed my conversation with patient's and she wants to proceed with PEG tube placement and waiting a few months before deciding on hospice. I have consulted surgery for PEG tube placement. We will try to get patient placement. Mildly hypernatremic today so I have increased free water flushes to 200 cc every 4 hours. Continue half-normal saline. Check electrolytes in the morning. Will start on Flexeril for rigidity. Occupational Therapy consult. 06/09/2020 Still hypernatremic today. Mildly tachycardic. Chest x-ray yesterday actually shows improved aeration. We will continue meropenem today. Continue Flexeril. Recheck Covid test. I will try to get him off the IV fluids and increase his tube flushes to 300 cc every 4 hours. Continue to monitor I's and O's. PEG tube placement planned for Thursday. 06/10/2020 Opens eyes to voice today. It remains unclear if he can understand what is being told. I did instruct him to shut his eyes which he did briefly but on further instructions to repeat the same process he did not follow instruction. His Covid is now negative. Likely has cleared the infection as he has been here over a month. Renal function continues to improve. He is now off IV fluids and just on tube free water flushes. Tube feeds will be stopped at midnight with plan for PEG tube placement tomorrow subsequent placement. 06/11/2020 Renal function continues to improve. Patient does show some episodes of cluster breathing consistent with his anoxic brain injury. Patient cannot obtain PEG tube due to history of bariatric surgery and would require a J-tube instead with transferring to the ICU for recovery. I did obtain a ultrasound of patient's legs as his right leg is more swollen than left. Notably he has DVT in his right leg. Propagated by his COVID-19 and immobility. I discussed patient's situation especially the dilemma that this presents with patient's Kelsi. Ideally I would have started patient on heparin drip but the patient had remarkable amount of blood loss anemia from GI bleed earlier in admission and required 6 units of blood transfusion in the ICU. He was also noted to have some blood in his stool 2 days ago. He would require endoscopic evaluation before starting him on a heparin drip so as not to precipitate a fatal bleed. I discussed these plans with patient's and she was hesitant to go ahead with these procedures especially the J-tube placement. After an extensive conversation, Kelsi made a firm decision to proceed with inpatient hospice. She states that patient would not want to live like this. She specifically requested [facility] hospice. I have placed a discharge planning consult. I have notified surgery about cancellation of the procedure. 06/12/2020- Reviewed previous notes. Patient was noninteractive today. He did open his eyes to verbal stimulus but did not make eye contact. As noted above the placement of a J-tube is not going to be undertaken. In fact a consult has been placed for [facility] hospice. I will discontinue the Accu-Cheks and sliding scale insulin. No other changes at this time. Once hospice is confirmed we will discontinue other medications not intended for comfort. We will continue current dressing changes and other aspects of care. I will coordinate with discharge planning. I will help facilitate placement to the best extent possible. Physical Exam Vital Signs: Temp Pulse Resp BP Pulse Ox 97.3 F 93 24 H 123/79 100 06/12/20 11:08 06/12/20 14:00 06/12/20 11:08 06/12/20 11:08 06/12/20 11:08 Intake & Output 06/11/20 06/12/20 06/13/20 06:59 06:59 06:59 Intake Total 650 300 87 Output Total 2550 1740 300 Balance -1900 -1440 -213 Weight 110 kg 92.9 kg General appearance: PRESENT: no acute distress, other - Unresponsive. He did open his eyes but did not establish any eye contact. No meaningful interaction. Respiratory exam: PRESENT: clear to auscultation bernard - Anteriorly peripherally, symmetrical, unlabored, other - Very congested breath sounds centrally with a cough. ABSENT: rales, rhonchi, tachypnea, wheezes Cardiovascular exam: PRESENT: RRR, +S1, +S2 GI/Abdominal exam: PRESENT: diminished bowel sounds, soft. ABSENT: tenderness Rectal exam: PRESENT: deferred Neurological exam: PRESENT: alert, altered, awake. ABSENT: oriented to person, oriented to place, oriented to time, oriented to situation Psychiatric exam: PRESENT: flat affect. ABSENT: agitated, anxious Results Laboratory Results: 06/11/20 04:30 06/10/20 06:05 05/07/20 05/07/20 05/08/20 20:42 20:42 04:20 Creatine Kinase 06533 H CK-MB (CK-2) 367.00 H Troponin I < 0.012 < 0.012 NT-Pro-B Natriuret Pep 282 H 05/08/20 05/08/20 05/09/20 04:20 12:15 03:38 Creatine Kinase 638910 H 115909 H CK-MB (CK-2) 323.00 H Troponin I < 0.012 NT-Pro-B Natriuret Pep 05/10/20 05/11/20 05/12/20 04:28 17:58 17:10 Creatine Kinase 34809 H 28213 H 92896 H CK-MB (CK-2) Troponin I NT-Pro-B Natriuret Pep 05/13/20 05/19/20 05/31/20 18:53 04:40 08:30 Creatine Kinase 40684 H 1260 H 62 CK-MB (CK-2) Troponin I NT-Pro-B Natriuret Pep Impressions: Cervical Spine CT 05/07/20 20:51 IMPRESSION: No acute findings in the cervical spine. TECHNICAL DOCUMENTATION: Quality ID # [id number]: Final reports with documentation of one or more dose reduction techniques (e.g., Automated exposure control, adjustment of the mA and/or kV according to patient size, use of iterative reconstruction technique) copyright 2011 [employer]- All Rights Reserved Lower Extremity Ultrasound 05/08/20 00:00 IMPRESSION: Bilateral small vessel disease. No significant stenosis above the knee. Renal Ultrasound 05/09/20 00:00 IMPRESSION: Chronic medical renal disease without hydronephrosis. Possible nonobstructive calculus right kidney. Head CT 05/15/20 00:00 IMPRESSION: STABLE MILD CHRONIC CHANGES. NO ACUTE FINDINGS. EVIDENCE OF ACUTE STROKE: NO. Lumbar Puncture 06/01/20 00:00 IMPRESSION: Lumbar puncture under fluoroscopy. No immediate complication. KUB X-Ray 06/06/20 15:58 IMPRESSION: Nasogastric tube in the stomach. Chest X-Ray 06/08/20 00:00 IMPRESSION: Improved but persistent mild patchy bibasilar opacities. Interval extubation. No other evidence of acute intrathoracic process. Venous Doppler Study 06/11/20 00:00 IMPRESSION: Acute nonocclusive DVT in the right common femoral vein, femoral vein and popliteal vein. No evidence of DVT or SVT in the left lower extremity. Transfer Plan - Disposition Transfer Plan: Patient will transfer to inpatient hospice today. - Time Spent with Patient Time spent with patient: Greater than 30 Minutes Qualifiers PATIENT BEING DISCHARGED WITH ANY OF THE FOLLOWING DIAGNOSIS: No Plan Discharge Plan: Transfer to inpatient hospice Time Spent: Greater than 30 Minutes
[2020-06-12 17:15] VITALS: BP 120/82
== END 2020-06-12 17:36 | disposition hospice, inpatient (51) | DRG 917 ==
LOC: ER 20:37 → EH 23:08 → ICU 23:35 → 3W 05-30 15:26 → 4N 06-09 19:50
PROVIDERS: ADMIT Internal Medicine Critical Care Medicine; ATTEND Hospitalist
PROC: 5A1955Z Respiratory Ventilation, Greater than 96 Consecutive Hours (ICD-10-PCS; principal; 2020-05-07)
PROC: 0BH17EZ Insertion of Endotracheal Airway into Trachea, Via Natural or Artificial Opening (ICD-10-PCS; 2020-05-07)
PROC: 05HM33Z Insertion of Infusion Device into Right Internal Jugular Vein, Percutaneous Approach (ICD-10-PCS; 2020-05-08)
PROC: 05HN33Z Insertion of Infusion Device into Left Internal Jugular Vein, Percutaneous Approach (ICD-10-PCS; 2020-05-11)
PROC: 5A1D70Z Performance of Urinary Filtration, Intermittent, Less than 6 Hours Per Day (ICD-10-PCS; 2020-05-11)
PROC: XW033E5 Introduction of Remdesivir Anti-infective into Peripheral Vein, Percutaneous Approach, New Technology Group 5 (ICD-10-PCS; 2020-05-12)
PROC: 30233N1 Transfusion of Nonautologous Red Blood Cells into Peripheral Vein, Percutaneous Approach (ICD-10-PCS; 2020-05-17)
PROC: 02HV33Z Insertion of Infusion Device into Superior Vena Cava, Percutaneous Approach (ICD-10-PCS; 2020-05-25)
PROC: 009U3ZX Drainage of Spinal Canal, Percutaneous Approach, Diagnostic (ICD-10-PCS; 2020-06-01)
PROC: B01BZZZ Fluoroscopy of Spinal Cord (ICD-10-PCS; 2020-06-01)
DX: T40.2X1A Poisoning by other opioids, accidental (unintentional), initial encounter (principal); U07.1 COVID-19; N30.00 Acute cystitis without hematuria; T83.511A Infection and inflammatory reaction due to indwelling urethral catheter, initial encounter; J12.82 Pneumonia due to coronavirus disease 2019; N17.0 Acute kidney failure with tubular necrosis; J96.01 Acute respiratory failure with hypoxia; J96.02 Acute respiratory failure with hypercapnia; N39.0 Urinary tract infection, site not specified; G93.1 Anoxic brain damage, not elsewhere classified; I82.411 Acute embolism and thrombosis of right femoral vein; E87.0 Hyperosmolality and hypernatremia; J44.0 Chronic obstructive pulmonary disease with (acute) lower respiratory infection; R64 Cachexia; F10.29 Alcohol dependence with unspecified alcohol-induced disorder; E87.2 Acidosis; K62.5 Hemorrhage of anus and rectum; I10 Essential (primary) hypertension; R41.82 Altered mental status, unspecified; M25.579 Pain in unspecified ankle and joints of unspecified foot; T79.6XXA Traumatic ischemia of muscle, initial encounter; X58.XXXA Exposure to other specified factors, initial encounter; Y92.9 Unspecified place or not applicable; E87.5 Hyperkalemia; Z66 Do not resuscitate; R73.9 Hyperglycemia, unspecified; F32.9 Major depressive disorder, single episode, unspecified; B95.2 Enterococcus as the cause of diseases classified elsewhere; E83.52 Hypercalcemia; E88.09 Other disorders of plasma-protein metabolism, not elsewhere classified; D69.6 Thrombocytopenia, unspecified; D64.9 Anemia, unspecified; E66.01 Morbid (severe) obesity due to excess calories; Y84.6 Urinary catheterization as the cause of abnormal reaction of the patient, or of later complication, without mention of misadventure at the time of the procedure; Z99.2 Dependence on renal dialysis; Z78.1 Physical restraint status; Z79.899 Other long term (current) drug therapy; Z79.891 Long term (current) use of opiate analgesic
CPT/HCPCS: 0202U; 36415; 36430; 36556; 36600; 62328; 70450; 71045; 72125; 74018; 76770; 80048; 80053; 80061; 80076; 80202; 80307; 81001; 82040; 82140; 82150; 82272; 82330; 82550; 82553; 82728; 82803; 82945; 82962; 83010; 83036; 83605; 83615; 83690; 83735; 83880; 84100; 84132; 84157; 84443; 84478; 84484; 85025; 85027; 85379; 85384; 85610; 85730; 86022; 86140; 86317; 86704; 86850; 86900; 86901; 86920; 87040; 87070; 87077; 87086; 87088; 87150; 87186; 87205; 87324; 87340; 87449; 87522; 87635; 89050; 89055; 93005; 93010; 93503; 93925; 93970; 94002; 94003; 94640; 95819; 96361; 96374; 96375; 99222; 99285; 99291; J0610; 0241U; C9113; C9803; J1100; J1642; J1644; J1815; J1940; J1953; J2060; J2185; J2270; J2310; J2543; J2704; J2997; J3010; J3370; J3475; J3480; J3490; J7030; J7042; J7050; J7060; J7120; J7613; P9016; P9047; Q5105